=== PATIENT | female | born 1955 | race Two or more races ===

== ENCOUNTER 2021-01-23 11:36 | Inpatient (IN) | payer MEDICAID, OTHER ==
[~2021-01-23] VITALS: Ht 165.1 cm; Wt 79.2 kg
[2021-01-23 12:32] LABS: Basophils # (auto) 0.1 10 ^3/uL (0-0.2); Eosinophils # (auto) 0.1 10 ^3/uL (0-0.8); Mean Corpuscular Hemoglobin 24.9 pg (28.0-32.0); Monocytes # (auto) 0.3 10 ^3/uL (0-1.3); Neutrophils # (auto) 2.7 10 ^3/uL (1.6-8.6); White Blood Cell 4.1 10^3/uL (4.4-10.8)
[2021-01-23 12:34] LABS: Basophils % (auto) 1.3 % (0.0-2.0); Eosinophils % (auto) 2.2 % (0.0-7.0); Lymphocytes % (auto) 24.2 % (10.0-50.0); Mean Corpuscular Hgb Conc. 32.3 g/dL (32.0-36.0); Mean Corpuscular Volume 77.2 fL (80.0-100.0); Monocytes % (auto) 7.3 % (0.0-12.0); Nucleated Red Blood Cells % 0.1 %; Red Blood Cells 2.72 10^6/uL (4.0-5.20); Red Cell Distribution Width 15.9 % (11.8-14.3)
[2021-01-23 12:39] LABS: Hemoglobin 6.8 g/dL (12.2-16.2)
[2021-01-23 13:00] LABS: Albumin 3.3 g/dL (3.4-5.0); Calcium 8.6 mg/dL (8.5-10.1); Potassium 3.7 mmol/L (3.5-5.1)
[2021-01-23] MEDS ORDERED: PANTOPRAZOLE 40 MG/10 ML VIAL INJ IV ONE (13:00)
[2021-01-23 13:07] LABS: Urine Amorphous Crystal FEW /hpf (None Seen); Urine Bacteria FEW /hpf (None Seen); Urine Blood Negative /uL (Negative); Urine Mucus FEW (None Seen); Urine Specific Gravity 1.023 (1.001-1.035); Urine WBC 10 /hpf (0 - 5)
[2021-01-23 13:08] LABS: BUN/Creatinine Ratio 29.9
[2021-01-23 13:10] LABS: Bilirubin, Total 0.5 mg/dL (0.2-1.0); Total Protein 6.8 g/dL (6.4-8.2)
[2021-01-23] MEDS ORDERED: NITROGLYCERIN 0.4 MG SL TAB SL PRN (16:30)
[2021-01-23] MEDS ORDERED: HYDROcodone-ACET 5/325MG TAB PO PRN (16:30)
[2021-01-23] MEDS ORDERED: ACETAMINOPHEN 500 MG TAB PO PRN (16:30)
[2021-01-23] MEDS ORDERED: SODIUM CHLORIDE 0.9% 1,000 ML IV ONE (16:30)
[2021-01-23] MEDS ORDERED: ONDANSETRON HCL 4 MG/2 ML VIAL IV PRN (16:30)
[2021-01-23] MEDS ORDERED: MORPHINE SULF INJ 2 MG/ML SYRINGE 1ML IV PRN ×2 (16:30)
[2021-01-23 18:00] VITALS: BP 108/36
[2021-01-23 18:16] VITALS: BP 114/54
[2021-01-23 20:40] VITALS: BP 117/62
[2021-01-23] MEDS: PANTOPRAZOLE 40 MG/10 ML VIAL INJ IV SCH (21:41)
[2021-01-23 22:00] VITALS: BP 120/69
[2021-01-23 23:25] VITALS: BP 118/51
[2021-01-23 23:44] VITALS: BP 101/44
[2021-01-24 05:00] VITALS: BP 107/66
[2021-01-24 06:59] LABS: Basophils # (auto) 0 10 ^3/uL (0-0.2); Basophils % (auto) 1.4 % (0.0-2.0); Eosinophils # (auto) 0.1 10 ^3/uL (0-0.8); Monocytes # (auto) 0.3 10 ^3/uL (0-1.3); Neutrophils # (auto) 1.6 10 ^3/uL (1.6-8.6)
[2021-01-24 07:01] LABS: Eosinophils % (auto) 2.4 % (0.0-7.0); Hematocrit 25.8 % (36.0-46.0); Hemoglobin 8.9 g/dL (12.2-16.2); Lymphocytes # (auto) 0.7 10 ^3/uL (0.4-5.4); Lymphocytes % (auto) 27.7 % (10.0-50.0); Mean Corpuscular Hgb Conc. 34.3 g/dL (32.0-36.0); Mean Corpuscular Volume 78.9 fL (80.0-100.0); Monocytes % (auto) 9.8 % (0.0-12.0); Neutrophils % (auto) 58.7 % (37.0-80.0); Red Blood Cells 3.27 10^6/uL (4.0-5.20); Red Cell Distribution Width 17.2 % (11.8-14.3); White Blood Cell 2.7 10^3/uL (4.4-10.8)
[2021-01-24 07:15] LABS: BUN/Creatinine Ratio 21.2; Calcium 8.3 mg/dL (8.5-10.1); Potassium 3.6 mmol/L (3.5-5.1)
[2021-01-24 07:31] LABS: % Iron Saturation 7.7 % (15-50)
[2021-01-24 07:35] VITALS: BP 116/60
[2021-01-24] MEDS: cefTRIAXone 1GM/50ML D5W 50 ML IV SCH (08:45)
[2021-01-24 09:00] VITALS: BP 116/60
[2021-01-24] MEDS: PANTOPRAZOLE 40 MG/10 ML VIAL INJ IV SCH (09:50)
[2021-01-24] MEDS ORDERED: LIDOCAINE VISCOUS 2% 15ML UD ONE (10:11)
[2021-01-24] MEDS ORDERED: diphenhdrAMINE HCL 50 MG/1 ML VL ONE (10:11)
[2021-01-24] MEDS: SODIUM CHLORIDE 0.9% 1,000 ML IV SCH (12:50)
[2021-01-24 13:00] VITALS: BP 126/69
[2021-01-24 17:00] VITALS: BP 120/70
[2021-01-24] MEDS: MIDAZOLAM HCL 5 MG/ML-1ML VIAL ONE ×2 (17:34→17:37)
[2021-01-24] MEDS: fentaNYL CITRATE 100 MCG/2 ML VL ONE ×2 (17:34→17:37)
[2021-01-24 22:00] VITALS: BP 114/59
[2021-01-25] MEDS: SODIUM CHLORIDE 0.9% 1,000 ML IV SCH ×2 (01:05→14:25)
[2021-01-25 05:00] VITALS: BP 108/58
[2021-01-25 05:59] LABS: Basophils # (auto) 0 10 ^3/uL (0-0.2); Basophils % (auto) 0.9 % (0.0-2.0); Eosinophils # (auto) 0.1 10 ^3/uL (0-0.8); Eosinophils % (auto) 2.3 % (0.0-7.0); Hematocrit 26.8 % (36.0-46.0); Lymphocytes # (auto) 0.6 10 ^3/uL (0.4-5.4); Lymphocytes % (auto) 21.8 % (10.0-50.0); Mean Corpuscular Hemoglobin 26.7 pg (28.0-32.0); Mean Corpuscular Hgb Conc. 33.6 g/dL (32.0-36.0); Mean Corpuscular Volume 79.4 fL (80.0-100.0); Monocytes # (auto) 0.2 10 ^3/uL (0-1.3); Monocytes % (auto) 8.1 % (0.0-12.0); Neutrophils # (auto) 1.9 10 ^3/uL (1.6-8.6); Neutrophils % (auto) 66.9 % (37.0-80.0); Nucleated Red Blood Cells % 0.2 %; Red Blood Cells 3.38 10^6/uL (4.0-5.20); Red Cell Distribution Width 17.5 % (11.8-14.3); White Blood Cell 2.8 10^3/uL (4.4-10.8)
[2021-01-25 06:13] LABS: INR 1.05 (0.9-1.15); Partial Thromboplastin Time 21.4 sec (23.6-33.0)
[2021-01-25 06:20] LABS: Potassium 3.8 mmol/L (3.5-5.1)
[2021-01-25 06:26] LABS: BUN/Creatinine Ratio 18.8
[2021-01-25 06:29] LABS: Bilirubin, Total 0.8 mg/dL (0.2-1.0); Total Protein 6.1 g/dL (6.4-8.2)
[2021-01-25 08:00] VITALS: BP 138/90
[2021-01-25 08:04] LABS: Hepatitis B Surface Antibody Negative
[2021-01-25 08:40] LABS: Hepatitis A Total Antibody Positive
[2021-01-25 09:00] VITALS: BP 138/90
[2021-01-25] MEDS: cefTRIAXone 1GM/50ML D5W 50 ML IV SCH (09:55)
[2021-01-25] MEDS: PANTOPRAZOLE 40 MG/10 ML VIAL INJ IV SCH ×2 (09:55)
[2021-01-25 12:47] LABS: Hepatitis B Core Total AB Negative; Hepatitis B Surface Antigen Negative (Negative)
[2021-01-25 12:48] LABS: Hepatitis C Antibody Negative (Negative)
[2021-01-25 13:00] VITALS: BP 122/65
[2021-01-25 17:00] VITALS: BP 127/68
[2021-01-25] MEDS ORDERED: SUCRALFATE 1 GM/10 ML ORAL SUSP GT SCH (17:00)
[2021-01-25 17:50] VITALS: BP 127/68
== END 2021-01-25 18:40 | disposition home or self-care (01) | DRG 241 ==
LOC: ER 11:36 → TELE 16:27 → TELE-CENTR 18:56
PROVIDERS: ADMIT Nurse Practitioner Acute Care; ATTEND Nurse Practitioner Acute Care
PROC: 30230N1 Transfusion of Nonautologous Red Blood Cells into Peripheral Vein, Open Approach (ICD-10-PCS; principal; 2021-01-23)
PROC: 0DB98ZX Excision of Duodenum, Via Natural or Artificial Opening Endoscopic, Diagnostic (ICD-10-PCS; 2021-01-24)
PROC: 0DB68ZX Excision of Stomach, Via Natural or Artificial Opening Endoscopic, Diagnostic (ICD-10-PCS; 2021-01-24)
DX: K27.4 Chronic or unspecified peptic ulcer, site unspecified, with hemorrhage (principal); D50.9 Iron deficiency anemia, unspecified; N39.0 Urinary tract infection, site not specified; K29.71 Gastritis, unspecified, with bleeding; K29.91 Gastroduodenitis, unspecified, with bleeding; K44.9 Diaphragmatic hernia without obstruction or gangrene; Z20.822 Contact with and (suspected) exposure to COVID-19
CPT/HCPCS: 36415; 36430; 43239; 74176; 76705; 80048; 80053; 81001; 82270; 82607; 82728; 83540; 83550; 84443; 85025; 85610; 85730; 86038; 86704; 86706; 86708; 86803; 86850; 86900; 86901; 86920; 87086; 87340; 87426; 93005; 96374; 96375; C9113; G0378; J0696; J2250

== ENCOUNTER 2024-06-06 14:07 | Inpatient (IN) | payer MEDICAID ==
[~2024-06-06] VITALS: Ht 157.5 cm; Wt 70.8 kg
[2024-06-06 14:57] LABS: Basophils # (auto) 0 10 ^3/uL (0-0.2); Basophils % (auto) 1.3 % (0.0-2.0); Eosinophils # (auto) 0.1 10 ^3/uL (0-0.8); Eosinophils % (auto) 3.8 % (0.0-7.0); Hematocrit 24.6 % (36.0-46.0); Hemoglobin 7.6 g/dL (12.2-16.2); Lymphocytes # (auto) 0.4 10 ^3/uL (0.4-5.4); Lymphocytes % (auto) 12.9 % (10.0-50.0); Mean Corpuscular Hemoglobin 36.8 pg (28.0-32.0); Mean Corpuscular Hgb Conc. 30.8 g/dL (32.0-36.0); Mean Corpuscular Volume 119.3 fL (80.0-100.0); Monocytes # (auto) 0.3 10 ^3/uL (0-1.3); Monocytes % (auto) 8.9 % (0.0-12.0); Neutrophils # (auto) 2.4 10 ^3/uL (1.6-8.6); Neutrophils % (auto) 73.1 % (37.0-80.0); Nucleated Red Blood Cells % 0.5 %; Platelet Count (auto) 142 10^3/uL (140-450); Red Blood Cells 2.06 10^6/uL (4.0-5.20); Red Cell Distribution Width 16.6 % (11.8-14.3); White Blood Cell 3.3 10^3/uL (4.4-10.8)
[2024-06-06 15:21] LABS: Alanine Aminotransferase 33 U/L (7-40); Albumin 3.9 g/dL (3.2-4.8); Anion Gap 10 (5-15); BUN/Creatinine Ratio 12.7 (10.0-20.0); Blood Urea Nitrogen 15 mg/dL (9-23); Calcium 9.5 mg/dL (8.7-10.4); Potassium 4.3 mmol/L (3.5-5.1); Sodium 139 mmol/L (136-145); Total Protein 6.4 g/dL (5.7-8.2)
[2024-06-06 15:23] LABS: Alkaline Phosphatase 231 U/L (46-116); Aspartate Aminotransferase 69 U/L (13-40); Bilirubin, Total 4.8 mg/dL (0.2-1.0); Carbon Dioxide 19 mmol/L (20-31); Chloride 110 mmol/L (98-107); Glucose 128 mg/dL (74-106)
--- NOTE | 2024-06-06 16:28 | ED.PDOC ---
GI ASSESSMENT HPI Comments This 70-year-old female with a past medical history significant for multiple esophageal variceal bleed requiring transplant presents to the emergency room secondary to a several day history of increasing weakness and shortness of breath. The patient appears pale and complains of feeling cold. She endorses bloody stool and hematuria. She has no other complaints at his headaches and vision changes, chest pain, flank pain, abdominal pain, nausea, vomiting or diarrhea. 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 Family History Family History: Reviewed,noncontributory to illness Social History Smoker: Non-Smoker Alcohol: Denies ETOH Use Drugs: Denies Drug Use Lives In: Home Constitutional: reports: chills, fatigue, malaise, weakness; denies: fever, sweats EENTM: denies: blurred vision, double vision, ear bleeding, ear discharge, ear drainage, ear pain, ear ringing, eye pain, eye redness, hearing loss, mouth pain, mouth swelling, nasal discharge, nose bleeding, nose congestion, nose pain, photophobia, tearing, throat pain, throat swelling, voice changes, others Respiratory: denies: cough, hemoptysis, orthopnea, SOB at rest, shortness of breath, SOB with excertion, stridor, wheezing, others Cardiovascular: reports: dizzy spells, Dyspnea on exertion, lightheadedness, palpitations; denies: chest pain, diaphoresis, edema, irregular heart beat, left arm pain, PND, syncope, others Gastrointestinal: reports: blood streaked bowels, melena, rectal bleeding; denies: abdomen distended, abdominal pain, constipated, diarrhea, dysphagia, difficulty swallowing, hematemesis, nausea, poor appetite, poor fluid intake, rectal pain, vomiting, others Genitourinary: reports: hematuria; denies: abnormal vagina bleeding, burning, dyspareunia, dysuria, flank pain, frequency, incontinence, pain, , vagina discharge, urgency, others Neurological: reports: dizziness, weakness; denies: fainting, numbness, paresthesia, pre-existing deficit, seizure, tingling, tremors Musculoskeletal: reports: gout, joint pain, joint swelling, muscle pain, muscle stiffness Integumetry: reports: bruises, rash Hematologic/Lymphatic: reports: anemia Endocrine: denies: excessive hunger, excessive sweating, excessive thirst, excessive urination, flushing, intolerance to cold, intolerance to heat, unexplained weight gain, unexplained weight loss, others Psychiatric: denies: anxiety, bipolar disorder, depression, hopeless, panic disorder, schizophrenia, sleepless, suicidal, others Physical Exam General Appearance: Mild Distress HEENT: Normal ENT Inspection, Pharynx Normal, TMs Normal Neck: Full Range of Motion, Non-Tender, Normal, Normal Inspection Respiratory: Chest Non-Tender, Lungs Clear, No Accessory Muscle Use, No Respiratory Distress, Normal Breath Sounds Cardiovascular: No Edema, No JVD, No Murmur, No Gallop, Normal Peripheral Pu lses, Regular Rate/Rhythm Breast Exam: Deferred Gastrointestinal: No Organomegaly, Non Tender, No Pulsatile Mass, Normal Bowel Sounds, Soft Genitalia: Deferred Pelvic: Deferred Rectal: Deferred Extremities: No calf tenderness, Normal capillary refill, Normal inspection, Normal range of motion, Non-tender, No pedal edema Neurologic: Alert, 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 Was a procedure done?: No GI differential Dx Differential Diagnosis: Dysmenorrhea, Esophageal rupture, Esophagitis, Gastroenteritis, GI hemorrhage, Ischemic Bowel, Pancreatitis, Trauma intraabdominal, UTI, Drug toxicity, Ischemic Bowel, Esophageal Varicies X-Ray, Labs, Meds, VS Vital Signs Date Time Temp Pulse Resp B/P (MAP) Pulse Ox O2 Delivery O2 Flow Rate FiO2 06/06/24 14:22 98.0 71 18 134/83 (100) 94 Lab Test 06/06/24 14:43 Range/Units White Blood Count 3.3 L 4.4-10.8 10^3/uL Red Blood Count 2.06 L 4.0-5.20 10^6/uL Hemoglobin 7.6 L 12.2-16.2 g/dL Hematocrit 24.6 L 36.0-46.0 % Mean Corpuscular Volume 119.3 H 80.0-100.0 fL Mean Corpuscular Hemoglobin 36.8 H 28.0-32.0 pg Mean Corpuscular Hemoglobin Concent 30.8 L 32.0-36.0 g/dL Red Cell Distribution Width 16.6 H 11.8-14.3 % Platelet Count 142 140-450 10^3/uL Mean Platelet Volume 8.3 6.9-10.8 fL Neutrophils (%) (Auto) 73.1 37.0-80.0 % Lymphocytes (%) (Auto) 12.9 10.0-50.0 % Monocytes (%) (Auto) 8.9 0.0-12.0 % Eosinophils (%) (Auto) 3.8 0.0-7.0 % Basophils (%) (Auto) 1.3 0.0-2.0 % Neutrophils # (Auto) 2.4 1.6-8.6 10 ^3/uL Lymphocytes # (Auto) 0.4 0.4-5.4 10 ^3/uL Monocytes # (Auto) 0.3 0-1.3 10 ^3/uL Eosinophils # (Auto) 0.1 0-0.8 10 ^3/uL Basophils # (Auto) 0 0-0.2 10 ^3/uL Nucleated Red Blood Cells 0.5 % Sodium Level 139 136-145 mmol/L Potassium Level 4.3 3.5-5.1 mmol/L Chloride Level 110 H 98-107 mmol/L Carbon Dioxide Level 19 L 20-31 mmol/L Anion Gap 10 5-15 Blood Urea Nitrogen 15 9-23 mg/dL Creatinine 1.18 H 0.550-1.02 mg/dL Glomerular Filtration Rate Calc 51 >90 mL/min BUN/Creatinine Ratio 12.7 10.0-20.0 Serum Glucose 128 H 74-106 mg/dL Calcium Level 9.5 8.7-10.4 mg/dL Total Bilirubin 4.8 H 0.2-1.0 mg/dL Aspartate Amino Transferase (AST) 69 H 13-40 U/L Alanine Aminotransferase (ALT) 33 7-40 U/L Alkaline Phosphatase 231 H 46-116 U/L Total Protein 6.4 5.7-8.2 g/dL Albumin 3.9 3.2-4.8 g/dL X-Ray, Labs, Meds, VS Comment This 69-year-old female with a past medical history significant for esophageal varices GI bleed presents secondary to feeling weak. Here, she was noted to be pale and have a hemoglobin 7.6. She was typed and crossed for 2 units. The patient's daughter states she has a history of fatty liver but does not have a history of cirrhosis. Here, she noted to have an elevated AST and bilirubin 4.8. CT scan of the abdomen pelvis was ordered. Secondary to the patient's symptomatic anemia in hepatitis, she will be admitted for further workup breann abreu of her GI bleed. Time of 1ST Reevaluation: 16:27 Reevaluation 1ST: Unchanged Patient Education/Counseling: Diagnosis, Treatment Family Education/Counseling: Diagnosis, Treatment Departure 1 Departure Impression: Primary Impression: Symptomatic anemia Additional Impressions: Hepatitis Transaminitis Disposition: ADMITTED INPATIENT Admit to: Tele Condition: Serious e-Prescriptions No Active Prescriptions or Reported Meds Critical Care Note Critical Care Time?: Yes (35 min-critical care time only) Stability Stability form required: No Heart Score Heart Score: Heart Score Response (Comments) Value History N/A 0 EKG N/A 0 Age N/A 0 Risk Factors N/A 0 Troponin N/A 0 Total 0 ISAIAH BOB MD Jun 06, 2024 16:28
--- NOTE | 2024-06-06 16:43 | ED.PDOC ---
History of Present Illness HPI Comments 68 y/o, with a Hx of anemia w/blood transfusions and fatty liver disease, presents with relative for c/o blood-streaked bowels, hematuria, abdominal pain that radiates towards her back, and chills for the past 2x weeks, today. Per relative, patient endorses on being no longer able to tolerate symptoms, with additional onset of shortness of breath and fatigue, today. Patient reports on feeling similar to when she was anemic in the past. Patient denies having any chest pain, nausea, vomiting, fever, or other associated symptoms. 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 Family History Family History: Reviewed,noncontributory to illness Social History Smoker: Non-Smoker Alcohol: Denies ETOH Use Drugs: Denies Drug Use Lives In: Home Constitutional: reports: chills, fatigue Respiratory: reports: shortness of breath Gastrointestinal: reports: abdominal pain, blood streaked bowels Genitourinary: reports: hematuria Musculoskeletal: reports: back pain All Other Systems: Reviewed and Negative (negative unless otherwise stated above or in HPI) Physical Exam General Appearance: No Apparent Distress, Normal HEENT: Normal ENT Inspection, Pharynx Normal, TMs Normal Neck: Full Range of Motion, Non-Tender, Normal, Normal Inspection Respiratory: Chest Non-Tender, Lungs Clear, No Accessory Muscle Use, No Respiratory Distress, Normal Breath Sounds Cardiovascular: No Edema, No JVD, No Murmur, No Gallop, Normal Peripheral Pulses, Regular Rate/Rhythm Breast Exam: Deferred Gastrointestinal: No Organomegaly, Non Tender, No Pulsatile Mass, Normal Bowel Sounds, Soft Genitalia: Deferred Pelvic: Deferred Rectal: Deferred Extremities: No calf tenderness, Normal capillary refill, Normal inspection, Normal range of motion, Non-tender, No pedal edema Musculoskeletal : Apperance: Normal 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 Was a procedure done?: No Differential Dx Considerations may include: anemia, UTI, viral syndrome, gastritis, gastroenteritis, upper GI bleed, lower GI bleed X-Ray, Labs, Meds, VS Vital Signs Date Time Temp Pulse Resp B/P (MAP) Pulse Ox O2 Delivery O2 Flow Rate FiO2 06/06/24 14:22 98.0 71 18 134/83 (100) 94 Lab Test 06/06/24 16:19 06/06/24 14:43 Range/Units Prothrombin Time Pending Prothrombin Time INR Pending White Blood Count 3.3 L 4.4-10.8 10^3/uL Red Blood Count 2.06 L 4.0-5.20 10^6/uL Hemoglobin 7.6 L 12.2-16.2 g/dL Hematocrit 24.6 L 36.0-46.0 % Mean Corpuscular Volume 119.3 H 80.0-100.0 fL Mean Corpuscular Hemoglobin 36.8 H 28.0-32.0 pg Mean Corpuscular Hemoglobin Concent 30.8 L 32.0-36.0 g/dL Red Cell Distribution Width 16.6 H 11.8-14.3 % Platelet Count 142 140-450 10^3/uL Mean Platelet Volume 8.3 6.9-10.8 fL Neutrophils (%) (Auto) 73.1 37.0-80.0 % Lymphocytes (%) (Auto) 12.9 10.0-50.0 % Monocytes (%) (Auto) 8.9 0.0-12.0 % Eosinophils (%) (Auto) 3.8 0.0-7.0 % Basophils (%) (Auto) 1.3 0.0-2.0 % Neutrophils # (Auto) 2.4 1.6-8.6 10 ^3/uL Lymphocytes # (Auto) 0.4 0.4-5.4 10 ^3/uL Monocytes # (Auto) 0.3 0-1.3 10 ^3/uL Eosinophils # (Auto) 0.1 0-0.8 10 ^3/uL Basophils # (Auto) 0 0-0.2 10 ^3/uL Nucleated Red Blood Cells 0.5 % Sodium Level 139 136-145 mmol/L Potassium Level 4.3 3.5-5.1 mmol/L Chloride Level 110 H 98-107 mmol/L Carbon Dioxide Level 19 L 20-31 mmol/L Anion Gap 10 5-15 Blood Urea Nitrogen 15 9-23 mg/dL Creatinine 1.18 H 0.550-1.02 mg/dL Glomerular Filtration Rate Calc 51 >90 mL/min BUN/Creatinine Ratio 12.7 10.0-20.0 Serum Glucose 128 H 74-106 mg/dL Calcium Level 9.5 8.7-10.4 mg/dL Total Bilirubin 4.8 H 0.2-1.0 mg/dL Aspartate Amino Transferase (AST) 69 H 13-40 U/L Alanine Aminotransferase (ALT) 33 7-40 U/L Alkaline Phosphatase 231 H 46-116 U/L Total Protein 6.4 5.7-8.2 g/dL Albumin 3.9 3.2-4.8 g/dL Time of 1ST Reevaluation: 16:27 Reevaluation 1ST: Unchanged Patient Education/Counseling: Diagnosis, Treatment Family Education/Counseling: No Family Present Departure 1 Departure Time of Disposition: 16:27 e-Prescriptions No Active Prescriptions or Reported Meds Critical Care Note Critical Care Time?: No Stability Stability form required: No Heart Score Heart Score: Heart Score Response (Comments) Value History N/A 0 EKG N/A 0 Age N/A 0 Risk Factors N/A 0 Troponin N/A 0 Total 0 I personally scribed for ISAIAH BOB MD ([email or web address]) on 06/06/24 at 16:43. Electronically submitted by [employer] ([email or web address]). I personally scribed for ISAIAH BOB MD ([email or web address]) on 06/06/24 at 17:05. Electronically submitted by [employer] ([email or web address]). ISAIAH BOB MD Jun 06, 2024 16:43
[2024-06-06 17:09] LABS: INR 1.03 (0.9-1.15); Prothrombin Time 10.9 sec (9.3-11.8)
--- NOTE | 2024-06-06 21:09 | DVHHPRES ---
History of Present Illness Resident Creating Document: KAYDEN MALDONADO RESIDENT History of Present Illness This is a 68-year-old female with past medical history of liver cirrhosis, status post banding, anemia, scleroderma presented to the ED with a chief complaint of generalized weakness, intermittent blood in stool and urine and also yellowish coloration of the skin and sclera for last 1 month prior to this admission. To the daughter the patient was complaining of difficulty in swallowing, generalized weakness about to pass out and was not 80 anything for last 2 days. The patient also complaining of intermittent blood in his stool and urine, diffuse abdominal pain for last 1 month. She was diagnosed with liver cirrhosis 2 years ago due to fatty liver and last banding for variceal bleeding was done 10 months ago. She had few episodes of blood transfusion for symptomatic anemia and last transfusion was 1 year ago she never had any paracentesis before. The patient denies fever, chills, chest pain, dizziness, diaphoresis, nausea, vomiting, constipation, sick contact or any recent traveling. Past Medical History Liver cirrhosis, anemia, scleroderma Past Surgical History Appendectomy, variceal banding Family History Elder brother has liver cirrhosis. Past Social History Lives with family Nonsmoker, nonalcoholic and never tried any drugs Review of Systems Constitutional: Yes: Weakness; No: Fever, Chills, Sweats, Malaise, Other Eyes: No: Pain, Vision change, Conjunctivae inflammation, Eyelid inflammation, Other, Redness ENT: No: Ear pain, Ear discharge, Nose pain, Nose discharge, Nose congestion, Mouth pain, Mouth swelling, Throat pain, Throat swelling, Other Respiratory: No: Cough, Dry, Shortness of breath, SOB with excertion, Wheezing, Hemoptysis, Pleuritic Pain, Sputum, Wheezing, Other Cardiovascular: No: Chest Pain, Palpitations, Orthopnea, Paroxysmal Noc. Dyspnea, Edema, Lt Headedness, Other Gastrointestinal: Abdominal Pain, Melena; No: Nausea, Vomiting, Diarrhea, Constipation, Hematochezia, Other Genitourinary: No Dysuria, No Frequency, No Incontinence; Hematuria; No Retention, No Other Musculoskeletal: No: other, neck pain, shoulder pain, arm pain, back pain, hand pain, leg pain, foot pain Skin: No: Rash, Lesions, Jaundice, Bruising, Other Neurological: No: Weakness, Numbness, Incoordination, Change in speech, Confusion, Seizures, Other Allergies: Coded Allergies: NO KNOWN ALLERGIES (Unverified , 01/23/21) Exam Vital Signs Vital Signs Date Time Temp Pulse Resp B/P (MAP) Pulse Ox O2 Delivery O2 Flow Rate FiO2 06/06/24 14:22 98.0 71 18 134/83 (100) 94 Exam Physical examination: General Appearance: Alert, Oriented X3, Cooperative, mild distress HEENT: Atraumatic, PERRLA, EOMI, Mucous membrane pale, Jaundice present. Respiratory: Clear to auscultation, Normal air movement Cardiovascular: Regular rate, Normal S1, Normal S2, No murmurs, no chest wall tenderness Abdominal: Abdomen is distended, flanks are full, Normal bowel sounds, Soft, No tenderness. Extremities: Bilateral pedal edema +, No clubbing, No cyanosis, Normal pulses, No tenderness/swelling Skin: No rashes, No breakdown, No significant lesion Neuro: Normal gait, Normal speech, Strength at 5/5 X4 ext, Normal tone, Sensation intact, grossly intact cranial nerves Psych/Mental Status: Mental status NL, Mood NL Labs/Xrays Labs Test 06/06/24 16:19 06/06/24 14:43 Range/Units Prothrombin Time 10.9 9.3-11.8 sec Prothrombin Time INR 1.03 0.9-1.15 White Blood Count 3.3 L 4.4-10.8 10^3/uL Red Blood Count 2.06 L 4.0-5.20 10^6/uL Hemoglobin 7.6 L 12.2-16.2 g/dL Hematocrit 24.6 L 36.0-46.0 % Mean Corpuscular Volume 119.3 H 80.0-100.0 fL Mean Corpuscular Hemoglobin 36.8 H 28.0-32.0 pg Mean Corpuscular Hemoglobin Concent 30.8 L 32.0-36.0 g/dL Red Cell Distribution Width 16.6 H 11.8-14.3 % Platelet Count 142 140-450 10^3/uL Mean Platelet Volume 8.3 6.9-10.8 fL Neutrophils (%) (Auto) 73.1 37.0-80.0 % Lymphocytes (%) (Auto) 12.9 10.0-50.0 % Monocytes (%) (Auto) 8.9 0.0-12.0 % Eosinophils (%) (Auto) 3.8 0.0-7.0 % Basophils (%) (Auto) 1.3 0.0-2.0 % Neutrophils # (Auto) 2.4 1.6-8.6 10 ^3/uL Lymphocytes # (Auto) 0.4 0.4-5.4 10 ^3/uL Monocytes # (Auto) 0.3 0-1.3 10 ^3/uL Eosinophils # (Auto) 0.1 0-0.8 10 ^3/uL Basophils # (Auto) 0 0-0.2 10 ^3/uL Nucleated Red Blood Cells 0.5 % Sodium Level 139 136-145 mmol/L Potassium Level 4.3 3.5-5.1 mmol/L Chloride Level 110 H 98-107 mmol/L Carbon Dioxide Level 19 L 20-31 mmol/L Anion Gap 10 5-15 Blood Urea Nitrogen 15 9-23 mg/dL Creatinine 1.18 H 0.550-1.02 mg/dL Glomerular Filtration Rate Calc 51 >90 mL/min BUN/Creatinine Ratio 12.7 10.0-20.0 Serum Glucose 128 H 74-106 mg/dL Calcium Level 9.5 8.7-10.4 mg/dL Total Bilirubin 4.8 H 0.2-1.0 mg/dL Aspartate Amino Transferase (AST) 69 H 13-40 U/L Alanine Aminotransferase (ALT) 33 7-40 U/L Alkaline Phosphatase 231 H 46-116 U/L Total Protein 6.4 5.7-8.2 g/dL Albumin 3.9 3.2-4.8 g/dL Assessment/Plan Assessment/Plan Assessment and plan: # Acute GI bleeding - History of liver cirrhosis with status post banding - Admitted the patient in telemetry - NPO - IV Protonix 80 mg once followed by IV Protonix 40 mg b.i.d. - Ordered FOBT, iron panel, reticulocyte count, haptoglobin, B12 and folic acid - Consulted GI - Monitor H/H # History of liver cirrhosis, rule out spontaneous bacterial peritonitis - Ordered U/S whole abdomen - IV ceftriaxone 1 g daily - [id number] mg p.o. daily, Lasix 40 mg and spironolactone 100 mg daily # History of autoimmune hepatitis - GI evaluated the patient and recommended comprehensive NADIA panel, AFP and ammonia # Hyperbilirubinemia with transaminitis - Ordered hepatitis panel - Coagulation studies normal Goal of care discussed with the patient for more than 20 minutes full code Plan of treatment discussed with Dr. Joe Plan discussed with: Patient, Other My Orders Orders - KAYDEN MADLONADO Procedure Category Date Status Time Admit ADMIT 06/06/24 Verified 20:55 Stat Ekg For Chest BANNER 06/06/24 Verified Pain 20:55 Notify Md Of Changes BANNER 06/06/24 Verified From Base 20:55 Attending Pathologist For BANNER 06/06/24 Verified 24 Hours 20:55 Emergency Dysrhythmia BANNER 06/06/24 Verified Protocol 20:55 Rhythm Strips Once BANNER 06/06/24 Verified Every Shift 20:55 Abdomen Complete US 06/06/24 Verified Sonogram 20:55 Chest Xray 1 View XY 06/06/24 Verified 20:55 Drug Screen LAB 06/06/24 Verified 20:55 Thyroid Stimulating LAB 06/06/24 Verified Hormone 20:55 Pantoprazole PHA 06/06/24 Verified (Protonix) 21:00 Pantoprazole PHA 06/06/24 Verified (Protonix) 22:00 Ceftriaxone Ivpb PHA 06/07/24 Verified Rocephin 10:00 * Gi Dvh Tobacco Sieve Operator CONS 06/06/24 Verified 20:55 Comprehensive LAB 06/06/24 Verified Hepatitis Panel 20:55 Date of Service: Jun 06, 2024 Billing Provider: REY JOE MD Common Visit Codes: 64859-CPXLHMD INP/OBS CARE (HIGH) Secondary Visit Codes: [id number] CARE PLAN 30 MINUTES KAYDEN MALDONADO RESIDENT Jun 06, 2024 21:09 REY JOE MD Jun 07, 2024 09:58
--- NOTE | 2024-06-06 21:32 | DVH ---
CHEST RADIOGRAPH Indication: chest pain Technique: Single frontal view of the chest was obtained COMPARISON: None FINDINGS: Lines and Tubes: None Lungs: Clear Pleura: No effusion. No pneumothorax. Cardiomediastinal contours: Unremarkable Bones: Unremarkable IMPRESSION: 1. No acute disease.
[2024-06-06] MEDS ORDERED: SODIUM CHLORIDE 0.9% 1,000 ML IV SCH (22:00)
--- NOTE | 2024-06-06 22:01 | DVH ---
INDICATION: Liver cirrhosis TECHNIQUE: Multiple real-time sonographic images of the abdomen were obtained. COMPARISON: None FINDINGS: Cirrhotic liver with coarse contour and heterogeneous echogenicity. The liver measures 10.8 cm. No intrahepatic biliary ductal dilatation is noted. Status post cholecystectomy. The common duct is not clearly visualized Small volume ascites is seen. The right kidney measures 9.0 cm. No hydronephrosis. The left kidney measures 9.2 cm. No hydronephros is. Simple cyst in the left kidney measures up to 1.9 cm. The spleen measures 13.8 cm, within normal limits. The echogenicity is within normal limits. The aorta is not visualized. The pancreas is not well visualized due to obscuration from bowel gas. The visualized portions of the IVC and aorta are grossly unremarkable. IMPRESSION: 1. Cirrhotic liver with small volume ascites seen throughout the abdomen.
[2024-06-06 23:55] VITALS: PULSE 62; RESP 16; O2SAT 99
--- NOTE | 2024-06-07 00:14 | DVHINCON2 ---
Date of service: Jun 06, [address] Lewis Reason for Consultation Liver cirrhosis and anemia History of Present Illness This is a 68-year-old female with past medical history of liver cirrhosis, status post banding, anemia, scleroderma presented to the ED with a chief complaint of generalized weakness, intermittent blood in stool and urine and also yellowish coloration of the skin and sclera for last 1 month prior to this admission. The patient was complaining of difficulty in swallowing, generalized weakness about to pass out and was not eating anything for last 2 days. The patient also complaining of intermittent blood in his stool and urine, diffuse abdominal pain for last 1 month. She was diagnosed with liver cirrhosis 3 years ago due to fatty liver and last banding for variceal bleeding was done 10 months ago. I had put endoscopy for her in 2020 for melena and coffee-ground emesis. I had diagnosed her with trace esophageal varices at that time and suspected liver disease. She had few episodes of blood transfusion for symptomatic anemia and last transfusion was 1 year ago. She never had any paracentesis before. The patient denies fever, chills, chest pain, dizziness, diaphoresis, nausea, vomiting, constipation, sick contact or any recent traveling. Past Medical History Past Medical History Liver cirrhosis, anemia, scleroderma Past Surgical History Past Surgical History Appendectomy, endoscopic variceal banding Family History: Patient reports no known family medical history. Allergies: Coded Allergies: NO KNOWN ALLERGIES (Unverified , 01/23/21) Home Meds No Active Prescriptions or Reported Meds Current Medications Current Medications Medications (Trade) Dose Ordered Sig/Chang Route PRN Reason Start Time Stop Time Status Last Admin Pantoprazole Sodium (Protonix) 40 mg BID IV 06/07/24 10:00 Ceftriaxone Sodium 50 ml @ 100 mls/hr DAILY IV 06/06/24 22:00 Sodium Chloride 1,000 ml @ 100 mls/hr Q10H IV 06/06/24 22:00 06/06/24 22:42 DC Propranolol HCl (Inderal Tablet) 10 mg DAILY PO 06/07/24 10:00 Furosemide (Lasix Tablet) 40 mg DAILY PO 06/07/24 10:00 Spironolactone (Aldactone) 100 mg DAILY PO 06/07/24 10:00 Review of Systems Operative Report DATE OF OPERATION: 01/24/21 PROCEDURE: Upper Endoscopy with biopsy PREOPERATIVE INDICATION: The patient is a 65 -year-old female undergoing endoscopy for anemia, history of melena and coffee-ground emesis POSTOPERATIVE DIAGNOSES: 1. Patient had mild to moderate gastroduodenitis with superficial erosions but no active bleeding 2. 2 cm sliding-type hiatal hernia with slightly irregular squamocolumnar junction minimal grade erosive esophagitis 3. Trace prominence of the distal esophageal veins; recommend work-up for possible underlying liver disease 4. Otherwise normal examination up to the second and third part of the duodenum PROCEDURE PERFORMED BY: Ricky Arevalo Vital Signs Vital Signs Date Time Temp Pulse Resp B/P (MAP) Pulse Ox O2 Delivery O2 Flow Rate FiO2 06/06/24 14:22 98.0 71 18 134/83 (100) 94 Physical Exam General Appearance: Alert, Oriented X3, Cooperative, weak HEENT: PERRLA, EOMI, mild pallor and scleral icterus Lungs clear; CVS S1S2 rrr Abdominal: Abdomen is soft distended, flanks are full, Normal bowel sounds, Soft, No tenderness. Extremities: Bilateral pedal edema +, No clubbing, No cyanosis, Normal pulses, No tenderness/swelling Neuro: Alert oriented x3 with no focal deficit Labs/Diagnostic Data Labs Test 06/06/24 22:38 06/06/24 16:19 06/06/24 14:43 Range/Units Prothrombin Time 10.9 9.3-11.8 sec Prothrombin Time INR 1.03 0.9-1.15 White Blood Count 3.3 L 4.4-10.8 10^3/uL Red Blood Count 2.06 L 4.0-5.20 10^6/uL Hemoglobin 7.6 L 12.2-16.2 g/dL Hematocrit 24.6 L 36.0-46.0 % Mean Corpuscular Volume 119.3 H 80.0-100.0 fL Mean Corpuscular Hemoglobin 36.8 H 28.0-32.0 pg Mean Corpuscular Hemoglobin Concent 30.8 L 32.0-36.0 g/dL Red Cell Distribution Width 16.6 H 11.8-14.3 % Platelet Count 142 140-450 10^3/uL Mean Platelet Volume 8.3 6.9-10.8 fL Neutrophils (%) (Auto) 73.1 37.0-80.0 % Lymphocytes (%) (Auto) 12.9 10.0-50.0 % Monocytes (%) (Auto) 8.9 0.0-12.0 % Eosinophils (%) (Auto) 3.8 0.0-7.0 % Basophils (%) (Auto) 1.3 0.0-2.0 % Neutrophils # (Auto) 2.4 1.6-8.6 10 ^3/uL Lymphocytes # (Auto) 0.4 0.4-5.4 10 ^3/uL Monocytes # (Auto) 0.3 0-1.3 10 ^3/uL Eosinophils # (Auto) 0.1 0-0.8 10 ^3/uL Basophils # (Auto) 0 0-0.2 10 ^3/uL Nucleated Red Blood Cells 0.5 % Sodium Level 139 136-145 mmol/L Potassium Level 4.3 3.5-5.1 mmol/L Chloride Level 110 H 98-107 mmol/L Carbon Dioxide Level 19 L 20-31 mmol/L Anion Gap 10 5-15 Blood Urea Nitrogen 15 9-23 mg/dL Creatinine 1.18 H 0.550-1.02 mg/dL Glomerular Filtration Rate Calc 51 >90 mL/min BUN/Creatinine Ratio 12.7 10.0-20.0 Serum Glucose 128 H 74-106 mg/dL Hemoglobin A1c < 5.7 <5.7 % A1C Calcium Level 9.5 8.7-10.4 mg/dL Total Bilirubin 4.8 H 0.2-1.0 mg/dL Aspartate Amino Transferase (AST) 69 H 13-40 U/L Alanine Aminotransferase (ALT) 33 7-40 U/L Alkaline Phosphatase 231 H 46-116 U/L B-Type Natriuretic Peptide 311.63 0-100 pg/mL Total Protein 6.4 5.7-8.2 g/dL Albumin 3.9 3.2-4.8 g/dL Thyroid Stimulating Hormone (TSH) 2.30 0.55-4.78 uIU/mL Liver USG IMPRESSION: 1. Cirrhotic liver with small volume ascites seen throughout the abdomen. Problems(with codes): (1) Weakness (2) Jaundice (3) Ascites (4) Cirrhosis of liver (5) Macrocytic anemia (6) Symptomatic anemia (7) Transaminitis Plan/Recommendation Plan Patient's hepatitis panel had been negative in the past however her NADIA screen was positive suggestive of possible autoimmune hepatitis Patient has not been following up with me in clinic and we will review her outpatient records Her B12 and serum folate levels are pending ; stool for occult blood is pending Her MELD score is 14 points suggestive of good prognosis Patient has mild UTI and we will check a urine culture and give her broad- spectrum antibiotics NADIA comprehensive panel, antimitochondrial antibody; serum alpha fetoprotein Consider use of low-dose steroids if liver enzymes duodenal improve Currently on IV antibiotics, low-dose Lasix and spironolactone and propranolol Prognosis remains guarded; I will follow up patient with you Plan discussed with: Patient, Other RICKY AREVALO MD Jun 07, 2024 00:14
[2024-06-07] MEDS: PANTOPRAZOLE 40 MG/10 ML VIAL INJ IV ONE (00:24)
[2024-06-07] MEDS: cefTRIAXone 1GM/50ML D5W 50 ML IV SCH (00:25)
[2024-06-07 04:08] LABS: Alanine Aminotransferase 31 U/L (7-40); Anion Gap 10 (5-15); Blood Urea Nitrogen 17 mg/dL (9-23); Calcium 9.4 mg/dL (8.7-10.4); Carbon Dioxide 20 mmol/L (20-31); Glucose 89 mg/dL (74-106); Potassium 3.9 mmol/L (3.5-5.1); Sodium 140 mmol/L (136-145)
[2024-06-07 04:09] LABS: Albumin 3.6 g/dL (3.2-4.8)
[2024-06-07 04:17] LABS: Alkaline Phosphatase 208 U/L (46-116); Aspartate Aminotransferase 61 U/L (13-40); Bilirubin, Total 4.8 mg/dL (0.2-1.0); Chloride 110 mmol/L (98-107)
[2024-06-07 08:39] VITALS: PULSE 66; RESP 22; O2SAT 100
[2024-06-07 09:05] LABS: Hepatitis B Core Total AB Negative (Negative)
[2024-06-07 09:11] LABS: Basophils # (auto) 0 10 ^3/uL (0-0.2); Eosinophils # (auto) 0.1 10 ^3/uL (0-0.8); Lymphocytes # (auto) 0.3 10 ^3/uL (0.4-5.4); Monocytes # (auto) 0.2 10 ^3/uL (0-1.3); Neutrophils # (auto) 1.4 10 ^3/uL (1.6-8.6)
[2024-06-07 09:13] LABS: Basophils % (auto) 1.5 % (0.0-2.0); Eosinophils % (auto) 2.9 % (0.0-7.0); Hematocrit 21.6 % (36.0-46.0); Lymphocytes % (auto) 16.3 % (10.0-50.0); Mean Corpuscular Hemoglobin 37.4 pg (28.0-32.0); Mean Corpuscular Hgb Conc. 31.7 g/dL (32.0-36.0); Monocytes % (auto) 8.4 % (0.0-12.0); Neutrophils % (auto) 70.9 % (37.0-80.0); Nucleated Red Blood Cells % 0.3 %; Platelet Count (auto) 116 10^3/uL (140-450); Red Blood Cells 1.83 10^6/uL (4.0-5.20); Red Cell Distribution Width 16.4 % (11.8-14.3)
[2024-06-07 09:51] LABS: Hemoglobin 6.9 g/dL (12.2-16.2)
[2024-06-07 10:00] LABS: Hepatitis A Total Antibody Positive (Negative); Hepatitis B Surface Antibody Negative (Negative); Hepatitis B Surface Antigen Negative (Negative); Hepatitis C Antibody Negative (Negative)
[2024-06-07] MEDS: FUROSEMIDE 40 MG TAB PO SCH (10:00)
[2024-06-07] MEDS: PROPRANOLOL HCL 20 MG TAB PO SCH (10:00)
[2024-06-07] MEDS: SPIRONOLACTONE 25 MG TAB PO SCH (10:00)
[2024-06-07] MEDS: PANTOPRAZOLE 40 MG/10 ML VIAL INJ IV SCH (10:05)
[2024-06-07 10:17] LABS: Folate (Folic Acid) 13.2 ng/mL (>5.38)
--- NOTE | 2024-06-07 12:26 | DVHPN2 ---
Subjective Pt has c/o realized weakness Patient complains of abdominal inflammation for about a week, upper abdomen radiating to her back Patient has nausea, no vomiting. No hematemesis Last BM this morning, no melena or red blood in stool Patient has noticed tarry stool about a week ago Patient has history of anemia requiring blood transfusion in the past Changes from previous H/P or p: No Changes Eyes: No Pain, No Vision change, No Conjunctivae inflammation, No Eyelid inflammation, No Other, No Redness ENT: No Ear pain, No Ear discharge, No Nose pain, No Nose discharge, No Nose congestion, No Mouth pain, No Mouth swelling, No Throat pain, No Throat swelling, No Other Cardiovascular: No Chest Pain, No Palpitations, No Orthopnea, No Paroxysmal Noc. Dyspnea, No Edema, No Lt Headedness, No Other Respiratory: No Cough, No Dry, No Shortness of breath, No SOB with excertion, No Wheezing, No Hemoptysis, No Pleuritic Pain, No Sputum, No Other Gastrointestinal: No Nausea, No Vomiting; Abdominal Pain; No Diarrhea, No Constipation; Melena; No Hematochezia, No Other Genitourinary: No Dysuria, No Frequency, No Incontinence; Hematuria; No Retention, No Other Musculoskeletal: No other, No neck pain, No shoulder pain, No arm pain, No back pain, No hand pain, No leg pain, No foot pain Skin: No Rash, No Lesions, No Jaundice, No Bruising, No Other Objective Vitals Vital Signs Date Time Temp Pulse Resp B/P (MAP) Pulse Ox O2 Delivery O2 Flow Rate FiO2 06/07/24 10:00 100/48 06/07/24 10:00 66 20 96 06/07/24 08:39 Room Air* 0 21 06/07/24 08:10 98.1 98.1 General Appearance: Alert, Oriented X3, No acute distress Lungs: Clear to auscultation, Normal air movement, Other Cardiovascular: Regular rate, Normal S1, Normal S2, No murmurs, Gallops, Rubs, Other Abdomen: Normal bowel sounds, Soft, No tenderness (Mild upper abdomen tenderness. Mild distention noted), No hepatospenomegaly, No masses, Other Medications Current Medications Medications Dose Ordered Sig/Chang Route Start Time Stop Time Status Last Admin Dose Admin Pantoprazole Sodium 40 mg BID IV 06/07/24 10:00 06/07/24 10:05 40 MG Ceftriaxone Sodium 50 ml @ 100 mls/hr DAILY IV 06/06/24 22:00 06/07/24 00:25 100 MLS/HR Propranolol HCl 10 mg DAILY PO 06/07/24 10:00 Furosemide 40 mg DAILY PO 06/07/24 10:00 Spironolactone 100 mg DAILY PO 06/07/24 10:00 Laboratory Results Laboratory Tests 06/07/24 03:31 06/07/24 07:45 Chemistry Test 06/06/24 14:43 06/07/24 03:31 Albumin 3.9 g/dL (3.2-4.8) 3.6 g/dL (3.2-4.8) Calcium Level 9.5 mg/dL (8.7-10.4) 9.4 mg/dL (8.7-10.4) Total Protein 6.4 g/dL (5.7-8.2) 6.0 g/dL (5.7-8.2) Coagulation Test 06/06/24 16:19 Prothrombin Time 10.9 sec (9.3-11.8) Prothrombin Time INR 1.03 (0.9-1.15) Cardiac Markers Test 06/06/24 14:43 B-Type Natriuretic Peptide 311.63 pg/mL (0-100) LFT Test 06/06/24 14:43 06/07/24 03:31 Alanine Aminotransferase (ALT) 33 U/L (7-40) 31 U/L (7-40) Alkaline Phosphatase 231 U/L (46-116) H 208 U/L (46-116) H Aspartate Amino Transferase (AST) 69 U/L (13-40) H 61 U/L (13-40) H Total Bilirubin 4.8 mg/dL (0.2-1.0) H 4.8 mg/dL (0.2-1.0) H HgA1c, TSH Test 06/06/24 14:43 Hemoglobin A1c < 5.7 % A1C (<5.7) Thyroid Stimulating Hormone (TSH) 2.30 uIU/mL (0.55-4.78) Labs and/or images reviewed: Labs reviewed by me, Image(s) reviewed by me Assessment/Plan Assessment/Plan Weakness Jaundice Ascites Cirrhosis of liver Anemia Transaminitis Plan: Discussed with Dr. Lucio Stool occult blood is pending Continue to monitor labs Possible plan for EGD when patient is stable Plan discussed with: Patient, Other (RN) Date of Service: Jun 07, 2024 Billing Provider: CHERELLE GOLDMAN Common Visit Codes: [id number] INP/OBS CARE(MOD) CHERELLE GOLDMAN Jun 07, 2024 12:26
--- NOTE | 2024-06-07 13:31 | DVHPNRES ---
Progress Note Date Seen: Jun 07, 2024 Resident Creating Document: GABINO COBURN RESIDENT Medical Necessity Reason Pt with a Central, PICC or Fol: No Subjective Review of Systems Patient is a 68-year-old female with past medical history of liver cirrhosis diagnosed 3 years ago, s/p variceal banding 10 months ago, questionable autoimmune hepatitis and scleroderma, who came in due to abdominal pain that has been ongoing for the past 8 days. Patient rates the pain as 8/10, constant and radiating to bilateral shoulders, she describes the pain as burning in nature. Per patient's daughter, she had multiple episodes of melena and hematuria. Past surgical history: Status post cholecystectomy Home medications: Spironolactone, propranolol, ursodiol, Protonix Past Hospitalization: For similar symptoms in 2022 Social & Personal history: Patient lives with her daughter. Denies using tobacco, alcohol, drugs. Allergies: Denies Patient seen and examined at bedside. Patient is alert and oriented to time, place person and responding to all questions. General: Fatigue, fever and chills Eyes: No Pain, No Vision change, No Conjunctivae inflammation, No Eyelid inflammation, No Other, No Redness ENT: No Ear pain, No Ear discharge, No Nose pain, No Nose discharge, No Nose congestion, No Mouth pain, No Mouth swelling, No Throat pain, No Throat swelling, No Other Cardiovascular: No Chest Pain, Palpitations, No Orthopnea, Dyspnea, No Edema, No Lt Headedness, No Other Respiratory: No Cough, No Dry, Shortness of breath, No Wheezing, No Hemoptysis, No Pleuritic Pain, No Sputum, No Other Gastrointestinal: Nausea, No Vomiting, No Abdominal Pain, No Diarrhea, No Constipation, No Melena, No Hematochezia, No Other Genitourinary: Dysuria, No Frequency, No Incontinence, No Hematuria, No Retention, No Other Musculoskeletal: No other, No neck pain, No shoulder pain, No arm pain, No back pain, No hand pain, No leg pain, No foot pain Skin: No Rash, No Lesions, No Jaundice, No Bruising, No Other Objective vital signs Vital Sign Date Time Temp Pulse Resp B/P (MAP) Pulse Ox O2 Delivery O2 Flow Rate FiO2 06/07/24 12:29 67 19 117/47 (70) 96 06/07/24 08:39 Room Air* 0 21 06/07/24 08:10 98.1 98.1 medications Current Medications Medications Dose Ordered Sig/Chang Route Start Time Stop Time Status Last Admin Dose Admin Pantoprazole Sodium 40 mg BID IV 06/07/24 10:00 06/07/24 10:05 40 MG Ceftriaxone Sodium 50 ml @ 100 mls/hr DAILY IV 06/06/24 22:00 06/07/24 00:25 100 MLS/HR Propranolol HCl 10 mg DAILY PO 06/07/24 10:00 Furosemide 40 mg DAILY PO 06/07/24 10:00 Spironolactone 100 mg DAILY PO 06/07/24 10:00 Examination General Appearance: Cooperative. Well developed. Well nourished. NAD Head Exam: Normal inspection Neck Exam: Normal inspection. Non-tender. Normal alignment Pulmonary/Respiratory: Chest non-tender. Clear bilateral breath sounds, no crackles, no wheezing. Cardiovascular/Chest: Regular rate and rhythm. No murmurs. No JVD. Peripheral Pulses: 2+ Radial (R). 2+ Radial (L). 2+ Pedal (R). 2+ Pedal (L) Abdominal Exam: Normal bowel sounds. Soft. normal abdomen, no visible veins, generalized abdominal tenderness, more concentrated in the midepigastric and bilateral flank region, shifting dullness noted No hepatospenomegaly. No masses Ankle Exam: Negative ankle edema Lower extremities: Negative lower extremity edema Neuro/Mental Status: A&O x4. Coherent. Thoughts/Psych: Normal thought pattern. Appropriate mood and affect. Good judgement and insight Skin Exam: Normal inspection. Normal color. Warm. Dry laboratory and microbiology Laboratory Tests 06/07/24 07:45 06/07/24 03:31 Test 06/07/24 03:31 Range/Units Serum Glucose 89 74-106 mg/dL Labs and/or images reviewed: Labs reviewed by me, Image(s) reviewed by me Problem List/Assessment/Plan Problem List/Assessment/Plan Liver cirrhosis, likely secondary to MASLD. Meld-Na 14 points, child class B (8 points) Hyperbilirubinemia due to above Variceal bleeding can not be entirely ruled out Small volume ascites Acute blood loss anemia - hemoglobin 7.6--> 6.9 - abdominal ultrasound: Cirrhotic liver with small volume ascites seen throughout the abdomen - IV ceftriaxone - furosemide 40 mg p.o. daily, spironolactone 100 mg p.o. daily - propranolol 10 mg p.o. daily, IV Protonix 40 mg b.i.d. - 1 PRBC transfusion Leukopenia, absolute neutrophil count 1.4 - we will continue to monitor SATINDER, likely hemodynamically mediated/VMN on questionable CKD? - monitor History of autoimmune hepatitis - ordered serum NADIA comprehensive panel, AFP PUD prophylaxis: protonix 40mg bid Goals of care: Full code, discussed for >16 minutes on 06/07/24 Plan discussed with patient Plan discussed with Dr. Quinonez Plan discussed with: Patient, Other (RN) My Orders My Orders Orders - GABINO COBURN RESIDENT Procedure Category Date Status Time Obtain Consent For: ORDERS 06/07/24 Transmitted 12:43 Packedcell-Noactive BBK 06/07/24 Logged Bleeding 12:43 Date of Service: Jun 07, 2024 Billing Provider: GONZALEZ QUINONEZ MD Common Visit Codes: [id number] INP/OBS CARE(HIGH) Coding Comment Comment Attending Attestation I saw and evaluated the patient. I reviewed the residents note and agree with findings and plan as documented in the residents note except as documented below. cirrhosis 2/2 MASLD SATINDER transaminitis anemia req blood transfusion GI bleed ascites, cannot r/o SBP leukopenia autoimmune hepatitis? protonix, propranolol GI consult gentle hydration fobt cover with ceftriaxone if concerning for SBP we will tap GABINO COBURN RESIDENT Jun 07, 2024 13:31 GONZALEZ QUINONEZ MD Jun 07, 2024 15:10
[2024-06-07] MEDS ORDERED: SODIUM CHLORIDE LOCK 10 ML ONE (15:27)
[2024-06-07] MEDS: LIDOCAINE VISCOUS 2% 15ML UD ONE (15:43)
[2024-06-07] MEDS: fentaNYL CITRATE 100 MCG/2 ML VL ONE (15:47)
[2024-06-07] MEDS: diphenhdrAMINE HCL 50 MG/1 ML VL ONE (15:47)
[2024-06-07] MEDS: MIDAZOLAM HCL 5 MG/ML-1ML VIAL ONE (15:47)
[2024-06-07 15:56] VITALS: PULSE 77; RESP 21; O2SAT 99
--- NOTE | 2024-06-07 16:05 | DVHOP2 ---
Operative Report DATE OF OPERATION: 06/07/24 PROCEDURE: Upper Endoscopy with biopsy. PREOPERATIVE INDICATION: The patient is a 68 -year-old female undergoing endoscopy for anemia and epigastric pain an underlying cirrhosis of the liver POSTOPERATIVE DIAGNOSES: 1. She had 1+ distal esophageal varices without any stigmata of recent bleeding 2. She had a 2 cm sliding-type hiatal hernia with grade B erosive esophagitis and GE junction ulceration 3. [id number] portal hypertension gastropathy otherwise normal examination up to the 2nd and 3rd part of the duodenal with no active bleeding no fresh or old blood in the GI tract PROCEDURE PERFORMED BY: Ricky Lucio GI NURSE: Beverly SCOPE: Olympus videoendoscope. ASA CLASS: 3. PREOPERATIVE MEDICATIONS: Versed 1 mg, Fentanyl 25 mcg, Benadryl 25 mg I administered moderate sedation throughout this _7_ minutes procedure. An independent trained observer pushed medications at my direction, and monitored the patient's level of consciousness and physiological status throughout. PROCEDURE IN DETAIL: After obtaining an informed consent, the patient was placed on left lateral decubitus position. The patient was then sedated with the above medications. A bite block was placed between her teeth. The endoscope was then passed through the oropharynx, into the esophagus, and through the stomach and pylorus up to the second and third part of the duodenum. The endoscope was then withdrawn. The 2nd and 3rd part of the duodenal and the duodenal bulb were normal. There was good bile drainage Duodenal biopsies were obtained. The pre-pyloric area antrum and body of the stomach showed [id number] portal hypertension gastropathy On retroflexion the patient also had gastropathy of the proximal stomach. Gastric biopsies were obtained. Increase oozing was noted from biopsy sites There was no gastric varix. The endoscope was then withdrawn into the distal esophagus where she had a 2 cm sliding-type hiatal hernia with grade B erosive esophagitis with superficial ulceration at the GE junction. Patient had 1+ distal esophageal varices without stigmata of recent bleeding The remaining mid to proximal esophagus and oropharynx were unremarkable The patient tolerated the procedure well without difficulty. COMPLICATIONS : None SPECIMENS: Duodenal biopsies Gastric biopsies DISPOSITION: Transfer back to the floor Stable PLAN: 1. Await for biopsy result; monitor labs 2. Will place pt on Protonix 40 mg bid 3. Carafate suspension 1 g p.o. 4 times a day 4. Resume full liquid diet advance to soft if tolerated 5. I will start this patient on ursodiol 300 mg p.o. twice a day for her jaundice 6. I will also start the patient on see prednisone 40 mg p.o. daily as I believe the patient has underlying autoimmune hepatitis and I will slowly taper it over the next few days RICKY LUCIO MD Jun 07, 2024 16:04
[2024-06-07 16:53] VITALS: BP 108/68; PULSE 69; RESP 18; O2SAT 98
[2024-06-07 17:00] VITALS: BP 108/68; PULSE 72; RESP 16; TEMP 98; O2SAT 96
[2024-06-07] MEDS: predniSONE 20 MG TAB PO ONE (18:46)
[2024-06-07 19:04] LABS: Hematocrit 23.6 % (36.0-46.0); Hemoglobin 7.1 g/dL (12.2-16.2)
[2024-06-07 20:00] VITALS: PULSE 74; RESP 16; O2SAT 98
[2024-06-07 21:00] VITALS: BP 111/49; PULSE 67; RESP 15; TEMP 97.9; O2SAT 96
[2024-06-07] MEDS: URSODIOL 300 MG CAP PO SCH (21:59)
[2024-06-08] VITALS (13 sets, daily range): BP systolic 79–110; BP diastolic 27–59; PULSE 64–91; RESP 14–18; TEMP 97.5–99.2; O2SAT 94–98
[2024-06-08 07:25] LABS: Red Blood Cells 1.89 10^6/uL (4.0-5.20)
[2024-06-08 07:27] LABS: Hematocrit 22.2 % (36.0-46.0); Mean Corpuscular Hgb Conc. 31.5 g/dL (32.0-36.0); Mean Corpuscular Volume 117.2 fL (80.0-100.0); Platelet Count (auto) 112 10^3/uL (140-450); Potassium 4.3 mmol/L (3.5-5.1); Sodium 140 mmol/L (136-145)
[2024-06-08 07:28] LABS: Anion Gap 9 (5-15); Calcium 9.5 mg/dL (8.7-10.4); Carbon Dioxide 20 mmol/L (20-31)
[2024-06-08 07:33] LABS: BUN/Creatinine Ratio 14.3 (10.0-20.0); Blood Urea Nitrogen 15 mg/dL (9-23); White Blood Cell 1.6 10^3/uL (4.4-10.8)
[2024-06-08 07:36] LABS: Chloride 111 mmol/L (98-107); Glucose 136 mg/dL (74-106)
[2024-06-08 08:06] LABS: AFP Serum Tumor Marker 2.8 ng/mL (0.0-9.2)
[2024-06-08 08:13] LABS: Band Neutrophils % (manual) 1; Basophils % (manual) 0 (0.0-2.0); Blast Cells 0; Eosinophils % (manual) 0 (0-7); Lymphocytes % (manual) 4 (10.0-50.0); Metamyelocytes % 0; Monocytes % (manual) 2 (0-12); Myelocytes % 0; Promyelocytes % 0; Reactive Lymphocytes 0
[2024-06-08 08:14] LABS: Macrocytosis Marked; Platelet Estimate Decreased
[2024-06-08] MEDS: SUCRALFATE 1 GM/10 ML ORAL SUSP PO SCH (11:27)
[2024-06-08 14:32] LABS: Hematocrit 21.6 % (36.0-46.0)
[2024-06-08 14:41] LABS: Hemoglobin 6.8 g/dL (12.2-16.2)
--- NOTE | 2024-06-08 14:55 | DVHPN2 ---
Progress Note - Dictate Date Seen: Jun 08, 2024 Medical Necessity Reason Pt with a Central, PICC or Fol: No Subjective No new complaints ; tolerating diet Patient is stable and feels better She is noted to have pancytopenia EGD showed small hiatal hernia with esophagitis, 1+ varices and moderate portal hypertension gastropathy with no bleeding vital signs Vital Sign Date Time Temp Pulse Resp B/P (MAP) Pulse Ox O2 Delivery O2 Flow Rate FiO2 06/08/24 13:34 85 16 107/43 (64) 06/08/24 13:00 98.1 98 98.1 06/08/24 08:00 Room Air* 0 21 Total Intake and Output 06/07/24 06/07/24 06/08/24 15:00 23:00 07:00 Intake Total 300 ml 0 ml Output Total 2 ml Balance 300 ml -2 ml medications Current Medications Medications Dose Ordered Sig/Chang Route Start Time Stop Time Status Last Admin Dose Admin Pantoprazole Sodium 40 mg BID IV 06/07/24 10:00 06/08/24 08:26 40 MG Ceftriaxone Sodium 50 ml @ 100 mls/hr DAILY IV 06/06/24 22:00 06/07/24 22:00 100 MLS/HR Propranolol HCl 10 mg DAILY PO 06/07/24 10:00 Furosemide 40 mg DAILY PO 06/07/24 10:00 Spironolactone 100 mg DAILY PO 06/07/24 10:00 Ursodiol 300 mg BID PO 06/07/24 22:00 06/08/24 08:26 300 MG Sucralfate 1 gm QID@0600,1130,1700,2200 PO 06/08/24 11:30 06/08/24 11:27 1 GM objective eneral Appearance: Alert, Oriented X3, Cooperative, weak HEENT: PERRLA, EOMI, mild pallor and scleral icterus Lungs clear; CVS S1S2 rrr Abdominal: Abdomen is soft distended, flanks are full, Normal bowel sounds, Soft, No tenderness. Extremities: Bilateral pedal edema +, No clubbing, No cyanosis, Normal pulses, No tenderness/swelling Neuro: Alert oriented x3 with no focal deficit laboratory and microbiology Laboratory Tests 06/08/24 14:13 06/08/24 06:49 Test 06/08/24 06:49 Range/Units Serum Glucose 136 H 74-106 mg/dL Problems(with codes): (1) Weakness (2) Cirrhosis of liver (3) Jaundice (4) Ascites (5) Macrocytic anemia (6) Symptomatic anemia (7) Transaminitis Prognosis Plan Patient has poor memory and does not recall events We will check a repeat serum ammonia level Patient is usually followed at [facility] and had has a follow up appointment with them in June I have started her on steroids as the patient appears to have likely underlying autoimmune hepatitis I also started on ursodiol 300 mg p.o. twice a day Patient will be given 1 unit PRBC today Check labs tomorrow Prognosis remains guarded Plan discussed with: Patient RICKY AREVALO MD Jun 08, 2024 14:55
--- NOTE | 2024-06-08 17:21 | DVHPNRES ---
Progress Note Date Seen: Jun 08, 2024 Resident Creating Document: GABINO COBURN RESIDENT Medical Necessity Reason Pt with a Central, PICC or Fol: No Subjective Review of Systems Patient is a 68-year-old female with past medical history of liver cirrhosis diagnosed 3 years ago, s/p variceal banding 10 months ago, questionable autoimmune hepatitis and scleroderma, who came in due to abdominal pain that has been ongoing for the past 8 days. Patient rates the pain as 8/10, constant and radiating to bilateral shoulders, she describes the pain as burning in nature. Per patient's daughter, she had multiple episodes of melena and hematuria. Past surgical history: Status post cholecystectomy Home medications: Spironolactone, propranolol, ursodiol, Protonix Past Hospitalization: For similar symptoms in 2022 Social & Personal history: Patient lives with her daughter. Denies using tobacco, alcohol, drugs. Allergies: Denies Patient seen and examined at bedside. Patient is alert and oriented to time, place person and responding to all questions. Patient notes she had 2/3 bowel movements in the last 24 hours, which were bloody. Patient was initially noted to have an hemoglobin of 7.1, however, later in the day repeat hemoglobin was 6.8 and she was subsequently began on 1 PRBC transfusion. Objective vital signs Vital Sign Date Time Temp Pulse Resp B/P (MAP) Pulse Ox O2 Delivery O2 Flow Rate FiO2 06/08/24 17:00 98.4 91 17 103/35 (57) 97 98.4 06/08/24 08:00 Room Air* 0 21 Total Intake and Output 06/07/24 06/07/24 06/08/24 15:00 23:00 07:00 Intake Total 300 ml 0 ml Output Total 2 ml Balance 300 ml -2 ml medications Current Medications Medications Dose Ordered Sig/Chang Route Start Time Stop Time Status Last Admin Dose Admin Pantoprazole Sodium 40 mg BID IV 06/07/24 10:00 06/08/24 08:26 40 MG Ceftriaxone Sodium 50 ml @ 100 mls/hr DAILY IV 06/06/24 22:00 06/07/24 22:00 100 MLS/HR Propranolol HCl 10 mg DAILY PO 06/07/24 10:00 Furosemide 40 mg DAILY PO 06/07/24 10:00 Spironolactone 100 mg DAILY PO 06/07/24 10:00 Ursodiol 300 mg BID PO 06/07/24 22:00 06/08/24 08:26 300 MG Sucralfate 1 gm QID@0600,1130,1700,2200 PO 06/08/24 11:30 06/08/24 11:27 1 GM Prednisone 30 mg DAILY PO 06/09/24 10:00 Examination General Appearance: Cooperative. Well developed. Well nourished. NAD Head Exam: Normal inspection Neck Exam: Normal inspection. Non-tender. Normal alignment Pulmonary/Respiratory: Chest non-tender. Clear bilateral breath sounds, no crackles, no wheezing. Cardiovascular/Chest: Regular rate and rhythm. No murmurs. No JVD. Peripheral Pulses: 2+ Radial (R). 2+ Radial (L). 2+ Pedal (R). 2+ Pedal (L) Abdominal Exam: Normal bowel sounds. Soft. normal abdomen, no visible veins, generalized abdominal tenderness, more concentrated in the midepigastric and bilateral flank region, shifting dullness noted No hepatospenomegaly. No masses Ankle Exam: Negative ankle edema Lower extremities: Negative lower extremity edema Neuro/Mental Status: A&O x4. Coherent. Thoughts/Psych: Normal thought pattern. Appropriate mood and affect. Good judgement and insight Skin Exam: Normal inspection. Normal color. Warm. Dry laboratory and microbiology Laboratory Tests 06/08/24 14:13 06/08/24 06:49 Test 06/08/24 06:49 Range/Units Serum Glucose 136 H 74-106 mg/dL Labs and/or images reviewed: Labs reviewed by me, Image(s) reviewed by me Problem List/Assessment/Plan Problem List/Assessment/Plan Liver cirrhosis, likely secondary to MASLD. Meld-Na 14 points, child class B (8 points) Hyperbilirubinemia due to above Variceal bleeding less likely Small volume ascites anemia requiring blood transfusion - EGD: 1+ distal esophageal varices without any stigmata of recent bleeding. 2 cm sliding-type hiatal hernia with grade B erosive esophagitis and GE junction ulceration. [id number] portal hypertension gastropathy. - abdominal ultrasound: Cirrhotic liver with small volume ascites seen throughout the abdomen - IV ceftriaxone - furosemide 40 mg p.o. daily, spironolactone 100 mg p.o. daily - propranolol 10 mg p.o. daily, IV Protonix 40 mg b.i.d. - 1 PRBC transfusion - ursodiol Erosive esophagitis - Protonix - one drug Carafate suspension q.i.d. Leukopenia, decreased absolute neutrophil count - we will continue to monitor SATINDER, likely hemodynamically mediated/VMN on questionable CKD? - monitor History of autoimmune hepatitis - ordered serum NADIA comprehensive panel, AFP Goals of care: Full code, discussed for >16 minutes on 06/07/24 Plan discussed with patient Plan discussed with Dr. Quinonez Plan discussed with: Patient, Daughter, Other (RN) My Orders My Orders Orders - GABINO COBURN RESIDENT Procedure Category Date Status Time Sucralfate Susp PHA 06/08/24 In Process (Carafate Susp) 11:30 Precautions: SANDRA 06/08/24 In Process Neutropenic 10:58 Hemoglobin & LAB 06/08/24 Logged Hematocrit 21:00 Date of Service: Jun 08, 2024 Billing Provider: GONZALEZ QUINONEZ MD Common Visit Codes: [id number] INP/OBS CARE(HIGH) GABINO COBURN Jun 08, 2024 17:21 GONZALEZ QUINONEZ MD Jun 10, 2024 09:02
[2024-06-09] VITALS (71 sets, daily range): BP systolic 84–145; BP diastolic 28–74; PULSE 7–84; RESP 14–25; TEMP 97.7–98.6; O2SAT 89–100
[2024-06-09 01:09] LABS: Hematocrit 25.9 % (36.0-46.0); Hemoglobin 8.1 g/dL (12.2-16.2)
[2024-06-09] MEDS ORDERED: SODIUM CHLORIDE 0.9% 500 ML IV ONE (01:45)
[2024-06-09] MEDS: ALBUMIN 25% 50 ML IV ONE (01:55)
[2024-06-09] MEDS: SODIUM CHLORIDE 0.9% 500 ML IV ONE (02:57)
[2024-06-09] MEDS: MIDODRINE HCL 10 MG TAB PO SCH (02:59)
[2024-06-09] MEDS: NOREPINEPHRINE 8 MG/250ML KIT 250 ML IV ONE (04:54)
[2024-06-09] MEDS: NOREPINEPHRINE 8 MG/250ML KIT 250 ML IV SCH ×2 (05:00→08:00)
[2024-06-09 07:17] LABS: Basophils # (auto) 0.1 10 ^3/uL (0-0.2); Basophils % (auto) 1.2 % (0.0-2.0); Eosinophils # (auto) 0.1 10 ^3/uL (0-0.8); Eosinophils % (auto) 1.2 % (0.0-7.0); Hematocrit 27.1 % (36.0-46.0); Hemoglobin 8.8 g/dL (12.2-16.2); Lymphocytes # (auto) 0.6 10 ^3/uL (0.4-5.4); Lymphocytes % (auto) 13.4 % (10.0-50.0); Mean Corpuscular Hemoglobin 34.3 pg (28.0-32.0); Mean Corpuscular Hgb Conc. 32.6 g/dL (32.0-36.0); Mean Corpuscular Volume 105.3 fL (80.0-100.0); Monocytes # (auto) 0.4 10 ^3/uL (0-1.3); Monocytes % (auto) 8.7 % (0.0-12.0); Neutrophils # (auto) 3.6 10 ^3/uL (1.6-8.6); Neutrophils % (auto) 75.5 % (37.0-80.0); Nucleated Red Blood Cells % 0.1 %; Platelet Count (auto) 159 10^3/uL (140-450); Red Blood Cells 2.58 10^6/uL (4.0-5.20); White Blood Cell 4.8 10^3/uL (4.4-10.8)
[2024-06-09 07:35] LABS: Alanine Aminotransferase 27 U/L (7-40); Albumin 3.6 g/dL (3.2-4.8); Anion Gap 10 (5-15); BUN/Creatinine Ratio 16.8 (10.0-20.0); Blood Urea Nitrogen 19 mg/dL (9-23); Carbon Dioxide 20 mmol/L (20-31); Glucose 101 mg/dL (74-106); Potassium 3.9 mmol/L (3.5-5.1); Sodium 142 mmol/L (136-145)
[2024-06-09 07:44] LABS: Alkaline Phosphatase 188 U/L (46-116); Aspartate Aminotransferase 47 U/L (13-40); Bilirubin, Total 4.1 mg/dL (0.2-1.0); Calcium 7.9 mg/dL (8.7-10.4); Chloride 112 mmol/L (98-107); Total Protein 5.6 g/dL (5.7-8.2)
[2024-06-09] MEDS: predniSONE 20 MG TAB PO SCH (10:00)
[2024-06-09 16:19] LABS: Urine Bacteria None Seen /hpf (None Seen)
[2024-06-09 16:40] LABS: Urine Blood Negative /uL (Negative); Urine Clarity Clear (Clear); Urine Color Light-Yellow (Yellow); Urine Hyaline Cast FEW /lpf (0 - 2); Urine Mucus FEW (None Seen); Urine Protein, UAD Negative (Negative); Urine Specific Gravity 1.005 (1.001-1.035); Urine Squamous Epithelial Cell FEW /hpf (<5); Urine Urobilinogen Normal (Negative); Urine WBC 1 /hpf (0 - 5)
--- NOTE | 2024-06-09 19:04 | DVHINCON2 ---
Date of service: Jun 09, 2024 Referring Physician Alvaro Gu MD Reason for Consultation Shock, on pressors History of Present Illness A 68-year-old woman with past medical history of liver cirrhosis, status post banding, anemia, and scleroderma who presented to the ED on 06/06/24 with c/o generalized weakness, intermittent blood in stool and urine and also yellowish coloration of the skin and sclera for last 1 month prior to this admission. Per daughter, patient had difficulty in swallowing, generalized weakness, feeling of passing out, and was not eating over past 2 days prior to presentation. She had intermittent blood in stool and urine and diffuse abdominal pain x 1 month. Pt was diagnosed with liver cirrhosis 2 years ago due to fatty liver and last banding for variceal bleeding was done 10 months ago. She had few episodes of blood transfusion for symptomatic anemia, and last transfusion was 1 year ago. Pt has never had paracentesis before. Chest x-ray was unremarkable. Patient was admitted for further care. Pulmonary consultation is requested for evaluation and management due to these findings. Review of Systems: 14-point review of systems negative unless otherwise noted above. Past Medical History: Liver cirrhosis, anemia, scleroderma Past Surgical History: Appendectomy, variceal banding Medications: Reviewed. Allergies: No known drug allergies. Family History: Elder brother w/ liver cirrhosis. Social History: Nonsmoker. No alcohol or illicit drug use. Family History: Patient reports no known family medical history. Allergies: Coded Allergies: NO KNOWN ALLERGIES (Unverified , 01/23/21) Home Meds No Active Prescriptions or Reported Meds Current Medications Current Medications Medications (Trade) Dose Ordered Sig/Chang Route PRN Reason Start Time Stop Time Status Last Admin Prednisone 30 mg DAILY PO 06/09/24 10:00 06/09/24 10:00 Midodrine (Proamatine Tablet) 10 mg TID@0600,1200,1800 PO 06/09/24 03:00 06/09/24 17:50 Norepinephrine Bitartrate 250 ml @ 3.75 mls/hr Q24H IV 06/09/24 04:30 06/09/24 07:59 DC 06/09/24 05:00 Norepinephrine Bitartrate 250 ml @ 3.75 mls/hr Q24H IV 06/09/24 08:00 Vital Signs Vital Signs Date Time Temp Pulse Resp B/P (MAP) Pulse Ox O2 Delivery O2 Flow Rate FiO2 06/09/24 18:30 56 15 117/51 (73) 94 06/09/24 18:00 98.4 98.4 06/09/24 18:00 Room Air* 0 21 Physical Exam Gen.: Patient lying in bed in no apparent distress. Breathing on room air. Head: Normocephalic, atraumatic. Eyes: EOMI/PERRLA. Ears: Normal hearing. Normal anatomy. Neck/trachea: Trachea midline, supple. Nose: Normal external anatomy. Mouth: Moist mucous membranes. Chest: Decreased air entry bilaterally. No wheezing or rhonchi. Cardiovascular: Positive S1, positive S2. Regular rate and rhythm. Abdomen: Positive bowel sounds in all 4 quadrants. Soft, non-tender, non- distended. : Deferred. Rectal: Deferred. Skin: Warm, dry. Intact. Extremities: 2+ radial pulses bilaterally. No lower extremity edema. Neuro: Awake, alert, oriented x3. No gross motor or sensory deficits. Cranial nerves II through XII intact. Gait not assessed. Labs/Diagnostic Data Labs Test 06/09/24 15:50 06/09/24 06:55 06/08/24 20:40 06/08/24 06:49 Range/Units Urine Color Light-yellow Yellow Urine Clarity Clear Clear Urine pH 5.0 5.0-9.0 Urine Specific [place] 1.005 1.001-1.035 Urine Protein Negative Negative Urine Ketones Negative Negative Urine Blood Negative Negative /uL Urine Nitrite Negative Negative Urine Bilirubin Negative Negative Urine Urobilinogen Normal Negative mg/dL Urine Leukocyte Esterase Negative Negative /uL Urine RBC 1 0 - 4 /hpf Urine WBC 1 0 - 5 /hpf Urine Squamous Epithelial Cells Few <5 /hpf Urine Bacteria None seen None Seen /hpf Urine Hyaline Casts Few 0 - 2 /lpf Urine Mucus Few None Seen Urine Glucose Normal Normal mg/dL White Blood Count 4.8 # 4.4-10.8 10^3/uL Red Blood Count 2.58 L 4.0-5.20 10^6/uL Hemoglobin 8.8 L 12.2-16.2 g/dL Hematocrit 27.1 L 36.0-46.0 % Mean Corpuscular Volume 105.3 #H 80.0-100.0 fL Mean Corpuscular Hemoglobin 34.3 H 28.0-32.0 pg Mean Corpuscular Hemoglobin Concent 32.6 32.0-36.0 g/dL Red Cell Distribution Width 25.0 H 11.8-14.3 % Platelet Count 159 140-450 10^3/uL Mean Platelet Volume 7.4 6.9-10.8 fL Neutrophils (%) (Auto) 75.5 37.0-80.0 % Lymphocytes (%) (Auto) 13.4 10.0-50.0 % Monocytes (%) (Auto) 8.7 0.0-12.0 % Eosinophils (%) (Auto) 1.2 0.0-7.0 % Basophils (%) (Auto) 1.2 0.0-2.0 % Neutrophils # (Auto) 3.6 1.6-8.6 10 ^3/uL Lymphocytes # (Auto) 0.6 0.4-5.4 10 ^3/uL Monocytes # (Auto) 0.4 0-1.3 10 ^3/uL Eosinophils # (Auto) 0.1 0-0.8 10 ^3/uL Basophils # (Auto) 0.1 0-0.2 10 ^3/uL Nucleated Red Blood Cells 0.1 % Sodium Level 142 136-145 mmol/L Potassium Level 3.9 3.5-5.1 mmol/L Chloride Level 112 H 98-107 mmol/L Carbon Dioxide Level 20 20-31 mmol/L Anion Gap 10 5-15 Blood Urea Nitrogen 19 9-23 mg/dL Creatinine 1.13 H 0.550-1.02 mg/dL Glomerular Filtration Rate Calc 53 >90 mL/min BUN/Creatinine Ratio 16.8 10.0-20.0 Serum Glucose 101 74-106 mg/dL Calcium Level 7.9 L 8.7-10.4 mg/dL Iron Level 215 H 50-170 ug/dL Total Iron Binding Capacity 336 250-425 ug/dL Percent Iron Saturation 64.0 H 15-50 % Total Bilirubin 4.1 H 0.2-1.0 mg/dL Aspartate Amino Transferase (AST) 47 H 13-40 U/L Alanine Aminotransferase (ALT) 27 7-40 U/L Alkaline Phosphatase 188 H 46-116 U/L Ammonia 33 H 11-32 umol/L Total Protein 5.6 L 5.7-8.2 g/dL Albumin 3.6 3.2-4.8 g/dL Stool for White Cells None seen Differential Total Cells Counted 100.0 100 Neutrophils % (Manual) 93 H 37.0-80.0 Band Neutrophils % (Manual) 1 Lymphocytes % (Manual) 4 L 10.0-50.0 Monocytes % (Manual) 2 0-12 Eosinophils % (Manual) 0 0-7 Basophils % (Manual) 0 0.0-2.0 Metamyelocytes % (manual) 0 Myelocytes % (Manual) 0 Promyelocytes % (Manual) 0 Blast Cells % (Manual) 0 Reactive Lymphocytes 0 Platelet Estimate Decreased Macrocytosis Marked Tear Drop Cells Ferritin 33.0 10-291 ng/mL Test 06/07/24 03:31 06/06/24 22:38 06/06/24 16:19 06/06/24 14:43 Range/Units Tumor Marker Alpha Fetoprotein 2.8 0.0-9.2 ng/mL Anti-Nuclear Antibody Comment Comment . Vitamin B12 Level 1228 H 211-911 pg/mL Folic Acid 13.20 >5.38 ng/mL Prothrombin Time 10.9 9.3-11.8 sec Prothrombin Time INR 1.03 0.9-1.15 Hemoglobin A1c < 5.7 <5.7 % A1C B-Type Natriuretic Peptide 311.63 0-100 pg/mL Thyroid Stimulating Hormone (TSH) 2.30 0.55-4.78 uIU/mL Hepatitis A Antibody Total Positive H Negative Hepatitis B Surface Antigen Negative Negative Hepatitis B Surface Antibody Negative Negative Hepatitis B Core Total Antibody Negative Negative Hepatitis C Antibody Negative Negative Microbiology Date/Time Source Procedure Growth Status 06/09/24 07:10 Nose MRSA Screen - Final Complete 06/08/24 20:40 Stool Stool Culture - Preliminary Resulted 06/08/24 20:40 Stool Shiga Toxin I & II - Final Resulted Assessment Impression: Acute GI bleeding History of liver cirrhosis s/p banding History of autoimmune hepatitis Hyperbilirubinemia with transaminitis Ascites Plan: Supplemental oxygen PRN Titrate to keep O2 sats above 92%. Continue antibiotics Continue steroids - prednisone Incentive spirometry Pressors for hemodynamic support Titrate to keep mean arterial pressure greater than 65 mmHg. Levophed 2 mcg/min - tapered off On midodrine Monitor hemoglobin Diurese to euvolemia w/ Lasix Monitor renal function. Monitor electrolytes. Supplement as necessary. Monitor ins and outs. GI prophylaxis - Protonix DVT prophylaxis. Prognosis: Poor given patient's multiple co-morbidities. Condition: Critical Rest of plan per hospitalist and other consultants. A total of 35 minutes of critical care time was spent reviewing the patient record, examining the patient, making a diagnostic and therapeutic plan, discussing this plan with the medical personnel, following up on diagnostic studies and following the patient for clinical stability excluding any and all procedures. At least 50% of this time was spent in direct, [id number] contact. Thank you Dr. Alvaro Gu MD, for allowing me to participate in this patient's care. Further recommendations will depend on the patient's clinical course. Please do not hesitate to contact me if you have any questions or concerns. This medical document was created using an electronic medical record system with [email or web address] dictation system. Although these documentations are being carefully reviewed, there may still be some phonetic and typographical changes. The errors are purely typographical, due to imperfection on the software program, and do not reflect any compromise in the patient's medical care. Plan discussed with: Patient, Other (HUMBERTO Banda/MD Gu) ROSY STRAUSS MD Jun 09, 2024 19:04
--- NOTE | 2024-06-09 20:33 | DVHPNRES ---
Progress Note Date Seen: Jun 09, 2024 Resident Creating Document: GABINO COBURN RESIDENT Medical Necessity Reason Pt with a Central, PICC or Fol: No Subjective Review of Systems Patient is a 68-year-old female with past medical history of liver cirrhosis diagnosed 3 years ago, s/p variceal banding 10 months ago, questionable autoimmune hepatitis and scleroderma, who came in due to abdominal pain that has been ongoing for the past 8 days. Patient rates the pain as 8/10, constant and radiating to bilateral shoulders, she describes the pain as burning in nature. Per patient's daughter, she had multiple episodes of melena and hematuria. Past surgical history: Status post cholecystectomy Home medications: Spironolactone, propranolol, ursodiol, Protonix Past Hospitalization: For similar symptoms in 2022 Social & Personal history: Patient lives with her daughter. Denies using tobacco, alcohol, drugs. Allergies: Denies Patient seen and examined at bedside. Patient is alert and oriented to time, place person and responding to all questions. Patient notes she had 2/3 bowel movements in the last 24 hours. Patient also notes chills. Objective vital signs Vital Sign Date Time Temp Pulse Resp B/P (MAP) Pulse Ox O2 Delivery O2 Flow Rate FiO2 06/09/24 20:00 98.1 62 24 124/49 (74) 96 98.1 06/09/24 18:00 Room Air* 0 21 Total Intake and Output 06/08/24 06/08/24 06/09/24 15:00 23:00 07:00 Intake Total 50 ml 1361.25 ml Balance 50 ml 1361.25 ml medications Current Medications Medications Dose Ordered Sig/Chang Route Start Time Stop Time Status Last Admin Dose Admin Pantoprazole Sodium 40 mg BID IV 06/07/24 10:00 06/09/24 10:01 40 MG Ceftriaxone Sodium 50 ml @ 100 mls/hr DAILY IV 06/06/24 22:00 06/09/24 10:01 100 MLS/HR Furosemide 40 mg DAILY PO 06/07/24 10:00 06/09/24 10:00 40 MG Spironolactone 100 mg DAILY PO 06/07/24 10:00 06/09/24 09:59 100 MG Ursodiol 300 mg BID PO 06/07/24 22:00 06/09/24 09:59 300 MG Sucralfate 1 gm QID@0600,1130,1700,2200 PO 06/08/24 11:30 06/09/24 17:04 1 GM Prednisone 30 mg DAILY PO 06/09/24 10:00 06/09/24 10:00 30 MG Midodrine 10 mg TID@0600,1200,1800 PO 06/09/24 03:00 06/09/24 17:50 10 MG Norepinephrine Bitartrate 250 ml @ 3.75 mls/hr Q24H IV 06/09/24 08:00 Examination General Appearance: Cooperative. Well developed. Well nourished. NAD Head Exam: Normal inspection Neck Exam: Normal inspection. Non-tender. Normal alignment Pulmonary/Respiratory: Chest non-tender. Clear bilateral breath sounds, no crackles, no wheezing. Cardiovascular/Chest: Regular rate and rhythm. No murmurs. No JVD. Peripheral Pulses: 2+ Radial (R). 2+ Radial (L). 2+ Pedal (R). 2+ Pedal (L) Abdominal Exam: Normal bowel sounds. Soft. normal abdomen, no visible veins, shifting dullness noted No hepatospenomegaly. No masses Ankle Exam: Negative ankle edema Lower extremities: Negative lower extremity edema Neuro/Mental Status: A&O x4. Coherent. Thoughts/Psych: Normal thought pattern. Appropriate mood and affect. Good judgement and insight Skin Exam: Normal inspection. Normal color. Warm. Dry laboratory and microbiology Laboratory Tests 06/09/24 06:55 Test 06/09/24 06:55 Range/Units Serum Glucose 101 74-106 mg/dL Microbiology Date/Time Source Procedure Growth Status 06/09/24 07:10 Nose MRSA Screen - Final Complete 06/08/24 20:40 Stool Stool Culture - Preliminary Resulted 06/08/24 20:40 Stool Shiga Toxin I & II - Final Resulted Labs and/or images reviewed: Labs reviewed by me, Image(s) reviewed by me (RN) Problem List/Assessment/Plan Problem List/Assessment/Plan Liver cirrhosis, likely secondary to MASLD. Meld-Na 14 points, child class B (8 points) Hyperbilirubinemia due to above Variceal bleeding less likely Small volume ascites anemia requiring blood transfusion - EGD: 1+ distal esophageal varices without any stigmata of recent bleeding. 2 cm sliding-type hiatal hernia with grade B erosive esophagitis and GE junction ulceration. [id number] portal hypertension gastropathy. - abdominal ultrasound: Cirrhotic liver with small volume ascites seen throughout the abdomen - IV ceftriaxone - furosemide 40 mg p.o. daily, spironolactone 100 mg p.o. daily - propranolol 10 mg p.o. daily, IV Protonix 40 mg b.i.d. - 1 PRBC transfusion - ursodiol Symptomatic hypotension, improving - IV NS to 50 mL bolus x2 - IV albumin - midodrine 10 mg t.i.d. - currently on norepinephrine at 2 micrograms/minute Erosive esophagitis - Protonix - one drug Carafate suspension q.i.d. Leukopenia, decreased absolute neutrophil count - we will continue to monitor SATINDER, likely hemodynamically mediated/VMN on questionable CKD? - monitor History of autoimmune hepatitis - ordered serum NADIA comprehensive panel, AFP Goals of care: Full code, discussed for >16 minutes on 06/07/24 Plan discussed with patient Plan discussed with Dr. Quinonez Plan discussed with: Patient, Daughter, Other My Orders My Orders Orders - GABINO COBURN Procedure Category Date Status Time Insert Gay Catheter [facility] 06/09/24 In Process 15:25 Date of Service: Jun 09, 2024 Billing Provider: GONZALEZ QUINONEZ MD Common Visit Codes: [id number] CARE 30-74 MIN Coding Comment Comment 39 minutes of critical care time spent GABINO COBURN Jun 09, 2024 20:33 GONZALEZ QUINONEZ MD Jun 10, 2024 09:03
[2024-06-10] VITALS (41 sets, daily range): BP systolic 86–136; BP diastolic 29–58; PULSE 53–68; RESP 12–22; TEMP 97.3–98.7; O2SAT 85–100
[2024-06-10 05:26] LABS: Basophils # (auto) 0 10 ^3/uL (0-0.2); Basophils % (auto) 0.4 % (0.0-2.0); Eosinophils # (auto) 0 10 ^3/uL (0-0.8); Lymphocytes # (auto) 0.4 10 ^3/uL (0.4-5.4); Monocytes # (auto) 0.2 10 ^3/uL (0-1.3); White Blood Cell 3.3 10^3/uL (4.4-10.8)
[2024-06-10 05:30] LABS: Eosinophils % (auto) 0.2 % (0.0-7.0); Hematocrit 25.9 % (36.0-46.0); Hemoglobin 8.5 g/dL (12.2-16.2); Lymphocytes % (auto) 11.5 % (10.0-50.0); Mean Corpuscular Hemoglobin 34.1 pg (28.0-32.0); Mean Corpuscular Hgb Conc. 32.7 g/dL (32.0-36.0); Mean Corpuscular Volume 104.3 fL (80.0-100.0); Monocytes % (auto) 6.5 % (0.0-12.0); Neutrophils # (auto) 2.7 10 ^3/uL (1.6-8.6); Neutrophils % (auto) 81.4 % (37.0-80.0); Nucleated Red Blood Cells % 0.1 %; Platelet Count (auto) 111 10^3/uL (140-450); Red Blood Cells 2.48 10^6/uL (4.0-5.20)
[2024-06-10 05:40] LABS: Alanine Aminotransferase 27 U/L (7-40); Albumin 3.5 g/dL (3.2-4.8); Anion Gap 7 (5-15); BUN/Creatinine Ratio 15.5 (10.0-20.0); Blood Urea Nitrogen 18 mg/dL (9-23); Calcium 9.6 mg/dL (8.7-10.4); Carbon Dioxide 24 mmol/L (20-31); Potassium 3.9 mmol/L (3.5-5.1); Sodium 142 mmol/L (136-145)
[2024-06-10 05:41] LABS: Total Protein 5.8 g/dL (5.7-8.2)
[2024-06-10 05:44] LABS: Red Cell Distribution Width 24.6 % (11.8-14.3)
[2024-06-10 05:46] LABS: Alkaline Phosphatase 177 U/L (46-116); Aspartate Aminotransferase 46 U/L (13-40); Bilirubin, Total 3.2 mg/dL (0.2-1.0); Chloride 111 mmol/L (98-107); Glucose 109 mg/dL (74-106)
[2024-06-10 07:53] LABS: Macrocytosis Slight
[2024-06-10 07:54] LABS: Anisocytosis Slight; Platelet Estimate Decreased; Tear Drop Cells FEW
--- NOTE | 2024-06-10 11:15 | DVHPN2 ---
Progress Note - Dictate Date Seen: Jun 10, 2024 Medical Necessity Reason Pt with a Central, PICC or Fol: No Subjective Patient was upgraded to FARZAD yesterday because of hypotension requiring some pressors Patient was treated with albumin and midodrine and her blood pressure is now improved No new complaints ; tolerating diet Patient is stable and feels better She is noted to have pancytopenia but this is now improving Hemoglobin stable at 8.5, patient received 1 unit PRBC during this admission EGD showed small hiatal hernia with esophagitis, 1+ varices and moderate portal hypertension gastropathy with no bleeding There was report of some melena initially on admission but they denied any bright red blood per rectum. She has been having some diarrhea possibly antibiotic related Patient stated she had a colonoscopy about two years ago at [facility] She does take ursodiol at home and was on a new medicine trial through [facility] She will follow up with them next month as they are tentatively planning to do a liver biopsy Daughter was notified that I did use steroids for her on this admission as she has a history of scleroderma and I suspect autoimmune hepatitis vital signs Vital Sign Date Time Temp Pulse Resp B/P (MAP) Pulse Ox O2 Delivery O2 Flow Rate FiO2 06/10/24 10:00 89/37 06/10/24 08:20 16 92 Room Air* 0 21 06/10/24 08:20 61 06/10/24 08:15 98.7 98.7 Total Intake and Output 06/09/24 06/09/24 06/10/24 15:00 23:00 07:00 Intake Total 70.625 ml 400 ml 300 ml Output Total 270 ml 401 ml Balance 70.625 ml 130 ml -101 ml medications Current Medications Medications Dose Ordered Sig/Chang Route Start Time Stop Time Status Last Admin Dose Admin Pantoprazole Sodium 40 mg BID IV 06/07/24 10:00 06/10/24 10:03 40 MG Ceftriaxone Sodium 50 ml @ 100 mls/hr DAILY IV 06/06/24 22:00 06/10/24 10:03 100 MLS/HR Furosemide 40 mg DAILY PO 06/07/24 10:00 06/09/24 10:00 40 MG Spironolactone 100 mg DAILY PO 06/07/24 10:00 06/09/24 09:59 100 MG Ursodiol 300 mg BID PO 06/07/24 22:00 06/10/24 10:05 300 MG Sucralfate 1 gm QID@0600,1130,1700,2200 PO 06/08/24 11:30 06/10/24 06:01 1 GM Prednisone 30 mg DAILY PO 06/09/24 10:00 06/10/24 10:05 30 MG Midodrine 10 mg TID@0600,1200,1800 PO 06/09/24 03:00 06/10/24 06:01 10 MG Norepinephrine Bitartrate 250 ml @ 3.75 mls/hr Q24H IV 06/09/24 08:00 objective eneral Appearance: Alert, Oriented X3, Cooperative, weak HEENT: PERRLA, EOMI, mild pallor and scleral icterus Lungs clear; CVS S1S2 rrr Abdominal: Abdomen is soft distended, flanks are full, Normal bowel sounds, Soft, No tenderness. Extremities: Bilateral pedal edema +, No clubbing, No cyanosis, Normal pulses, No tenderness/swelling Neuro: Alert oriented x3 with no focal deficit laboratory and microbiology Laboratory Tests 06/10/24 05:06 Test 06/10/24 05:06 Range/Units Serum Glucose 109 H 74-106 mg/dL Problems(with codes): (1) Weakness (2) Cirrhosis of liver (3) Jaundice (4) Ascites (5) Macrocytic anemia (6) Symptomatic anemia (7) Transaminitis Prognosis Plan Patient will be downgraded to the floor today if she remains stable Continue prednisone but I will decrease it down to 20 mg p.o. daily Continue ursodiol 300 mg p.o. twice a day Review records of last colonoscopy from [facility] I will check stool for WBC Outpatient follow up with her manager market at [facility] and I also gave her my contact information to follow up in my office if required Plan discussed with: Patient, Daughter, Other (Dr. Gu) RICKY AREVALO MD Jun 10, 2024 11:15
[2024-06-10 12:06] LABS: Anti-Centromere B Antibody >8.0 AI (0.0-0.9); Anti-Jo-1 Antibody <0.2 AI (0.0-0.9); Anti-dsDNA Antibody <1 IU/mL (0-9); Antichromatin Antibody 0.4 AI (0.0-0.9); Antiscleroderma-70 Antibody <0.2 AI (0.0-0.9); RNP Antibody <0.2 AI (0.0-0.9); Sjogren's Anti-SS-A Antibody <0.2 AI (0.0-0.9); Sjogren's Anti-SS-B Antibody <0.2 AI (0.0-0.9); Smith Antibody <0.2 AI (0.0-0.9)
--- NOTE | 2024-06-10 14:41 | DVHPNRES ---
Progress Note Date Seen: Jun 10, 2024 Resident Creating Document: GABINO COBURN RESIDENT Medical Necessity Reason Pt with a Central, PICC or Fol: No Subjective Review of Systems Patient is a 68-year-old female with past medical history of liver cirrhosis diagnosed 3 years ago, s/p variceal banding 10 months ago, questionable autoimmune hepatitis and scleroderma, who came in due to abdominal pain that has been ongoing for the past 8 days. Patient rates the pain as 8/10, constant and radiating to bilateral shoulders, she describes the pain as burning in nature. Per patient's daughter, she had multiple episodes of melena and hematuria. Past surgical history: Status post cholecystectomy Home medications: Spironolactone, propranolol, ursodiol, Protonix Past Hospitalization: For similar symptoms in 2022 Social & Personal history: Patient lives with her daughter. Denies using tobacco, alcohol, drugs. Allergies: Denies Patient seen and examined at bedside. Patient is alert and oriented to time, place person and responding to all questions. Patient notes she had 7 bowel movements in the last 24 hours, brownish in color watery and nonbloody. Patient notes improving symptoms denies any chills. Patient will be downgraded to telemetry today. Objective vital signs Vital Sign Date Time Temp Pulse Resp B/P (MAP) Pulse Ox O2 Delivery O2 Flow Rate FiO2 06/10/24 14:10 16 94 Room Air* 0 21 06/10/24 14:10 55 06/10/24 13:30 120/44 (69) 06/10/24 12:00 98.0 98.0 Total Intake and Output 06/09/24 06/09/24 06/10/24 15:00 23:00 07:00 Intake Total 70.625 ml 400 ml 300 ml Output Total 270 ml 401 ml Balance 70.625 ml 130 ml -101 ml medications Current Medications Medications Dose Ordered Sig/Chang Route Start Time Stop Time Status Last Admin Dose Admin Pantoprazole Sodium 40 mg BID IV 06/07/24 10:00 06/10/24 10:03 40 MG Ceftriaxone Sodium 50 ml @ 100 mls/hr DAILY IV 06/06/24 22:00 06/10/24 10:03 100 MLS/HR Furosemide 40 mg DAILY PO 06/07/24 10:00 06/09/24 10:00 40 MG Spironolactone 100 mg DAILY PO 06/07/24 10:00 06/09/24 09:59 100 MG Ursodiol 300 mg BID PO 06/07/24 22:00 06/10/24 10:05 300 MG Sucralfate 1 gm QID@0600,1130,1700,2200 PO 06/08/24 11:30 06/10/24 11:50 1 GM Midodrine 10 mg TID@0600,1200,1800 PO 06/09/24 03:00 06/10/24 11:50 10 MG Norepinephrine Bitartrate 250 ml @ 3.75 mls/hr Q24H IV 06/09/24 08:00 Prednisone 20 mg DAILY PO 06/11/24 10:00 Examination General Appearance: Cooperative. Well developed. Well nourished. NAD Head Exam: Normal inspection Neck Exam: Normal inspection. Non-tender. Normal alignment Pulmonary/Respiratory: Chest non-tender. Clear bilateral breath sounds, no crackles, no wheezing. Cardiovascular/Chest: Regular rate and rhythm. No murmurs. No JVD. Peripheral Pulses: 2+ Radial (R). 2+ Radial (L). 2+ Pedal (R). 2+ Pedal (L) Abdominal Exam: Normal bowel sounds. Soft. normal abdomen, no visible veins, shifting dullness noted, mild. Some abdominal tenderness to palpation, however, improved since day 1. No hepatospenomegaly. No masses Ankle Exam: Negative ankle edema Lower extremities: Negative lower extremity edema Neuro/Mental Status: A&O x4. Coherent. Thoughts/Psych: Normal thought pattern. Appropriate mood and affect. Good judgement and insight Skin Exam: Normal inspection. Normal color. Warm. Dry laboratory and microbiology Laboratory Tests 06/10/24 05:06 Test 06/10/24 05:06 Range/Units Serum Glucose 109 H 74-106 mg/dL Microbiology Date/Time Source Procedure Growth Status 06/09/24 15:50 Urine - Midstream Clean Catch Urine Culture - Preliminary Resulted 06/09/24 07:10 Nose MRSA Screen - Final Complete 06/08/24 20:40 Stool Stool Culture - Preliminary Resulted 06/08/24 20:40 Stool Shiga Toxin I & II - Final Resulted Labs and/or images reviewed: Labs reviewed by me, Image(s) reviewed by me Problem List/Assessment/Plan Problem List/Assessment/Plan Liver cirrhosis, likely secondary to MASLD. Meld-Na 14 points, child class B (8 points) Scleroderma Hyperbilirubinemia due to above Variceal bleeding less likely Small volume ascites anemia requiring blood transfusion - EGD: 1+ distal esophageal varices without any stigmata of recent bleeding. 2 cm sliding-type hiatal hernia with grade B erosive esophagitis and GE junction ulceration. [id number] portal hypertension gastropathy. - abdominal ultrasound: Cirrhotic liver with small volume ascites seen throughout the abdomen - IV ceftriaxone - furosemide 40 mg p.o. daily, spironolactone 100 mg p.o. daily - propranolol 10 mg p.o. daily, IV Protonix 40 mg b.i.d. - 1 PRBC transfusion - ursodiol - started prednisone 20 mg p.o. daily Symptomatic hypotension, improving - IV NS 250 mL bolus x2 - IV albumin - midodrine 10 mg t.i.d. - currently on norepinephrine at 2 micrograms/minute Erosive esophagitis - Protonix - one drug Carafate suspension q.i.d. Leukopenia, decreased absolute neutrophil count - we will continue to monitor SATINDER, likely hemodynamically mediated/VMN on questionable CKD? - monitor History of autoimmune hepatitis - ordered serum NADIA comprehensive panel, AFP Goals of care: Full code, discussed for >16 minutes on 06/07/24 Plan discussed with patient Plan discussed with Dr. Quinonez Plan discussed with: Patient, Daughter, Other (RN) My Orders My Orders Orders - GABINO COBURN Procedure Category Date Status Time Insert Gay Catheter SANDRA 06/09/24 In Process 15:25 Transfer Orders XFER 06/10/24 Transmitted 12:38 Date of Service: Jun 10, 2024 Billing Provider: GONZALEZ QUINONEZ MD Common Visit Codes: [id number] INP/OBS CARE(HIGH) GABINO COBURN Jun 10, 2024 14:41 GONZALEZ QUINONEZ MD Jun 11, 2024 09:09
--- NOTE | 2024-06-10 19:36 | DVHPN2 ---
Progress Note - Dictate Date Seen: Jun 10, 2024 Medical Necessity Reason Pt with a Central, PICC or Fol: No Subjective Patient seen and examined at bedside. Breathing comfortably on room air. Overnight events reviewed. vital signs Vital Sign Date Time Temp Pulse Resp B/P (MAP) Pulse Ox O2 Delivery O2 Flow Rate FiO2 06/10/24 18:00 20 98 Room Air* 0 21 06/10/24 17:00 97.9 62 122/47 (72) 97.9 Total Intake and Output 06/09/24 06/09/24 06/10/24 15:00 23:00 07:00 Intake Total 70.625 ml 400 ml 300 ml Output Total 270 ml 401 ml Balance 70.625 ml 130 ml -101 ml medications Current Medications Medications Dose Ordered Sig/Chang Route Start Time Stop Time Status Last Admin Dose Admin Pantoprazole Sodium 40 mg BID IV 06/07/24 10:00 06/10/24 10:03 40 MG Ceftriaxone Sodium 50 ml @ 100 mls/hr DAILY IV 06/06/24 22:00 06/10/24 10:03 100 MLS/HR Furosemide 40 mg DAILY PO 06/07/24 10:00 06/09/24 10:00 40 MG Spironolactone 100 mg DAILY PO 06/07/24 10:00 06/09/24 09:59 100 MG Ursodiol 300 mg BID PO 06/07/24 22:00 06/10/24 10:05 300 MG Sucralfate 1 gm QID@0600,1130,1700,2200 PO 06/08/24 11:30 06/10/24 16:02 1 GM Midodrine 10 mg TID@0600,1200,1800 PO 06/09/24 03:00 06/10/24 16:02 10 MG Norepinephrine Bitartrate 250 ml @ 3.75 mls/hr Q24H IV 06/09/24 08:00 Hold Prednisone 20 mg DAILY PO 06/11/24 10:00 objective Gen.: Patient lying in bed in no apparent distress. Breathing on room air. Head: Normocephalic, atraumatic. Eyes: EOMI/PERRLA. Ears: Normal hearing. Normal anatomy. Neck/trachea: Trachea midline, supple. Nose: Normal external anatomy. Mouth: Moist mucous membranes. Chest: Decreased air entry bilaterally. No wheezing or rhonchi. Cardiovascular: Positive S1, positive S2. Regular rate and rhythm. Abdomen: Positive bowel sounds in all 4 quadrants. Soft, non-tender, non- distended. : Deferred. Rectal: Deferred. Skin: Warm, dry. Intact. Extremities: 2+ radial pulses bilaterally. No lower extremity edema. Neuro: Awake, alert, oriented x3. No gross motor or sensory deficits. Cranial nerves II through XII intact. Gait not assessed. laboratory and microbiology Laboratory Tests 06/10/24 05:06 Test 06/10/24 05:06 Range/Units Serum Glucose 109 H 74-106 mg/dL Assessment/Plan Impression: Acute GI bleeding History of liver cirrhosis s/p banding History of autoimmune hepatitis Hyperbilirubinemia with transaminitis Ascites Events: Breathing on room air No respiratory distress. Off Levophed since 1350 on 06/09/24. Hemodynamically stable. On midodrine Continue steroids Continue antibiotics Lasix/spironolactone on hold. Monitor hemoglobin. Patient is stable from the pulmonary standpoint for downgrade to telemetry. Labs and imaging reviewed. Rest of plan as noted below. Plan: Supplemental oxygen PRN Titrate to keep O2 sats above 92%. Continue antibiotics Continue steroids - prednisone Incentive spirometry Pressors if necessary for hemodynamic support Titrate to keep mean arterial pressure greater than 65 mmHg. On midodrine Monitor hemoglobin Monitor renal function. Monitor electrolytes. Supplement as necessary. Monitor ins and outs. GI prophylaxis - Protonix DVT prophylaxis. Prognosis: Poor given patient's multiple co-morbidities. Rest of plan per hospitalist and other consultants. Thank you Dr. Alvaro Gu MD, for allowing me to participate in this patient's care. Further recommendations will depend on the patient's clinical course. Please do not hesitate to contact me if you have any questions or concerns. This medical document was created using an electronic medical record system with [email or web address] dictation system. Although these documentations are being carefully reviewed, there may still be some phonetic and typographical changes. The errors are purely typographical, due to imperfection on the software program, and do not reflect any compromise in the patient's medical care. Plan discussed with: Patient, Other (HUMBERTO Argueta) ROSY STRAUSS MD Jun 10, 2024 19:36
[2024-06-11] VITALS (12 sets, daily range): BP systolic 98–127; BP diastolic 35–52; PULSE 48–102; RESP 16–20; TEMP 97.8–98.7; O2SAT 94–98
[2024-06-11 06:48] LABS: Basophils # (auto) 0 10 ^3/uL (0-0.2); Eosinophils # (auto) 0 10 ^3/uL (0-0.8); Eosinophils % (auto) 0.1 % (0.0-7.0); Hemoglobin 8.9 g/dL (12.2-16.2); Monocytes # (auto) 0.2 10 ^3/uL (0-1.3); Neutrophils # (auto) 2.9 10 ^3/uL (1.6-8.6); White Blood Cell 3.4 10^3/uL (4.4-10.8)
[2024-06-11 06:49] LABS: Alanine Aminotransferase 29 U/L (7-40); Albumin 3.6 g/dL (3.2-4.8); Anion Gap 9 (5-15); Blood Urea Nitrogen 16 mg/dL (9-23); Calcium 9.5 mg/dL (8.7-10.4); Carbon Dioxide 24 mmol/L (20-31); Sodium 142 mmol/L (136-145)
[2024-06-11 06:50] LABS: Basophils % (auto) 0.4 % (0.0-2.0); Hematocrit 27.6 % (36.0-46.0); Lymphocytes # (auto) 0.4 10 ^3/uL (0.4-5.4); Lymphocytes % (auto) 10.3 % (10.0-50.0); Mean Corpuscular Hemoglobin 34.1 pg (28.0-32.0); Mean Corpuscular Hgb Conc. 32.2 g/dL (32.0-36.0); Mean Corpuscular Volume 105.9 fL (80.0-100.0); Monocytes % (auto) 5.7 % (0.0-12.0); Neutrophils % (auto) 83.5 % (37.0-80.0); Platelet Count (auto) 114 10^3/uL (140-450); Red Cell Distribution Width 24.4 % (11.8-14.3); Total Protein 5.9 g/dL (5.7-8.2)
[2024-06-11 06:51] LABS: Alkaline Phosphatase 182 U/L (46-116); Aspartate Aminotransferase 45 U/L (13-40); Bilirubin, Total 2.7 mg/dL (0.2-1.0); Chloride 109 mmol/L (98-107); Glucose 122 mg/dL (74-106); Potassium 3.4 mmol/L (3.5-5.1)
[2024-06-11] MEDS: predniSONE 20 MG TAB PO SCH (08:36)
[2024-06-11 09:12] LABS: Anisocytosis Slight; Macrocytosis Slight; Platelet Estimate Decreased; Tear Drop Cells FEW
[2024-06-11] MEDS ORDERED: MIDO10TA10 PO (16:42)
[2024-06-11] MEDS ORDERED: SUCR1SUS5 PO (16:42)
[2024-06-11] MEDS ORDERED: PRED20TA2 PO (16:42)
[2024-06-11] MEDS ORDERED: PANT40TA2 PO (16:42)
--- NOTE | 2024-06-11 20:50 | DVHDSRES ---
Discharge Summary Date of Admission Resident Creating Document: GABINO COBURN RESIDENT Jun 06, 2024 at 20:55 Date of Discharge: Jun 11, 2024 Admitting Diagnosis Acute intractable abdominal pain Labs/Diagnostic Data: Laboratory Results Test 06/11/24 05:33 06/09/24 15:50 06/09/24 06:55 06/08/24 20:40 White Blood Count 3.4 10^3/uL (4.4-10.8) Red Blood Count 2.60 10^6/uL (4.0-5.20) Hemoglobin 8.9 g/dL (12.2-16.2) Hematocrit 27.6 % (36.0-46.0) Mean Corpuscular Volume 105.9 fL (80.0-100.0) Mean Corpuscular Hemoglobin 34.1 pg (28.0-32.0) Mean Corpuscular Hemoglobin Concent 32.2 g/dL (32.0-36.0) Red Cell Distribution Width 24.4 % (11.8-14.3) Platelet Count 114 10^3/uL (140-450) Mean Platelet Volume 7.8 fL (6.9-10.8) Neutrophils (%) (Auto) 83.5 % (37.0-80.0) Lymphocytes (%) (Auto) 10.3 % (10.0-50.0) Monocytes (%) (Auto) 5.7 % (0.0-12.0) Eosinophils (%) (Auto) 0.1 % (0.0-7.0) Basophils (%) (Auto) 0.4 % (0.0-2.0) Neutrophils # (Auto) 2.9 10 ^3/uL (1.6-8.6) Lymphocytes # (Auto) 0.4 10 ^3/uL (0.4-5.4) Monocytes # (Auto) 0.2 10 ^3/uL (0-1.3) Eosinophils # (Auto) 0 10 ^3/uL (0-0.8) Basophils # (Auto) 0 10 ^3/uL (0-0.2) Nucleated Red Blood Cells 0.0 % Platelet Estimate Decreased Poikilocytosis (manual) Anisocytosis (manual) Slight Macrocytosis Slight Tear Drop Cells Few Sodium Level 142 mmol/L (136-145) Potassium Level 3.4 mmol/L (3.5-5.1) Chloride Level 109 mmol/L (98-107) Carbon Dioxide Level 24 mmol/L (20-31) Anion Gap 9 (5-15) Blood Urea Nitrogen 16 mg/dL (9-23) Creatinine 1.14 mg/dL (0.550-1.02) Glomerular Filtration Rate Calc 53 mL/min (>90) BUN/Creatinine Ratio 14.0 (10.0-20.0) Serum Glucose 122 mg/dL (74-106) Calcium Level 9.5 mg/dL (8.7-10.4) Total Bilirubin 2.7 mg/dL (0.2-1.0) Aspartate Amino Transferase (AST) 45 U/L (13-40) Alanine Aminotransferase (ALT) 29 U/L (7-40) Alkaline Phosphatase 182 U/L (46-116) Total Protein 5.9 g/dL (5.7-8.2) Albumin 3.6 g/dL (3.2-4.8) Urine Color Light-yellow (Yellow) Urine Clarity Clear (Clear) Urine pH 5.0 (5.0-9.0) Urine Specific [place] 1.005 (1.001-1.035) Urine Protein Negative (Negative) Urine Ketones Negative (Negative) Urine Blood Negative /uL (Negative) Urine Nitrite Negative (Negative) Urine Bilirubin Negative (Negative) Urine Urobilinogen Normal mg/dL (Negative) Urine Leukocyte Esterase Negative /uL (Negative) Urine RBC 1 /hpf (0 - 4) Urine WBC 1 /hpf (0 - 5) Urine Squamous Epithelial Cells Few /hpf (<5) Urine Bacteria None seen /hpf (None Seen) Urine Hyaline Casts Few /lpf (0 - 2) Urine Mucus Few (None Seen) Urine Glucose Normal mg/dL (Normal) Iron Level 215 ug/dL (50-170) Total Iron Binding Capacity 336 ug/dL (250-425) Percent Iron Saturation 64.0 % (15-50) Ammonia 33 umol/L (11-32) Stool for White Cells None seen Test 06/08/24 06:49 06/07/24 03:31 06/06/24 22:38 06/06/24 16:19 Differential Total Cells Counted 100.0 (100) Neutrophils % (Manual) 93 (37.0-80.0) Band Neutrophils % (Manual) 1 Lymphocytes % (Manual) 4 (10.0-50.0) Monocytes % (Manual) 2 (0-12) Eosinophils % (Manual) 0 (0-7) Basophils % (Manual) 0 (0.0-2.0) Metamyelocytes % (manual) 0 Myelocytes % (Manual) 0 Promyelocytes % (Manual) 0 Blast Cells % (Manual) 0 Reactive Lymphocytes 0 Ferritin 33.0 ng/mL (10-291) Tumor Marker Alpha Fetoprotein 2.8 ng/mL (0.0-9.2) Anti-Nuclear Antibody Comment Comment (.) GERALD-1 Antibody <0.2 AI (0.0-0.9) SS-A/Ro Antibody <0.2 AI (0.0-0.9) SS-B/La Antibody <0.2 AI (0.0-0.9) Sm Antibody <0.2 AI (0.0-0.9) LOG CHAIN FEEDER Antibody <0.2 AI (0.0-0.9) Scl-70 (Scleroderma) Antibody <0.2 AI (0.0-0.9) Anti-Double Strand DNA Antibody <1 IU/mL (0-9) Chromatin Antibody 0.4 AI (0.0-0.9) Centromere B Antibody >8.0 AI (0.0-0.9) Vitamin B12 Level 1228 pg/mL (211-911) Folic Acid 13.20 ng/mL (>5.38) Prothrombin Time 10.9 sec (9.3-11.8) Prothrombin Time INR 1.03 (0.9-1.15) Test 06/06/24 14:43 Hemoglobin A1c < 5.7 % A1C (<5.7) B-Type Natriuretic Peptide 311.63 pg/mL (0-100) Thyroid Stimulating Hormone (TSH) 2.30 uIU/mL (0.55-4.78) Hepatitis A Antibody Total Positive (Negative) Hepatitis B Surface Antigen Negative (Negative) Hepatitis B Surface Antibody Negative (Negative) Hepatitis B Core Total Antibody Negative (Negative) Hepatitis C Antibody Negative (Negative) Other Laboratory Tests 06/11/24 05:33 Brief Hx & Hospital Course: Patient is a 68-year-old female with past medical history of liver cirrhosis diagnosed 3 years ago, s/p variceal banding 10 months ago, questionable autoimmune hepatitis and scleroderma, who came in due to abdominal pain that has been ongoing for the past 8 days. Patient rates the pain as 8/10, constant and radiating to bilateral shoulders, she describes the pain as burning in nature. Per patient's daughter, she had multiple episodes of melena and hematuria. Hospital course: Patient was noted to have a MELD score of 14 point and a Child Ybarra class B, EGD showed 1+ distal esophageal varices without any stigmata of recent bleeding. 2 cm sliding-type hiatal hernia with grade B erosive esophagitis and GE junction ulceration. [id number] portal hypertension gastropathy. Abdominal ultrasound showed cirrhotic liver with small volume ascites seen throughout the abdomen. Patient was started on IV ceftriaxone, furosemide 40 mg p.o. daily, spironolactone 100 mg p.o. daily, propranolol 10 mg p.o. daily and IV Protonix 40 mg b.i.d.. Patient received a total of 3 PRBC transfusions, 2 on day 1 of hospitalization and 1 on day 3 of hospitalization. Patient was also continued on home medication ursodiol and started on prednisone 20 mg p.o. daily for likely autoimmune hepatitis. During the course of her hospitalization, she became hypotensive and she was given 2 boluses of 250 mL NS, midodrine 10 mg, albumin, however, continued to remain hypotensive and was subsequently transferred to the [facility] where she was started on Levophed drip at 2 micrograms/minute which was eventually tapered and then stopped the next day as blood pressure came back up. Patient was thereafter [place] [facility] [place] On the day of discharge, patient appeared well and had stable vital signs, reported improving diarrhea symptoms and denied any active ongoing pain or discomfort. Patient was instructed to follow up with her primary care doctor and GI in the outpatient clinic, patient was also instructed to follow up with her mill dresser Jaki. Patient was sent home with midodrine 10 mg p.o. t.i.d., pantoprazole 40 mg p.o. daily, prednisone 20 mg p.o. daily for 30 days and Carafate 1 g 4 times a day. Details and plan of care was explained to patient and daughter at bedside, all concerns were addressed and questions answered. Her hospital course was uncomplicated. General Appearance: Cooperative. Well developed. Well nourished. NAD Head Exam: Normal inspection Neck Exam: Normal inspection. Non-tender. Normal alignment Pulmonary/Respiratory: Chest non-tender. Clear bilateral breath sounds, no crackles, no wheezing. Cardiovascular/Chest: Regular rate and rhythm. No murmurs. No JVD. Peripheral Pulses: 2+ Radial (R). 2+ Radial (L). 2+ Pedal (R). 2+ Pedal (L) Abdominal Exam: Normal bowel sounds. Soft. normal abdomen, no visible veins, shifting dullness noted, mild. Some abdominal tenderness to palpation, however, improved since day 1. No hepatospenomegaly. No masses Ankle Exam: Negative ankle edema Lower extremities: Negative lower extremity edema Neuro/Mental Status: A&O x4. Coherent. Thoughts/Psych: Normal thought pattern. Appropriate mood and affect. Good judgement and insight Skin Exam: Normal inspection. Normal color. Warm. Dry Condition at Discharge: Good Final Diagnosis/Problems List Liver Cirrhosis secondary to MASLD Scleroderma Hyperbilirubinemia Variceal bleeding less likely Small volume ascites Anemia requiring blood transfusion Symptomatic hypotension Erosive esophagitis Leukopenia, decreased absolute neutrophil count SATINDER, likely hemodynamically mediated/VMN on questionable CKD History of autoimmune hepatitis Discharge Disposition: Home Discharge Instruct/Medications Diet: Regular Activity: No Restrictions, As Tolerated Follow Up/Referral: Please follow up with GI doctor in the outpatient clinic in 1-2 weeks Please follow up in the [place] clinic, repeat labs/CMP in 2 weeks Please follow up with mill dresser at [facility] Medications: Protonix 40 mg twice a day Midodrine 10 mg 3 times a day Prednisolone 20 mg for 1 month only Carafate 1 g 4 times per day as needed Discharge Statement: "Patient was advised to return to the ER or call 911 if any headaches, dizziness, shortness of breath, chest pain, abdominal pain, bleeding, fevers, or worsening of medical condition. Patient was counseled about treatment plan, medications, possible side effects, patientverbalized understanding. All questions were answered to the best of my ability. This discharge took greater then 30 minutes in planning, reviewing documentation, counseling the patient, and discussing with other team members." ASSESSMENT ASSESSMENT Assessment Liver Cirrhosis secondary to MASLD Date of Service: Jun 11, 2024 Billing Provider: GONZALEZ QUINONEZ MD Common Visit Codes: [id number] DISCH DAY >30min GABINO COBURN Jun 11, 2024 20:50 GONZALEZ QUINONEZ MD Jun 14, 2024 08:37
== END 2024-06-11 18:37 | disposition home or self-care (01) | DRG 241 ==
LOC: ER 14:07 → TELE 20:55 → TELE-CENTR 06-07 16:57 → ICU CENTRL 06-09 07:14 → TELE-WESTW 06-10 14:40
PROVIDERS: ADMIT Student in an Organized Health Care Education/Training Program; ATTEND Student in an Organized Health Care Education/Training Program
PROC: 0DB68ZX Excision of Stomach, Via Natural or Artificial Opening Endoscopic, Diagnostic (ICD-10-PCS; 2024-06-07)
PROC: 0DB98ZX Excision of Duodenum, Via Natural or Artificial Opening Endoscopic, Diagnostic (ICD-10-PCS; principal; 2024-06-07 15:31)
PROC: 30233N1 Transfusion of Nonautologous Red Blood Cells into Peripheral Vein, Percutaneous Approach (ICD-10-PCS; 2024-06-08)
DX: K25.4 Chronic or unspecified gastric ulcer with hemorrhage (principal); N17.0 Acute kidney failure with tubular necrosis; I85.11 Secondary esophageal varices with bleeding; K22.11 Ulcer of esophagus with bleeding; K76.6 Portal hypertension; M34.9 Systemic sclerosis, unspecified; R18.8 Other ascites; K74.60 Unspecified cirrhosis of liver; D62 Acute posthemorrhagic anemia; K76.0 Fatty (change of) liver, not elsewhere classified; K31.9 Disease of stomach and duodenum, unspecified; K44.9 Diaphragmatic hernia without obstruction or gangrene; K75.4 Autoimmune hepatitis; E80.6 Other disorders of bilirubin metabolism; N18.9 Chronic kidney disease, unspecified; Z90.49 Acquired absence of other specified parts of digestive tract
CPT/HCPCS: 36415; 43239; 71045; 76700; 80048; 80053; 81001; 82105; 82140; 82607; 82728; 82746; 83036; 83516; 83540; 83550; 83880; 84443; 85007; 85014; 85018; 85025; 85027; 85048; 85610; 86225; 86235; 86704; 86706; 86708; 86803; 86850; 86860; 86870; 86880; 86900; 86901; 86905; 86906; 86922; 86970; 86971; 86978; 87045; 87081; 87086; 87340; 87427; 87493; 99291; G0378; J2250; J2470

== ENCOUNTER 2024-07-04 00:03 | Inpatient (IN) | payer MEDICAID ==
[~2024-07-04] VITALS: Ht 154.9 cm; Wt 71.5 kg
[~2024-07-04 00:03] MED LIST: MIDO10TA10 PO; PANT40TA2 PO; PRED20TA2 PO; SUCR1SUS5 PO
[2024-07-04 00:43] LABS: Eosinophils # (auto) 0 10 ^3/uL (0-0.8); Hematocrit 33.1 % (36.0-46.0); Lymphocytes # (auto) 0.7 10 ^3/uL (0.4-5.4); Monocytes # (auto) 0.5 10 ^3/uL (0-1.3); Nucleated Red Blood Cells % 0.1 %
[2024-07-04 00:44] LABS: Basophils # (auto) 0.1 10 ^3/uL (0-0.2); Basophils % (auto) 0.6 % (0.0-2.0); Hemoglobin 11.2 g/dL (12.2-16.2); Mean Corpuscular Hgb Conc. 33.8 g/dL (32.0-36.0); Mean Corpuscular Volume 103.7 fL (80.0-100.0); Monocytes % (auto) 4.8 % (0.0-12.0); Neutrophils # (auto) 9.1 10 ^3/uL (1.6-8.6); Neutrophils % (auto) 87.6 % (37.0-80.0); Platelet Count (auto) 180 10^3/uL (140-450); Red Blood Cells 3.19 10^6/uL (4.0-5.20); White Blood Cell 10.4 10^3/uL (4.4-10.8)
[2024-07-04 00:51] LABS: Red Cell Distribution Width 21.7 % (11.8-14.3)
[2024-07-04 01:02] LABS: Albumin 4.4 g/dL (3.2-4.8); Anion Gap 12 (5-15); BUN/Creatinine Ratio 18.4 (10.0-20.0); Carbon Dioxide 29 mmol/L (20-31); Lipase 34 U/L (12-53); Potassium 4.4 mmol/L (3.5-5.1)
[2024-07-04 01:03] LABS: Total Protein 7.3 g/dL (5.7-8.2)
[2024-07-04 01:23] LABS: Alanine Aminotransferase 221 U/L (7-40); Alkaline Phosphatase 180 U/L (46-116); Aspartate Aminotransferase 142 U/L (13-40); Blood Urea Nitrogen 74 mg/dL (9-23); Calcium 11.2 mg/dL (8.7-10.4); Chloride 89 mmol/L (98-107); Glucose 144 mg/dL (74-106); Sodium 130 mmol/L (136-145)
--- NOTE | 2024-07-04 01:47 | ED.PDOC ---
History of Present Illness HPI Comments This patient is a 69-year-old female who arrives the ED today for evaluation of headache, dizziness, nausea, chest pain and abdominal pain as well as altered mental status today. Per EMS, patient stated that symptoms came on earlier today and worsened throughout the day. At time of my evaluation, patient was lethargic and sleepy. EMS states the patient has a history of hypertension and liver cirrhosis. Patient was hypertensive and bradycardic at arrival. Chief Complaint: Headache Time Seen by MD: 00:11 Primary Care Provider: MAURILIO Reviewed Notes: Nurses Notes, Principal Quality Engineer Notes Allergies: Coded Allergies: NO KNOWN ALLERGIES (Unverified , 01/23/21) Home Meds Active Scripts Sucralfate (Carafate) 1 Gm/10 Ml Amy, 1 GM PO QID for 30 Days, #1 ML 3 Refills Prov:GABINO COBURN RESIDENT 06/11/24 Prednisone (Prednisone) 20 Mg Tab, 20 MG PO DAILY for 30 Days, #30 MG Prov:GABINO COBURN RESIDENT 06/11/24 Midodrine HCl (Midodrine Hydrochloride) 10 Mg Tab, 10 MG PO TID for 30 Days, #90 TAB 3 Refills Prov:GABINO COBURN RESIDENT 06/11/24 Pantoprazole Sodium Sesquihydr (Protonix) 40 Mg Tab, 40 MG PO DAILY for 30 Days, #30 TAB Prov:GABINO COBURN RESIDENT 06/11/24 Information Source: Patient, Emergency Med Personnel Mode of Arrival: Ambulatory Severity: Moderate Timing: Hours Duration: Since onset Prehospital treatment: 12 Lead EKG Past Medical History PAST MEDICAL HISTORY: Anemia, Liver Surgical History: Denies all surgeries 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 History: No Pertinent 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 History Family History Family History: Reviewed,noncontributory to illness Social History Smoker: Non-Smoker Alcohol: Denies ETOH Use Drugs: Denies Drug Use Lives In: Home Constitutional: reports: fatigue, weakness; denies: chills, diaphoresis, fever, malaise, sweats, others EENTM: denies: blurred vision, double vision, ear bleeding, ear discharge, ear drainage, ear pain, ear ringing, eye pain, eye redness, hearing loss, mouth pain, mouth swelling, nasal discharge, nose bleeding, nose congestion, nose pain, photophobia, tearing, throat pain, throat swelling, voice changes, others Respiratory: denies: cough, hemoptysis, orthopnea, SOB at rest, shortness of breath, SOB with excertion, stridor, wheezing, others Cardiovascular: reports: chest pain; denies: dizzy spells, diaphoresis, Dyspnea on exertion, edema, irregular heart beat, left arm pain, lightheadedness, palpitations, PND, syncope, others Gastrointestinal: reports: abdominal pain; denies: abdomen distended, blood streaked bowels, constipated, diarrhea, dysphagia, difficulty swallowing, hematemesis, melena, nausea, poor appetite, poor fluid intake, rectal bleeding, rectal pain, vomiting, others Genitourinary: denies: abnormal vagina bleeding, burning, dyspareunia, dysuria, flank pain, frequency, hematuria, incontinence, pain, , vagina discharge, urgency, others Neurological: reports: dizziness, headache; denies: fainting, left sided numbness, left sided weakness, numbness, paresthesia, pre-existing deficit, right sided numbness, right sided weakness, seizure, speech problems, tingling, tremors, weakness, others Musculoskeletal: denies: back pain, gout, joint pain, joint swelling, muscle pain, muscle stiffness, neck pain, others Integumetry: denies: bruises, change in color, change in hair/nails, dryness, laceration, lesions, lumps, rash, wounds, others Allergic/Immunocompromised: denies: Difficulty Healing, Frequent Infections, Hives, Itching, others Hematologic/Lymphatic: denies: anemia, blood clots, easy bleeding, easy bruising, swollen glands, others Endocrine: denies: excessive hunger, excessive sweating, excessive thirst, excessive urination, flushing, intolerance to cold, intolerance to heat, unexplained weight gain, unexplained weight loss, others Psychiatric: denies: anxiety, bipolar disorder, depression, hopeless, panic disorder, schizophrenia, sleepless, suicidal, others Physical Exam General Appearance: Moderate Distress (Moderate distress at time of ev aluation.), Normal HEENT: Head (Cranial exam was unremarkable. No signs of trauma. No skull depressions or deformities.), Normal ENT Inspection, Pharynx Normal, TMs Normal Neck: Full Range of Motion, Non-Tender, Normal, Normal Inspection Respiratory: Chest Non-Tender, Lungs Clear, No Accessory Muscle Use, No Respir atory Distress, Normal Breath Sounds, Other (Patient complains of burning pleuritic pain.) Cardiovascular: Bradycardia, No Edema, No JVD, No Murmur, No Gallop, Normal Peripheral Pulses Breast Exam: Deferred Gastrointestinal: No Pulsatile Mass, Normal Bowel Sounds, Soft, Other (Diffuse abdominal tenderness to palpation. Nonspecific. Abdomen was mildly rigid.) Genitalia: Deferred Pelvic: Deferred Rectal: Deferred Extremities: NOT DONE Neurologic: NOT DONE Cerebellar Function: NOT DONE Reflexes: NOT DONE Skin: Dry, Normal Color, Warm Lymphatic: No Adenopathy Was a procedure done? Was a procedure done?: No Differential Dx Considerations may include: Sepsis, electrolyte abnormality, liver cirrhosis, but acute renal injury, anemia, acute intracranial process X-Ray, Labs, Meds, VS Vital Signs Date Time Temp Pulse Resp B/P (MAP) Pulse Ox O2 Delivery O2 Flow Rate FiO2 07/04/24 00:03 98.4 56 18 166/72 (103) 95 Lab Test 07/04/24 01:23 07/04/24 00:26 Range/Units Troponin I High Sensitivity Pending 19 </=34 ng/L White Blood Count 10.4 4.4-10.8 10^3/uL Red Blood Count 3.19 L 4.0-5.20 10^6/uL Hemoglobin 11.2 L 12.2-16.2 g/dL Hematocrit 33.1 L 36.0-46.0 % Mean Corpuscular Volume 103.7 H 80.0-100.0 fL Mean Corpuscular Hemoglobin 35.0 H 28.0-32.0 pg Mean Corpuscular Hemoglobin Concent 33.8 32.0-36.0 g/dL Red Cell Distribution Width 21.7 H 11.8-14.3 % Platelet Count 180 140-450 10^3/uL Mean Platelet Volume 7.7 6.9-10.8 fL Neutrophils (%) (Auto) 87.6 H 37.0-80.0 % Lymphocytes (%) (Auto) 7.0 L 10.0-50.0 % Monocytes (%) (Auto) 4.8 0.0-12.0 % Eosinophils (%) (Auto) 0.0 0.0-7.0 % Basophils (%) (Auto) 0.6 0.0-2.0 % Neutrophils # (Auto) 9.1 H 1.6-8.6 10 ^3/uL Lymphocytes # (Auto) 0.7 0.4-5.4 10 ^3/uL Monocytes # (Auto) 0.5 0-1.3 10 ^3/uL Eosinophils # (Auto) 0 0-0.8 10 ^3/uL Basophils # (Auto) 0.1 0-0.2 10 ^3/uL Nucleated Red Blood Cells 0.1 % Platelet Estimate Pending Sodium Level 130 L 136-145 mmol/L Potassium Level 4.4 3.5-5.1 mmol/L Chloride Level 89 L 98-107 mmol/L Carbon Dioxide Level 29 20-31 mmol/L Anion Gap 12 5-15 Blood Urea Nitrogen 74 H 9-23 mg/dL Creatinine 4.03 H 0.550-1.02 mg/dL Glomerular Filtration Rate Calc 12 >90 mL/min BUN/Creatinine Ratio 18.4 10.0-20.0 Serum Glucose 144 H 74-106 mg/dL Lactic Acid Level 1.5 0.4-2.0 mmol/L Calcium Level 11.2 H 8.7-10.4 mg/dL Total Bilirubin 4.0 H 0.2-1.0 mg/dL Aspartate Amino Transferase (AST) 142 H 13-40 U/L Alanine Aminotransferase (ALT) 221 H 7-40 U/L Alkaline Phosphatase 180 H 46-116 U/L B-Type Natriuretic Peptide 157.54 0-100 pg/mL Total Protein 7.3 5.7-8.2 g/dL Albumin 4.4 3.2-4.8 g/dL Lipase 34 12-53 U/L X-Ray, Labs, Meds, VS Comment Multiple studies were pending at time of this note. 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 Patient will be admitted for her electrolyte abnormalities as well as kidney concerns. Patient will receive a nephrology consult tomorrow. Patient care will be transferred to Dr. Hensley for evaluation of the additional labs when returned. Once reviewed, he will respond accordingly. Patient will be admitted for management. Time of 1ST Reevaluation: 01:52 Reevaluation 1ST: Improved Consultation: PCP Patient Education/Counseling: Diagnosis, Treatment Family Education/Counseling: Diagnosis, Treatment Departure 1 Departure Time of Disposition: 01:54 Impression: Primary Impression: Weakness Additional Impressions: [id number] kidney injury Anemia Hyponatremia Transaminitis Disposition: 09 ADMITTED INPATIENT Condition: Stable Discharged With: Self Critical Care Note Critical Care Time?: No Stability Stability form required: No Heart Score Heart Score: Heart Score Response (Comments) Value History Slightly Suspicious 0 EKG Repolarization Disturb 1 Age >65 2 Risk Factors 1 or 2 risk factors 1 Troponin Normal limit 0 Total 4 WILFRIDO DU PAC Jul 04, 2024 01:47
[2024-07-04 01:56] LABS: Macrocytosis Slight; Platelet Estimate Adequate
[2024-07-04 01:57] LABS: Anisocytosis Slight; Stomatocytes Few; Tear Drop Cells FEW
[2024-07-04] MEDS: SODIUM CHLORIDE 0.9% 500 ML IV ONE (02:25)
--- NOTE | 2024-07-04 02:37 | DVH ---
Examination: HWOCT CLINICAL INDICATION: Severe headache COMPARISON: None. CONTRAST USED: None. TECHNIQUE: The examination was performed obtaining 5 mm slices without contrast. Multiplanar reconstr uctions were obtained. CT scan done according to ALARA (As Low As Reasonably Achievable). FINDINGS: SUPRATENTORIAL BRAIN: Cerebral Hemispheres: Small calcified granuloma is seen in the right frontal lobe and parasagittal co rtex. No evidence of surrounding hypodensity is seen to suggest edema. There is no midline shift or m ass effect, intra or extra-axial fluid collections or hemorrhage. Periventricular White Matter/Basal Ganglia: No abnormal areas of altered attenuation within the periv entricular white matter or basal ganglia. POSTERIOR FOSSA: The brainstem is normal and the visualized cerebellar hemispheres are unremarkable. VENTRICULAR SYSTEM: The ventricular system is normal in size. There is no evidence of hydrocephalus o r transependymal flow of cerebrospinal fluid. SKULL BASE AND PARASELLAR REGION: The skull base is normal with no parasellar masses or abnormalities identified. CALVARIUM AND SCALP REGION: No abnormality is seen. Small calcific focus is seen in the scalp in the posterior parietal region. PARANASAL SINUSES: No significant inflammatory changes are identified in the paranasal sinuses. IMPRESSION: 1. Small calcified granuloma is seen in the right frontal lobe and parasagittal cortex. No evidence of surrounding hypodensity is seen to suggest edema. 2. No acute infarct or space-occupying lesion is seen. 3. No intracranial hemorrhage or calvarial fracture. 4. Suggest MRI brain correlation if clinically deemed necessary. Electronically Signed 07/04/2024 02:36 Mukul Santamaria
--- NOTE | 2024-07-04 02:44 | DVH ---
Examination: CXRP Clinical Indication: Shortness of breath. Comparison: None. Technique: Frontal radiograph of the chest was obtained. Findings: Lungs are clear and well expanded with no pulmonary infiltrate or pleural effusion. There is no pneumothorax. The cardiomediastinal silhouette is within normal limits. No acute osseous abnormality is seen. Impression: No acute cardiopulmonary disease is seen. Electronically Signed 07/04/2024 02:44 Mukul Santamaria
[2024-07-04] MEDS: HYDROcodone-ACET 10/325MG TAB PO ONE (03:37)
[2024-07-04 07:36] VITALS: PULSE 57; RESP 16; O2SAT 97
[2024-07-04 07:38] LABS: Urine Bacteria None Seen /hpf (None Seen)
[2024-07-04 07:49] LABS: Urine Blood Negative /uL (Negative); Urine Clarity Clear (Clear); Urine Color Yellow (Yellow); Urine Protein, UAD TRACE (Negative); Urine Squamous Epithelial Cell FEW /hpf (<5); Urine Urobilinogen Normal (Negative); Urine WBC 5 /hpf (0 - 5); Urine pH 5.5 (5.0-9.0)
[2024-07-04] MEDS: SODIUM CHLORIDE 0.9% 1,000 ML IV SCH (09:16)
[2024-07-04] MEDS ORDERED: ACETAMINOPHEN 325 MG TAB PO PRN (09:45)
[2024-07-04] MEDS ORDERED: MORPHINE SULFATE INJ 2 MG/ml SYRG IV PRN ×2 (09:45)
[2024-07-04] MEDS ORDERED: NITROGLYCERIN 0.4 MG SL TAB SL PRN (09:45)
--- NOTE | 2024-07-04 09:50 | DVHHP2 ---
History of Present Illness Reason for Visit: Headaches History of Present Illness This 69-year-old Stateless mainly speaking patient accompanied by daughter presents in the ED via EMS with a chief complaint of headaches. The patient reports headaches associated with dizziness, chest burning pain, abdominal pain, nausea, and vomiting started yesterday. The patient denies syncope, palpitations, shortness of breath, or other acute symptoms. The patient with past medical history of liver cirrhosis, hepatitis, anemia, and chronic kidney disease stage 3. Past Medical History As stated in HPI Past Surgical History Denies Family History Reviewed, non-contributory to the management of this case. Past Social History The patient lives at home, denies smoking, alcohol or illicit drugs abuse. Review of Systems Constitutional: Yes: Weakness, Malaise; No: Fever, Chills, Sweats, Other Eyes: No: Pain, Vision change, Conjunctivae inflammation, Eyelid inflammation, Other, Redness ENT: No: Ear pain, Ear discharge, Nose pain, Nose discharge, Nose congestion, Mouth pain, Mouth swelling, Throat pain, Throat swelling, Other Respiratory: No: Cough, Dry, Shortness of breath, SOB with excertion, Wheezing, Hemoptysis, Pleuritic Pain, Sputum, Wheezing, Other Cardiovascular: Chest Pain; No: Palpitations, Orthopnea, Paroxysmal Noc. Dyspnea, Edema, Lt Headedness, Other Gastrointestinal: Nausea, Vomiting, Abdominal Pain; No: Diarrhea, Constipation, Melena, Hematochezia, Other Genitourinary: No Dysuria, No Frequency, No Incontinence, No Hematuria, No Retention, No Other Musculoskeletal: No: other, neck pain, shoulder pain, arm pain, back pain, hand pain, leg pain, foot pain Skin: No: Rash, Lesions, Jaundice, Bruising, Other Neurological: Other (Dizziness) Allergies: Coded Allergies: NO KNOWN ALLERGIES (Unverified , 01/23/21) Medications Current Medications Medications Dose Ordered Sig/Chang Route Start Time Stop Time Status Last Admin Dose Admin Sodium Chloride 1,000 ml @ 75 mls/hr [id number] IV 07/04/24 09:45 UNV Acetaminophen/ Hydrocodone Bitart 1 tab Q4HP PRN PO 07/04/24 09:45 UNV Exam Vital Signs Vital Signs Date Time Temp Pulse Resp B/P (MAP) Pulse Ox O2 Delivery O2 Flow Rate FiO2 07/04/24 09:12 54 07/04/24 07:36 16 97 Room Air* 0 21 07/04/24 07:22 97.9 98/47 (64) 97.9 General Appearance: Alert, Oriented X3, Cooperative, mild distress HEENT: Atraumatic, PERRLA, EOMI, Mucous membr. moist/pink Respiratory: Clear to auscultation, Normal air movement Cardiovascular: Regular rate, Normal S1, Normal S2 Abdominal: Normal bowel sounds, Soft, No tenderness Extremities: No clubbing, No cyanosis, No edema, Normal pulses Skin: No rashes, No breakdown, No significant lesion Neuro: Normal gait, Normal speech, Strength at 5/5 X4 ext, Normal tone Psych/Mental Status: Mental status NL Labs/Xrays Labs Test 07/04/24 03:32 07/04/24 02:30 07/04/24 00:26 Range/Units Troponin I High Sensitivity 21 </=34 ng/L Urine Color Yellow Yellow Urine Clarity Clear Clear Urine pH 5.5 5.0-9.0 Urine Specific [place] 1.010 1.001-1.035 Urine Protein Trace H Negative Urine Ketones Negative Negative Urine Blood Negative Negative /uL Urine Nitrite Negative Negative Urine Bilirubin Negative Negative Urine Urobilinogen Normal Negative mg/dL Urine Leukocyte Esterase Negative Negative /uL Urine RBC <1 0 - 4 /hpf Urine WBC 5 0 - 5 /hpf Urine Squamous Epithelial Cells Few <5 /hpf Urine Bacteria None seen None Seen /hpf Urine Glucose Normal Normal mg/dL White Blood Count 10.4 4.4-10.8 10^3/uL Red Blood Count 3.19 L 4.0-5.20 10^6/uL Hemoglobin 11.2 L 12.2-16.2 g/dL Hematocrit 33.1 L 36.0-46.0 % Mean Corpuscular Volume 103.7 H 80.0-100.0 fL Mean Corpuscular Hemoglobin 35.0 H 28.0-32.0 pg Mean Corpuscular Hemoglobin Concent 33.8 32.0-36.0 g/dL Red Cell Distribution Width 21.7 H 11.8-14.3 % Platelet Count 180 140-450 10^3/uL Mean Platelet Volume 7.7 6.9-10.8 fL Neutrophils (%) (Auto) 87.6 H 37.0-80.0 % Lymphocytes (%) (Auto) 7.0 L 10.0-50.0 % Monocytes (%) (Auto) 4.8 0.0-12.0 % Eosinophils (%) (Auto) 0.0 0.0-7.0 % Basophils (%) (Auto) 0.6 0.0-2.0 % Neutrophils # (Auto) 9.1 H 1.6-8.6 10 ^3/uL Lymphocytes # (Auto) 0.7 0.4-5.4 10 ^3/uL Monocytes # (Auto) 0.5 0-1.3 10 ^3/uL Eosinophils # (Auto) 0 0-0.8 10 ^3/uL Basophils # (Auto) 0.1 0-0.2 10 ^3/uL Nucleated Red Blood Cells 0.1 % Platelet Estimate Adequate Anisocytosis (manual) Slight Macrocytosis Slight Tear Drop Cells Few Stomatocytes Few Sodium Level 130 L 136-145 mmol/L Potassium Level 4.4 3.5-5.1 mmol/L Chloride Level 89 L 98-107 mmol/L Carbon Dioxide Level 29 20-31 mmol/L Anion Gap 12 5-15 Blood Urea Nitrogen 74 H 9-23 mg/dL Creatinine 4.03 H 0.550-1.02 mg/dL Glomerular Filtration Rate Calc 12 >90 mL/min BUN/Creatinine Ratio 18.4 10.0-20.0 Serum Glucose 144 H 74-106 mg/dL Lactic Acid Level 1.5 0.4-2.0 mmol/L Calcium Level 11.2 H 8.7-10.4 mg/dL Total Bilirubin 4.0 H 0.2-1.0 mg/dL Aspartate Amino Transferase (AST) 142 H 13-40 U/L Alanine Aminotransferase (ALT) 221 H 7-40 U/L Alkaline Phosphatase 180 H 46-116 U/L B-Type Natriuretic Peptide 157.54 0-100 pg/mL Total Protein 7.3 5.7-8.2 g/dL Albumin 4.4 3.2-4.8 g/dL Lipase 34 12-53 U/L PROCEDURE(s): HWOCT - HEAD WITHOUT CONTRAST REASON: Severe headache ORDER NUMBER(s): [id number], ACCESSION NUMBER(s): [id number] Examination: HWOCT CLINICAL INDICATION: Severe headache COMPARISON: None. CONTRAST USED: None. TECHNIQUE: The examination was performed obtaining 5 mm slices without contrast. Multiplanar reconstructions were obtained. CT scan done according to ALARA (As Low As Reasonably Achievable). FINDINGS: SUPRATENTORIAL BRAIN: Cerebral Hemispheres: Small calcified granuloma is seen in the right frontal lobe and parasagittal cortex. No evidence of surrounding hypodensity is seen to suggest edema. There is no midline shift or mass effect, intra or extra-axial fluid collections or hemorrhage. Periventricular White Matter/Basal Ganglia: No abnormal areas of altered attenuation within the periventricular white matter or basal ganglia. POSTERIOR FOSSA: The brainstem is normal and the visualized cerebellar hemispheres are unremarkable. VENTRICULAR SYSTEM: The ventricular system is normal in size. There is no evidence of hydrocephalus or transependymal flow of cerebrospinal fluid. SKULL BASE AND PARASELLAR REGION: The skull base is normal with no parasellar masses or abnormalities identified. CALVARIUM AND SCALP REGION: No abnormality is seen. Small calcific focus is seen in the scalp in the posterior parietal region. PARANASAL SINUSES: No significant inflammatory changes are identified in the paranasal sinuses. IMPRESSION: 1. Small calcified granuloma is seen in the right frontal lobe and parasagittal cortex. No evidence of surrounding hypodensity is seen to suggest edema. 2. No acute infarct or space-occupying lesion is seen. 3. No intracranial hemorrhage or calvarial fracture. Assessment/Plan Assessment/Plan # acute renal failure Admit to med/tele unit Nephrology consult IV fluid Indwelling urinary catheter # Hyperbilirubinemia with transaminitis # history of autoimmune hepatitis # hx of Liver cirrhosis with banding # anemia hepatitis panel Coagulation studies Check ammonia level # acute headaches CT head reviewed IV fluid Monitor # chest pain Check echo Consider cardiology consult as necessary # nausea/vomiting Antiemetics DVT prophylaxis Medical plan discussed with patient and daughter Plan discussed with: Patient, Daughter My Orders Orders - WES DAMICO [employer] Procedure Category Date Status Time Admit ADMIT 07/04/24 Transmitted 09:40 Code Status CODE 07/04/24 Transmitted 09:40 Renal DIET 07/04/24 Transmitted Standard(2gna,3gk,Lopho) Lunch Sodium Chloride 0.9% PHA 07/04/24 Logged 09:45 Hydrocodone-Acet PHA 07/04/24 Logged 5/325mg Tab ([place] 09:45 Ondansetron Hcl PHA 07/04/24 Transmitted (Zofran) 09:45 Fall Risk Precautions [facility] 07/04/[address] 09:40 Complete Blood Count LAB 07/05/24 Verified 04:00 Comprehensive LAB 07/05/24 Verified Metabolic Panel 04:00 Echo 2d Mode Cardiac US 07/04/24 Logged DOP 09:40 Condition: Fair [facility] 07/04/24 In Process 09:40 Enoxaparin Sodium PHA 07/04/24 Transmitted (Lovenox) 10:00 Acetaminophen Tablet PHA 07/04/24 Transmitted (Tylenol Tablet) 09:45 Morphine Sulfate PHA 07/04/24 Transmitted Injection 09:45 Nitroglycerin PHA 07/04/24 Transmitted Sublingual (Ntrostat 09:45 Morphine Sulfate PHA 07/04/24 Transmitted Injection 09:45 Stat Ekg For Chest [facility] 07/04/24 In Process Pain 09:40 Notify Of Changes [facility] 07/04/24 In Process From Base 09:40 Catering Cook For [facility] 07/04/24 In Process 24 Hours 09:40 Emergency Dysrhythmia [facility] 07/04/24 In Process Protocol 09:40 Rhythm Strips Once [facility] 07/04/24 In Process Every Shift 09:40 Oxygen By Nasal RT 07/04/24 Transmitted Cannula 09:40 Insert Gay Catheter [facility] 07/04/24 In Process 09:40 Thyroid Stimulating LAB 07/04/24 Transmitted Hormone 09:40 Lipid Panel LAB 07/04/24 Transmitted 09:40 Hemoglobin A1c LAB 07/04/24 Transmitted 09:40 *Dr. [facility] CONS 07/04/24 Transmitted -[place] 09:40 Comprehensive LAB 07/04/24 Transmitted Hepatitis Panel 09:40 Date of Service: Jul 04, 2024 Billing Provider: WES DAMICO Common Visit Codes: [id number] INP/OBS CARE (HIGH) WES DAMICOP Jul 04, 2024 09:50
[2024-07-04 10:11] LABS: Cholesterol 185 mg/dL (< 200)
[2024-07-04] MEDS: ONDANSETRON HCL 4 MG/2 ML VIAL IV PRN (10:14)
[2024-07-04] MEDS: HYDROcodone-ACET 5/325MG TAB PO PRN (10:14)
[2024-07-04] MEDS: ENOXAPARIN SOD 30 MG/0.3 ML SYRINGE SC SCH (10:15)
[2024-07-04 10:25] LABS: HDL Cholesterol 34 mg/dL (40-59); LDL Cholesterol 121 mg/dL (< 100); Triglycerides 180 mg/dL (< 150)
[2024-07-04 10:51] LABS: INR 1.06 (0.9-1.15); Partial Thromboplastin Time < 20.0 SEC (24.5-34.5); Prothrombin Time 11.2 sec (9.3-11.8)
--- NOTE | 2024-07-04 15:05 | DVHSR ---
APPROVED REPORT EXAM: Two-dimensional and M-mode echocardiogram with Doppler and color Doppler. Blood Pressure: 98/47 mmHg INDICATION Chest Pain RISK FACTORS Height: 5'5", Weight: 275 DIMENSIONS LVDd3.7 (3.8-5.7cm)LA (2D) (1.9-4.0cm)Aortic Root3.8 (2.0-3.7cm) LVDs2.5 (2.5-4.0cm)LA (MM) (1.9-4.0cm)Aortic Cusp Exc1.8 (1.5-2.0cm) EF (%) 60.0 (55-70%)Rt. Atrium (1.9-4.0cm)Asc. Aorta3.3 cm IVSd1.2 (0.7-1.1cm)RV (D) (1.8-2.4cm) PWd1.2 (0.7-1.1cm) Mitral Valve MitralMitral Stenosis E wave0.42m/sMV Mean GR.mmHg A wave0.47m/sMV Peak GR.mmHg E/A ratio0.92D MVAcm2 DECEL [id number] 1/2 [place] Aortic Valve Aortic ValveAortic Stenosis V10.74m/[place] Mean GR.1mmHg V20.87m/[place] Peak GR.3mmHg LVOT Diameter1.9 (1.8-2.4cm)Doppler AVA2.41cm2 Pulmonic Valve V20.74m/s Tricuspid Valve TR Velocity2.31m/s [id number] Other Information Technically limited study due to body habitus, patient sitting up. Conclusion very limited study lvef 55-60 % by visual estimate grade 1 diastolic dysfunction mild to moderate LVH normal rv function, mild enlargement pericardial fat pad noted no severe valve abnormalities noted
[2024-07-04 19:05] VITALS: BP 104/54; PULSE 74; RESP 17; TEMP 97.5; O2SAT 99
[2024-07-04] MEDS ORDERED: URSO1TAB8 PO (19:29)
[2024-07-04] MEDS ORDERED: HYDR-3682 PO (19:29)
[2024-07-04] MEDS ORDERED: RIFA550T PO (19:29)
[2024-07-04] MEDS ORDERED: SPIR25TA8 PO (19:29)
[2024-07-04] MEDS ORDERED: SUCR1SUS26 PO (19:29)
[2024-07-04] MEDS ORDERED: PROP1TAB51 PO (19:29)
[2024-07-04 20:00] VITALS: PULSE 59
[2024-07-04 20:25] VITALS: BP 104/54; PULSE 74; RESP 17; TEMP 97.5; O2SAT 99
[2024-07-05] VITALS (9 sets, daily range): BP systolic 92–112; BP diastolic 33–57; PULSE 60–84; RESP 16–18; TEMP 97.2–98; O2SAT 96–100
[2024-07-05 06:37] LABS: Basophils # (auto) 0 10 ^3/uL (0-0.2); Eosinophils # (auto) 0 10 ^3/uL (0-0.8); Eosinophils % (auto) 0.3 % (0.0-7.0); Monocytes # (auto) 0.4 10 ^3/uL (0-1.3); Neutrophils # (auto) 3.8 10 ^3/uL (1.6-8.6); Nucleated Red Blood Cells % 0.1 %
[2024-07-05 06:40] LABS: Basophils % (auto) 0.3 % (0.0-2.0); Hemoglobin 9.8 g/dL (12.2-16.2); Lymphocytes # (auto) 0.7 10 ^3/uL (0.4-5.4); Lymphocytes % (auto) 14.4 % (10.0-50.0); Mean Corpuscular Hemoglobin 35.6 pg (28.0-32.0); Mean Corpuscular Volume 104.8 fL (80.0-100.0); Monocytes % (auto) 8.6 % (0.0-12.0); Neutrophils % (auto) 76.4 % (37.0-80.0); Platelet Count (auto) 97 10^3/uL (140-450); Red Blood Cells 2.76 10^6/uL (4.0-5.20)
[2024-07-05 07:10] LABS: Red Cell Distribution Width 21.4 % (11.8-14.3)
--- NOTE | 2024-07-05 07:11 | ECG ---
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
[2024-07-05 07:47] LABS: Anisocytosis Slight; Macrocytosis Slight; Platelet Estimate Decreased
[2024-07-05 08:39] LABS: Anion Gap 10 (5-15); BUN/Creatinine Ratio 24.3 (10.0-20.0); Calcium 9.8 mg/dL (8.7-10.4); Carbon Dioxide 26 mmol/L (20-31); Chloride 100 mmol/L (98-107); Glucose 77 mg/dL (74-106)
[2024-07-05 08:40] LABS: Total Protein 6.2 g/dL (5.7-8.2)
[2024-07-05 08:52] LABS: Sodium 136 mmol/L (136-145)
[2024-07-05 08:53] LABS: Alanine Aminotransferase 196 U/L (7-40); Alkaline Phosphatase 142 U/L (46-116); Aspartate Aminotransferase 115 U/L (13-40); Blood Urea Nitrogen 70 mg/dL (9-23)
[2024-07-05 11:34] LABS: Hepatitis B Core Total AB Negative (Negative)
--- NOTE | 2024-07-05 12:07 | DVH ---
US KIDNEY HISTORY: chana COMPARISON: None TECHNIQUE: Transverse and longitudinal grayscale and color Doppler images were obtained of the kidney s and bladder. FINDINGS: Right kidney: Size: 8.4 cm Cortical thickness: Normal Echogenicity: Normal Stones: None Masses: None Hydronephrosis: None Ureters: Not well visualized. Other: None Left kidney: Size: 8.4 cm Cortical thickness: Normal Echogenicity: Normal Stones: None Masses: 2.6 x 1.9 x 1.8 cm cyst. Hydronephrosis: None Ureters: Not well visualized. Other: None Bladder: Normal Other: None. IMPRESSION: Unremarkable renal ultrasound.
--- NOTE | 2024-07-05 12:54 | DVHINCON2 ---
Date of service: Jul 05, 2024 Referring Physician Kimberly Conley, nurse practitioner Reason for Consultation Acute kidney injury History of Present Illness Patient is a 69-year-old female with past medical history significant for nonalcoholic liver cirrhosis is admitted for abdominal pain and altered level of consciousness. On admission patient found to have elevated BUN creatinine nephrology is consulted for acute kidney injury Past Medical History Liver cirrhosis, nonalcoholic Past Surgical History Patient denies Allergies: Coded Allergies: NO KNOWN ALLERGIES (Unverified , 01/23/21) Home Meds Active Scripts Prednisone (Prednisone) 20 Mg Tab, 20 MG PO DAILY for 30 Days, #30 MG Prov:GABINO COBURN RESIDENT 06/11/24 Midodrine HCl (Midodrine Hydrochloride) 10 Mg Tab, 10 MG PO TID for 30 Days, #90 TAB 3 Refills Prov:GABINO COBURN RESIDENT 06/11/24 Pantoprazole Sodium Sesquihydr (Protonix) 40 Mg Tab, 40 MG PO DAILY for 30 Days, #30 TAB Prov:GABINO COBURN RESIDENT 06/11/24 Reported Medications Sucralfate (CARAFATE SUSP) 1 Gm/10 Ml Ss, 5 ML PO QID 07/04/24 Hydroxyzine Hcl (Hydroxyzine Hcl) 25 Mg Tab, 2 TAB PO BID PRN for FOR ITCHING 07/04/24 Propranolol HCl (Propranolol Hydrochloride) 10 Mg Tab, 1 TAB PO TID 07/04/24 Rifaximin (Xifaxan) 550 Mg Tab, 1 TAB PO BID 07/04/24 Spironolactone (Spironolactone) 25 Mg Tab, 2 TAB PO BID 07/04/24 Ursodiol (Ursodiol) 500 Mg Tab, 1 TAB PO TID 07/04/24 Current Medications Current Medications Medications (Trade) Dose Ordered Sig/Chang Route PRN Reason Start Time Stop Time Status Last Admin Midodrine (Proamatine Tablet) 10 mg TID@0600,1200,1800 PO 07/05/24 12:00 Octreotide Acetate (SandoSTATIN) 100 mcg TID SUBCUT 07/05/24 14:00 Family History: FH: breast cancer G8 MOTHER Scleroderma G8 FATHER, Review of Systems Can not be obtained due mental status changes H&P Exam Vital Signs/I&O Vital Sign Date Time Temp Pulse Resp B/P (MAP) Pulse Ox O2 Delivery O2 Flow Rate FiO2 07/05/24 09:00 98.0 67 18 96/52 (67) 96 98.0 07/05/24 08:00 Room Air* 0 21 Intake and Output 07/04/24 07/05/24 19:00 07:00 Intake Total 120 ml Output Total 600 ml Balance -480 ml Intake Oral 120 ml Output Urine Total 600 ml Physical Exam Patient is awake but confused Lungs clear to auscultation bilaterally Cardiac exam regular rate and rhythm GI soft nontender bowel sounds are present normal Extremities no clubbing cyanosis or edema Neuro patient awake but confused Labs/Diagnostic Data Labs/Diagnostic Data Laboratory Tests Test 07/05/24 05:38 07/04/24 10:09 07/04/24 03:32 07/04/24 02:30 Range/Units White Blood Count 5.0 # 4.4-10.8 10^3/uL Red Blood Count 2.76 L 4.0-5.20 10^6/uL Hemoglobin 9.8 L 12.2-16.2 g/dL Hematocrit 29.0 #L 36.0-46.0 % Mean Corpuscular Volume 104.8 H 80.0-100.0 fL Mean Corpuscular Hemoglobin 35.6 H 28.0-32.0 pg Mean Corpuscular Hemoglobin Concent 34.0 32.0-36.0 g/dL Red Cell Distribution Width 21.4 H 11.8-14.3 % Platelet Count 97 L 140-450 10^3/uL Mean Platelet Volume 7.5 6.9-10.8 fL Neutrophils (%) (Auto) 76.4 37.0-80.0 % Lymphocytes (%) (Auto) 14.4 10.0-50.0 % Monocytes (%) (Auto) 8.6 0.0-12.0 % Eosinophils (%) (Auto) 0.3 0.0-7.0 % Basophils (%) (Auto) 0.3 0.0-2.0 % Neutrophils # (Auto) 3.8 1.6-8.6 10 ^3/uL Lymphocytes # (Auto) 0.7 0.4-5.4 10 ^3/uL Monocytes # (Auto) 0.4 0-1.3 10 ^3/uL Eosinophils # (Auto) 0 0-0.8 10 ^3/uL Basophils # (Auto) 0 0-0.2 10 ^3/uL Nucleated Red Blood Cells 0.1 % Platelet Estimate Decreased Anisocytosis (manual) Slight Macrocytosis Slight Sodium Level 136 # 136-145 mmol/L Potassium Level 4.0 3.5-5.1 mmol/L Chloride Level 100 # 98-107 mmol/L Carbon Dioxide Level 26 20-31 mmol/L Anion Gap 10 5-15 Blood Urea Nitrogen 70 H 9-23 mg/dL Creatinine 2.88 H 0.550-1.02 mg/dL Glomerular Filtration Rate Calc 17 >90 mL/min BUN/Creatinine Ratio 24.3 H 10.0-20.0 Serum Glucose 77 74-106 mg/dL Calcium Level 9.8 8.7-10.4 mg/dL Total Bilirubin 3.0 H 0.2-1.0 mg/dL Aspartate Amino Transferase (AST) 115 H 13-40 U/L Alanine Aminotransferase (ALT) 196 H 7-40 U/L Alkaline Phosphatase 142 H 46-116 U/L Total Protein 6.2 5.7-8.2 g/dL Albumin 4.0 3.2-4.8 g/dL Vitamin D 25-Hydroxy 14.3 L 30.0-100 ng/mL Prothrombin Time 11.2 9.3-11.8 sec Prothrombin Time INR 1.06 0.9-1.15 Activated Partial Thromboplast Time < 20.0 L 24.5-34.5 SEC Ammonia 29 11-32 umol/L Troponin I High Sensitivity 21 </=34 ng/L Triglycerides Level 180 H < 150 mg/dL Cholesterol Level 185 < 200 mg/dL LDL Cholesterol 121 H < 100 mg/dL HDL Cholesterol 34 L 40-59 mg/dL Thyroid Stimulating Hormone (TSH) 0.29 L 0.55-4.78 uIU/mL Urine Color Yellow Yellow Urine Clarity Clear Clear Urine pH 5.5 5.0-9.0 Urine Specific [place] 1.010 1.001-1.035 Urine Protein Trace H Negative Urine Ketones Negative Negative Urine Blood Negative Negative /uL Urine Nitrite Negative Negative Urine Bilirubin Negative Negative Urine Urobilinogen Normal Negative mg/dL Urine Leukocyte Esterase Negative Negative /uL Urine RBC <1 0 - 4 /hpf Urine WBC 5 0 - 5 /hpf Urine Squamous Epithelial Cells Few <5 /hpf Urine Bacteria None seen None Seen /hpf Urine Glucose Normal Normal mg/dL Test 07/04/24 01:23 07/04/24 00:26 Range/Units Troponin I High Sensitivity 21 19 </=34 ng/L White Blood Count 10.4 4.4-10.8 10^3/uL Red Blood Count 3.19 L 4.0-5.20 10^6/uL Hemoglobin 11.2 L 12.2-16.2 g/dL Hematocrit 33.1 L 36.0-46.0 % Mean Corpuscular Volume 103.7 H 80.0-100.0 fL Mean Corpuscular Hemoglobin 35.0 H 28.0-32.0 pg Mean Corpuscular Hemoglobin Concent 33.8 32.0-36.0 g/dL Red Cell Distribution Width 21.7 H 11.8-14.3 % Platelet Count 180 140-450 10^3/uL Mean Platelet Volume 7.7 6.9-10.8 fL Neutrophils (%) (Auto) 87.6 H 37.0-80.0 % Lymphocytes (%) (Auto) 7.0 L 10.0-50.0 % Monocytes (%) (Auto) 4.8 0.0-12.0 % Eosinophils (%) (Auto) 0.0 0.0-7.0 % Basophils (%) (Auto) 0.6 0.0-2.0 % Neutrophils # (Auto) 9.1 H 1.6-8.6 10 ^3/uL Lymphocytes # (Auto) 0.7 0.4-5.4 10 ^3/uL Monocytes # (Auto) 0.5 0-1.3 10 ^3/uL Eosinophils # (Auto) 0 0-0.8 10 ^3/uL Basophils # (Auto) 0.1 0-0.2 10 ^3/uL Nucleated Red Blood Cells 0.1 % Platelet Estimate Adequate Anisocytosis (manual) Slight Macrocytosis Slight Tear Drop Cells Few Stomatocytes Few Sodium Level 130 L 136-145 mmol/L Potassium Level 4.4 3.5-5.1 mmol/L Chloride Level 89 L 98-107 mmol/L Carbon Dioxide Level 29 20-31 mmol/L Anion Gap 12 5-15 Blood Urea Nitrogen 74 H 9-23 mg/dL Creatinine 4.03 H 0.550-1.02 mg/dL Glomerular Filtration Rate Calc 12 >90 mL/min BUN/Creatinine Ratio 18.4 10.0-20.0 Serum Glucose 144 H 74-106 mg/dL Lactic Acid Level 1.5 0.4-2.0 mmol/L Calcium Level 11.2 H 8.7-10.4 mg/dL Total Bilirubin 4.0 H 0.2-1.0 mg/dL Aspartate Amino Transferase (AST) 142 H 13-40 U/L Alanine Aminotransferase (ALT) 221 H 7-40 U/L Alkaline Phosphatase 180 H 46-116 U/L B-Type Natriuretic Peptide 157.54 0-100 pg/mL Total Protein 7.3 5.7-8.2 g/dL Albumin 4.4 3.2-4.8 g/dL Lipase 34 12-53 U/L Hepatitis B Core Total Antibody Negative Negative Microbiology Date/Time Source Procedure Growth Status 07/04/24 19:55 Nose MRSA Screen - Final Complete Assessment Acute kidney injury likely hepatorenal syndrome Hepatic encephalopathy Hypotension Nonalcoholic liver cirrhosis Microcytic anemia Recommendations Closely monitor fluid and electrolytes Avoid nephrotoxic medications Gay catheter strict I&Os Check urine electrolytes Check kidney ultrasound Midodrine 10 mg p.o. t.i.d. Octreotide 100 mcg subcu q.8 hours GI consult We will continue to follow Patient seen and examined by myself. I discussed my plan of care with daughter and the primary nurse at the bedside I would like to thank Kimberly for the consult, will follow Plan discussed with: Daughter, Other (Nurse) DAVON COX MD Jul 05, 2024 12:54
[2024-07-05] MEDS: MIDODRINE HCL 10 MG TAB PO SCH (12:57)
[2024-07-05 13:21] LABS: Phosphorus 5.1 mg/dL (2.4-5.1)
[2024-07-05 13:26] LABS: Hepatitis A Total Antibody Positive (Negative); Hepatitis B Surface Antibody Negative (Negative); Hepatitis B Surface Antigen Negative (Negative); Hepatitis C Antibody Negative (Negative)
[2024-07-05] MEDS: OCTREOTIDE ACETATE 100 MCG/ML VL SUBCUT SCH (14:30)
[2024-07-05 17:42] LABS: Protein, Urine 32.8 mg/dL (1-14)
[2024-07-05 17:45] LABS: Creatinine, Urine 69.04 mg/dL (30.0-125.0); Creatinine, Urine 69.76 mg/dL (30.0-125.0); Urine Protein/Creatinine Ratio 0.48
--- NOTE | 2024-07-05 23:22 | DVHINCON2 ---
Date of service: Jul 05, 2024 Referring Physician Kimberly Conley Reason for Consultation Abdominal pain History of Present Illness This 69-year-old Malaysian mainly speaking patient accompanied by daughter presents in the ED via EMS with a chief complaint of headaches. The patient reports headaches associated with dizziness, chest burning pain, abdominal pain, nausea, and vomiting started yesterday. The patient denies syncope, palpitations, shortness of breath, or other acute symptoms. Patient was complaining of some atypical chest pain epigastric pain and dyspepsia. GI Services were asked to evaluate patient for the same. Patient also had elevation in liver enzymes. She was recently hospitalized in May and I had performed an endoscopy on that admission Past Medical History The patient with past medical history of liver cirrhosis, hepatitis, anemia, and chronic kidney disease stage 3. Scleroderma Past Surgical History Pancreatic surgery possible ERCP for pancreatic stone resection Family History: FH: breast cancer G8 MOTHER Scleroderma G8 FATHER, Allergies: Coded Allergies: NO KNOWN ALLERGIES (Unverified , 01/23/21) Home Meds Active Scripts Prednisone (Prednisone) 20 Mg Tab, 20 MG PO DAILY for 30 Days, #30 MG Prov:GABINO COBURN RESIDENT 06/11/24 Midodrine HCl (Midodrine Hydrochloride) 10 Mg Tab, 10 MG PO TID for 30 Days, #90 TAB 3 Refills Prov:GABINO COBURN RESIDENT 06/11/24 Pantoprazole Sodium Sesquihydr (Protonix) 40 Mg Tab, 40 MG PO DAILY for 30 Days, #30 TAB Prov:GABINO COBURN RESIDENT 06/11/24 Reported Medications Sucralfate (CARAFATE SUSP) 1 Gm/10 Ml Ss, 5 ML PO QID 07/04/24 Hydroxyzine Hcl (Hydroxyzine Hcl) 25 Mg Tab, 2 TAB PO BID PRN for FOR ITCHING 07/04/24 Propranolol HCl (Propranolol Hydrochloride) 10 Mg Tab, 1 TAB PO TID 07/04/24 Rifaximin (Xifaxan) 550 Mg Tab, 1 TAB PO BID 07/04/24 Spironolactone (Spironolactone) 25 Mg Tab, 2 TAB PO BID 07/04/24 Ursodiol (Ursodiol) 500 Mg Tab, 1 TAB PO TID 07/04/24 Current Medications Current Medications Medications (Trade) Dose Ordered Sig/Chang Route PRN Reason Start Time Stop Time Status Last Admin Midodrine (Proamatine Tablet) 10 mg TID@0600,1200,1800 PO 07/05/24 12:00 07/05/24 18:00 Octreotide Acetate (SandoSTATIN) 100 mcg TID SUBCUT 07/05/24 14:00 07/05/24 14:30 Review of Systems Patient underwent a recent endoscopy about a month ago Operative Report DATE OF OPERATION: 06/07/24 PROCEDURE: Upper Endoscopy with biopsy. PREOPERATIVE INDICATION: The patient is a 68 -year-old female undergoing endoscopy for anemia and epigastric pain an underlying cirrhosis of the liver POSTOPERATIVE DIAGNOSES: 1. She had 1+ distal esophageal varices without any stigmata of recent bleeding 2. She had a 2 cm sliding-type hiatal hernia with grade B erosive esophagitis and GE junction ulceration 3. [id number] portal hypertension gastropathy otherwise normal examination up to the 2nd and 3rd part of the duodenal with no active bleeding no fresh or old blood in the GI tract Vital Signs Vital Signs Date Time Temp Pulse Resp B/P (MAP) Pulse Ox O2 Delivery O2 Flow Rate FiO2 07/05/24 20:00 70 Room Air* 0 21 07/05/24 17:00 97.2 17 112/55 (74) 100 97.2 Physical Exam General Appearance: Alert, Oriented X3, Cooperative, mild distress HEENT: Atraumatic, PERRLA, EOMI, Mucous membr. moist/pink Respiratory: Clear to auscultation, Normal air movement Cardiovascular: Regular rate, Normal S1, Normal S2 Abdominal: Normal bowel sounds, Soft, No tenderness Extremities: No clubbing, No cyanosis, No edema, Normal pulses Skin: No rashes, No breakdown, No significant lesion Neuro: Normal gait, Normal speech, Strength at 5/5 X4 ext, Normal tone Psych/Mental Status: Mental status NL Labs/Diagnostic Data Labs Test 07/05/24 14:30 07/05/24 05:38 07/04/24 10:09 07/04/24 03:32 Range/Units Urine Osmolality 474 mOsm/kg Urine Creatinine 69.04 30.0-125.0 mg/dL Urine Protein/Creatinine Ratio 0.48 Urine Sodium 45 40-220 mmol/L Urine Total Protein 32.8 H 1-14 mg/dL White Blood Count 5.0 # 4.4-10.8 10^3/uL Red Blood Count 2.76 L 4.0-5.20 10^6/uL Hemoglobin 9.8 L 12.2-16.2 g/dL Hematocrit 29.0 #L 36.0-46.0 % Mean Corpuscular Volume 104.8 H 80.0-100.0 fL Mean Corpuscular Hemoglobin 35.6 H 28.0-32.0 pg Mean Corpuscular Hemoglobin Concent 34.0 32.0-36.0 g/dL Red Cell Distribution Width 21.4 H 11.8-14.3 % Platelet Count 97 L 140-450 10^3/uL Mean Platelet Volume 7.5 6.9-10.8 fL Neutrophils (%) (Auto) 76.4 37.0-80.0 % Lymphocytes (%) (Auto) 14.4 10.0-50.0 % Monocytes (%) (Auto) 8.6 0.0-12.0 % Eosinophils (%) (Auto) 0.3 0.0-7.0 % Basophils (%) (Auto) 0.3 0.0-2.0 % Neutrophils # (Auto) 3.8 1.6-8.6 10 ^3/uL Lymphocytes # (Auto) 0.7 0.4-5.4 10 ^3/uL Monocytes # (Auto) 0.4 0-1.3 10 ^3/uL Eosinophils # (Auto) 0 0-0.8 10 ^3/uL Basophils # (Auto) 0 0-0.2 10 ^3/uL Nucleated Red Blood Cells 0.1 % Platelet Estimate Decreased Anisocytosis (manual) Slight Macrocytosis Slight Sodium Level 136 # 136-145 mmol/L Potassium Level 4.0 3.5-5.1 mmol/L Chloride Level 100 # 98-107 mmol/L Carbon Dioxide Level 26 20-31 mmol/L Anion Gap 10 5-15 Blood Urea Nitrogen 70 H 9-23 mg/dL Creatinine 2.88 H 0.550-1.02 mg/dL Glomerular Filtration Rate Calc 17 >90 mL/min BUN/Creatinine Ratio 24.3 H 10.0-20.0 Serum Glucose 77 74-106 mg/dL Calcium Level 9.8 8.7-10.4 mg/dL Phosphorus Level 5.1 2.4-5.1 mg/dL Magnesium Level 3.0 H 1.6-2.6 mg/dL Total Bilirubin 3.0 H 0.2-1.0 mg/dL Aspartate Amino Transferase (AST) 115 H 13-40 U/L Alanine Aminotransferase (ALT) 196 H 7-40 U/L Alkaline Phosphatase 142 H 46-116 U/L Total Protein 6.2 5.7-8.2 g/dL Albumin 4.0 3.2-4.8 g/dL Vitamin D 25-Hydroxy 14.3 L 30.0-100 ng/mL Prothrombin Time 11.2 9.3-11.8 sec Prothrombin Time INR 1.06 0.9-1.15 Activated Partial Thromboplast Time < 20.0 L 24.5-34.5 SEC Ammonia 29 11-32 umol/L Troponin I High Sensitivity 21 </=34 ng/L Triglycerides Level 180 H < 150 mg/dL Cholesterol Level 185 < 200 mg/dL LDL Cholesterol 121 H < 100 mg/dL HDL Cholesterol 34 L 40-59 mg/dL Thyroid Stimulating Hormone (TSH) 0.29 L 0.55-4.78 uIU/mL Test 07/04/24 02:30 07/04/24 00:26 Range/Units Urine Color Yellow Yellow Urine Clarity Clear Clear Urine pH 5.5 5.0-9.0 Urine Specific [place] 1.010 1.001-1.035 Urine Protein Trace H Negative Urine Ketones Negative Negative Urine Blood Negative Negative /uL Urine Nitrite Negative Negative Urine Bilirubin Negative Negative Urine Urobilinogen Normal Negative mg/dL Urine Leukocyte Esterase Negative Negative /uL Urine RBC <1 0 - 4 /hpf Urine WBC 5 0 - 5 /hpf Urine Squamous Epithelial Cells Few <5 /hpf Urine Bacteria None seen None Seen /hpf Urine Glucose Normal Normal mg/dL Tear Drop Cells Few Stomatocytes Few Lactic Acid Level 1.5 0.4-2.0 mmol/L B-Type Natriuretic Peptide 157.54 0-100 pg/mL Lipase 34 12-53 U/L Hepatitis A Antibody Total Positive H Negative Hepatitis B Surface Antigen Negative Negative Hepatitis B Surface Antibody Negative Negative Hepatitis B Core Total Antibody Negative Negative Hepatitis C Antibody Negative Negative Microbiology Date/Time Source Procedure Growth Status 07/04/24 19:55 IMPRESSION: 1. Cirrhotic liver with small volume ascites seen throughout the abdomen. Nose MRSA Screen - Final Complete Problems(with codes): (1) Transaminitis (2) Weakness (3) Cirrhosis of liver (4) Jaundice (5) Ascites (6) Macrocytic anemia (7) Anemia Plan/Recommendation Plan 69-year-old lady with cirrhosis and impending hepatorenal failure Meld score is 22 points predictive of 19.6% three-month mortality Questionable history of autoimmune hepatitis, check workup Monitor labs; hepatitis profile negative Supportive care Prognosis is guarded IV steroids if liver enzymes worsen Continue to monitor labs I will follow up patient with you closely Plan discussed with: Other (None) RICKY AREVALO MD Jul 05, 2024 23:22
[2024-07-06] VITALS (8 sets, daily range): BP systolic 90–105; BP diastolic 41–60; PULSE 70–94; RESP 18–20; TEMP 97.6–99.9; O2SAT 96–98
[2024-07-06] MEDS ORDERED: FURO20TA3 PO (10:45)
--- NOTE | 2024-07-06 11:00 | DVHPN2 ---
Progress Note Date Seen: Jul 06, 2024 Medical Necessity Reason Pt with a Central, PICC or Fol: No Subjective Patient reports: No new complaints Other Systems: Patient seen and examined by myself today in follow-up Objective vital signs Vital Sign Date Time Temp Pulse Resp B/P (MAP) Pulse Ox O2 Delivery O2 Flow Rate FiO2 07/06/24 09:00 99.9 86 20 101/60 (74) 96 99.9 07/05/24 20:00 Room Air* 0 21 Total Intake and Output 07/05/24 07/05/24 07/06/24 15:00 23:00 07:00 Intake Total 650 ml 1450 ml 574 ml Output Total 300 ml 200 ml Balance 350 ml 1450 ml 374 ml medications Current Medications Medications Dose Ordered Sig/Chang Route Start Time Stop Time Status Last Admin Dose Admin Sodium Chloride 1,000 ml @ 75 mls/hr [id number] IV 07/04/24 09:45 07/06/24 03:36 75 MLS/HR Acetaminophen/ Hydrocodone Bitart 1 tab Q4HP PRN PO 07/04/24 09:45 07/05/24 15:19 1 TAB Ondansetron HCl 4 mg Q4HP PRN IV 07/04/24 09:45 07/04/24 10:14 4 MG Enoxaparin Sodium 30 mg DAILY SC 07/04/24 10:00 07/06/24 10:18 30 MG Acetaminophen 650 mg Q6HP PRN PO 07/04/24 09:45 Morphine Sulfate 2 mg Q4HPRN PRN IV 07/04/24 09:45 Nitroglycerin 0.4 mg Q5MINP PRN SL 07/04/24 09:45 Morphine Sulfate 2 mg Q30M PRN IV 07/04/24 09:45 Midodrine 10 mg TID@0600,1200,1800 PO 07/05/24 12:00 07/06/24 05:31 10 MG Octreotide Acetate 100 mcg TID SUBCUT 07/05/24 14:00 07/06/24 05:30 100 MCG Examination: LUNGS:Normal, CVS:Normal, MSK:Normal laboratory and microbiology Laboratory Tests 07/05/24 05:38 Test 07/05/24 05:38 Range/Units Serum Glucose 77 74-106 mg/dL Microbiology Date/Time Source Procedure Growth Status 07/04/24 19:55 Nose MRSA Screen - Final Complete Problem List/Assessment/Plan Problem List/Assessment/Plan Acute kidney injury likely hepatorenal syndrome Hepatic encephalopathy Hypotension Nonalcoholic liver cirrhosis Microcytic anemia Recommendations Kidney function is improving Increased urine output Gay catheter strict I&Os kidney ultrasound reported within normal limits Midodrine 10 mg p.o. t.i.d. Octreotide 100 mcg subcu q.8 hours GI consult We will continue to follow Plan discussed with: Patient, Daughter My Orders My Orders Orders - DAVON COX MD Procedure Category Date Status Time Midodrine Tablet PHA 07/05/24 In Process (Proamatine Tablet) 12:00 Octreotide Acetate PHA 07/05/24 In Process (Sandostatin) 14:00 DAVON COX MD Jul 06, 2024 11:00
--- NOTE | 2024-07-06 13:44 | ECG ---
[facility] Test Date: 2024-07-04 Test Time: 09:08:56 Pat Name: PETRA PAIGE Department: ER Room: [address] [place] [address] 4 Gender: F [employer] Coordinator: SP : [id number] Requested By: WILFRIDO DU Order Number: [id number] Reading MD: Yohan Ovalle Measurements Intervals Reubens Rate: 54 P: 36 NE: 151 QRS: -10 QRSD: 99 T: 29 QT: 496 QTc: 471 Interpretive Statements Sinus rhythm RSR' in V1 or V2, right VCD or RVH Left ventricular hypertrophy Electronically Signed On 07-08-2024 16:28:19 PST by Yohan Ovalle Please click the below link to view image of tracing.
--- NOTE | 2024-07-06 14:11 | DVHPN2 ---
Reviewed: Care Plan, H&P, Labs, Medications, Previous Orders, Radiology Changes from previous H/P or p: No Changes General: Per HPI Eyes: No Pain, No Vision change, No Conjunctivae inflammation, No Eyelid inflammation, No Other, No Redness ENT: No Ear pain, No Ear discharge, No Nose pain, No Nose discharge, No Nose congestion, No Mouth pain, No Mouth swelling, No Throat pain, No Throat swelling, No Other Cardiovascular: Chest Pain; No Palpitations, No Orthopnea, No Paroxysmal Noc. Dyspnea, No Edema, No Lt Headedness, No Other Respiratory: No Cough, No Dry, No Shortness of breath, No SOB with excertion, No Wheezing, No Hemoptysis, No Pleuritic Pain, No Sputum, No Other Gastrointestinal: Nausea, Vomiting, Abdominal Pain; No Diarrhea, No Constipation, No Melena, No Hematochezia, No Other Genitourinary: No Dysuria, No Frequency, No Incontinence, No Hematuria, No Retention, No Other Musculoskeletal: No other, No neck pain, No shoulder pain, No arm pain, No back pain, No hand pain, No leg pain, No foot pain Skin: No Rash, No Lesions, No Jaundice, No Bruising, No Other Objective Vitals Vital Signs Date Time Temp Pulse Resp B/P (MAP) Pulse Ox O2 Delivery O2 Flow Rate FiO2 07/06/24 09:00 99.9 86 20 101/60 (74) 96 99.9 07/06/24 08:00 Room Air* 0 21 Intake/Output Intake and Output 07/06/24 07:00 Intake Total 2674 ml Output Total 500 ml Balance 2174 ml Intake Oral 2024 ml IV Total 650 ml Output Urine Total 500 ml # Voids 3 # Bowel Movements 1 Medications Current Medications Medications Dose Ordered Sig/Chang Route Start Time Stop Time Status Last Admin Dose Admin Sodium Chloride 1,000 ml @ 75 mls/hr [id number] IV 07/04/24 09:45 07/06/24 03:36 75 MLS/HR Acetaminophen/ Hydrocodone Bitart 1 tab Q4HP PRN PO 07/04/24 09:45 07/05/24 15:19 1 TAB Ondansetron HCl 4 mg Q4HP PRN IV 07/04/24 09:45 07/04/24 10:14 4 MG Enoxaparin Sodium 30 mg DAILY SC 07/04/24 10:00 07/06/24 10:18 30 MG Acetaminophen 650 mg Q6HP PRN PO 07/04/24 09:45 Morphine Sulfate 2 mg Q4HPRN PRN IV 07/04/24 09:45 Nitroglycerin 0.4 mg Q5MINP PRN SL 07/04/24 09:45 Morphine Sulfate 2 mg Q30M PRN IV 07/04/24 09:45 Midodrine 10 mg TID@0600,1200,1800 PO 07/05/24 12:00 07/06/24 13:01 10 MG Octreotide Acetate 100 mcg TID SUBCUT 07/05/24 14:00 07/06/24 05:30 100 MCG Laboratory Results Laboratory Tests 07/05/24 05:38 Urinalysis Test 07/04/24 02:30 07/05/24 14:30 Urine Color Yellow (Yellow) Urine Clarity Clear (Clear) Urine pH 5.5 (5.0-9.0) Urine Specific [place] 1.010 (1.001-1.035) Urine Protein Trace (Negative) H Urine Ketones Negative (Negative) Urine Blood Negative /uL (Negative) Urine Nitrite Negative (Negative) Urine Bilirubin Negative (Negative) Urine Urobilinogen Normal mg/dL (Negative) Urine Leukocyte Esterase Negative /uL (Negative) Urine RBC <1 /hpf (0 - 4) Urine WBC 5 /hpf (0 - 5) Urine Squamous Epithelial Cells Few /hpf (<5) Urine Bacteria None seen /hpf (None Seen) Urine Glucose Normal mg/dL (Normal) Urine Osmolality 474 mOsm/kg Urine Creatinine 69.04 mg/dL (30.0-125.0) Urine Protein/Creatinine Ratio 0.48 Urine Sodium 45 mmol/L (40-220) Urine Total Protein 32.8 mg/dL (1-14) H Microbiology Microbiology Date/Time Source Procedure Growth Status 07/04/24 19:55 Nose MRSA Screen - Final Complete Assessment/Plan Assessment/Plan This 69-year-old [place] mainly speaking patient accompanied by daughter presents in the ED via EMS with a chief complaint of headaches. The patient reports headaches associated with dizziness, chest burning pain, abdominal pain, nausea, and vomiting started yesterday. The patient denies syncope, palpitations, shortness of breath, or other acute symptoms. The patient with past medical history of liver cirrhosis, hepatitis, anemia, and chronic kidney disease stage 3. # acute renal failure # Hyperbilirubinemia with transaminitis # history of autoimmune hepatitis # hx of Liver cirrhosis with banding # anemia # acute headaches # chest pain # nausea/vomiting 07/05/2024: still has abdominal pain. nephro is following for renal failure. chest pain improved Plan discussed with: Patient My Orders Orders - VJ BERNARD DO Procedure Category Date Status Time * Gi Dvh C D Still Operator CONS 07/05/24 Transmitted 18:00 Date of Service: Jul 05, 2024 Billing Provider: VJ BERNARD DO Common Visit Codes: [id number] INP/OBS CARE(HIGH) VJ BERNARD DO Jul 06, 2024 14:11
--- NOTE | 2024-07-06 15:13 | DVHPN2 ---
Progress Note Date Seen: Jul 06, 2024 Resident Creating Document: HENRIQUE SAUCEDO RESIDENT Medical Necessity Reason Pt with a Central, PICC or Fol: No Objective vital signs Vital Sign Date Time Temp Pulse Resp B/P (MAP) Pulse Ox O2 Delivery O2 Flow Rate FiO2 07/06/24 09:00 99.9 86 20 101/60 (74) 96 99.9 07/06/24 08:00 Room Air* 0 21 Total Intake and Output 07/05/24 07/05/24 07/06/24 15:00 23:00 07:00 Intake Total 650 ml 1450 ml 574 ml Output Total 300 ml 200 ml Balance 350 ml 1450 ml 374 ml medications Current Medications Medications Dose Ordered Sig/Chang Route Start Time Stop Time Status Last Admin Dose Admin Sodium Chloride 1,000 ml @ 75 mls/hr [id number] IV 07/04/24 09:45 07/06/24 03:36 75 MLS/HR Acetaminophen/ Hydrocodone Bitart 1 tab Q4HP PRN PO 07/04/24 09:45 07/05/24 15:19 1 TAB Ondansetron HCl 4 mg Q4HP PRN IV 07/04/24 09:45 07/04/24 10:14 4 MG Enoxaparin Sodium 30 mg DAILY SC 07/04/24 10:00 07/06/24 10:18 30 MG Acetaminophen 650 mg Q6HP PRN PO 07/04/24 09:45 Morphine Sulfate 2 mg Q4HPRN PRN IV 07/04/24 09:45 Nitroglycerin 0.4 mg Q5MINP PRN SL 07/04/24 09:45 Morphine Sulfate 2 mg Q30M PRN IV 07/04/24 09:45 Midodrine 10 mg TID@0600,1200,1800 PO 07/05/24 12:00 07/06/24 13:01 10 MG Octreotide Acetate 100 mcg TID SUBCUT 07/05/24 14:00 07/06/24 05:30 100 MCG Examination: GENERAL:Normal, HEENT:Normal, NECK:Normal, LUNGS:Normal, CVS:Normal, ABDOMEN:Normal, MSK:Normal, SKIN:Normal, NEURO:Normal, :Normal laboratory and microbiology Laboratory Tests 07/05/24 05:38 Test 07/05/24 05:38 Range/Units Serum Glucose 77 74-106 mg/dL Microbiology Date/Time Source Procedure Growth Status 07/04/24 19:55 Nose MRSA Screen - Final Complete Labs and/or images reviewed: Labs reviewed by me, Image(s) reviewed by me Problem List/Assessment/Plan Problem List/Assessment/Plan Reasons for consultation: ABDOMINAL PAIN Hospitalization Summary: A 69-year-old Persian-speaking patient, accompanied by her daughter, presented to the ED with headaches, dizziness, chest burning pain, abdominal pain, nausea, and vomiting that began the previous day. She has a medical history of liver cirrhosis, hepatitis, anemia, and stage 3 chronic kidney disease. She denies syncope, palpitations, shortness of breath, smoking, alcohol, or drug abuse, and has no relevant family or surgical history. GI Assessment: #1+ distal esophageal varices #impending hepatorenal failure #She had a 2 cm sliding-type hiatal hernia with grade B erosive esophagitis #[id number] portal hypertension gastropathy #?Upper GI bleed #Hepatitis A positive #Transaminitis #Cirrhosis of liver #Jaundice #Meld score is 22 points predictive of 19.6% three-month mortality #Constipation with last BM in 3 days. #Macrocytic anemia #mild to moderate thrombocytopenia #acute renal failure #Nephrology consult #Indwelling urinary catheter #history of autoimmune hepatitis #hx of Liver cirrhosis with banding #Vitamin D-25 #Left ventricular #s/p cholecystectomy. GI Plan: #Medications: Hold Lovenox as pletlets dropping. hepatitis treat with IV prednisolone 40 mg bid and then switch to oral at discharge. Docusate 100 mg bid. #Labs: CMP trend, NADIA, antismooth muscle ab, Hepatitis A IgM. workup for autoimmune hepatitis. #Imaging/other work up: IR consult to check liver biopsy, RUQ US. #Procedure: True had a EGD in 1 year and colonoscopy in 2 years ago. #please scheduled follow up with GI as outpatient with Dr. [place] Lucio. Thank you so much for the opportunity to consult on your patient. GI team will follow the patient. In case of any questions or concerns please feel free to reach out. Case and action plan discussed with Dr. Dariela Lucio. Complex care planning needed total 45 minutes of detailed discussion. The patient and caregiver team agreed to the plan. Plan discussed with: Patient, Other My Orders My Orders Orders - HENRIQUE SAUCEDO Procedure Category Date Status Time LIVER 07/06/24 Logged 15:06 HENRIQUE SAUCEDO Jul 06, 2024 15:13
[2024-07-06 15:42] LABS: Hematocrit 30.3 % (36.0-46.0); Hemoglobin 10.2 g/dL (12.2-16.2); Mean Corpuscular Hgb Conc. 33.6 g/dL (32.0-36.0); Mean Corpuscular Volume 107.1 fL (80.0-100.0); Platelet Count (auto) 113 10^3/uL (140-450); Red Blood Cells 2.83 10^6/uL (4.0-5.20)
[2024-07-06 15:43] LABS: Red Cell Distribution Width 20.8 % (11.8-14.3)
[2024-07-06 15:45] LABS: Basophils % (manual) 0 (0.0-2.0); Blast Cells 0; Eosinophils % (manual) 0 (0-7); Metamyelocytes % 0; Myelocytes % 0; Promyelocytes % 0; Reactive Lymphocytes 0
[2024-07-06 15:58] LABS: Albumin 3.9 g/dL (3.2-4.8); Anion Gap 8 (5-15); BUN/Creatinine Ratio 21.8 (10.0-20.0); Calcium 9.6 mg/dL (8.7-10.4); Carbon Dioxide 24 mmol/L (20-31); Chloride 103 mmol/L (98-107); Total Protein 6.1 g/dL (5.7-8.2)
[2024-07-06 15:59] LABS: Alanine Aminotransferase 169 U/L (7-40); Alkaline Phosphatase 136 U/L (46-116); Aspartate Aminotransferase 109 U/L (13-40); Bilirubin, Total 3.3 mg/dL (0.2-1.0); Blood Urea Nitrogen 37 mg/dL (9-23); Glucose 153 mg/dL (74-106); Sodium 135 mmol/L (136-145)
[2024-07-06] MEDS ORDERED: DOCUSATE SOD 100 MG CAP PO PRN (16:15)
[2024-07-06 17:18] LABS: Band Neutrophils % (manual) 2; Lymphocytes % (manual) 9 (10.0-50.0); Monocytes % (manual) 9 (0-12)
[2024-07-06 17:19] LABS: Anisocytosis Slight; Large Platelets FEW; Platelet Estimate Decreased
[2024-07-06 17:20] LABS: Macrocytosis Moderate
[2024-07-06 17:34] LABS: Free T3 1.75 pg/mL (2.3-4.2); Free T4 (Free Thyroxine) 0.9 ng/dL (0.89-1.76)
--- NOTE | 2024-07-06 20:11 | DVHPN2 ---
Reviewed: Care Plan, H&P, Labs, Medications, Previous Orders, Radiology Changes from previous H/P or p: No Changes General: Per HPI Eyes: No Pain, No Vision change, No Conjunctivae inflammation, No Eyelid inflammation, No Other, No Redness ENT: No Ear pain, No Ear discharge, No Nose pain, No Nose discharge, No Nose congestion, No Mouth pain, No Mouth swelling, No Throat pain, No Throat swelling, No Other Cardiovascular: Chest Pain; No Palpitations, No Orthopnea, No Paroxysmal Noc. Dyspnea, No Edema, No Lt Headedness, No Other Respiratory: No Cough, No Dry, No Shortness of breath, No SOB with excertion, No Wheezing, No Hemoptysis, No Pleuritic Pain, No Sputum, No Other Gastrointestinal: Nausea, Vomiting, Abdominal Pain; No Diarrhea, No Constipation, No Melena, No Hematochezia, No Other Genitourinary: No Dysuria, No Frequency, No Incontinence, No Hematuria, No Retention, No Other Musculoskeletal: No other, No neck pain, No shoulder pain, No arm pain, No back pain, No hand pain, No leg pain, No foot pain Skin: No Rash, No Lesions, No Jaundice, No Bruising, No Other Objective Vitals Vital Signs Date Time Temp Pulse Resp B/P (MAP) Pulse Ox O2 Delivery O2 Flow Rate FiO2 07/06/24 17:00 98.7 93 18 90/45 (60) 98 98.7 07/06/24 08:00 Room Air* 0 21 Intake/Output Intake and Output 07/06/24 07:00 Intake Total 2674 ml Output Total 500 ml Balance 2174 ml Intake Oral 2024 ml IV Total 650 ml Output Urine Total 500 ml # Voids 3 # Bowel Movements 1 Medications Current Medications Medications Dose Ordered Sig/Chang Route Start Time Stop Time Status Last Admin Dose Admin Sodium Chloride 1,000 ml @ 75 mls/hr [id number] IV 07/04/24 09:45 07/06/24 16:46 75 MLS/HR Acetaminophen/ Hydrocodone Bitart 1 tab Q4HP PRN PO 07/04/24 09:45 07/06/24 18:49 1 TAB Ondansetron HCl 4 mg Q4HP PRN IV 07/04/24 09:45 07/04/24 10:14 4 MG Acetaminophen 650 mg Q6HP PRN PO 07/04/24 09:45 Morphine Sulfate 2 mg Q4HPRN PRN IV 07/04/24 09:45 Nitroglycerin 0.4 mg Q5MINP PRN SL 07/04/24 09:45 Morphine Sulfate 2 mg Q30M PRN IV 07/04/24 09:45 Midodrine 10 mg TID@0600,1200,1800 PO 07/05/24 12:00 07/06/24 19:36 10 MG Octreotide Acetate 100 mcg TID SUBCUT 07/05/24 14:00 07/06/24 16:46 100 MCG Methylprednisolone Sodium Succinate 40 mg BID IV 07/06/24 22:00 Docusate Sodium 100 mg BIDPRN PRN PO 07/06/24 16:15 Laboratory Results Laboratory Tests 07/06/24 15:30 Chemistry Test 07/06/24 15:30 Albumin 3.9 g/dL (3.2-4.8) Calcium Level 9.6 mg/dL (8.7-10.4) Total Protein 6.1 g/dL (5.7-8.2) LFT Test 07/06/24 15:30 Alanine Aminotransferase (ALT) 169 U/L (7-40) H Alkaline Phosphatase 136 U/L (46-116) H Aspartate Amino Transferase (AST) 109 U/L (13-40) H Total Bilirubin 3.3 mg/dL (0.2-1.0) H Urinalysis Test 07/04/24 02:30 07/05/24 14:30 Urine Color Yellow (Yellow) Urine Clarity Clear (Clear) Urine pH 5.5 (5.0-9.0) Urine Specific [place] 1.010 (1.001-1.035) Urine Protein Trace (Negative) H Urine Ketones Negative (Negative) Urine Blood Negative /uL (Negative) Urine Nitrite Negative (Negative) Urine Bilirubin Negative (Negative) Urine Urobilinogen Normal mg/dL (Negative) Urine Leukocyte Esterase Negative /uL (Negative) Urine RBC <1 /hpf (0 - 4) Urine WBC 5 /hpf (0 - 5) Urine Squamous Epithelial Cells Few /hpf (<5) Urine Bacteria None seen /hpf (None Seen) Urine Glucose Normal mg/dL (Normal) Urine Osmolality 474 mOsm/kg Urine Creatinine 69.04 mg/dL (30.0-125.0) Urine Protein/Creatinine Ratio 0.48 Urine Sodium 45 mmol/L (40-220) Urine Total Protein 32.8 mg/dL (1-14) H Microbiology Microbiology Date/Time Source Procedure Growth Status 07/04/24 19:55 Nose MRSA Screen - Final Complete Assessment/Plan Assessment/Plan This 69-year-old Peruvian mainly speaking patient accompanied by daughter presents in the ED via EMS with a chief complaint of headaches. The patient reports headaches associated with dizziness, chest burning pain, abdominal pain, nausea, and vomiting started yesterday. The patient denies syncope, palpitations, shortness of breath, or other acute symptoms. The patient with past medical history of liver cirrhosis, hepatitis, anemia, and chronic kidney disease stage 3. # acute renal failure # Hyperbilirubinemia with transaminitis # history of autoimmune hepatitis # hx of Liver cirrhosis with banding # anemia # acute headaches # chest pain # nausea/vomiting 07/05/2024: still has abdominal pain. nephro is following for renal failure. chest pain improved 07/06/2024: discussed with pt regarding elevated liver enzymes. possible d/c in AM Plan discussed with: Patient Date of Service: Jul 06, 2024 Billing Provider: VJ BERNARD DO Common Visit Codes: [id number] INP/OBS CARE(HIGH) VJ BERNARD DO Jul 06, 2024 20:11
[2024-07-06] MEDS: methylPREDNISolone SOD SUCC 40 MG/ML VL IV SCH (21:27)
[2024-07-07] VITALS (8 sets, daily range): BP systolic 96–122; BP diastolic 37–58; PULSE 66–75; RESP 16–20; TEMP 97.7–98.4; O2SAT 94–100
--- NOTE | 2024-07-07 09:02 | DVH ---
INDICATION: Transaminitis. TECHNIQUE: Multiple real-time sonographic images of the abdomen were obtained. COMPARISON: Abdominal ultrasound 06/07/2024. FINDINGS: The liver is heterogeneous in echogenicity. Nodular contour compatible with cirrhosis. The liver measures 11.4 cm. No intrahepatic biliary ductal dilatation is noted. The gallbladder is absent. The right kidney measures 8.5 cm. No hydronephrosis. The pancreas is not well visualized due to obscuration from bowel gas. The visualized portions of the IVC and aorta are grossly unremarkable. Small volume ascites. IMPRESSION: 1. Cirrhosis. 2. Mild ascites. 3. Cholecystectomy.
[2024-07-07 11:07] LABS: Anti-Centromere B Antibody >8.0 AI (0.0-0.9); Anti-Jo-1 Antibody <0.2 AI (0.0-0.9); Anti-dsDNA Antibody <1 IU/mL (0-9); Antichromatin Antibody 0.4 AI (0.0-0.9); Antiscleroderma-70 Antibody <0.2 AI (0.0-0.9); RNP Antibody <0.2 AI (0.0-0.9); Sjogren's Anti-SS-A Antibody <0.2 AI (0.0-0.9); Sjogren's Anti-SS-B Antibody <0.2 AI (0.0-0.9); Smith Antibody <0.2 AI (0.0-0.9)
--- NOTE | 2024-07-07 16:18 | DVHPN2 ---
Progress Note Date Seen: Jul 07, 2024 Medical Necessity Reason Pt with a Central, PICC or Fol: No Subjective Patient reports: No new complaints Other Systems: Patient seen and examined by myself today in follow-up Objective vital signs Vital Sign Date Time Temp Pulse Resp B/P (MAP) Pulse Ox O2 Delivery O2 Flow Rate FiO2 07/07/24 13:09 97.9 66 20 108/52 (70) 97 97.9 07/07/24 08:00 Room Air* 0 21 Total Intake and Output 07/06/24 07/06/24 07/07/24 15:00 23:00 07:00 Intake Total 450 ml 450 ml 787.5 ml Output Total 400 ml Balance 50 ml 450 ml 787.5 ml medications Current Medications Medications Dose Ordered Sig/Chang Route Start Time Stop Time Status Last Admin Dose Admin Sodium Chloride 1,000 ml @ 75 mls/hr [id number] IV 07/04/24 09:45 07/07/24 05:39 75 MLS/HR Acetaminophen/ Hydrocodone Bitart 1 tab Q4HP PRN PO 07/04/24 09:45 07/06/24 18:49 1 TAB Ondansetron HCl 4 mg Q4HP PRN IV 07/04/24 09:45 07/04/24 10:14 4 MG Acetaminophen 650 mg Q6HP PRN PO 07/04/24 09:45 Morphine Sulfate 2 mg Q4HPRN PRN IV 07/04/24 09:45 Nitroglycerin 0.4 mg Q5MINP PRN SL 07/04/24 09:45 Morphine Sulfate 2 mg Q30M PRN IV 07/04/24 09:45 Midodrine 10 mg TID@0600,1200,1800 PO 07/05/24 12:00 07/07/24 12:53 10 MG Octreotide Acetate 100 mcg TID SUBCUT 07/05/24 14:00 07/07/24 14:36 100 MCG Methylprednisolone Sodium Succinate 40 mg BID IV 07/06/24 22:00 07/07/24 09:15 40 MG Docusate Sodium 100 mg BIDPRN PRN PO 07/06/24 16:15 Examination: LUNGS:Normal (elf today in follow-up), CVS:Normal, MSK:Normal laboratory and microbiology Laboratory Tests 07/06/24 15:30 Test 07/06/24 15:30 Range/Units Serum Glucose 153 H 74-106 mg/dL Microbiology Date/Time Source Procedure Growth Status 07/04/24 19:55 Nose MRSA Screen - Final Complete Problem List/Assessment/Plan Problem List/Assessment/Plan Acute kidney injury likely hepatorenal syndrome Hepatic encephalopathy Hypotension Nonalcoholic liver cirrhosis Microcytic anemia Recommendations Kidney function is improving Increased urine output Gay catheter strict I&Os kidney ultrasound reported within normal limits Midodrine 10 mg p.o. t.i.d. Octreotide 100 mcg subcu q.8 hours GI consult We will continue to follow Plan discussed with: Patient DAVON COX MD Jul 07, 2024 16:18
--- NOTE | 2024-07-07 22:36 | DVHPN2 ---
Progress Note - Dictate Date Seen: Jul 07, 2024 Medical Necessity Reason Pt with a Central, PICC or Fol: No Subjective No new complaints Patient is resting comfortably Patient does see a oil distributor down the hill at [facility] however they were not able to make that appointment because it is too far in the patient is overall clinically ill No active GI bleeding is reported She was diagnosed with suspected autoimmune hepatitis by her oil distributor vital signs Vital Sign Date Time Temp Pulse Resp B/P (MAP) Pulse Ox O2 Delivery O2 Flow Rate FiO2 07/07/24 21:00 98.2 67 17 122/43 (69) 99 98.2 07/07/24 20:00 Room Air* 0 21 Total Intake and Output 07/06/24 07/06/24 07/07/24 15:00 23:00 07:00 Intake Total 450 ml 450 ml 787.5 ml Output Total 400 ml Balance 50 ml 450 ml 787.5 ml medications Current Medications Medications Dose Ordered Sig/Chang Route Start Time Stop Time Status Last Admin Dose Admin Sodium Chloride 1,000 ml @ 75 mls/hr [id number] IV 07/04/24 09:45 07/07/24 21:36 75 MLS/HR Acetaminophen/ Hydrocodone Bitart 1 tab Q4HP PRN PO 07/04/24 09:45 07/06/24 18:49 1 TAB Ondansetron HCl 4 mg Q4HP PRN IV 07/04/24 09:45 07/04/24 10:14 4 MG Acetaminophen 650 mg Q6HP PRN PO 07/04/24 09:45 Morphine Sulfate 2 mg Q4HPRN PRN IV 07/04/24 09:45 Nitroglycerin 0.4 mg Q5MINP PRN SL 07/04/24 09:45 Morphine Sulfate 2 mg Q30M PRN IV 07/04/24 09:45 Midodrine 10 mg TID@0600,1200,1800 PO 07/05/24 12:00 07/07/24 17:34 10 MG Octreotide Acetate 100 mcg TID SUBCUT 07/05/24 14:00 07/07/24 21:36 100 MCG Methylprednisolone Sodium Succinate 40 mg BID IV 07/06/24 22:00 07/07/24 21:31 40 MG Docusate Sodium 100 mg BIDPRN PRN PO 1/21/25 16:15 objective General Appearance: Alert, Oriented X3, Cooperative, no distress HEENT: Atraumatic, PERRLA, EOMI, Mucous membr. moist/pink; mild scleral icterus Respiratory: Clear to auscultation, Normal air movement Cardiovascular: Regular rate, Normal S1, Normal S2 Abdominal: Normal bowel sounds, Soft, No tenderness Extremities: No clubbing, No cyanosis, No edema, Normal pulses Skin: No rashes, No breakdown, No significant lesion Neuro: Normal gait, Normal speech, Strength at 5/5 X4 ext, Normal tone Psych/Mental Status: Mental status NL laboratory and microbiology Laboratory Tests 07/06/24 15:30 Test 07/06/24 15:30 Range/Units Serum Glucose 153 H 74-106 mg/dL Problems(with codes): (1) Autoimmune hepatitis (2) Cirrhosis of liver (3) Jaundice (4) Ascites (5) Macrocytic anemia (6) Transaminitis (7) Weakness (8) Flmki-kq-blegtts kidney injury (9) Scleroderma Prognosis Assessment plan Patient has acute on chronic decompensation of her chronic liver disease cirrhosis She may have underlying autoimmune hepatitis because of history of scleroderma positive NADIA Her oil distributor at [facility] had concurred with the diagnosis and she was being treated with steroids I have given her Solu-Medrol 40 mg q.12 hours In another 24-48 hours I will taper it down to once a day and when discharge patient will need to maintain herself on a Medrol Dosepak Overall her prognosis is guarded daughter is aware ; meld score is 19 points She agreed to follow up with me in my office upon discharge Plan discussed with: Patient, Daughter RICKY AREVALO MD Jul 07, 2024 22:36
[2024-07-08] VITALS (7 sets, daily range): BP systolic 114–117; BP diastolic 26–56; PULSE 58–61; RESP 12–18; TEMP 97.7–98.6; O2SAT 96–99
--- NOTE | 2024-07-08 12:55 | DVHPN2 ---
Progress Note Medical Necessity Reason Pt with a Central, PICC or Fol: No Objective vital signs Vital Sign Date Time Temp Pulse Resp B/P (MAP) Pulse Ox O2 Delivery O2 Flow Rate FiO2 07/08/24 12:16 98.2 61 18 114/42 (66) 99 98.2 07/08/24 08:00 Room Air* 0 21 Total Intake and Output 07/07/24 07/07/24 07/08/24 15:00 23:00 07:00 Intake Total 150 ml Balance 150 ml medications Current Medications Medications Dose Ordered Sig/Chang Route Start Time Stop Time Status Last Admin Dose Admin Sodium Chloride 1,000 ml @ 75 mls/hr [id number] IV 07/04/24 09:45 07/07/24 21:36 75 MLS/HR Acetaminophen/ Hydrocodone Bitart 1 tab Q4HP PRN PO 07/04/24 09:45 07/06/24 18:49 1 TAB Ondansetron HCl 4 mg Q4HP PRN IV 07/04/24 09:45 07/04/24 10:14 4 MG Acetaminophen 650 mg Q6HP PRN PO 07/04/24 09:45 Morphine Sulfate 2 mg Q4HPRN PRN IV 07/04/24 09:45 Nitroglycerin 0.4 mg Q5MINP PRN SL 07/04/24 09:45 Morphine Sulfate 2 mg Q30M PRN IV 07/04/24 09:45 Midodrine 10 mg TID@0600,1200,1800 PO 07/05/24 12:00 07/08/24 12:12 10 MG Octreotide Acetate 100 mcg TID SUBCUT 07/05/24 14:00 07/08/24 05:22 100 MCG Methylprednisolone Sodium Succinate 40 mg BID IV 07/06/24 22:00 07/08/24 08:30 40 MG Docusate Sodium 100 mg BIDPRN PRN PO 07/06/24 16:15 laboratory and microbiology Laboratory Tests 07/06/24 15:30 Test 07/06/24 15:30 Range/Units Serum Glucose 153 H 74-106 mg/dL Microbiology Date/Time Source Procedure Growth Status 07/04/24 19:55 Nose MRSA Screen - Final Complete Problem List/Assessment/Plan Problem List/Assessment/Plan Reasons for consultation: ABDOMINAL PAIN Hospitalization Summary: A 69-year-old Kenyan-speaking patient, accompanied by her daughter, presented to the ED with headaches, dizziness, chest burning pain, abdominal pain, nausea, and vomiting that began the previous day. She has a medical history of liver cirrhosis, hepatitis, anemia, and stage 3 chronic kidney disease. She denies syncope, palpitations, shortness of breath, smoking, alcohol, or drug abuse, and has no relevant family or surgical history. GI Assessment: #1+ distal esophageal varices #impending hepatorenal failure #She had a 2 cm sliding-type hiatal hernia with grade B erosive esophagitis #[id number] portal hypertension gastropathy #?Upper GI bleed #Hepatitis A positive #Transaminitis #Cirrhosis of liver #Jaundice #Meld score is 22 points predictive of 19.6% three-month mortality #Constipation with last BM in 3 days. #Macrocytic anemia #mild to moderate thrombocytopenia #acute renal failure #Nephrology consult #Indwelling urinary catheter #history of autoimmune hepatitis #hx of Liver cirrhosis with banding #Vitamin D-25 #Left ventricular #s/p cholecystectomy. GI Plan: #Medications: Hold Lovenox as pletlets dropping. hepatitis treat with IV prednisolone 40 mg bid and then switch to oral at discharge. Docusate 100 mg bid. #Labs: CMP trend, NADIA, antismooth muscle ab, Hepatitis A IgM. workup for autoimmune hepatitis. #Imaging/other work up: IR consult to check liver biopsy, RUQ US. #Procedure: True had a EGD in 1 year and colonoscopy in 2 years ago. #please scheduled follow up with GI as outpatient with Dr. [place]io. Thank you so much for the opportunity to consult on your patient. GI team will follow the patient. In case of any questions or concerns please feel free to reach out. Case and action plan discussed with Dr. Dariela Lucio. Complex care planning needed total 45 minutes of detailed discussion. The patient and caregiver team agreed to the plan. My Orders My Orders Orders - HENRIQUE SAUCEDO RESIDENT Procedure Category Date Status Time * Radiologist Consult CONS 07/08/24 Transmitted 12:50 HENRIQUE SAUCEDO RESIDENT Jul 08, 2024 12:55
--- NOTE | 2024-07-08 13:00 | DVHPN2 ---
Progress Note Date Seen: Jul 08, 2024 Resident Creating Document: HENRIQUE SAUCEDO RESIDENT Medical Necessity Reason Pt with a Central, PICC or Fol: No Subjective Review of Systems Saw the patient at bedside, remains in the hospital, on IV steroid, as per daughter patient never had any liver biopsy. Patient reports: Feels better Objective vital signs Vital Sign Date Time Temp Pulse Resp B/P (MAP) Pulse Ox O2 Delivery O2 Flow Rate FiO2 07/08/24 12:16 98.2 61 18 114/42 (66) 99 98.2 07/08/24 08:00 Room Air* 0 21 Total Intake and Output 07/07/24 07/07/24 07/08/24 15:00 23:00 07:00 Intake Total 150 ml Balance 150 ml medications Current Medications Medications Dose Ordered Sig/Chang Route Start Time Stop Time Status Last Admin Dose Admin Sodium Chloride 1,000 ml @ 75 mls/hr [id number] IV 07/04/24 09:45 07/07/24 21:36 75 MLS/HR Acetaminophen/ Hydrocodone Bitart 1 tab Q4HP PRN PO 07/04/24 09:45 07/06/24 18:49 1 TAB Ondansetron HCl 4 mg Q4HP PRN IV 07/04/24 09:45 07/04/24 10:14 4 MG Acetaminophen 650 mg Q6HP PRN PO 07/04/24 09:45 Morphine Sulfate 2 mg Q4HPRN PRN IV 07/04/24 09:45 Nitroglycerin 0.4 mg Q5MINP PRN SL 07/04/24 09:45 Morphine Sulfate 2 mg Q30M PRN IV 07/04/24 09:45 Midodrine 10 mg TID@0600,1200,1800 PO 07/05/24 12:00 07/08/24 12:12 10 MG Octreotide Acetate 100 mcg TID SUBCUT 07/05/24 14:00 07/08/24 05:22 100 MCG Methylprednisolone Sodium Succinate 40 mg BID IV 07/06/24 22:00 07/08/24 08:30 40 MG Docusate Sodium 100 mg BIDPRN PRN PO 07/06/24 16:15 Examination GENERAL:Normal, HEENT:Normal, NECK:Normal, LUNGS:Normal, CVS:Normal, ABDOMEN:Normal, MSK:Normal, SKIN:Normal, NEURO:Normal, :Normal laboratory and microbiology Laboratory Tests 07/06/24 15:30 Test 07/06/24 15:30 Range/Units Serum Glucose 153 H 74-106 mg/dL Microbiology Date/Time Source Procedure Growth Status 07/04/24 19:55 Nose MRSA Screen - Final Complete Labs and/or images reviewed: Labs reviewed by me, Image(s) reviewed by me Problem List/Assessment/Plan Problem List/Assessment/Plan Reasons for consultation: ABDOMINAL PAIN Hospitalization Summary: A 69-year-old Ecuadorean-speaking patient, accompanied by her daughter, presented to the ED with headaches, dizziness, chest burning pain, abdominal pain, nausea, and vomiting that began the previous day. She has a medical history of liver cirrhosis, hepatitis, anemia, and stage 3 chronic kidney disease. She denies syncope, palpitations, shortness of breath, smoking, alcohol, or drug abuse, and has no relevant family or surgical history. Patient has known liver cirrhosis nonalcoholic, the cause was never found but patient performed with the [facility], patient's daughter after discussion agreed to in-hospital IR guided liver biopsy. GI Assessment: #1+ distal esophageal varices #impending hepatorenal failure #She had a 2 cm sliding-type hiatal hernia with grade B erosive esophagitis #[id number] portal hypertension gastropathy #?Upper GI bleed # previous Hepatitis A positive , but IgM negative #Transaminitis #Cirrhosis of liver #Jaundice #Meld score is 22 points predictive of 19.6% three-month mortality #Constipation with last BM in 3 days. #Macrocytic anemia #mild to moderate thrombocytopenia #acute renal failure #Nephrology consult #Indwelling urinary catheter #history of autoimmune hepatitis #hx of Liver cirrhosis with banding #Vitamin D-25 #Left ventricular #s/p cholecystectomy. GI Plan: #Medications: Hold Lovenox as pletlets dropping. hepatitis treat with IV prednisolone 40 mg bid and then switch to oral at discharge. Docusate 100 mg bid. #Labs: CMP trend, NADIA, antismooth muscle ab, workup for autoimmune hepatitis. #Imaging/other work up: IR consult to check liver biopsy to follow, the patient and the daughter agreed. #Procedure: True had a EGD in 1 year and colonoscopy in 2 years ago. No need of further in-hospital procedure. #please scheduled follow up with GI as outpatient with Dr. [place]io. Thank you so much for the opportunity to consult on your patient. GI team will sign off, patient can follow up outpatient with a liver biopsy result and continue Medrol taper at discharge. In case of any questions or concerns please feel free to reach out. Case and action plan discussed with Dr. Dariela uLcio. Complex care planning needed total 43 minutes of detailed discussion. The patient and caregiver team agreed to the plan. Plan discussed with: Patient, Daughter, Other (Primary team, RN) My Orders My Orders Orders - HENRIQUE SAUCEDO Procedure Category Date Status Time * Radiologist Consult CONS 07/08/24 Transmitted 12:50 HENRIQUE SAUCEDO Jul 08, 2024 13:00
--- NOTE | 2024-07-08 14:51 | DVHPN2 ---
Progress Note Date Seen: Jul 08, 2024 Medical Necessity Reason Pt with a Central, PICC or Fol: No Subjective Patient reports: No new complaints Objective vital signs Vital Sign Date Time Temp Pulse Resp B/P (MAP) Pulse Ox O2 Delivery O2 Flow Rate FiO2 07/08/24 12:16 98.2 61 18 114/42 (66) 99 98.2 07/08/24 08:00 Room Air* 0 21 Total Intake and Output 07/07/24 07/07/24 07/08/24 15:00 23:00 07:00 Intake Total 150 ml Balance 150 ml medications Current Medications Medications Dose Ordered Sig/Chang Route Start Time Stop Time Status Last Admin Dose Admin Sodium Chloride 1,000 ml @ 75 mls/hr [id number] IV 07/04/24 09:45 07/07/24 21:36 75 MLS/HR Acetaminophen/ Hydrocodone Bitart 1 tab Q4HP PRN PO 07/04/24 09:45 07/06/24 18:49 1 TAB Ondansetron HCl 4 mg Q4HP PRN IV 07/04/24 09:45 07/04/24 10:14 4 MG Acetaminophen 650 mg Q6HP PRN PO 07/04/24 09:45 Morphine Sulfate 2 mg Q4HPRN PRN IV 07/04/24 09:45 Nitroglycerin 0.4 mg Q5MINP PRN SL 07/04/24 09:45 Morphine Sulfate 2 mg Q30M PRN IV 07/04/24 09:45 Midodrine 10 mg TID@0600,1200,1800 PO 07/05/24 12:00 07/08/24 12:12 10 MG Octreotide Acetate 100 mcg TID SUBCUT 07/05/24 14:00 07/08/24 05:22 100 MCG Methylprednisolone Sodium Succinate 40 mg BID IV 07/06/24 22:00 07/08/24 08:30 40 MG Docusate Sodium 100 mg BIDPRN PRN PO 07/06/24 16:15 Cyanocobalamin 100 mcg DAILY SUBCUT 07/09/24 10:00 Multivit/Ca Carb/ B Cmplx/FA/Prenat 1 tab DAILY PO 07/09/24 10:00 Examination: LUNGS:Normal, CVS:Normal, MSK:Normal laboratory and microbiology Laboratory Tests 07/06/24 15:30 Test 07/06/24 15:30 Range/Units Serum Glucose 153 H 74-106 mg/dL Microbiology Date/Time Source Procedure Growth Status 07/04/24 19:55 Nose MRSA Screen - Final Complete Problem List/Assessment/Plan Problem List/Assessment/Plan Acute kidney injury likely hepatorenal syndrome Hepatic encephalopathy Hypotension Nonalcoholic liver cirrhosis Microcytic anemia Hyponatremia due to excess H2O Recommendations Kidney function is improving Increased urine output Gay catheter strict I&Os Fluid restriction kidney ultrasound reported within normal limits Midodrine 10 mg p.o. t.i.d. Octreotide 100 mcg subcu q.8 hours GI consult We will continue to follow Plan discussed with: Patient Dietary Evaluation Review Comments: Follow current diet regimen, consider protein restriction if pt's kdney function worsens and not schedule for dialysis. Expected Outcomes/Goals: improved lab values, void uremic syndrome, gradual wt loss. DAVON COX MD Jul 08, 2024 14:51
[2024-07-08] MEDS: CYANOCOBALAMIN (B-12) 1000 MCG/1 ML VIAL SUBCUT ONE (14:53)
[2024-07-08] MEDS: B-COMPLEX W/ C & FOLIC ACID(NEPHROVITE TAB) PO ONE (14:53)
[2024-07-08] MEDS: FOLIC ACID 1 MG in D5W 5% 50 ML INJ ONE (14:54)
--- NOTE | 2024-07-08 14:55 | DVHPN2 ---
Reviewed: Care Plan, H&P, Labs, Medications, Previous Orders, Radiology Changes from previous H/P or p: No Changes General: Per HPI Eyes: No Pain, No Vision change, No Conjunctivae inflammation, No Eyelid inflammation, No Other, No Redness ENT: No Ear pain, No Ear discharge, No Nose pain, No Nose discharge, No Nose congestion, No Mouth pain, No Mouth swelling, No Throat pain, No Throat swelling, No Other Cardiovascular: Chest Pain; No Palpitations, No Orthopnea, No Paroxysmal Noc. Dyspnea, No Edema, No Lt Headedness, No Other Respiratory: No Cough, No Dry, No Shortness of breath, No SOB with excertion, No Wheezing, No Hemoptysis, No Pleuritic Pain, No Sputum, No Other Gastrointestinal: Nausea, Vomiting, Abdominal Pain; No Diarrhea, No Constipation, No Melena, No Hematochezia, No Other Genitourinary: No Dysuria, No Frequency, No Incontinence, No Hematuria, No Retention, No Other Musculoskeletal: No other, No neck pain, No shoulder pain, No arm pain, No back pain, No hand pain, No leg pain, No foot pain Skin: No Rash, No Lesions, No Jaundice, No Bruising, No Other Objective Vitals Vital Signs Date Time Temp Pulse Resp B/P (MAP) Pulse Ox O2 Delivery O2 Flow Rate FiO2 07/08/24 12:16 98.2 61 18 114/42 (66) 99 98.2 07/08/24 08:00 Room Air* 0 21 Intake/Output Intake and Output 07/08/24 07:00 Intake Total 150 ml Balance 150 ml Intake Oral 150 ml Medications Current Medications Medications Dose Ordered Sig/Chang Route Start Time Stop Time Status Last Admin Dose Admin Acetaminophen/ Hydrocodone Bitart 1 tab Q4HP PRN PO 07/04/24 09:45 07/06/24 18:49 1 TAB Ondansetron HCl 4 mg Q4HP PRN IV 07/04/24 09:45 07/04/24 10:14 4 MG Acetaminophen 650 mg Q6HP PRN PO 07/04/24 09:45 Morphine Sulfate 2 mg Q4HPRN PRN IV 07/04/24 09:45 Nitroglycerin 0.4 mg Q5MINP PRN SL 07/04/24 09:45 Morphine Sulfate 2 mg Q30M PRN IV 07/04/24 09:45 Midodrine 10 mg TID@0600,1200,1800 PO 07/05/24 12:00 07/08/24 12:12 10 MG Octreotide Acetate 100 mcg TID SUBCUT 07/05/24 14:00 07/08/24 05:22 100 MCG Methylprednisolone Sodium Succinate 40 mg BID IV 07/06/24 22:00 07/08/24 08:30 40 MG Docusate Sodium 100 mg BIDPRN PRN PO 07/06/24 16:15 Cyanocobalamin 100 mcg DAILY SUBCUT 07/09/24 10:00 Multivit/Ca Carb/ B Cmplx/FA/Prenat 1 tab DAILY PO 07/09/24 10:00 Laboratory Results Laboratory Tests 07/06/24 15:30 Urinalysis Test 07/04/24 02:30 07/05/24 14:30 Urine Color Yellow (Yellow) Urine Clarity Clear (Clear) Urine pH 5.5 (5.0-9.0) Urine Specific [place] 1.010 (1.001-1.035) Urine Protein Trace (Negative) H Urine Ketones Negative (Negative) Urine Blood Negative /uL (Negative) Urine Nitrite Negative (Negative) Urine Bilirubin Negative (Negative) Urine Urobilinogen Normal mg/dL (Negative) Urine Leukocyte Esterase Negative /uL (Negative) Urine RBC <1 /hpf (0 - 4) Urine WBC 5 /hpf (0 - 5) Urine Squamous Epithelial Cells Few /hpf (<5) Urine Bacteria None seen /hpf (None Seen) Urine Glucose Normal mg/dL (Normal) Urine Osmolality 474 mOsm/kg Urine Creatinine 69.04 mg/dL (30.0-125.0) Urine Protein/Creatinine Ratio 0.48 Urine Sodium 45 mmol/L (40-220) Urine Total Protein 32.8 mg/dL (1-14) H Microbiology Microbiology Date/Time Source Procedure Growth Status 07/04/24 19:55 Nose MRSA Screen - Final Complete Assessment/Plan Assessment/Plan This 69-year-old Guinean mainly speaking patient accompanied by daughter presents in the ED via EMS with a chief complaint of headaches. The patient reports headaches associated with dizziness, chest burning pain, abdominal pain, nausea, and vomiting started yesterday. The patient denies syncope, palpitations, shortness of breath, or other acute symptoms. The patient with past medical history of liver cirrhosis, hepatitis, anemia, and chronic kidney disease stage 3. # acute renal failure # Hyperbilirubinemia with transaminitis # history of autoimmune hepatitis # hx of Liver cirrhosis with banding # anemia # acute headaches # chest pain # nausea/vomiting 07/05/2024: still has abdominal pain. nephro is following for renal failure. chest pain improved 07/06/2024: discussed with pt regarding elevated liver enzymes. possible d/c in AM 07/07/2024: pt is being evaluated by GI. GI requested a liver biopsy 07/08/2024: pending liver biopys per GI recommendation Plan discussed with: Patient Date of Service: Jul 08, 2024 Billing Provider: VJ BERNARD DO Common Visit Codes: [id number] INP/OBS CARE(HIGH) VJ BERNARD DO Jul 08, 2024 14:54
[2024-07-08] MEDS: MELATONIN 5 MG TAB PO SCH (21:54)
[2024-07-09] VITALS (15 sets, daily range): BP systolic 95–120; BP diastolic 41–90; PULSE 50–64; RESP 12–18; TEMP 97.2–98.2; O2SAT 95–100
[2024-07-09 07:56] LABS: Prothrombin Time 10.6 sec (9.3-11.8)
[2024-07-09 08:06] LABS: Basophils # (auto) 0 10 ^3/uL (0-0.2); Eosinophils # (auto) 0 10 ^3/uL (0-0.8); Hemoglobin 10.1 g/dL (12.2-16.2); Lymphocytes # (auto) 0.2 10 ^3/uL (0.4-5.4); Monocytes # (auto) 0.3 10 ^3/uL (0-1.3); Monocytes % (auto) 2.6 % (0.0-12.0); Platelet Count (auto) 77 10^3/uL (140-450)
[2024-07-09 08:08] LABS: Basophils % (auto) 0.1 % (0.0-2.0); Hematocrit 31.1 % (36.0-46.0); Lymphocytes % (auto) 1.8 % (10.0-50.0); Mean Corpuscular Hgb Conc. 32.5 g/dL (32.0-36.0); Mean Corpuscular Volume 107.9 fL (80.0-100.0); Neutrophils # (auto) 11.5 10 ^3/uL (1.6-8.6); Neutrophils % (auto) 95.5 % (37.0-80.0); Nucleated Red Blood Cells % 0.1 %; Red Blood Cells 2.89 10^6/uL (4.0-5.20); Red Cell Distribution Width 19.8 % (11.8-14.3); White Blood Cell 12.1 10^3/uL (4.4-10.8)
[2024-07-09] MEDS ORDERED: fentaNYL CITRATE 100 MCG/2 ML VL IV ONE (08:30)
[2024-07-09] MEDS ORDERED: MIDAZOLAM HCL 2MG/2ML 2ml VIAL (1mg/ml) IV ONE (08:30)
[2024-07-09] MEDS: GELATIN 1 SPONGE SIZE 50 TOP ONE (08:44)
[2024-07-09] MEDS: B-COMPLEX W/ C & FOLIC ACID(NEPHROVITE TAB) PO SCH (09:21)
[2024-07-09] MEDS: CYANOCOBALAMIN (B-12) 1000 MCG/1 ML VIAL SUBCUT SCH (09:21)
[2024-07-09] MEDS: fentaNYL CITRATE 100 MCG/2 ML VL ONE (11:16)
[2024-07-09] MEDS: LIDOCAINE 2%HCL (LOCAL ANESTH.) INJ 20ML MDV ONE (11:17)
[2024-07-09] MEDS: MIDAZOLAM HCL 2MG/2ML 2ml VIAL (1mg/ml) ONE (11:17)
--- NOTE | 2024-07-09 11:28 | DVHPN2 ---
Progress Note Date Seen: Jul 09, 2024 Resident Creating Document: HENRIQUE SAUCEDO RESIDENT Medical Necessity Reason Pt with a Central, PICC or Fol: No Subjective Review of Systems Saw the patient at bedside, remains in the hospital, on IV steroid, as per daughter patient never had any liver biopsy. Objective vital signs Vital Sign Date Time Temp Pulse Resp B/P (MAP) Pulse Ox O2 Delivery O2 Flow Rate FiO2 07/09/24 08:30 98.2 60 14 101/45 (63) 99 98.2 07/09/24 08:00 Room Air* 0 21 Total Intake and Output 07/08/24 07/08/24 07/09/24 15:00 23:00 07:00 Intake Total 450 ml Output Total 0 ml Balance 450 ml medications Current Medications Medications Dose Ordered Sig/Chang Route Start Time Stop Time Status Last Admin Dose Admin Acetaminophen/ Hydrocodone Bitart 1 tab Q4HP PRN PO 07/04/24 09:45 07/06/24 18:49 1 TAB Ondansetron HCl 4 mg Q4HP PRN IV 07/04/24 09:45 07/04/24 10:14 4 MG Acetaminophen 650 mg Q6HP PRN PO 07/04/24 09:45 Morphine Sulfate 2 mg Q4HPRN PRN IV 07/04/24 09:45 Nitroglycerin 0.4 mg Q5MINP PRN SL 07/04/24 09:45 Morphine Sulfate 2 mg Q30M PRN IV 07/04/24 09:45 Midodrine 10 mg TID@0600,1200,1800 PO 07/05/24 12:00 07/09/24 05:20 10 MG Octreotide Acetate 100 mcg TID SUBCUT 07/05/24 14:00 07/09/24 05:20 100 MCG Methylprednisolone Sodium Succinate 40 mg BID IV 07/06/24 22:00 07/09/24 09:21 40 MG Docusate Sodium 100 mg BIDPRN PRN PO 07/06/24 16:15 Cyanocobalamin 100 mcg DAILY SUBCUT 07/09/24 10:00 07/09/24 09:21 100 MCG Multivit/Ca Carb/ B Cmplx/FA/Prenat 1 tab DAILY PO 07/09/24 10:00 07/09/24 09:21 1 TAB Melatonin 10 mg HS PO 07/08/24 22:00 07/08/24 21:54 10 MG Examination GENERAL APPEARANCE: Well developed, well nourished, alert and cooperative, and appears to be in no acute distress. Improved. HEENT: WNL NECK: Neck supple, non-tender without lymphadenopathy, masses or thyromegaly. CARDIAC: Normal S1 and S2. No S3, S4 or murmurs. Rhythm is regular. There is no peripheral edema, cyanosis or pallor. Extremities are warm and well perfused. Capillary refill is less than 2 seconds. No carotid bruits. LUNGS: Clear to auscultation and percussion without rales, rhonchi, wheezing or diminished breath sounds. ABDOMEN: Positive bowel sounds. Soft, nondistended, nontender. No guarding or rebound. No masses. Mild epigastric tenderness. MSK: WNL NEUROLOGICAL: CN II-XII intact. Strength and sensation symmetric and intact throughout. Reflexes 2+ throughout. Cerebellar testing normal. SKIN: Skin normal color, texture and turgor with no lesions or eruptions. PSYCHIATRIC: Stable laboratory and microbiology Laboratory Tests 07/09/24 06:00 07/06/24 15:30 Test 07/06/24 15:30 Range/Units Serum Glucose 153 H 74-106 mg/dL Microbiology Date/Time Source Procedure Growth Status 07/04/24 19:55 Nose MRSA Screen - Final Complete Labs and/or images reviewed: Labs reviewed by me, Image(s) reviewed by me Problem List/Assessment/Plan Problem List/Assessment/Plan Reasons for consultation: ABDOMINAL PAIN Hospitalization Summary: A 69-year-old Korean-speaking patient, accompanied by her daughter, presented to the ED with headaches, dizziness, chest burning pain, abdominal pain, nausea, and vomiting that began the previous day. She has a medical history of liver cirrhosis, hepatitis, anemia, and stage 3 chronic kidney disease. She denies syncope, palpitations, shortness of breath, smoking, alcohol, or drug abuse, and has no relevant family or surgical history. Patient has known liver cirrhosis nonalcoholic, the cause was never found but patient performed with the [facility], patient's daughter after discussion agreed to in-hospital IR guided liver biopsy. Post procedure the patient is stable. GI Assessment: #1+ distal esophageal varices #impending hepatorenal failure #She had a 2 cm sliding-type hiatal hernia with grade B erosive esophagitis #[id number] portal hypertension gastropathy #?Upper GI bleed # previous Hepatitis A positive , but IgM negative #Transaminitis #Cirrhosis of liver #Jaundice #Meld score is 22 points predictive of 19.6% three-month mortality #Constipation with last BM in 3 days. #Macrocytic anemia #mild to moderate thrombocytopenia #acute renal failure #Nephrology consult #Indwelling urinary catheter #history of autoimmune hepatitis #hx of Liver cirrhosis with banding #Vitamin D-25 #Left ventricular #s/p cholecystectomy. GI Plan: #Medications: Hold Lovenox as pletlets dropping. hepatitis treat with IV prednisolone 40 mg bid and then switch to oral at discharge. Docusate 100 mg bid. #Labs: CMP trend, NADIA, antismooth muscle ab, workup for autoimmune hepatitis. #Imaging/other work up: IR guided biopsy done, follow the histology. #Procedure: True had a EGD in 1 year and colonoscopy in 2 years ago. No need of further in-hospital procedure. #please scheduled follow up with GI as outpatient with Dr. [place]. Thank you so much for the opportunity to consult on your patient. GI team will sign off, patient can follow up outpatient with a liver biopsy result and continue Medrol taper at discharge. In case of any questions or concerns please feel free to reach out. Case and action plan discussed with Dr. Dariela Lucio. Complex care planning needed total 43 minutes of detailed discussion. The patient and caregiver team agreed to the plan. Plan discussed with: Patient, Other My Orders My Orders Orders - HENRIQUE SAUCEDO RESIDENT Procedure Category Date Status Time Cyanocobalamin PHA 07/09/24 In Process Injection (Vitamin 10:00 B-Complex W/ C & PHA 07/09/24 In Process Folic Tablet 10:00 * Radiologist Consult CONS 07/08/24 Transmitted 18:30 Dietary Evaluation Review Comments: Follow current diet regimen, consider protein restriction if pt's kdney function worsens and not schedule for dialysis. Expected Outcomes/Goals: improved lab values, void uremic syndrome, gradual wt loss. HENRIQUE SAUCEDO RESIDENT Jul 09, 2024 11:28
[2024-07-09] MEDS: IODIXANOL 320MG/ML 100ML BTL IV ONE (11:43)
--- NOTE | 2024-07-09 12:20 | DVHPN2 ---
Progress Note Date Seen: Jul 09, 2024 Medical Necessity Reason Pt with a Central, PICC or Fol: No Subjective Patient reports: No new complaints Other Systems: Patient seen and examined by myself today in follow-up Objective vital signs Vital Sign Date Time Temp Pulse Resp B/P (MAP) Pulse Ox O2 Delivery O2 Flow Rate FiO2 07/09/24 08:30 98.2 60 14 101/45 (63) 99 98.2 07/09/24 08:00 Room Air* 0 21 Total Intake and Output 07/08/24 07/08/24 07/09/24 15:00 23:00 07:00 Intake Total 450 ml Output Total 0 ml Balance 450 ml medications Current Medications Medications Dose Ordered Sig/Chang Route Start Time Stop Time Status Last Admin Dose Admin Acetaminophen/ Hydrocodone Bitart 1 tab Q4HP PRN PO 07/04/24 09:45 07/06/24 18:49 1 TAB Ondansetron HCl 4 mg Q4HP PRN IV 07/04/24 09:45 07/04/24 10:14 4 MG Acetaminophen 650 mg Q6HP PRN PO 07/04/24 09:45 Morphine Sulfate 2 mg Q4HPRN PRN IV 07/04/24 09:45 Nitroglycerin 0.4 mg Q5MINP PRN SL 07/04/24 09:45 Morphine Sulfate 2 mg Q30M PRN IV 07/04/24 09:45 Midodrine 10 mg TID@0600,1200,1800 PO 07/05/24 12:00 07/09/24 05:20 10 MG Octreotide Acetate 100 mcg TID SUBCUT 07/05/24 14:00 07/09/24 05:20 100 MCG Methylprednisolone Sodium Succinate 40 mg BID IV 07/06/24 22:00 07/09/24 09:21 40 MG Docusate Sodium 100 mg BIDPRN PRN PO 07/06/24 16:15 Cyanocobalamin 100 mcg DAILY SUBCUT 07/09/24 10:00 07/09/24 09:21 100 MCG Multivit/Ca Carb/ B Cmplx/FA/Prenat 1 tab DAILY PO 07/09/24 10:00 07/09/24 09:21 1 TAB Melatonin 10 mg HS PO 07/08/24 22:00 07/08/24 21:54 10 MG Examination: LUNGS:Normal, CVS:Normal, MSK:Normal laboratory and microbiology Laboratory Tests 07/09/24 06:00 07/06/24 15:30 Test 07/06/24 15:30 Range/Units Serum Glucose 153 H 74-106 mg/dL Microbiology Date/Time Source Procedure Growth Status 07/04/24 19:55 Nose MRSA Screen - Final Complete Problem List/Assessment/Plan Problem List/Assessment/Plan Acute kidney injury likely hepatorenal syndrome Hepatic encephalopathy Hypotension Nonalcoholic liver cirrhosis Microcytic anemia Hyponatremia due to excess H2O Recommendations Kidney function is improving No urine output charted Gay catheter strict I&Os Fluid restriction kidney ultrasound reported within normal limits Midodrine 10 mg p.o. t.i.d. Octreotide 100 mcg subcu q.8 hours GI consult We will continue to follow Plan discussed with: Patient, Daughter My Orders My Orders Orders - DAVON COX MD Procedure Category Date Status Time Maintain Fluid SANDRA 07/08/24 In Process Restrictions 14:50 Comprehensive LAB 07/10/24 Verified Metabolic Panel 04:00 Magnesium LAB 07/10/24 Verified 04:00 Phosphorus LAB 07/10/24 Verified 04:00 Dietary Evaluation Review Comments: Follow current diet regimen, consider protein restriction if pt's kdney function worsens and not schedule for dialysis. Expected Outcomes/Goals: improved lab values, void uremic syndrome, gradual wt loss. DAVON COX MD Jul 09, 2024 12:20
[2024-07-09] MEDS: IOHEXOL 350 MG/ML 100ML IJ ONE (12:30)
--- NOTE | 2024-07-09 12:40 | DVHDS2 ---
Discharge Summary Date of Admission Jul 04, 2024 at 09:40 Date of Discharge: Jul 09, 2024 Labs/Diagnostic Data: Laboratory Results Test 07/09/24 06:00 07/07/24 05:49 07/06/24 16:40 07/06/24 15:30 White Blood Count 12.1 10^3/uL (4.4-10.8) Red Blood Count 2.89 10^6/uL (4.0-5.20) Hemoglobin 10.1 g/dL (12.2-16.2) Hematocrit 31.1 % (36.0-46.0) Mean Corpuscular Volume 107.9 fL (80.0-100.0) Mean Corpuscular Hemoglobin 35.0 pg (28.0-32.0) Mean Corpuscular Hemoglobin Concent 32.5 g/dL (32.0-36.0) Red Cell Distribution Width 19.8 % (11.8-14.3) Platelet Count 77 10^3/uL (140-450) Mean Platelet Volume 8.4 fL (6.9-10.8) Neutrophils (%) (Auto) 95.5 % (37.0-80.0) Lymphocytes (%) (Auto) 1.8 % (10.0-50.0) Monocytes (%) (Auto) 2.6 % (0.0-12.0) Eosinophils (%) (Auto) 0.0 % (0.0-7.0) Basophils (%) (Auto) 0.1 % (0.0-2.0) Neutrophils # (Auto) 11.5 10 ^3/uL (1.6-8.6) Lymphocytes # (Auto) 0.2 10 ^3/uL (0.4-5.4) Monocytes # (Auto) 0.3 10 ^3/uL (0-1.3) Eosinophils # (Auto) 0 10 ^3/uL (0-0.8) Basophils # (Auto) 0 10 ^3/uL (0-0.2) Nucleated Red Blood Cells 0.1 % Platelet Estimate Decreased Macrocytosis Moderate Prothrombin Time 10.6 sec (9.3-11.8) Prothrombin Time INR 1.00 (0.9-1.15) Hepatitis A IgM Antibody Negative Free Thyroxine (T4) Calculated 0.90 ng/dL (0.89-1.76) Free Triiodothyronine (T3) pg/mL 1.75 pg/mL (2.3-4.2) Anti-Nuclear Antibody Comment Comment (.) GERALD-1 Antibody <0.2 AI (0.0-0.9) SS-A/Ro Antibody <0.2 AI (0.0-0.9) SS-B/La Antibody <0.2 AI (0.0-0.9) Sm Antibody <0.2 AI (0.0-0.9) [employer] DES[employer] ENGINEER Antibody <0.2 AI (0.0-0.9) Scl-70 (Scleroderma) Antibody <0.2 AI (0.0-0.9) Anti-Double Strand DNA Antibody <1 IU/mL (0-9) Chromatin Antibody 0.4 AI (0.0-0.9) Centromere B Antibody >8.0 AI (0.0-0.9) Large Platelets Few Anisocytosis (manual) Slight Sodium Level 135 mmol/L (136-145) Potassium Level 4.0 mmol/L (3.5-5.1) Chloride Level 103 mmol/L (98-107) Carbon Dioxide Level 24 mmol/L (20-31) Anion Gap 8 (5-15) Blood Urea Nitrogen 37 mg/dL (9-23) Creatinine 1.70 mg/dL (0.550-1.02) Glomerular Filtration Rate Calc 32 mL/min (>90) BUN/Creatinine Ratio 21.8 (10.0-20.0) Serum Glucose 153 mg/dL (74-106) Calcium Level 9.6 mg/dL (8.7-10.4) Total Bilirubin 3.3 mg/dL (0.2-1.0) Aspartate Amino Transferase (AST) 109 U/L (13-40) Alanine Aminotransferase (ALT) 169 U/L (7-40) Alkaline Phosphatase 136 U/L (46-116) Total Protein 6.1 g/dL (5.7-8.2) Albumin 3.9 g/dL (3.2-4.8) Test 07/05/24 14:30 07/05/24 05:38 07/04/24 10:09 07/04/24 03:32 Urine Osmolality 474 mOsm/kg Urine Creatinine 69.04 mg/dL (30.0-125.0) Urine Protein/Creatinine Ratio 0.48 Urine Sodium 45 mmol/L (40-220) Urine Total Protein 32.8 mg/dL (1-14) Phosphorus Level 5.1 mg/dL (2.4-5.1) Magnesium Level 3.0 mg/dL (1.6-2.6) Vitamin D 25-Hydroxy 14.3 ng/mL (30.0-100) Activated Partial Thromboplast Time < 20.0 SEC (24.5-34.5) Ammonia 29 umol/L (11-32) Troponin I High Sensitivity 21 ng/L (</=34) Triglycerides Level 180 mg/dL (< 150) Cholesterol Level 185 mg/dL (< 200) LDL Cholesterol 121 mg/dL (< 100) HDL Cholesterol 34 mg/dL (40-59) Thyroid Stimulating Hormone (TSH) 0.29 uIU/mL (0.55-4.78) Test 07/04/24 02:30 07/04/24 00:26 Urine Color Yellow (Yellow) Urine Clarity Clear (Clear) Urine pH 5.5 (5.0-9.0) Urine Specific [place] 1.010 (1.001-1.035) Urine Protein Trace (Negative) Urine Ketones Negative (Negative) Urine Blood Negative /uL (Negative) Urine Nitrite Negative (Negative) Urine Bilirubin Negative (Negative) Urine Urobilinogen Normal mg/dL (Negative) Urine Leukocyte Esterase Negative /uL (Negative) Urine RBC <1 /hpf (0 - 4) Urine WBC 5 /hpf (0 - 5) Urine Squamous Epithelial Cells Few /hpf (<5) Urine Bacteria None seen /hpf (None Seen) Urine Glucose Normal mg/dL (Normal) Tear Drop Cells Few Stomatocytes Few Lactic Acid Level 1.5 mmol/L (0.4-2.0) B-Type Natriuretic Peptide 157.54 pg/mL (0-100) Lipase 34 U/L (12-53) Hepatitis A Antibody Total Positive (Negative) Hepatitis B Surface Antigen Negative (Negative) Hepatitis B Surface Antibody Negative (Negative) Hepatitis B Core Total Antibody Negative (Negative) Hepatitis C Antibody Negative (Negative) Other Laboratory Tests 07/09/24 06:00 07/06/24 15:30 Final Diagnosis/Problems List df Discharge Disposition: Home Discharge Instruct/Medications Diet: Cardiac 2g Na,low cholest Activity: No Restrictions, As Tolerated Discharge Statement: "Patient was advised to return to the ER or call 911 if any headaches, dizziness, shortness of breath, chest pain, abdominal pain, bleeding, fevers, or worsening of medical condition. Patient was counseled about treatment plan, medications, possible side effects, patientverbalized understanding. All questions were answered to the best of my ability. This discharge took greater then 30 minutes in planning, reviewing documentation, counseling the patient, and discussing with other team members." ASSESSMENT ASSESSMENT Assessment Date of Service: Jul 09, 2024 Billing Provider: VJ BERNARD DO Common Visit Codes: [id number] DISCH DAY >30min VJ BERNARD DO Jul 09, 2024 12:40
--- NOTE | 2024-07-09 14:36 | DVH ---
XY Transjugintrahepatic, HISTORY: TRANS JUGULAR HEP. 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 PROCEDURE: Informed consent was obtained. The patient was placed in supine position on the fluoroscop ic table. The right neck site was prepped with chlorhexidine which was allowed to dry and draped in s terile fashion. Time out was performed. A micropuncture set was used to access the internal jugular v ein under real-time ultrasound guidance, and an image documenting patency was recorded to PACS. Follo wing serial dilation, a 8 Bulgarian vascular sheath was placed. A 5 Bulgarian MPA catheter was used to funmi ct the right hepatic vein using small amounts of hand contrast injections for visualization in the AP and lateral projections. The catheter was then exchanged to a 7 [place]ian transjugular biopsy set, and 1 core biopsies were obtained, placed in formalin solution, and sent to pathology. The catheter and sheath were removed and hemostasis achieved with manual pressure No immediate complication was identi fied. DAP 2450.08 FLUOROSCOPY TIME: 16.6 minutes. CONTRAST USED: 50 mL . SEDATION: Dr. Ruy Zhao was personally responsible for the administration of moderate sedation during the procedure performed, including the use of an independent trained observer who had no other duties during the procedure. The drugs utilized were IV fentanyl and versed (see nursing log for details). The total time of supervision by the attending physician was approximately 75 minutes. FINDINGS: 1. Widely patent right internal jugular vein. Patent right hepatic vein. IMPRESSION: Transjugular liver biopsy with a core sample obtained and send to pathology for analysis in formalin.
[2024-07-10] VITALS (9 sets, daily range): BP systolic 95–115; BP diastolic 42–64; PULSE 53–96; RESP 14–20; TEMP 97.8–98.7; O2SAT 94–97
[2024-07-10 07:06] LABS: Albumin 3.5 g/dL (3.2-4.8); Anion Gap 8 (5-15); BUN/Creatinine Ratio 25.4 (10.0-20.0); Calcium 9.9 mg/dL (8.7-10.4); Carbon Dioxide 21 mmol/L (20-31); Magnesium 2.4 mg/dL (1.6-2.6); Phosphorus 2.8 mg/dL (2.4-5.1); Potassium 4.2 mmol/L (3.5-5.1)
[2024-07-10 07:07] LABS: Total Protein 5.7 g/dL (5.7-8.2)
[2024-07-10 07:29] LABS: Alanine Aminotransferase 127 U/L (7-40); Alkaline Phosphatase 134 U/L (46-116); Aspartate Aminotransferase 69 U/L (13-40); Bilirubin, Total 3.1 mg/dL (0.2-1.0); Blood Urea Nitrogen 31 mg/dL (9-23); Chloride 107 mmol/L (98-107); Glucose 120 mg/dL (74-106); Sodium 136 mmol/L (136-145)
--- NOTE | 2024-07-10 11:40 | DVHPN2 ---
Progress Note Date Seen: Jul 10, 2024 Medical Necessity Reason Pt with a Central, PICC or Fol: No Subjective Patient reports: No new complaints Other Systems: Patient seen and examined by myself today in follow-up Objective vital signs Vital Sign Date Time Temp Pulse Resp B/P (MAP) Pulse Ox O2 Delivery O2 Flow Rate FiO2 07/10/24 08:42 98.7 77 17 108/42 (64) 94 98.7 07/10/24 08:10 Room Air* 0 21 Total Intake and Output 07/09/24 07/09/24 07/10/24 15:00 23:00 07:00 Intake Total 700 ml Balance 700 ml medications Current Medications Medications Dose Ordered Sig/Chang Route Start Time Stop Time Status Last Admin Dose Admin Acetaminophen/ Hydrocodone Bitart 1 tab Q4HP PRN PO 07/04/24 09:45 07/06/24 18:49 1 TAB Ondansetron HCl 4 mg Q4HP PRN IV 07/04/24 09:45 07/04/24 10:14 4 MG Acetaminophen 650 mg Q6HP PRN PO 07/04/24 09:45 Morphine Sulfate 2 mg Q4HPRN PRN IV 07/04/24 09:45 Nitroglycerin 0.4 mg Q5MINP PRN SL 07/04/24 09:45 Morphine Sulfate 2 mg Q30M PRN IV 07/04/24 09:45 Midodrine 10 mg TID@0600,1200,1800 PO 07/05/24 12:00 07/10/24 05:11 10 MG Octreotide Acetate 100 mcg TID SUBCUT 07/05/24 14:00 07/10/24 05:12 100 MCG Methylprednisolone Sodium Succinate 40 mg BID IV 07/06/24 22:00 07/10/24 10:30 40 MG Docusate Sodium 100 mg BIDPRN PRN PO 07/06/24 16:15 Cyanocobalamin 100 mcg DAILY SUBCUT 07/09/24 10:00 07/10/24 10:36 100 MCG Multivit/Ca Carb/ B Cmplx/FA/Prenat 1 tab DAILY PO 07/09/24 10:00 07/10/24 10:34 1 TAB Melatonin 10 mg HS PO 07/08/24 22:00 07/09/24 21:16 10 MG Examination: LUNGS:Normal, CVS:Normal, MSK:Normal laboratory and microbiology Laboratory Tests 07/10/24 06:12 07/09/24 06:00 Test 07/10/24 06:12 Range/Units Serum Glucose 120 H 74-106 mg/dL Microbiology Date/Time Source Procedure Growth Status 07/04/24 19:55 Nose MRSA Screen - Final Complete Problem List/Assessment/Plan Problem List/Assessment/Plan Acute kidney injury likely hepatorenal syndrome Hepatic encephalopathy Hypotension Nonalcoholic liver cirrhosis Microcytic anemia Hyponatremia due to excess H2O Recommendations Kidney function continues to improve No urine output charted Gay catheter strict I&Os Fluid restriction kidney ultrasound reported within normal limits Midodrine 10 mg p.o. t.i.d. Octreotide 100 mcg subcu q.8 hours GI consult We will continue to follow Plan discussed with: Patient, Daughter Dietary Evaluation Review Comments: Follow current diet regimen, consider protein restriction if pt's kdney function worsens and not schedule for dialysis. Expected Outcomes/Goals: improved lab values, void uremic syndrome, gradual wt loss. DAVON COX MD Jul 10, 2024 11:40
[2024-07-11] VITALS (8 sets, daily range): BP systolic 88–99; BP diastolic 33–47; PULSE 48–61; RESP 16–18; TEMP 97.7–98.6; O2SAT 95–98
--- NOTE | 2024-07-11 11:22 | DVHPN2 ---
Progress Note Date Seen: Jul 11, 2024 Medical Necessity Reason Pt with a Central, PICC or Fol: No Subjective Patient reports: No new complaints Other Systems: Patient seen and examined by myself in follow-up today Objective vital signs Vital Sign Date Time Temp Pulse Resp B/P (MAP) Pulse Ox O2 Delivery O2 Flow Rate FiO2 07/11/24 09:00 98.6 50 16 92/41 (58) 98 98.6 07/11/24 07:55 Room Air* 0 21 Total Intake and Output 07/10/24 07/10/24 07/11/24 15:00 23:00 07:00 Intake Total 285 ml Balance 285 ml medications Current Medications Medications Dose Ordered Sig/Chang Route Start Time Stop Time Status Last Admin Dose Admin Acetaminophen/ Hydrocodone Bitart 1 tab Q4HP PRN PO 07/04/24 09:45 07/11/24 08:01 1 TAB Ondansetron HCl 4 mg Q4HP PRN IV 07/04/24 09:45 07/04/24 10:14 4 MG Acetaminophen 650 mg Q6HP PRN PO 07/04/24 09:45 Morphine Sulfate 2 mg Q4HPRN PRN IV 07/04/24 09:45 Nitroglycerin 0.4 mg Q5MINP PRN SL 07/04/24 09:45 Morphine Sulfate 2 mg Q30M PRN IV 07/04/24 09:45 Midodrine 10 mg TID@0600,1200,1800 PO 07/05/24 12:00 07/11/24 05:25 10 MG Octreotide Acetate 100 mcg TID SUBCUT 07/05/24 14:00 07/11/24 05:32 100 MCG Methylprednisolone Sodium Succinate 40 mg BID IV 07/06/24 22:00 07/11/24 09:56 40 MG Docusate Sodium 100 mg BIDPRN PRN PO 07/06/24 16:15 Cyanocobalamin 100 mcg DAILY SUBCUT 07/09/24 10:00 07/11/24 09:57 100 MCG Multivit/Ca Carb/ B Cmplx/FA/Prenat 1 tab DAILY PO 07/09/24 10:00 07/11/24 09:56 1 TAB Melatonin 10 mg HS PO 07/08/24 22:00 07/10/24 21:52 10 MG Examination: LUNGS:Normal, CVS:Normal, MSK:Normal laboratory and microbiology Laboratory Tests 07/10/24 06:12 07/09/24 06:00 Test 07/10/24 06:12 Range/Units Serum Glucose 120 H 74-106 mg/dL Microbiology Date/Time Source Procedure Growth Status 07/04/24 19:55 Nose MRSA Screen - Final Complete Problem List/Assessment/Plan Problem List/Assessment/Plan Acute kidney injury likely hepatorenal syndrome Hepatic encephalopathy Hypotension Nonalcoholic liver cirrhosis Microcytic anemia Hyponatremia due to excess H2O Recommendations Kidney function continues to improve No urine output charted Gay catheter strict I&Os Fluid restriction kidney ultrasound reported within normal limits Midodrine 10 mg p.o. t.i.d. Octreotide 100 mcg subcu q.8 hours GI consult I will sign off this case please refer to my office two weeks after discharge for Acute kidney injury follow-up Thank you for the kind Plan discussed with: Patient, Daughter Dietary Evaluation Review Comments: Follow current diet regimen, consider protein restriction if pt's kdney function worsens and not schedule for dialysis. Expected Outcomes/Goals: improved lab values, void uremic syndrome, gradual wt loss. DAVON COX MD Jul 11, 2024 11:22
--- NOTE | 2024-07-11 15:14 | DVHPN2 ---
Reviewed: Care Plan, H&P, Labs, Medications, Previous Orders, Radiology Changes from previous H/P or p: No Changes General: Per HPI Eyes: No Pain, No Vision change, No Conjunctivae inflammation, No Eyelid inflammation, No Other, No Redness ENT: No Ear pain, No Ear discharge, No Nose pain, No Nose discharge, No Nose congestion, No Mouth pain, No Mouth swelling, No Throat pain, No Throat swelling, No Other Cardiovascular: Chest Pain Respiratory: No Cough, No Dry, No Shortness of breath, No SOB with excertion, No Wheezing, No Hemoptysis, No Pleuritic Pain, No Sputum, No Other Gastrointestinal: Nausea, Vomiting, Abdominal Pain Genitourinary: No Dysuria, No Frequency, No Incontinence, No Hematuria, No Retention, No Other Musculoskeletal: No other, No neck pain, No shoulder pain, No arm pain, No back pain, No hand pain, No leg pain, No foot pain Skin: No Rash, No Lesions, No Jaundice, No Bruising, No Other Objective Vitals Vital Signs Date Time Temp Pulse Resp B/P (MAP) Pulse Ox O2 Delivery O2 Flow Rate FiO2 07/11/24 13:00 97.8 56 16 95/40 (58) 97 97.8 07/11/24 07:55 Room Air* 0 21 Intake/Output Intake and Output 07/11/24 07:00 Intake Total 285 ml Balance 285 ml Intake Oral 285 ml # Voids 2 General Appearance: Alert, Oriented X3, Cooperative Cardiovascular: Regular rate, Normal S1, Normal S2 Abdomen: Normal bowel sounds, Soft Medications Current Medications Medications Dose Ordered Sig/Chang Route Start Time Stop Time Status Last Admin Dose Admin Acetaminophen/ Hydrocodone Bitart 1 tab Q4HP PRN PO 07/04/24 09:45 07/11/24 08:01 1 TAB Ondansetron HCl 4 mg Q4HP PRN IV 07/04/24 09:45 07/04/24 10:14 4 MG Acetaminophen 650 mg Q6HP PRN PO 07/04/24 09:45 Morphine Sulfate 2 mg Q4HPRN PRN IV 07/04/24 09:45 Nitroglycerin 0.4 mg Q5MINP PRN SL 07/04/24 09:45 Morphine Sulfate 2 mg Q30M PRN IV 07/04/24 09:45 Midodrine 10 mg TID@0600,1200,1800 PO 07/05/24 12:00 07/11/24 11:54 10 MG Octreotide Acetate 100 mcg TID SUBCUT 07/05/24 14:00 07/11/24 14:14 100 MCG Methylprednisolone Sodium Succinate 40 mg BID IV 07/06/24 22:00 07/11/24 09:56 40 MG Docusate Sodium 100 mg BIDPRN PRN PO 07/06/24 16:15 Cyanocobalamin 100 mcg DAILY SUBCUT 07/09/24 10:00 07/11/24 09:57 100 MCG Multivit/Ca Carb/ B Cmplx/FA/Prenat 1 tab DAILY PO 07/09/24 10:00 07/11/24 09:56 1 TAB Melatonin 10 mg HS PO 07/08/24 22:00 07/10/24 21:52 10 MG Laboratory Results Laboratory Tests 07/09/24 06:00 07/10/24 06:12 Urinalysis Test 07/04/24 02:30 07/05/24 14:30 Urine Color Yellow (Yellow) Urine Clarity Clear (Clear) Urine pH 5.5 (5.0-9.0) Urine Specific [place] 1.010 (1.001-1.035) Urine Protein Trace (Negative) H Urine Ketones Negative (Negative) Urine Blood Negative /uL (Negative) Urine Nitrite Negative (Negative) Urine Bilirubin Negative (Negative) Urine Urobilinogen Normal mg/dL (Negative) Urine Leukocyte Esterase Negative /uL (Negative) Urine RBC <1 /hpf (0 - 4) Urine WBC 5 /hpf (0 - 5) Urine Squamous Epithelial Cells Few /hpf (<5) Urine Bacteria None seen /hpf (None Seen) Urine Glucose Normal mg/dL (Normal) Urine Osmolality 474 mOsm/kg Urine Creatinine 69.04 mg/dL (30.0-125.0) Urine Protein/Creatinine Ratio 0.48 Urine Sodium 45 mmol/L (40-220) Urine Total Protein 32.8 mg/dL (1-14) H Microbiology Microbiology Date/Time Source Procedure Growth Status 07/04/24 19:55 Nose MRSA Screen - Final Complete Assessment/Plan Assessment/Plan This 69-year-old Tajik mainly speaking patient accompanied by daughter presents in the ED via EMS with a chief complaint of headaches. The patient reports headaches associated with dizziness, chest burning pain, abdominal pain, nausea, and vomiting started yesterday. The patient denies syncope, palpitations, shortness of breath, or other acute symptoms. The patient with past medical history of liver cirrhosis, hepatitis, anemia, and chronic kidney disease stage 3. # acute renal failure # Hyperbilirubinemia with transaminitis # history of autoimmune hepatitis # hx of Liver cirrhosis with banding # anemia # acute headaches # chest pain # nausea/vomiting 07/05/2024: still has abdominal pain. nephro is following for renal failure. chest pain improved 07/06/2024: discussed with pt regarding elevated liver enzymes. possible d/c in AM 07/07/2024: pt is being evaluated by GI. GI requested a liver biopsy 07/08/2024: pending liver biopys per GI recommendation 07/09/2024: planning for biopsy within 24 hours 07/10/2024: doing okay after biopsy. still has some pain. possible d/c in 24 hours Plan discussed with: Patient Date of Service: Jul 10, 2024 Billing Provider: VJ BERNARD DO Common Visit Codes: [id number] INP/OBS CARE(HIGH) VJ BERNARD DO Jul 11, 2024 15:14
--- NOTE | 2024-07-11 15:14 | DVHPN2 ---
Reviewed: Care Plan, H&P, Labs, Medications, Previous Orders, Radiology Changes from previous H/P or p: No Changes General: Per HPI Eyes: No Pain, No Vision change, No Conjunctivae inflammation, No Eyelid inflammation, No Other, No Redness ENT: No Ear pain, No Ear discharge, No Nose pain, No Nose discharge, No Nose congestion, No Mouth pain, No Mouth swelling, No Throat pain, No Throat swelling, No Other Cardiovascular: Chest Pain Respiratory: No Cough, No Dry, No Shortness of breath, No SOB with excertion, No Wheezing, No Hemoptysis, No Pleuritic Pain, No Sputum, No Other Gastrointestinal: Nausea, Vomiting, Abdominal Pain Genitourinary: No Dysuria, No Frequency, No Incontinence, No Hematuria, No Retention, No Other Musculoskeletal: No other, No neck pain, No shoulder pain, No arm pain, No back pain, No hand pain, No leg pain, No foot pain Skin: No Rash, No Lesions, No Jaundice, No Bruising, No Other Objective Vitals Vital Signs Date Time Temp Pulse Resp B/P (MAP) Pulse Ox O2 Delivery O2 Flow Rate FiO2 07/11/24 13:00 97.8 56 16 95/40 (58) 97 97.8 07/11/24 07:55 Room Air* 0 21 Intake/Output Intake and Output 07/11/24 07:00 Intake Total 285 ml Balance 285 ml Intake Oral 285 ml # Voids 2 General Appearance: Alert, Oriented X3, Cooperative Cardiovascular: Regular rate, Normal S1, Normal S2 Abdomen: Normal bowel sounds, Soft Medications Current Medications Medications Dose Ordered Sig/Chang Route Start Time Stop Time Status Last Admin Dose Admin Acetaminophen/ Hydrocodone Bitart 1 tab Q4HP PRN PO 07/04/24 09:45 07/11/24 08:01 1 TAB Ondansetron HCl 4 mg Q4HP PRN IV 07/04/24 09:45 07/04/24 10:14 4 MG Acetaminophen 650 mg Q6HP PRN PO 07/04/24 09:45 Morphine Sulfate 2 mg Q4HPRN PRN IV 07/04/24 09:45 Nitroglycerin 0.4 mg Q5MINP PRN SL 07/04/24 09:45 Morphine Sulfate 2 mg Q30M PRN IV 07/04/24 09:45 Midodrine 10 mg TID@0600,1200,1800 PO 07/05/24 12:00 07/11/24 11:54 10 MG Octreotide Acetate 100 mcg TID SUBCUT 07/05/24 14:00 07/11/24 14:14 100 MCG Methylprednisolone Sodium Succinate 40 mg BID IV 07/06/24 22:00 07/11/24 09:56 40 MG Docusate Sodium 100 mg BIDPRN PRN PO 07/06/24 16:15 Cyanocobalamin 100 mcg DAILY SUBCUT 07/09/24 10:00 07/11/24 09:57 100 MCG Multivit/Ca Carb/ B Cmplx/FA/Prenat 1 tab DAILY PO 07/09/24 10:00 07/11/24 09:56 1 TAB Melatonin 10 mg HS PO 07/08/24 22:00 07/10/24 21:52 10 MG Laboratory Results Laboratory Tests 07/09/24 06:00 07/10/24 06:12 Urinalysis Test 07/04/24 02:30 07/05/24 14:30 Urine Color Yellow (Yellow) Urine Clarity Clear (Clear) Urine pH 5.5 (5.0-9.0) Urine Specific [place] 1.010 (1.001-1.035) Urine Protein Trace (Negative) H Urine Ketones Negative (Negative) Urine Blood Negative /uL (Negative) Urine Nitrite Negative (Negative) Urine Bilirubin Negative (Negative) Urine Urobilinogen Normal mg/dL (Negative) Urine Leukocyte Esterase Negative /uL (Negative) Urine RBC <1 /hpf (0 - 4) Urine WBC 5 /hpf (0 - 5) Urine Squamous Epithelial Cells Few /hpf (<5) Urine Bacteria None seen /hpf (None Seen) Urine Glucose Normal mg/dL (Normal) Urine Osmolality 474 mOsm/kg Urine Creatinine 69.04 mg/dL (30.0-125.0) Urine Protein/Creatinine Ratio 0.48 Urine Sodium 45 mmol/L (40-220) Urine Total Protein 32.8 mg/dL (1-14) H Microbiology Microbiology Date/Time Source Procedure Growth Status 07/04/24 19:55 Nose MRSA Screen - Final Complete Labs and/or images reviewed: Labs reviewed by me, Image(s) reviewed by me Assessment/Plan Assessment/Plan This 69-year-old Chinese mainly speaking patient accompanied by daughter presents in the ED via EMS with a chief complaint of headaches. The patient reports headaches associated with dizziness, chest burning pain, abdominal pain, nausea, and vomiting started yesterday. The patient denies syncope, palpitations, shortness of breath, or other acute symptoms. The patient with past medical history of liver cirrhosis, hepatitis, anemia, and chronic kidney disease stage 3. # acute renal failure # Hyperbilirubinemia with transaminitis # history of autoimmune hepatitis # hx of Liver cirrhosis with banding # anemia # acute headaches # chest pain # nausea/vomiting 07/05/2024: still has abdominal pain. nephro is following for renal failure. chest pain improved 07/06/2024: discussed with pt regarding elevated liver enzymes. possible d/c in AM 07/07/2024: pt is being evaluated by GI. GI requested a liver biopsy 07/08/2024: pending liver biopys per GI recommendation 07/09/2024: planning for biopsy within 24 hours Plan discussed with: Patient Date of Service: Jul 09, 2024 Billing Provider: VJ BERNARD DO Common Visit Codes: [id number] INP/OBS CARE(HIGH) VJ BERNARD DO Jul 11, 2024 15:13
--- NOTE | 2024-07-11 15:15 | DVHDS2 ---
Discharge Summary Date of Admission Jul 04, 2024 at 09:40 Date of Discharge: Jul 09, 2024 Labs/Diagnostic Data: Laboratory Results Test 07/10/24 06:12 07/09/24 06:00 07/07/24 05:49 07/06/24 16:40 Sodium Level 136 mmol/L (136-145) Potassium Level 4.2 mmol/L (3.5-5.1) Chloride Level 107 mmol/L (98-107) Carbon Dioxide Level 21 mmol/L (20-31) Anion Gap 8 (5-15) Blood Urea Nitrogen 31 mg/dL (9-23) Creatinine 1.22 mg/dL (0.550-1.02) Glomerular Filtration Rate Calc 48 mL/min (>90) BUN/Creatinine Ratio 25.4 (10.0-20.0) Serum Glucose 120 mg/dL (74-106) Calcium Level 9.9 mg/dL (8.7-10.4) Phosphorus Level 2.8 mg/dL (2.4-5.1) Magnesium Level 2.4 mg/dL (1.6-2.6) Total Bilirubin 3.1 mg/dL (0.2-1.0) Aspartate Amino Transferase (AST) 69 U/L (13-40) Alanine Aminotransferase (ALT) 127 U/L (7-40) Alkaline Phosphatase 134 U/L (46-116) Total Protein 5.7 g/dL (5.7-8.2) Albumin 3.5 g/dL (3.2-4.8) White Blood Count 12.1 10^3/uL (4.4-10.8) Red Blood Count 2.89 10^6/uL (4.0-5.20) Hemoglobin 10.1 g/dL (12.2-16.2) Hematocrit 31.1 % (36.0-46.0) Mean Corpuscular Volume 107.9 fL (80.0-100.0) Mean Corpuscular Hemoglobin 35.0 pg (28.0-32.0) Mean Corpuscular Hemoglobin Concent 32.5 g/dL (32.0-36.0) Red Cell Distribution Width 19.8 % (11.8-14.3) Platelet Count 77 10^3/uL (140-450) Mean Platelet Volume 8.4 fL (6.9-10.8) Neutrophils (%) (Auto) 95.5 % (37.0-80.0) Lymphocytes (%) (Auto) 1.8 % (10.0-50.0) Monocytes (%) (Auto) 2.6 % (0.0-12.0) Eosinophils (%) (Auto) 0.0 % (0.0-7.0) Basophils (%) (Auto) 0.1 % (0.0-2.0) Neutrophils # (Auto) 11.5 10 ^3/uL (1.6-8.6) Lymphocytes # (Auto) 0.2 10 ^3/uL (0.4-5.4) Monocytes # (Auto) 0.3 10 ^3/uL (0-1.3) Eosinophils # (Auto) 0 10 ^3/uL (0-0.8) Basophils # (Auto) 0 10 ^3/uL (0-0.2) Nucleated Red Blood Cells 0.1 % Platelet Estimate Decreased Macrocytosis Moderate Prothrombin Time 10.6 sec (9.3-11.8) Prothrombin Time INR 1.00 (0.9-1.15) Hepatitis A IgM Antibody Negative Free Thyroxine (T4) Calculated 0.90 ng/dL (0.89-1.76) Free Triiodothyronine (T3) pg/mL 1.75 pg/mL (2.3-4.2) Anti-Nuclear Antibody Comment Comment (.) GERALD-1 Antibody <0.2 AI (0.0-0.9) SS-A/Ro Antibody <0.2 AI (0.0-0.9) SS-B/La Antibody <0.2 AI (0.0-0.9) Sm Antibody <0.2 AI (0.0-0.9) COUNTRY SINGER Antibody <0.2 AI (0.0-0.9) Scl-70 (Scleroderma) Antibody <0.2 AI (0.0-0.9) Anti-Double Strand DNA Antibody <1 IU/mL (0-9) Chromatin Antibody 0.4 AI (0.0-0.9) Centromere B Antibody >8.0 AI (0.0-0.9) Test 07/06/24 15:30 07/05/24 14:30 07/05/24 05:38 07/04/24 10:09 Large Platelets Few Anisocytosis (manual) Slight Urine Osmolality 474 mOsm/kg Urine Creatinine 69.04 mg/dL (30.0-125.0) Urine Protein/Creatinine Ratio 0.48 Urine Sodium 45 mmol/L (40-220) Urine Total Protein 32.8 mg/dL (1-14) Vitamin D 25-Hydroxy 14.3 ng/mL (30.0-100) Activated Partial Thromboplast Time < 20.0 SEC (24.5-34.5) Ammonia 29 umol/L (11-32) Test 07/04/24 03:32 07/04/24 02:30 07/04/24 00:26 Troponin I High Sensitivity 21 ng/L (</=34) Triglycerides Level 180 mg/dL (< 150) Cholesterol Level 185 mg/dL (< 200) LDL Cholesterol 121 mg/dL (< 100) HDL Cholesterol 34 mg/dL (40-59) Thyroid Stimulating Hormone (TSH) 0.29 uIU/mL (0.55-4.78) Urine Color Yellow (Yellow) Urine Clarity Clear (Clear) Urine pH 5.5 (5.0-9.0) Urine Specific [place] 1.010 (1.001-1.035) Urine Protein Trace (Negative) Urine Ketones Negative (Negative) Urine Blood Negative /uL (Negative) Urine Nitrite Negative (Negative) Urine Bilirubin Negative (Negative) Urine Urobilinogen Normal mg/dL (Negative) Urine Leukocyte Esterase Negative /uL (Negative) Urine RBC <1 /hpf (0 - 4) Urine WBC 5 /hpf (0 - 5) Urine Squamous Epithelial Cells Few /hpf (<5) Urine Bacteria None seen /hpf (None Seen) Urine Glucose Normal mg/dL (Normal) Tear Drop Cells Few Stomatocytes Few Lactic Acid Level 1.5 mmol/L (0.4-2.0) B-Type Natriuretic Peptide 157.54 pg/mL (0-100) Lipase 34 U/L (12-53) Hepatitis A Antibody Total Positive (Negative) Hepatitis B Surface Antigen Negative (Negative) Hepatitis B Surface Antibody Negative (Negative) Hepatitis B Core Total Antibody Negative (Negative) Hepatitis C Antibody Negative (Negative) Other Laboratory Tests 07/10/24 06:12 07/09/24 06:00 Brief Hx & Hospital Course: This 69-year-old Hungarian mainly speaking patient accompanied by daughter presents in the ED via EMS with a chief complaint of headaches. The patient reports headaches associated with dizziness, chest burning pain, abdominal pain, nausea, and vomiting started yesterday. The patient denies syncope, palpitations, shortness of breath, or other acute symptoms. The patient with past medical history of liver cirrhosis, hepatitis, anemia, and chronic kidney disease stage 3. This 69-year-old Hungarian mainly speaking patient accompanied by daughter presents in the ED via EMS with a chief complaint of headaches. The patient reports headaches associated with dizziness, chest burning pain, abdominal pain, nausea, and vomiting started yesterday. The patient denies syncope, palpitations, shortness of breath, or other acute symptoms. The patient with past medical history of liver cirrhosis, hepatitis, anemia, and chronic kidney disease stage 3. # acute renal failure # Hyperbilirubinemia with transaminitis # history of autoimmune hepatitis # hx of Liver cirrhosis with banding # anemia # acute headaches # chest pain # nausea/vomiting 07/05/2024: still has abdominal pain. nephro is following for renal failure. chest pain improved 07/06/2024: discussed with pt regarding elevated liver enzymes. possible d/c in AM 07/07/2024: pt is being evaluated by GI. GI requested a liver biopsy 07/08/2024: pending liver biopys per GI recommendation 07/09/2024: planning for biopsy within 24 hours 07/10/2024: doing okay after biopsy. still has some pain. possible d/c in 24 hours 07/11/2024: discharged to home Condition at Discharge: Good Final Diagnosis/Problems List see above Discharge Disposition: Home Discharge Instruct/Medications Diet: Cardiac 2g Na,low cholest Activity: No Restrictions, As Tolerated Discharge Statement: "Patient was advised to return to the ER or call 911 if any headaches, dizziness, shortness of breath, chest pain, abdominal pain, bleeding, fevers, or worsening of medical condition. Patient was counseled about treatment plan, medications, possible side effects, patientverbalized understanding. All questions were answered to the best of my ability. This discharge took greater then 30 minutes in planning, reviewing documentation, counseling the patient, and discussing with other team members." ASSESSMENT ASSESSMENT Assessment Date of Service: Jul 11, 2024 Billing Provider: VJ BERNARD DO Common Visit Codes: [id number] DISCH DAY >30min VJ BERNARD DO Jul 11, 2024 15:15
--- NOTE | 2024-07-11 21:50 | DVHPN2 ---
Progress Note - Dictate Date Seen: Jul 11, 2024 Medical Necessity Reason Pt with a Central, PICC or Fol: No Subjective No new complaints Patient is resting comfortably Patient underwent a transjugular liver biopsy on Friday and was kept for observation because of mild postprocedure pain Patient had mild perihepatic ascites making transabdominal liver biopsy possibly more dangerous Her labs were stable and she had no active GI bleeding; hemoglobin stable at 10.1 She was diagnosed with suspected autoimmune hepatitis by her cloth measurer at [facility] vital signs Vital Sign Date Time Temp Pulse Resp B/P (MAP) Pulse Ox O2 Delivery O2 Flow Rate FiO2 07/11/24 16:59 97.7 52 17 99/44 (62) 96 97.7 07/11/24 07:55 Room Air* 0 21 Total Intake and Output 07/10/24 07/10/24 07/11/24 15:00 23:00 07:00 Intake Total 285 ml Balance 285 ml objective General Appearance: Alert, Oriented X3, Cooperative, no distress HEENT: Atraumatic, PERRLA, EOMI, Mucous membr. moist/pink; mild scleral icterus Respiratory: Clear to auscultation, Normal air movement Cardiovascular: Regular rate, Normal S1, Normal S2 Abdominal: Normal bowel sounds, Soft, No tenderness Extremities: No clubbing, No cyanosis, No edema, Normal pulses Skin: No rashes, No breakdown, No significant lesion Neuro: Normal gait, Normal speech, Strength at 5/5 X4 ext, Normal tone Psych/Mental Status: Mental status NL laboratory and microbiology Laboratory Tests 07/10/24 06:12 07/09/24 06:00 Test 07/10/24 06:12 Range/Units Serum Glucose 120 H 74-106 mg/dL Problems(with codes): (1) Jaundice (2) Cirrhosis of liver (3) Autoimmune hepatitis (4) Scleroderma (5) Ascites (6) Macrocytic anemia (7) Transaminitis (8) Weakness (9) [id number] kidney injury Prognosis Plan Liver enzymes are trending down Discharge planning is in progress Patient needs to be discharged on a low dose of steroids She was advised to follow up in my office as an outpatient for ongoing management and further treatment Await liver biopsy results Dietary Evaluation Review Comments: Follow current diet regimen, consider protein restriction if pt's kdney function worsens and not schedule for dialysis. Expected Outcomes/Goals: improved lab values, void uremic syndrome, gradual wt loss. Plan discussed with: Patient, Daughter, Other (Dr Roberts) RICKY AREVALO MD Jul 11, 2024 21:50
--- NOTE | 2024-07-13 12:55 | DVH ---
XY Transjugintrahepatic, HISTORY: TRANS JUGULAR HEP. 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 PROCEDURE: Informed consent was obtained. The patient was placed in supine position on the fluoroscopic table. The right neck site was prepped with chlorhexidine which was allowed to dry and draped in sterile fashion. Time out was performed. A micropuncture set was used to access the internal jugular vein under real-time ultrasound guidance, and an image documenting patency was recorded to PACS. Following serial dilation, a 8 Honduran vascular sheath was placed. A 5 Honduran MPA catheter was used to select the right hepatic vein using small amounts of hand contrast injections for visualization in the AP and lateral projections. The catheter was then exchanged to a 7 [place]uran transjugular biopsy set, and 1 core biopsies were obtained, placed in formalin solution, and sent to pathology. The catheter and sheath were removed and hemostasis achieved with manual pressure No immediate complication was identified. DAP 2450.08 FLUOROSCOPY TIME: 16.6 minutes. CONTRAST USED: 50 mL . SEDATION: Dr. Ruy Zhao was personally responsible for the administration of moderate sedation during the procedure performed, including the use of an independent trained observer who had no other duties during the procedure. The drugs utilized were IV fentanyl and versed (see nursing log for details). The total time of supervision by the attending physician was approximately 75 minutes. FINDINGS: 1. Widely patent right internal jugular vein. Patent right hepatic vein. IMPRESSION: Transjugular liver biopsy with a core sample obtained and send to pathology for analysis in formalin. LAINT INSPECTOR JULIA
== END 2024-07-11 16:53 | disposition home or self-care (01) | DRG 469 ==
LOC: ER 00:03 → EDBD 00:03 → TELE 09:40 → TELE-E-ADS 19:05
PROVIDERS: ADMIT Internal Medicine; ATTEND Internal Medicine
PROC: 0FB03ZX Excision of Liver, Percutaneous Approach, Diagnostic (ICD-10-PCS; principal; 2024-07-09)
DX: N17.0 Acute kidney failure with tubular necrosis (principal); K76.7 Hepatorenal syndrome; K74.60 Unspecified cirrhosis of liver; K76.82 Hepatic encephalopathy; E87.1 Hypo-osmolality and hyponatremia; I12.9 Hypertensive chronic kidney disease with stage 1 through stage 4 chronic kidney disease, or unspecified chronic kidney disease; N18.30 Chronic kidney disease, stage 3 unspecified; D50.9 Iron deficiency anemia, unspecified; R00.1 Bradycardia, unspecified; Z80.3 Family history of malignant neoplasm of breast
CPT/HCPCS: 36010; 36415; 47000; 70450; 71045; 76705; 76775; 76942; 80053; 80061; 81001; 82140; 82306; 82570; 83516; 83605; 83690; 83735; 83880; 83935; 84100; 84156; 84300; 84439; 84443; 84481; 84484; 85007; 85025; 85027; 85610; 85730; 86225; 86235; 86704; 86706; 86708; 86709; 86803; 87081; 87340; 93005; 93306; 99152; C1769; C1894; G0378; J2250; J2405; J7060; Q9967

== ENCOUNTER 2024-08-14 10:08 | Inpatient (IN) | payer MEDICAID ==
[~2024-08-14] VITALS: Ht 154.9 cm; Wt 80.0 kg
[2024-08-14] VITALS (8 sets, daily range): BP systolic 104–113; BP diastolic 40–82; PULSE 73–89; RESP 12–28; TEMP 98.1; O2SAT 93–99
[~2024-08-14 10:08] MED LIST changes: +FURO20TA3 PO; +HYDR-3682 PO; +PROP1TAB51 PO; +RIFA550T PO; +SPIR25TA8 PO; +SUCR1SUS26 PO; -SUCR1SUS5 PO; +URSO1TAB8 PO
--- NOTE | 2024-08-14 11:02 | ED.PDOC ---
GI ASSESSMENT HPI Comments 69-year-old female brought in by EMS presents with a chief complaint of abdominal pain, diarrhea, and SOB. Patient has PMHx of Liver Cirrhosis and Kidney Failure. Patient reports that she was recently discharged from [facility] after a 2 week stay and 2 paracentesis. Patients abdomen is noted to be distended at this time. Chief Complaint: Abdominal Pain Time Seen by MD: 10:45 Primary Care Provider: MAURILIO Flaherty Notes: Medications, Allergies Allergies: Coded Allergies: NO KNOWN ALLERGIES (Unverified , 01/23/21) Home Meds Active Scripts Prednisone (Prednisone) 20 Mg Tab, 20 MG PO DAILY for 30 Days, #30 MG Prov:GABINO COBURN RESIDENT 06/11/24 Midodrine HCl (Midodrine Hydrochloride) 10 Mg Tab, 10 MG PO TID for 30 Days, #90 TAB 3 Refills Prov:GABINO COBURN RESIDENT 06/11/24 Pantoprazole Sodium Sesquihydr (Protonix) 40 Mg Tab, 40 MG PO DAILY for 30 Days, #30 TAB Prov:GABINO COBURN RESIDENT 06/11/24 Reported Medications Furosemide (Furosemide) 20 Mg Tab, 1 TAB PO TID for 30 Days, #90 07/06/24 Sucralfate (CARAFATE SUSP) 1 Gm/10 Ml Ss, 5 ML PO QID 07/04/24 Hydroxyzine Hcl (Hydroxyzine Hcl) 25 Mg Tab, 2 TAB PO BID PRN for FOR ITCHING 07/04/24 Propranolol HCl (Propranolol Hydrochloride) 10 Mg Tab, 1 TAB PO TID 07/04/24 Rifaximin (Xifaxan) 550 Mg Tab, 1 TAB PO BID 07/04/24 Spironolactone (Spironolactone) 25 Mg Tab, 2 TAB PO BID 07/04/24 Ursodiol (Ursodiol) 500 Mg Tab, 1 TAB PO TID 07/04/24 Information Source: Patient, Relative (Child), Emergency Med Personnel Mode of Arrival: EMS Timing: Weeks Duration: Intermittent Prehospital treatment: None Quality: Aching Vomitus: None Stool: Watery, Brown Severity: Moderate Recent: None Recent Hx of: Liver Disease Pain Location: RLQ Associated sign and symptoms: Diarrhea, Abdominal Pain Past Medical History PAST MEDICAL HISTORY: Anemia, Liver Surgical History: Denies all surgeries ROLLER BEARING INSPECTOR History: No Pertinent ROLLER BEARING INSPECTOR History Family History Family History: Reviewed,noncontributory to illness Social History Smoker: Non-Smoker Alcohol: Denies ETOH Use Drugs: Denies Drug Use Lives In: Home Constitutional: denies: chills, diaphoresis, fatigue, fever, malaise, sweats, weakness, others EENTM: denies: blurred vision, double vision, ear bleeding, ear discharge, ear drainage, ear pain, ear ringing, eye pain, eye redness, hearing loss, mouth pain, mouth swelling, nasal discharge, nose bleeding, nose congestion, nose pain , photophobia, tearing, throat pain, throat swelling, voice changes, others Respiratory: reports: shortness of breath; denies: cough, hemoptysis, orthopnea, SOB at rest, SOB with excertion, stridor, wheezing, others Cardiovascular: denies: chest pain, dizzy spells, diaphoresis, Dyspnea on exertion, edema, irregular heart beat, left arm pain, lightheadedness, palpitations, PND, syncope, others Gastrointestinal: reports: abdomen distended, abdominal pain, diarrhea; denies: blood streaked bowels, constipated, dysphagia, difficulty swallowing, hematemesis, melena, nausea, poor appetite, poor fluid intake, rectal bleeding, rectal pain, vomiting, others Genitourinary: denies: abnormal vagina bleeding, burning, dyspareunia, dysuria, flank pain, frequency, hematuria, incontinence, pain, , vagina discharge, urgency, others Neurological: denies: dizziness, fainting, headache, left sided numbness, left sided weakness, numbness, paresthesia, pre-existing deficit, right sided numbness, right sided weakness, seizure, speech problems, tingling, tremors, weakness, others Musculoskeletal: denies: back pain, gout, joint pain, joint swelling, muscle pain, muscle stiffness, neck pain, others Integumetry: denies: bruises, change in color, change in hair/nails, dryness, laceration, lesions, lumps, rash, wounds, others Allergic/Immunocompromised: denies: Difficulty Healing, Frequent Infections, H augustine, Itching, others Hematologic/Lymphatic: denies: anemia, blood clots, easy bleeding, easy bruising, swollen glands, others Endocrine: denies: excessive hunger, excessive sweating, excessive thirst, excessive urination, flushing, intolerance to cold, intolerance to heat, unexplained weight gain, unexplained weight loss, others Psychiatric: denies: anxiety, bipolar disorder, depression, hopeless, panic disorder, schizophrenia, sleepless, suicidal, others All Other Systems: Reviewed and Negative Physical Exam General Appearance: Moderate Distress, Normal HEENT: Normal ENT Inspection, Pharynx Normal, TMs Normal Neck: Full Range of Motion, Non-Tender, Normal, Normal Inspection Respiratory: Chest Non-Tender, Lungs Clear, No Accessory Muscle Use, No Respiratory Distress, Normal Breath Sounds Cardiovascular: No Edema, No JVD, No Murmur, No Gallop, Normal Peripheral Pulses, Regular Rate/Rhythm Breast Exam: Deferred Gastrointestinal: Distended, RLQ, Tenderness Genitalia: Deferred Pelvic: Deferred Rectal: Deferred Extremities: No calf tenderness, Normal capillary refill, Normal inspection, Normal range of motion, Non-tender, No pedal edema Musculoskeletal : Apperance: Normal Neurologic: Alert, polisher and sander II-XII nml as Tested, No Motor Deficits, Normal Affect, Normal Mood, No Sensory Deficits Cerebellar Function: Normal Reflexes: Normal Skin: Dry, Normal Color, Warm Lymphatic: No Adenopathy Was a procedure done? Was a procedure done?: No GI differential Dx Differential Diagnosis: Diverticular disease, Gastroenteritis, Pancreatitis, Bacterial, Viral, Anemia, Esophageal Varicies X-Ray, Labs, Meds, VS Vital Signs Date Time Temp Pulse Resp B/P (MAP) Pulse Ox O2 Delivery O2 Flow Rate FiO2 08/14/24 11:22 88 28 89/49 08/14/24 10:24 89 28 94 Nasal Cannula* 4 36 08/14/24 10:23 98.1 96 28 90/54 (66) 95 98.1 08/14/24 10:14 98.4 97 24 94/51 (65) 97 Current Medications Medications (Trade) Dose Ordered Sig/Chang Route Start Time Stop Time Status Last Admin Ondansetron HCl (Zofran) 4 mg ONCE ONCE IV 08/14/24 11:15 08/14/24 11:16 DC 08/14/24 11:21 Morphine Sulfate 4 mg ONCE ONCE IV 08/14/24 11:15 08/14/24 11:16 DC 08/14/24 11:22 Sodium Chloride 1,000 ml @ 250 mls/hr Q4H ONCE IV 08/14/24 11:15 08/14/24 12:53 DC 08/14/24 11:22 Albumin Human 250 ml @ 250 mls/hr ONCE ONCE IV 08/14/24 11:15 08/14/24 12:14 DC 08/14/24 11:22 PATIENT: LY ISBELLT: [id number]: [id number] : 1955 LOC: OVERFLOW ROOM / BED: [address] [place] [address] / AGE / SEX: 69 / F ADM STATUS: ADM IN SERVICE 1101 ORDERING PHYSICIAN: ZAIRA PASTOR MD PROCEDURE(s): ABPL - CT AB PEL WO CON-NO ORAL OR IV REASON: abd pain ORDER NUMBER(s): [id number], ACCESSION NUMBER(s): [id number] EXAM: CT Abdomen and Pelvis Without Intravenous Contrast CLINICAL INDICATION: abd pain TECHNIQUE: Axial computed tomography images of the abdomen and pelvis without intravenous contrast. This CT exam was performed using one or more of the following dose reduction techniques: automated exposure control, adjustment of the mA and/or kV according to patient size, and/or use of iterative reconstruction technique. CONTRAST: COMPARISON: CT ABD PELVIS WO CONTRAST on DOS: 01/23/21 FINDINGS: LUNG BASES: See below. PLEURAL SPACE: Right pleural effusion with compressive atelectasis. MEDIASTINUM: Small hiatal hernia. ABDOMEN: LIVER: See below. GALLBLADDER AND BILE DUCTS: Gallbladder is surgically absent. No ductal dilation. PANCREAS: Unremarkable. No ductal dilation. SPLEEN: Unremarkable. No splenomegaly. ADRENALS: Unremarkable. No mass. KIDNEYS AND URETERS: Unremarkable. No obstructing stones. No hydronephrosis. STOMACH AND BOWEL: Apparent gastric wall thickening could be secondary to under distention or gastritis. Fecal retention in the colon consistent with constipation. PELVIS: APPENDIX: No findings to suggest acute appendicitis. BLADDER: Unremarkable. No stones. REPRODUCTIVE: Unremarkable as visualized. ABDOMEN and PELVIS: INTRAPERITONEAL SPACE: Hepatic surface irregularity with ascites, concerning for cirrhosis. No free air. BONES/JOINTS: No acute fracture. No dislocation. SOFT TISSUES: Unremarkable. VASCULATURE: Unremarkable. No abdominal aortic aneurysm. LYMPH NODES: Unremarkable. No enlarged lymph nodes. OTHER FINDINGS: . IMPRESSION: 1. Hepatic surface irregularity with ascites, concerning for cirrhosis. 2. Apparent gastric wall thickening could be secondary to under distention or gastritis. 3. Fecal retention in the colon consistent with constipation. 4. Small hiatal hernia. 5. Right pleural effusion with compressive atelectasis. ATED BY: WILFRIDO DOYLE MD DICTATED DATE/TIME: 08/14/24 1206 SIGNED BY: WILFRIDO DOYLE MD SIGNED DATE/TIME: 08/14/24 1206 PATIENT: BHAVIK ISBELL: [id number] UNIT: [id number] : 1955 LOC: OVERFLOW ROOM / BED: [address] [place] [address] AGE / SEX: 69 / F ADM STATUS: ADM IN SERVICE 0000 ORDERING PHYSICIAN: ZAIRA PASTOR MD PROCEDURE(s): ABDL - ABDOMEN LIMITED REASON: FLUID CHECK ORDER NUMBER(s): [id number], ACCESSION NUMBER(s): [id number] CLINICAL HISTORY: 69 years old, Female; FLUID CHECK. TECHNIQUE: Grayscale sonographic imaging of the abdomen was performed, to evaluate for ascites. COMPARISON: US ABDOMEN LIMITED on DOS: 07/28/24, US LIVER on DOS: 07/07/24, ABDOMEN LIMITED on DOS: 01/24/21 FINDINGS: Ascites visualized in all 4 quadrants. IMPRESSION: Ascites visualized in all 4 quadrants. ATED BY: SÁNCHEZ LIZARRAGA DO DICTATED DATE/TIME: 08/14/24 1150 SIGNED BY: SÁNCHEZ LIZARRAGA DO SIGNED DATE/TIME: 08/14/24 115 69-year-old female with a known history of cirrhosis presents here with low blood pressure and abdominal pain. Family states she does have a history of chronically low blood pressure however despite her medications, her blood pressure continued to remain low which overnight and this morning. Additionally patient has been reporting abdominal pain all night and this morning. On my evaluation patient had a soft grown. She was tender on my examination. Blood pressure was proximally 90 systolic. I reviewed her + blood pressures, she does run low and her blood pressures were proximally 96 systolic during her last admission. This time blood work has been done which does not demonstrate a leukocytosis. It does demonstrate evidence of anemia. Also demonstrates hypokalemia of 3. An evidence of acute kidney injury as well as transaminitis. I have given her NS 250 bolus IV and also 250 of albumin IV. I have gone very slowly with the fluids and not given her 30 cc/kilos bolus as I am concerned that she will become fluid overloaded. Patient has tolerated fluids well in his blood pressure has increased appropriately into the low 100s. At this time blood work also has returned with a lactic acid of 2.5 however after fluids it has improved to 2.1. I considered possible sepsis, considered possible spontaneous bacterial peritonitis. However she does have a normal WBC count. I did order a paracentesis to be performed however IR not available today. However I do not have SIRS criteria at this time. CT abdomen pelvis has been done by myself which demonstrates evidence of constipation which could be the cause of her current pain. Patient's abdominal pain improved significantly with morphine 1 mg IV. At this time hospitalist team has been contacted for admission. Time of 1ST Reevaluation: 11:15 Reevaluation 1ST: Unchanged Patient Education/Counseling: Diagnosis, Treatment, Prognosis Family Education/Counseling: Diagnosis, Treatment, Prognosis Departure 1 Departure Time of Disposition: 11:30 Impression: Primary Impression: Cirrhosis of liver Qualified Codes: K74.5 - Biliary cirrhosis, unspecified Additional Impressions: Hypotension Qualified Codes: I95.9 - Hypotension, unspecified Abdominal pain Qualified Codes: R10.84 - Generalized abdominal pain Hypokalemia SATINDER (acute kidney injury) Lactic acidosis Transaminitis Constipation Qualified Codes: K59.00 - Constipation, unspecified Disposition: 09 ADMITTED INPATIENT Admit to: ICU Condition: Critical Critical Care Note Critical Care Time?: Yes (35 min) Critical care comment: Patient was immediately evaluated by myself upon her arrival to the ER due to her low blood pressures. Patient required multiple reassessments time spent speaking to family, ordering and reviewing all lab results. Speaking to admitting physician multiple reassessments of her blood pressure and her condition. Stability Stability form required: No Heart Score Heart Score: Heart Score Response (Comments) Value History N/A 0 EKG N/A 0 Age N/A 0 Risk Factors N/A 0 Troponin N/A 0 Total 0 I personally scribed for ZAIRA PASTOR MD ([email or web address]) on 08/14/24 at 11:02. Electronically submitted by Wing Fonseca ([email or web address]). I personally scribed for ZAIRA PASTOR MD ([email or web address]) on 08/14/24 at 17:27. Electronically submitted by Wing Fonseca ([email or web address]). I personally scribed for ZAIRA PASTOR MD ([email or web address]) on 08/14/24 at 17:34. Electronically submitted by Wing Fonseca ([email or web address]). ZAIRA PASTOR MD Aug 14, 2024 11:02
[2024-08-14] MEDS: ONDANSETRON HCL 4 MG/2 ML VIAL IV ONE (11:21)
[2024-08-14] MEDS: SODIUM CHLORIDE 0.9% 1,000 ML IV ONE (11:22)
[2024-08-14] MEDS: ALBUMIN 5% 250 ML IV ONE (11:22)
[2024-08-14] MEDS: MORPHINE SULFATE 4 MG/ML SYR/VIAL IV ONE (11:22)
[2024-08-14] MEDS ORDERED: ACETAMINOPHEN 325 MG TAB PO PRN (11:30)
[2024-08-14] MEDS: NOREPINEPHRINE 8 MG/250ML KIT 250 ML IV SCH (11:30)
[2024-08-14 11:50] LABS: Basophils # (auto) 0.1 10 ^3/uL (0-0.2); Eosinophils # (auto) 0.1 10 ^3/uL (0-0.8); Eosinophils % (auto) 1.2 % (0.0-7.0); Hemoglobin 13.4 g/dL (12.2-16.2); Monocytes # (auto) 0.5 10 ^3/uL (0-1.3)
[2024-08-14 11:52] LABS: Basophils % (auto) 0.7 % (0.0-2.0); Hematocrit 42.3 % (36.0-46.0); Lymphocytes # (auto) 0.5 10 ^3/uL (0.4-5.4); Lymphocytes % (auto) 5.4 % (10.0-50.0); Mean Corpuscular Hemoglobin 28.2 pg (28.0-32.0); Mean Corpuscular Hgb Conc. 31.7 g/dL (32.0-36.0); Mean Corpuscular Volume 88.9 fL (80.0-100.0); Monocytes % (auto) 5.7 % (0.0-12.0); Neutrophils # (auto) 8.2 10 ^3/uL (1.6-8.6); Nucleated Red Blood Cells % 0.1 %; Platelet Count (auto) 60 10^3/uL (140-450); Red Blood Cells 4.75 10^6/uL (4.0-5.20); Red Cell Distribution Width 19.8 % (11.8-14.3); White Blood Cell 9.4 10^3/uL (4.4-10.8)
--- NOTE | 2024-08-14 11:52 | DVH ---
CLINICAL HISTORY: 69 years old, Female; FLUID CHECK. TECHNIQUE: Grayscale sonographic imaging of the abdomen was performed, to evaluate for ascites. COMPARISON: US ABDOMEN LIMITED on DOS: 07/28/24, US LIVER on DOS: 07/07/24, ABDOMEN LIMITED on DOS: 01/14 07/06 FINDINGS: Ascites visualized in all 4 quadrants. IMPRESSION: Ascites visualized in all 4 quadrants.
[2024-08-14] MEDS: SUCRALFATE 1 GM/10 ML ORAL SUSP PO SCH (12:00)
[2024-08-14 12:06] LABS: INR 1.14 (0.9-1.15); Partial Thromboplastin Time 26.2 SEC (24.5-34.5); Prothrombin Time 11.9 sec (9.3-11.8)
--- NOTE | 2024-08-14 12:09 | DVH ---
EXAM: CT Abdomen and Pelvis Without Intravenous Contrast CLINICAL INDICATION: abd pain TECHNIQUE: Axial computed tomography images of the abdomen and pelvis without intravenous contrast. This CT exam was performed using one or more of the following dose reduction techniques: automated exposure control, adjustment of the mA and/or kV according to patient size, and/or use of iterative r econstruction technique. CONTRAST: COMPARISON: CT ABD PELVIS WO CONTRAST on DOS: 01/23/21 FINDINGS: LUNG BASES: See below. PLEURAL SPACE: Right pleural effusion with compressive atelectasis. MEDIASTINUM: Small hiatal hernia. ABDOMEN: LIVER: See below. GALLBLADDER AND BILE DUCTS: Gallbladder is surgically absent. No ductal dilation. PANCREAS: Unremarkable. No ductal dilation. SPLEEN: Unremarkable. No splenomegaly. ADRENALS: Unremarkable. No mass. KIDNEYS AND URETERS: Unremarkable. No obstructing stones. No hydronephrosis. STOMACH AND BOWEL: Apparent gastric wall thickening could be secondary to under distention or gastr itis. Fecal retention in the colon consistent with constipation. PELVIS: APPENDIX: No findings to suggest acute appendicitis. BLADDER: Unremarkable. No stones. REPRODUCTIVE: Unremarkable as visualized. ABDOMEN and PELVIS: INTRAPERITONEAL SPACE: Hepatic surface irregularity with ascites, concerning for cirrhosis. No erich e air. BONES/JOINTS: No acute fracture. No dislocation. SOFT TISSUES: Unremarkable. VASCULATURE: Unremarkable. No abdominal aortic aneurysm. LYMPH NODES: Unremarkable. No enlarged lymph nodes. OTHER FINDINGS: . IMPRESSION: 1. Hepatic surface irregularity with ascites, concerning for cirrhosis. 2. Apparent gastric wall thickening could be secondary to under distention or gastritis. 3. Fecal retention in the colon consistent with constipation. 4. Small hiatal hernia. 5. Right pleural effusion with compressive atelectasis.
[2024-08-14 12:17] LABS: Albumin 3.6 g/dL (3.2-4.8); Amylase 97 U/L (30-118); Anion Gap 11 (5-15); BUN/Creatinine Ratio 21.6 (10.0-20.0); Calcium 9.2 mg/dL (8.7-10.4); Carbon Dioxide 21 mmol/L (20-31); Chloride 102 mmol/L (98-107); Glucose 99 mg/dL (74-106)
[2024-08-14 12:25] LABS: Alanine Aminotransferase 106 U/L (7-40); Alkaline Phosphatase 360 U/L (46-116); Aspartate Aminotransferase 101 U/L (13-40); Bilirubin, Total 3.5 mg/dL (0.2-1.0); Blood Urea Nitrogen 29 mg/dL (9-23); Lipase 58 U/L (12-53); Sodium 134 mmol/L (136-145)
[2024-08-14 12:27] LABS: Lactic Acid w/Reflex 2.5 mmol/L (0.4-2.0)
--- NOTE | 2024-08-14 12:33 | DVHHP2 ---
History of Present Illness Reason for Visit: Abdominal pain History of Present Illness Aurora Friedman is a 69-year-old female with past medical history of liver cirrhosis autoimmune, kidney failure, and bilateral DVTs with IVC filter placed who presents to the ED with abdominal pain, distention, diarrhea, and shortness of breath. Daughter at bedside Angie states that she was at [facility] for 5 days and had a paracentesis with 4 L out. Prior to that she was here at [facility] for 2 weeks and had 2 paracentesis with 4 L out each time with a total of 8 L out. Patient's daughter Angie states that she has a total of 3 paracentesis with the 1st being at [facility]. Patient's daughter also reports that she does not use home oxygen but upon examination patient is on oxygen. Patient's daughter also reports that her blood pressure has been very low and she has been giving her midodrine with no change. Patient's daughter also reports that the patient has been lethargic and has lost her appetite the last day. Patient is not currently complaining of chest pain, shortness of breath, fever, chills, nausea, and vomiting. Hepatobiliary: Cirrhosis Renal/: Chronic renal failure Past Medical History Bilateral DVTs Past Surgical History: Other (IVC filter) Family History: Arthritis, Cancer, DM, Other (Sister with kidney disease, mom w ith breast cancer, dad with arthritis, and brother with diabetes now ) Smoke: No ALCOHOL: none Drugs: None Lives: with Family Domestic Violence: Neg Review of Systems Respiratory: Shortness of breath Gastrointestinal: Abdominal Pain, Diarrhea Allergies: Coded Allergies: NO KNOWN ALLERGIES (Unverified , 01/23/21) Exam Vital Signs Vital Signs Date Time Temp Pulse Resp B/P (MAP) Pulse Ox O2 Delivery O2 Flow Rate FiO2 08/14/24 11:22 88 28 89/49 08/14/24 10:24 94 Nasal Cannula* 4 36 08/14/24 10:23 98.1 98.1 Respiratory: Normal air movement Cardiovascular: Normal S1, Normal S2, No murmurs Skin: No significant lesion Neuro: Sensation intact Labs/Xrays CLINICAL HISTORY: 69 years old, Female; FLUID CHECK. TECHNIQUE: Grayscale sonographic imaging of the abdomen was performed, to evaluate for ascites. COMPARISON: US ABDOMEN LIMITED on DOS: 07/28/24, US LIVER on DOS: 07/07/24, ABDOMEN LIMITED on DOS: 01/24/21 FINDINGS: Ascites visualized in all 4 quadrants. IMPRESSION: Ascites visualized in all 4 quadrants. EXAM: CT Abdomen and Pelvis Without Intravenous Contrast CLINICAL INDICATION: abd pain TECHNIQUE: Axial computed tomography images of the abdomen and pelvis without intravenous contrast. This CT exam was performed using one or more of the following dose reduction techniques: automated exposure control, adjustment of the mA and/or kV according to patient size, and/or use of iterative reconstruction technique. CONTRAST: COMPARISON: CT ABD PELVIS WO CONTRAST on DOS: 01/23/21 FINDINGS: LUNG BASES: See below. PLEURAL SPACE: Right pleural effusion with compressive atelectasis. MEDIASTINUM: Small hiatal hernia. ABDOMEN: LIVER: See below. GALLBLADDER AND BILE DUCTS: Gallbladder is surgically absent. No ductal dilation. PANCREAS: Unremarkable. No ductal dilation. SPLEEN: Unremarkable. No splenomegaly. ADRENALS: Unremarkable. No mass. KIDNEYS AND URETERS: Unremarkable. No obstructing stones. No hydronephrosis. STOMACH AND BOWEL: Apparent gastric wall thickening could be secondary to under distention or gastritis. Fecal retention in the colon consistent with constipation. PELVIS: APPENDIX: No findings to suggest acute appendicitis. BLADDER: Unremarkable. No stones. REPRODUCTIVE: Unremarkable as visualized. ABDOMEN and PELVIS: INTRAPERITONEAL SPACE: Hepatic surface irregularity with ascites, concerning for cirrhosis. No free air. BONES/JOINTS: No acute fracture. No dislocation. SOFT TISSUES: Unremarkable. VASCULATURE: Unremarkable. No abdominal aortic aneurysm. LYMPH NODES: Unremarkable. No enlarged lymph nodes. OTHER FINDINGS: . IMPRESSION: 1. Hepatic surface irregularity with ascites, concerning for cirrhosis. 2. Apparent gastric wall thickening could be secondary to under distention or gastritis. 3. Fecal retention in the colon consistent with constipation. 4. Small hiatal hernia. 5. Right pleural effusion with compressive atelectasis. Assessment/Plan Assessment/Plan Assessment Intractable abdominal pain likely due to ascites ?Gastritis Small hiatal hernia Right pleural effusion History of liver cirrhosis autoimmune History of kidney failure History of bilateral DVTs status post IVC filter Plan Admit to ICU Pressor IV fluids given in ED Antiemetics Pain management Ultrasound abdomen Paracentesis ordered Albumin Lactic level Urine culture Blood culture PT/PTT CT abdomen and pelvis Lipase Ascites fluid culture T bili IV antibiotics-Zosyn Ammonia level PT INR Diuretics-Lasix + spironolactone Continue home medications Diet Supplementary O2 Plan discussed with: Daughter My Orders Orders - THON,SALINA K TAX ACCOUNTANT Procedure Category Date Status Time Comprehensive LAB 08/14/24 Logged Metabolic Panel 11:19 Lipase LAB 08/14/24 Logged 11:19 Amylase LAB 08/14/24 Logged 11:19 Body Fluid Culture W/ LETICIA 08/14/24 Logged GS 11:19 Date of Service: Aug 14, 2024 Billing Provider: AGGIE SUH Common Visit Codes: [id number] INP/OBS CARE (HIGH) AGGIE SUH Aug 14, 2024 12:33
[2024-08-14] MEDS: POTASSIUM CHL 20MEQ/100ML 100 ML IV SCH (13:00)
[2024-08-14] MEDS ORDERED: hydrOXYzine 25 MG TAB or CAP PO PRN (13:00)
[2024-08-14] MEDS: PIPERACILLIN-TAZOB 3.375GM 100 ML IV SCH (13:59)
[2024-08-14] MEDS: FUROSEMIDE 20 MG TAB PO SCH (14:24)
--- NOTE | 2024-08-14 18:23 | DVHINCON2 ---
Date of service: Aug 14, 2024 Referring Physician Andria Rosa Reason for Consultation Elevated liver tests History of Present Illness Aurora Friedman is a 69-year-old female with past medical history of liver cirrhosis autoimmune, kidney failure, and bilateral DVTs with IVC filter placed who presents to the ED with abdominal pain, distention, diarrhea, and shortness of breath. Daughter at bedside Angie states that she was at [facility] for 5 days and had a paracentesis with 4 L out. Prior to that she was here at [facility] for 2 weeks and had 2 paracentesis with 4 L out each time with a total of 8 L out. Patient's daughter Angie states that she has a total of 3 paracentesis with the 1st being at [facility]. Patient was seen in my office and I believe I have arranged her to get outpatient periodic paracentesis on a regular basis. Patient's daughter also reports that she does not use home oxygen but upon examination patient is on oxygen. Patient's daughter also reports that her blood pressure has been very low and she has been giving her midodrine with no change. Patient's daughter also reports that the patient has been lethargic and has lost her appetite the last day. Past Medical History Hepatobiliary: Cirrhosis Renal/: Chronic renal failure Past Medical History Bilateral DVTs Past Surgical History Past Surgical History: Other (IVC filter) Family History: FH: breast cancer G8 MOTHER Scleroderma G8 FATHER, Allergies: Coded Allergies: NO KNOWN ALLERGIES (Unverified , 01/23/21) Home Meds Active Scripts Prednisone (Prednisone) 20 Mg Tab, 20 MG PO DAILY for 30 Days, #30 MG Prov:GABINO COBURN RESIDENT 06/11/24 Midodrine HCl (Midodrine Hydrochloride) 10 Mg Tab, 10 MG PO TID for 30 Days, #90 TAB 3 Refills Prov:GABINO COBURN RESIDENT 06/11/24 Pantoprazole Sodium Sesquihydr (Protonix) 40 Mg Tab, 40 MG PO DAILY for 30 Days, #30 TAB Prov:GABINO COBURN RESIDENT 06/11/24 Reported Medications Furosemide (Furosemide) 20 Mg Tab, 1 TAB PO TID for 30 Days, #90 07/06/24 Sucralfate (CARAFATE SUSP) 1 Gm/10 Ml Ss, 5 ML PO QID 07/04/24 Hydroxyzine Hcl (Hydroxyzine Hcl) 25 Mg Tab, 2 TAB PO BID PRN for FOR ITCHING 07/04/24 Propranolol HCl (Propranolol Hydrochloride) 10 Mg Tab, 1 TAB PO TID 07/04/24 Rifaximin (Xifaxan) 550 Mg Tab, 1 TAB PO BID 07/04/24 Spironolactone (Spironolactone) 25 Mg Tab, 2 TAB PO BID 07/04/24 Ursodiol (Ursodiol) 500 Mg Tab, 1 TAB PO TID 07/04/24 Current Medications Current Medications Medications (Trade) Dose Ordered Sig/Chang Route PRN Reason Start Time Stop Time Status Last Admin Norepinephrine Bitartrate 250 ml @ 3.75 mls/hr Q24H IV 08/14/24 11:30 Ondansetron HCl (Zofran) 4 mg Q4HP PRN IV NAUSEA / VOMITING 08/14/24 11:30 Enoxaparin Sodium (Lovenox) 30 mg DAILY SC 08/15/24 10:00 08/14/24 13:00 DC Acetaminophen (Tylenol Tablet) 650 mg Q6HP PRN PO PAIN SCALE 1-3 OR TEMP>100.4 08/14/24 11:30 Furosemide (Lasix Tablet) 20 mg TID PO 08/14/24 14:00 08/14/24 14:24 Rifaximin (Xifaxan) 550 mg BID PO 08/14/24 22:00 Sucralfate (Carafate Susp) 0.5 gm QID PO 08/14/24 12:00 08/14/24 12:00 Hydroxyzine Pamoate (Vistaril Oral) 25 mg BID PRN PO FOR ITCHING 08/14/24 13:00 Patient Own Medication 1 tab TID PO 08/14/24 14:00 Piperacillin Sod/ Tazobactam Sod 100 ml @ 25 mls/hr Q8HR IV 08/14/24 14:00 08/14/24 13:59 Spironolactone (Aldactone) 25 mg DAILY PO 08/15/24 10:00 Potassium Chloride 100 ml @ 50 mls/hr Q2H IV 08/14/24 13:00 08/14/24 16:59 DC 08/14/24 15:13 Vital Signs Vital Signs Date Time Temp Pulse Resp B/P (MAP) Pulse Ox O2 Delivery O2 Flow Rate FiO2 08/14/24 16:45 75 12 113/82 (92) 98 08/14/24 16:32 Nasal Cannula* 2 28 08/14/24 15:45 98.1 98.1 Physical Exam Patient seen at bedside, awake and arousable but lethargic Mild scleral icterus improved from before Respiratory: Normal air movement Cardiovascular: Normal S1, Normal S2, No murmurs Abdomen is soft slightly distended but there was no significant ascites or tenderness at this time Skin: No significant lesion Neuro: Sensation intact Labs/Diagnostic Data Labs Test 08/14/24 12:05 08/14/24 11:33 Range/Units Lactic Acid Level 2.1 *H 0.4-2.0 mmol/L Total Bilirubin 3.1 H 0.2-1.0 mg/dL Ammonia < 10 L 11-32 umol/L White Blood Count 9.4 4.4-10.8 10^3/uL Red Blood Count 4.75 4.0-5.20 10^6/uL Hemoglobin 13.4 12.2-16.2 g/dL Hematocrit 42.3 36.0-46.0 % Mean Corpuscular Volume 88.9 80.0-100.0 fL Mean Corpuscular Hemoglobin 28.2 28.0-32.0 pg Mean Corpuscular Hemoglobin Concent 31.7 L 32.0-36.0 g/dL Red Cell Distribution Width 19.8 H 11.8-14.3 % Platelet Count 60 L 140-450 10^3/uL Mean Platelet Volume 8.5 6.9-10.8 fL Neutrophils (%) (Auto) 87.0 H 37.0-80.0 % Lymphocytes (%) (Auto) 5.4 L 10.0-50.0 % Monocytes (%) (Auto) 5.7 0.0-12.0 % Eosinophils (%) (Auto) 1.2 0.0-7.0 % Basophils (%) (Auto) 0.7 0.0-2.0 % Neutrophils # (Auto) 8.2 1.6-8.6 10 ^3/uL Lymphocytes # (Auto) 0.5 0.4-5.4 10 ^3/uL Monocytes # (Auto) 0.5 0-1.3 10 ^3/uL Eosinophils # (Auto) 0.1 0-0.8 10 ^3/uL Basophils # (Auto) 0.1 0-0.2 10 ^3/uL Nucleated Red Blood Cells 0.1 % Prothrombin Time 11.9 H 9.3-11.8 sec Prothrombin Time INR 1.14 0.9-1.15 Activated Partial Thromboplast Time 26.2 24.5-34.5 SEC Sodium Level 134 L 136-145 mmol/L Potassium Level 3.0 L 3.5-5.1 mmol/L Chloride Level 102 98-107 mmol/L Carbon Dioxide Level 21 20-31 mmol/L Anion Gap 11 5-15 Blood Urea Nitrogen 29 H 9-23 mg/dL Creatinine 1.34 H 0.550-1.02 mg/dL Glomerular Filtration Rate Calc 43 >90 mL/min BUN/Creatinine Ratio 21.6 H 10.0-20.0 Serum Glucose 99 74-106 mg/dL Calcium Level 9.2 8.7-10.4 mg/dL Aspartate Amino Transferase (AST) 101 H 13-40 U/L Alanine Aminotransferase (ALT) 106 H 7-40 U/L Alkaline Phosphatase 360 H 46-116 U/L Total Protein 6.0 5.7-8.2 g/dL Albumin 3.6 3.2-4.8 g/dL Amylase Level 97 30-118 U/L Lipase 58 H 12-53 U/L CT SCAN ABD IMPRESSION: 1. Hepatic surface irregularity with ascites, concerning for cirrhosis. 2. Apparent gastric wall thickening could be secondary to under distention or gastritis. 3. Fecal retention in the colon consistent with constipation. 4. Small hiatal hernia. 5. Right pleural effusion with compressive atelectasis. Problems(with codes): (1) SATINDER (acute kidney injury) (2) Transaminitis (3) Abdominal pain (4) Cirrhosis of liver (5) Lactic acidosis (6) Constipation (7) Autoimmune hepatitis (8) Ascites Plan/Recommendation Plan Continue supportive care Patient's lab tests appeared to be similar to her recent discharge lab tests and have not worsened Monitor labs including ammonia level Gentle IV fluid hydration Prednisone 20 mg p.o. daily Lactulose 30 mL p.o. twice a day Protonix 40 mg p.o. daily Supportive care We should consider placement Plan discussed with: Patient, Other (ER Nurse) RICKY AREVALO MD Aug 14, 2024 18:23
[2024-08-14] MEDS: rifAXIMin 550 MG TAB PO SCH (22:02)
[2024-08-15] VITALS (21 sets, daily range): BP systolic 88–117; BP diastolic 35–82; PULSE 72–94; RESP 11–24; TEMP 97.6; O2SAT 91–100
[2024-08-15] MEDS: PANTOPRAZOLE 40 MG TAB PO SCH (06:37)
[2024-08-15 06:42] LABS: Albumin 3.7 g/dL (3.2-4.8); Anion Gap 13 (5-15); BUN/Creatinine Ratio 22.7 (10.0-20.0); Calcium 9.5 mg/dL (8.7-10.4); Chloride 103 mmol/L (98-107); Glucose 96 mg/dL (74-106); Potassium 3.6 mmol/L (3.5-5.1); Total Protein 5.9 g/dL (5.7-8.2)
[2024-08-15 06:54] LABS: Alanine Aminotransferase 81 U/L (7-40); Alkaline Phosphatase 302 U/L (46-116); Aspartate Aminotransferase 79 U/L (13-40); Bilirubin, Total 4.9 mg/dL (0.2-1.0); Blood Urea Nitrogen 27 mg/dL (9-23); Carbon Dioxide 19 mmol/L (20-31); Sodium 135 mmol/L (136-145)
[2024-08-15 08:59] LABS: Basophils # (auto) 0.1 10 ^3/uL (0-0.2); Eosinophils # (auto) 0.1 10 ^3/uL (0-0.8); Nucleated Red Blood Cells % 0.1 %
[2024-08-15 09:01] LABS: Basophils % (auto) 0.5 % (0.0-2.0); Hematocrit 39.8 % (36.0-46.0); Hemoglobin 12.3 g/dL (12.2-16.2); Lymphocytes # (auto) 0.8 10 ^3/uL (0.4-5.4); Lymphocytes % (auto) 6.1 % (10.0-50.0); Mean Corpuscular Hemoglobin 28.2 pg (28.0-32.0); Mean Corpuscular Volume 90.9 fL (80.0-100.0); Monocytes % (auto) 8.4 % (0.0-12.0); Neutrophils # (auto) 10.4 10 ^3/uL (1.6-8.6); Platelet Count (auto) 83 10^3/uL (140-450); Red Blood Cells 4.38 10^6/uL (4.0-5.20); Red Cell Distribution Width 20.3 % (11.8-14.3); White Blood Cell 12.4 10^3/uL (4.4-10.8)
[2024-08-15] MEDS ORDERED: ENOXAPARIN SOD 30 MG/0.3 ML SYRINGE SC SCH (10:00)
[2024-08-15] MEDS: predniSONE 5 MG TAB PO SCH (10:37)
[2024-08-15] MEDS: SPIRONOLACTONE 25 MG TAB PO SCH (10:37)
--- NOTE | 2024-08-15 14:35 | DVHPN2 ---
Progress Note - Dictate Date Seen: Aug 15, 2024 Medical Necessity Reason Pt with a Central, PICC or Fol: No Subjective Patient seen at bedside in ER bed six She is sleeping comfortably There was no active GI bleeding reported Her liver enzymes are elevated but stable vital signs Vital Sign Date Time Temp Pulse Resp B/P (MAP) Pulse Ox O2 Delivery O2 Flow Rate FiO2 08/15/24 13:20 88 08/15/24 12:30 16 87/43 (58) 100 08/15/24 07:30 Nasal Cannula* 2 28 08/15/24 07:15 98.2 98.2 Total Intake and Output 08/14/24 08/14/24 08/15/24 14:59 22:59 06:59 Intake Total 700 ml 228.75 ml 100 ml Output Total 260 ml Balance 700 ml -31.25 ml 100 ml medications Current Medications Medications Dose Ordered Sig/Chang Route Start Time Stop Time Status Last Admin Dose Admin Norepinephrine Bitartrate 250 ml @ 3.75 mls/hr Q24H IV 08/14/24 11:30 08/15/24 12:00 18.75 MLS/HR Ondansetron HCl 4 mg Q4HP PRN IV 08/14/24 11:30 Acetaminophen 650 mg Q6HP PRN PO 08/14/24 11:30 Furosemide 20 mg TID PO 08/14/24 14:00 08/15/24 06:37 20 MG Rifaximin 550 mg BID PO 08/14/24 22:00 08/15/24 10:37 550 MG Sucralfate 0.5 gm QID PO 08/14/24 12:00 08/15/24 12:03 0.5 GM Hydroxyzine Pamoate 25 mg BID PRN PO 08/14/24 13:00 Patient Own Medication 1 tab TID PO 08/14/24 14:00 Piperacillin Sod/ Tazobactam Sod 100 ml @ 25 mls/hr Q8HR IV 08/14/24 14:00 08/15/24 06:36 25 MLS/HR Spironolactone 25 mg DAILY PO 08/15/24 10:00 08/15/24 10:37 25 MG Pantoprazole Sodium 40 mg DAILY@0600 PO 08/15/24 06:00 08/15/24 06:37 40 MG Prednisone 15 mg DAILY PO 08/15/24 10:00 3/2/25 10:37 15 MG objective Patient seen at bedside, awake and arousable but lethargic Mild scleral icterus improved from before Respiratory: Normal air movement Cardiovascular: Normal S1, Normal S2, No murmurs Abdomen is soft slightly distended but there was no significant ascites or tenderness at this time Skin: No significant lesion Neuro: Sensation intact laboratory and microbiology Laboratory Tests 08/15/24 08:33 08/15/24 06:12 Test 08/15/24 06:12 Range/Units Serum Glucose 96 74-106 mg/dL Problems(with codes): (1) Autoimmune hepatitis (2) Ascites (3) Transaminitis (4) Abdominal pain (5) Hypotension (6) Cirrhosis of liver (7) Lactic acidosis Prognosis Plan Patient is awaiting a paracentesis Continue oral prednisone 20 mg p.o. twice a day Continue ursodiol 300 mg p.o. twice a day Continue to monitor labs Gentle IV fluid hydration IV antibiotics Advance diet as tolerated Plan discussed with: Patient, Other (ER Nurse) RICKY RAEVALO MD Aug 15, 2024 14:35
--- NOTE | 2024-08-15 14:42 | DVHNC2 ---
Procedure - ULTRASOUND-GUIDED LEFT INTERNAL JUGULAR CENTRAL VENOUS CANNULATION CPT Codes: 11091 (ultrasound guidance) 77107 (insertion of non-tunneled centrally inserted central venous catheter) 72054 (CXR interpretation) Time out time: Patient medications and allergies reviewed. The risks and benefits of the procedure and the sedation options and risk were discussed with the patient's healthcare proxy. All questions were answered and informed consent was obtained. Patient identification and proposed procedure were verified prior to the procedure by the physician, and a nurse in the patient's room. The heart rate, respiratory rate, oxygen saturations, blood pressure, adequacy of pulmonary ventilation, and response to care were monitored throughout the procedure. The physical status of the patient was reassessed after the procedure. DATE: 08/15/2024 PHYSICIAN: Rosy Washington PREOPERATIVE DIAGNOSIS: Septic shock POSTOPERATIVE DIAGNOSIS: Septic shock PROCEDURE PERFORMED: Limited Ultrasound-guided LEFT internal jugular central line placement. ANESTHESIA: 2 mL of 1% lidocaine plain. ESTIMATED BLOOD LOSS: less than 5 mL. SPECIMENS: None. COMPLICATIONS: None. INDICATIONS FOR PROCEDURE: The patient is in need of large bore IV access for administration of fluids, including blood products and vasoactive drugs, possible transvenous cardiac pacing and CVP monitoring for hemodynamic instability. DESCRIPTION OF PROCEDURE IN DETAIL: The patient was lying in the Trendelenburg position with head turned 30 degrees away from the insertion site. The skin was thoroughly sponged with chlorhexidine and allowed to dry. All persons involved were shielded with hair nets, face masks and sterile gowns. With sterile-gloved hands the LEFT neck area was draped with the large disposable sterile field provided in the pre-manufactured kit. The skin and subcutaneous tissues superficial to the LEFT internal jugular vein were anesthetized with 2 mL of 1% lidocaine. The LEFT internal jugular vein was identified on ultrasound from the angle of the mandible down into the supraclavicular fossa using the linear ultrasound probe in the transverse orientation. The carotid artery was identified and avoided utilizing color-flow. The internal jugular vein was then placed in the center of the ultrasound field and compressed for patency. A movement artifact was identified as the needle was advanced through the skin and advanced toward the vessel. A real time hyperechoic signal revealed visualization of vascular needle entry into the lumen as blood was noted to flashback in the syringe. The needle was then held in place while the guide wire was advanced. The needle was then removed. Direct visualization of guide wire location within the vein was noted on ultrasound indicating proper placement and was document in the electronic medical record chart. A skin dilator was advanced over the guidewire and removed, and the triple-lumen catheter was then advanced over the guide wire into proper position. The guide wire was removed and discarded. The ports were aspirated which showed good blood return and then carefully flushed with normal saline. The catheter was stabilized and sutured to the skin with 2-0 silk at 4 anchor points. A sterile bio-patch and dressing was placed over the catheter, including the insertion site. The patient tolerated the procedure well. A chest x-ray was ordered for position confirmation. Post procedure CXR is pending at time of writing this note. ROSY WASHINGTON MD Aug 15, 2024 14:42
--- NOTE | 2024-08-15 15:00 | DVH ---
[facility] [id number] [place] [address] Ph: [phone] DIAGNOSTIC IMAGING Diagnostic Imaging Report : [id number] Signed with Memo PATIENT: PETRA ISBELL ACCT: [id number] UNIT: [id number] : 1955 LOC: OVERFLOW ROOM / BED: [address] [place] [address] / AGE / SEX: 69 / F ADM STATUS: ADM IN SERVICE 36 ORDERING PHYSICIAN: ROSY STRAUSS MD PROCEDURE(s): CXR1 - CHEST XRAY 1 VIEW REASON: CENTRAL LINE PLACEMENT ORDER NUMBER(s): [id number], ACCESSION NUMBER(s): [id number] ADDENDUM ADDENDUM # 1 Left internal jugular catheter in place in superior vena cava with the tip appears to be above the right atrium. HS:Y ORIGINAL REPORT CHEST RADIOGRAPH Indication: CENTRAL LINE PLACEMENT Technique: Single frontal view of the chest was obtained Comparison: XY CHEST XRAY 1 VIEW on DOS: 07/20/24, XY CHEST PORTABLE on DOS: 07/18/24, XY CHEST PORTABLE on DOS: 07/17/24 FINDINGS: Lines and Tubes: None Lungs: Infiltrate or atelectasis right lower lobe. Pleura: No effusion. No pneumothorax. Cardiomediastinal contours: Unremarkable Bones: No acute osseous abnormality. IMPRESSION: 1. Infiltrate and or atelectasis right lower lobe. HS:Y ATED BY: MERLIN GONZALEZ Jr., DO DICTATED DATE/TIME: 08/15/241630 SIGNED BY: MERLIN GONZALEZ Jr., DO SIGNED DATE/TIME: 08/15/241630 CC: CHEST RADIOGRAPH Indication: CENTRAL LINE PLACEMENT Technique: Single frontal view of the chest was obtained Comparison: XY CHEST XRAY 1 VIEW on DOS: 07/20/24, XY CHEST PORTABLE on DOS: 07/18/24, XY CHEST PORTABLE on DOS: 07/17/24 FINDINGS: Lines and Tubes: None Lungs: Infiltrate or atelectasis right lower lobe. Pleura: No effusion. No pneumothorax. Cardiomediastinal contours: Unremarkable Bones: No acute osseous abnormality. IMPRESSION: 1. Infiltrate and or atelectasis right lower lobe. HS:Y ATED BY: MERLIN GONZALEZ Jr., DO DICTATED DATE/TIME: 08/15/24 1458 SIGNED BY: MERLIN GONZALEZ Jr., SIGNED DATE/TIME: 08/15/24 145 CC:
--- NOTE | 2024-08-15 19:10 | DVHPN2 ---
Subjective 08/15 continues to have pain the abdomen, no signs of acute abdomen. Has mild amounts of ascitic fluid. Patient has been on vasopressor support overnight. Appreciate PULM Dr. Washington inserting left IJ Cvc. We will continue broad- spectrum antibiotics,. Bedside paracentesis done with suspicion of SBP as source. We will continue antibiotics and vasopressor support Reviewed: H&P Changes from previous H/P or p: No Changes General: Per HPI Respiratory: Shortness of breath Gastrointestinal: Abdominal Pain, Diarrhea Objective Vitals Vital Signs Date Time Temp Pulse Resp B/P (MAP) Pulse Ox O2 Delivery O2 Flow Rate FiO2 08/15/24 18:15 82 21 109/58 (75) 95 08/15/24 15:45 97.6 97.6 08/15/24 07:30 Nasal Cannula* 2 28 Intake/Output Intake and Output 08/15/24 07:00 Intake Total 1028.75 ml Output Total 260 ml Balance 768.75 ml Intake Oral 100 ml IV Total 928.75 ml Output Urine Total 260 ml Exam GEN: Healthy appearing, well-developed, NAD. HEENT: NC/AT; MMM. L IJ cvc CV: RRR, no m/r/g. LUNGS: Bibasilar rales ABD: Mildly Distended abdomen, hypoactive bowel sounds, no rebound tenderness, no rigidity, no guarding,. EXT: skin Warm, well perfused. no rashes. No clubbing, cyanosis, or edema. NEURO: Ambulating with no limitations. No focal deficits. Medications Current Medications Medications Dose Ordered Sig/Chang Route Start Time Stop Time Status Last Admin Dose Admin Norepinephrine Bitartrate 250 ml @ 3.75 mls/hr Q24H IV 08/14/24 11:30 08/15/24 12:00 18.75 MLS/HR Ondansetron HCl 4 mg Q4HP PRN IV 08/14/24 11:30 Acetaminophen 650 mg Q6HP PRN PO 08/14/24 11:30 Furosemide 20 mg TID PO 08/14/24 14:00 08/15/24 14:49 20 MG Rifaximin 550 mg BID PO 08/14/24 22:00 08/15/24 10:37 550 MG Sucralfate 0.5 gm QID PO 08/14/24 12:00 08/15/24 18:30 0.5 GM Hydroxyzine Pamoate 25 mg BID PRN PO 08/14/24 13:00 Patient Own Medication 1 tab TID PO 08/14/24 14:00 Piperacillin Sod/ Tazobactam Sod 100 ml @ 25 mls/hr Q8HR IV 08/14/24 14:00 08/15/24 14:40 25 MLS/HR Spironolactone 25 mg DAILY PO 08/15/24 10:00 08/15/24 10:37 25 MG Pantoprazole Sodium 40 mg DAILY@0600 PO 08/15/24 06:00 08/15/24 06:37 40 MG Prednisone 15 mg DAILY PO 08/15/24 10:00 08/15/24 10:37 15 MG Laboratory Results Laboratory Tests 08/15/24 06:12 08/15/24 08:33 Chemistry Test 08/15/24 06:12 Albumin 3.7 g/dL (3.2-4.8) Calcium Level 9.5 mg/dL (8.7-10.4) Total Protein 5.9 g/dL (5.7-8.2) LFT Test 08/15/24 06:12 Alanine Aminotransferase (ALT) 81 U/L (7-40) H Alkaline Phosphatase 302 U/L (46-116) H Aspartate Amino Transferase (AST) 79 U/L (13-40) H Total Bilirubin 4.9 mg/dL (0.2-1.0) H Microbiology Microbiology Date/Time Source Procedure Growth Status 08/14/24 15:50 Voided Urine Urine Culture - Preliminary Resulted 08/14/24 11:33 Blood Blood Culture - Preliminary NO GROWTH AFTER 24 HOURS OF INCUBATION. Resulted Labs and/or images reviewed: Labs reviewed by me, Image(s) reviewed by me Assessment/Plan Assessment/Plan 08/15 continues to have pain the abdomen, no signs of acute abdomen. Has mild amounts of ascitic fluid. Patient has been on vasopressor support overnight. Appreciate PULM Dr. Washington inserting left IJ Cvc. We will continue broad- spectrum antibiotics,. Bedside paracentesis done with suspicion of SBP as source. We will continue antibiotics and vasopressor support Septic shock due to likely SBP versus GI source History of autoimmune cirrhosis decompensated with ascites Intractable abdominal pain likely due to ascites ascites recurrent ?Gastritis Small hiatal hernia Right pleural effusion SATINDER due to VMN likely Lactic acidosis likely due to sepsis - on antibiotics Thrombocytopenic - hold Lovenox Neutrophilia Hypokalemic - Replete lytes Hyponatremia, hypervolemic likely cirrhosis constipation Transaminitis - GI onboard History of kidney failure History of bilateral DVTs status post IVC filter - vasopressor levophed w MAP goal >65, continue midodrine home med - per GI: Monitor labs including ammonia level, Prednisone 20 mg p.o. daily - Lactulose 30 mL p.o. twice a day - Protonix 40 mg p.o. daily - holding off propranolol given hypotension. holding antiHTN (aldactone) - s/p IV lasix, holding further per GI rec. - SATINDER improving despite diuresis. ssx improve with diuresis (abdominal pain from ascites) - continue prophylaxis for hepatic encephalopathy-continue lactulose and rifaximin - Continue home ursodiol - ascites fluid samples pending - color straw, noncloudy diet - CLD dvt ppx - scd gi ppx - protonix ICU time 75min full code Paracentesis Procedure Note INDICATION: r/o SBP PROCEDURE CLIP LOADING MACHINE ADJUSTER: Milton Rodriguez MD Ultrasound used to [place] location: Y CONSENT: Consent was obtained from patient prior to the procedure. Indications, risks, and benefits were explained at length. PROCEDURE SUMMARY: A time-out was performed. My hands were washed immediately prior to the procedure. I wore a surgical cap, mask with protective eyewear, sterile gown and sterile gloves throughout the procedure. The area was cleansed and draped in usual sterile fashion using chlorhexidine scrub. Anesthesia was achieved with 1% lidocaine. The LLQ of the abdomen was prepped and draped in a sterile fashion using chlorhexidine scrub. 1% lidocaine was used to numb the skin, soft tissue and peritoneum. The paracentesis catheter was inserted and advanced with negative pressure until straw-colored fluid was aspirated. Approximately 60 mL of ascitic fluid was collected and sent for laboratory analysis. The catheter was then connected to the vaccutainer and 0.04 liters of additional ascitic fluid were drained. The catheter was removed and no leaking was noted. A bandaid was placed over the puncture wound. The patient tolerated the procedure well without any immediate complications. Estimated blood loss was 0.5cc. Milton Rodriguez Abdominal U/S CPT 76685 Paracentesis CPT 92053 Plan discussed with: Patient My Orders Orders - MILTON PEÑALOZA MD Procedure Category Date Status Time *Consult CONS 08/15/24 Transmitted / 13:12 Body Fluid Culture W/ LETICIA 08/15/24 Transmitted GS 18:44 Body Fluids, Diff. LAB 08/15/24 Transmitted Cell Count 18:44 Protein, Body Fluid LAB 08/15/24 Transmitted 18:44 Albumin; Body Fluid LAB 08/15/24 Transmitted 18:44 Comprehensive LAB 08/15/24 Transmitted Metabolic Panel 18:44 Date of Service: Aug 15, 2024 Billing Provider: MILTON PEÑALOZA MD Common Visit Codes: [id number]-[id number] CARE 30-74 MIN Procedure Codes: 24528-[id number] W/IMAGING MILTON PEÑALOZA MD Aug 15, 2024 19:10
[2024-08-15] MEDS: LACTULOSE 20Gm/30ML SOLN PO SCH (22:00)
[2024-08-15 22:08] LABS: Body Fluid Red Blood Cells 50 CUMM (0-2000); Body Fluid White Blood Cells 140 CUMM (0-200)
[2024-08-15 22:16] LABS: Body Fluid Polymorphonuclear 15 % (0-25)
[2024-08-16] VITALS (97 sets, daily range): BP systolic 82–126; BP diastolic 36–88; PULSE 60–94; RESP 11–27; TEMP 97.5–98.2; O2SAT 90–100
[2024-08-16 04:04] LABS: Basophils # (auto) 0.1 10 ^3/uL (0-0.2); Basophils % (auto) 0.5 % (0.0-2.0); Eosinophils # (auto) 0 10 ^3/uL (0-0.8); Eosinophils % (auto) 0.1 % (0.0-7.0); Hematocrit 36.6 % (36.0-46.0); Hemoglobin 11.9 g/dL (12.2-16.2); Lymphocytes # (auto) 0.6 10 ^3/uL (0.4-5.4); Lymphocytes % (auto) 5.6 % (10.0-50.0); Mean Corpuscular Hemoglobin 28.6 pg (28.0-32.0); Mean Corpuscular Hgb Conc. 32.5 g/dL (32.0-36.0); Mean Corpuscular Volume 88.1 fL (80.0-100.0); Monocytes # (auto) 0.6 10 ^3/uL (0-1.3); Monocytes % (auto) 5.9 % (0.0-12.0); Neutrophils # (auto) 9.4 10 ^3/uL (1.6-8.6); Neutrophils % (auto) 87.9 % (37.0-80.0); Nucleated Red Blood Cells % 0.1 %; Platelet Count (auto) 86 10^3/uL (140-450); Red Blood Cells 4.16 10^6/uL (4.0-5.20); White Blood Cell 10.7 10^3/uL (4.4-10.8)
[2024-08-16 04:19] LABS: Alanine Aminotransferase 64 U/L (7-40); Albumin 3.4 g/dL (3.2-4.8); Alkaline Phosphatase 285 U/L (46-116); Anion Gap 14 (5-15); Aspartate Aminotransferase 55 U/L (13-40); BUN/Creatinine Ratio 16.1 (10.0-20.0); Bilirubin, Total 3.4 mg/dL (0.2-1.0); Blood Urea Nitrogen 23 mg/dL (9-23); Calcium 9.3 mg/dL (8.7-10.4); Carbon Dioxide 21 mmol/L (20-31); Chloride 99 mmol/L (98-107); Glucose 158 mg/dL (74-106); Potassium 2.7 mmol/L (3.5-5.1); Sodium 134 mmol/L (136-145); Total Protein 5.7 g/dL (5.7-8.2)
[2024-08-16] MEDS: POTASSIUM CHL 20MEQ/100ML 100 ML IV SCH (08:00)
--- NOTE | 2024-08-16 09:30 | DVH ---
Procedure: US ABDOMEN LIMITED 08/16/2024 08:58 AM Indication: ASCITES Comparison: US ABDOMEN LIMITED on DOS: 08/14/24, US ABDOMEN LIMITED on DOS: 07/28/24, US LIVER on DOS: Technique: Abdominal survey for fluid utilizing grayscale technique. FINDINGS: Small amount of ascites noted with the largest pocket in the right upper quadrant. IMPRESSION: 1. Insufficient ascites for safe paracentesis.
--- NOTE | 2024-08-16 11:07 | DVHPN2 ---
Subjective Patient denies any symptoms. Reports that her abdominal pain has improved Reviewed: H&P Changes from previous H/P or p: No Changes General: Per HPI Respiratory: Shortness of breath Gastrointestinal: Abdominal Pain, Diarrhea Objective Vitals Vital Signs Date Time Temp Pulse Resp B/P (MAP) Pulse Ox O2 Delivery O2 Flow Rate FiO2 08/16/24 08:00 74 08/16/24 07:45 20 103/52 (69) 93 08/16/24 06:00 Room Air* 0 21 08/16/24 04:00 97.5 97.5 Intake/Output Intake and Output 08/16/24 07:00 Intake Total 1051.25 ml Output Total 466 ml Balance 585.25 ml Intake Oral 600 ml IV Total 451.25 ml Output Urine Total 450 ml Drainage Total 16 ml # Voids 10 # Bowel Movements 4 General Appearance: Alert, Oriented X3, Cooperative HEENT: Atraumatic, PERRLA Lungs: Clear to auscultation, Normal air movement Cardiovascular: Normal S1, Normal S2 Abdomen: Normal bowel sounds, Soft, No tenderness, No hepatospenomegaly Musculoskeletal: Normal sensory function, Normal motor function Skin: Dry, Intact Psych/Mental Status: Mental status NL, Mood NL Medications Current Medications Medications Dose Ordered Sig/Chang Route Start Time Stop Time Status Last Admin Dose Admin Norepinephrine Bitartrate 250 ml @ 3.75 mls/hr Q24H IV 08/14/24 11:30 08/15/24 12:00 18.75 MLS/HR Ondansetron HCl 4 mg Q4HP PRN IV 08/14/24 11:30 Acetaminophen 650 mg Q6HP PRN PO 08/14/24 11:30 Furosemide 20 mg TID PO 08/14/24 14:00 08/16/24 06:06 20 MG Rifaximin 550 mg BID PO 08/14/24 22:00 08/15/24 22:00 550 MG Sucralfate 0.5 gm QID PO 08/14/24 12:00 08/16/24 05:55 0.5 GM Hydroxyzine Pamoate 25 mg BID PRN PO 08/14/24 13:00 Patient Own Medication 1 tab TID PO 08/14/24 14:00 Piperacillin Sod/ Tazobactam Sod 100 ml @ 25 mls/hr Q8HR IV 08/14/24 14:00 08/16/24 05:50 25 MLS/HR Spironolactone 25 mg DAILY PO 08/15/24 10:00 08/15/24 10:37 25 MG Pantoprazole Sodium 40 mg DAILY@0600 PO 08/15/24 06:00 08/16/24 06:06 40 MG Prednisone 15 mg DAILY PO 08/15/24 10:00 08/15/24 10:37 15 MG Lactulose 30 ml BID PO 08/15/24 22:00 08/15/24 22:00 30 ML Laboratory Results Laboratory Tests 08/16/24 03:47 Chemistry Test 08/16/24 03:47 Albumin 3.4 g/dL (3.2-4.8) Calcium Level 9.3 mg/dL (8.7-10.4) Total Protein 5.7 g/dL (5.7-8.2) LFT Test 08/16/24 03:47 Alanine Aminotransferase (ALT) 64 U/L (7-40) H Alkaline Phosphatase 285 U/L (46-116) H Aspartate Amino Transferase (AST) 55 U/L (13-40) H Total Bilirubin 3.4 mg/dL (0.2-1.0) H Microbiology Microbiology Date/Time Source Procedure Growth Status 08/14/24 15:50 Voided Urine Urine Culture - Preliminary Resulted 08/14/24 11:33 Blood Blood Culture - Preliminary NO GROWTH AFTER 24 HOURS OF INCUBATION. Resulted Labs and/or images reviewed: Labs reviewed by me, Image(s) reviewed by me Assessment/Plan Assessment/Plan Impression: -septic shock -community-acquired pneumonia, probable Gram-positive/Gram-negative etiology. -cirrhosis of the liver with portal hypertension -abdominal pain -obesity -thrombocytopenia -leukocytosis -rule out gastritis Plan: -wean norepinephrine drip -start midodrine -continue antibiotic therapy with Zosyn -peritoneal fluid evaluated. Negative for SBP -hold anticoagulation given thrombocytopenia -trial of albumin -decrease lactulose -decrease Lasix, continue spironolactone -PPI, Carafate -repeat labs in a.m. -potassium replacement Critical care time spent with patient discussing and formulating plan of care: 40 minutes. This does not include time spent performing procedures. This medical document was created using an electronic medical record system with [employer] system. Although this document has been carefully reviewed, there may still be some phonetic and typographical errors. These areas are purely typographical due to imperfections of the software programs, and do not reflect any compromise in the patient's medical care. Plan discussed with: Patient, Other (RN) My Orders Orders - MOSES FOOTE NP Procedure Category Date Status Time Basic Metabolic Panel LAB 08/16/24 Logged 14:00 Midodrine Tablet PHA 08/16/24 Verified (Proamatine Tablet) 12:00 Albumin Ivpb PHA 08/16/24 Verified 11:00 Lactulose Oral PHA 08/17/24 Verified 10:00 Methylprednisolone PHA 08/17/24 Verified Sod Succ (Solu Medrol 10:00 Furosemide Injection PHA 08/17/24 Verified (Lasix Injection) 10:00 Date of Service: Aug 16, 2024 Billing Provider: MOSES FOOTE NP Common Visit Codes: [id number] CARE 30-74 MIN MOSES FOOTE NP Aug 16, 2024 11:07
[2024-08-16] MEDS: MIDODRINE HCL 10 MG TAB PO SCH (13:12)
[2024-08-16] MEDS: ALBUMIN 25% 50 ML IV SCH (13:15)
--- NOTE | 2024-08-16 15:10 | DVHPN2 ---
Progress Note Date Seen: Aug 16, 2024 Resident Creating Document: ASHOK WILLOUGHBY RESIDENT Medical Necessity Reason Pt with a Central, PICC or Fol: No Subjective Review of Systems Patient seen and examined at bedside On vasopressor levo Tolerating diet No nausea or vomiting No diarrhea No active GI bleed Trending bilirubin and liver enzymes Last ammonia less than 10 Objective vital signs Vital Sign Date Time Temp Pulse Resp B/P (MAP) Pulse Ox O2 Delivery O2 Flow Rate FiO2 08/16/24 12:00 63 08/16/24 11:27 18 112/57 (75) 95 08/16/24 06:00 Room Air* 0 21 08/16/24 04:00 97.5 97.5 Total Intake and Output 08/15/24 08/15/24 08/16/24 15:00 23:00 07:00 Intake Total 231.25 ml 163.75 ml 656.25 ml Output Total 250 ml 216 ml Balance -18.75 ml -52.25 ml 656.25 ml medications Current Medications Medications Dose Ordered Sig/Chang Route Start Time Stop Time Status Last Admin Dose Admin Norepinephrine Bitartrate 250 ml @ 3.75 mls/hr Q24H IV 08/14/24 11:30 08/15/24 12:00 18.75 MLS/HR Ondansetron HCl 4 mg Q4HP PRN IV 08/14/24 11:30 Acetaminophen 650 mg Q6HP PRN PO 08/14/24 11:30 Rifaximin 550 mg BID PO 08/14/24 22:00 08/16/24 11:46 550 MG Sucralfate 0.5 gm QID PO 08/14/24 12:00 08/16/24 12:11 0.5 GM Hydroxyzine Pamoate 25 mg BID PRN PO 08/14/24 13:00 Patient Own Medication 1 tab TID PO 08/14/24 14:00 Piperacillin Sod/ Tazobactam Sod 100 ml @ 25 mls/hr Q8HR IV 08/14/24 14:00 08/16/24 05:50 25 MLS/HR Spironolactone 25 mg DAILY PO 08/15/24 10:00 08/16/24 11:46 25 MG Pantoprazole Sodium 40 mg DAILY@0600 PO 08/15/24 06:00 08/16/24 06:06 40 MG Midodrine 10 mg TID@0600,1200,1800 PO 08/16/24 12:00 08/16/24 13:12 10 MG Albumin Human 50 ml @ 100 mls/hr Q8H IV 08/16/24 11:00 08/17/24 03:29 08/16/24 13:15 100 MLS/HR Lactulose 30 ml DAILY PO 08/17/24 10:00 Methylprednisolone Sodium Succinate 40 mg DAILY IV 08/17/24 10:00 Furosemide 20 mg DAILY IV 08/17/24 10:00 Examination General Appearance: Cooperative. Well developed. Well nourished. NAD Head Exam: Normal inspection Neck Exam: Normal inspection. Non-tender. Normal alignment Pulmonary/Respiratory: Chest non-tender. Clear bilateral breath sounds Cardiovascular/Chest: Regular rate and rhythm. No murmurs. No JVD. Peripheral Pulses: 2+ Radial (R). 2+ Radial (L). 2+ Pedal (R). 2+ Pedal (L) Abdominal Exam: Normal bowel sounds. Soft. Nontender. No hepatospenomegaly. No masses Ankle Exam: Negative ankle edema Lower extremities: Negative lower extremity edema Neuro/Mental Status: A&O x4. Coherent Thoughts/Psych: Normal thought pattern. Appropriate mood and affect. Good judgement and insight Appearance: In no acute distress Skin Exam: Normal inspection. Normal color. Warm. Dry laboratory and microbiology Laboratory Tests 08/16/24 03:47 Test 08/16/24 14:49 Range/Units Serum Glucose Pending Microbiology Date/Time Source Procedure Growth Status 08/15/24 18:27 Peritoneal Fluid Gram Stain - Final Resulted 08/15/24 18:27 Peritoneal Fluid Body Fluid Culture - Preliminary Resulted 08/14/24 15:50 Voided Urine Urine Culture - Final Complete 08/14/24 11:33 Blood Blood Culture - Preliminary NO GROWTH AFTER 48 HOURS OF INCUBATION. Resulted Problem List/Assessment/Plan Problem List/Assessment/Plan Autoimmune hepatitis Cirrhosis of liver Ascites Transaminitis Elevated bilirubin Hypotension with lactic acidosis SATINDER likely hemodynamically mediated Plan/recommendation Dr Lucio -ultrasound abdomen insufficient ascites for paracentesis -continue Levophed for hypotension, continue oral prednisolone 20 mg p.o. twice daily -continue ursodiol 300 mg p.o. twice daily -continue to monitor liver function -tolerating diet, advanced as per toleration -we will continue to monitor this patient Plan discussed with: Patient, Other (RN) Dietary Evaluation Review Comments: Encourage high fiber foods, consider Renal diet with 60g protein restriction is kidney function worsens. Expected Outcomes/Goals: ASHOK Mishra RESIDENT Aug 16, 2024 15:10
[2024-08-16 15:16] LABS: Chloride 100 mmol/L (98-107)
[2024-08-16 15:18] LABS: Anion Gap 12 (5-15); Calcium 9.6 mg/dL (8.7-10.4); Carbon Dioxide 23 mmol/L (20-31)
[2024-08-16 15:26] LABS: Blood Urea Nitrogen 25 mg/dL (9-23); Glucose 221 mg/dL (74-106); Potassium 3.2 mmol/L (3.5-5.1); Sodium 135 mmol/L (136-145)
[2024-08-16] MEDS: POTASSIUM EFFERVESENT TAB 25 MEQ PO ONE (19:00)
[2024-08-17] VITALS (91 sets, daily range): BP systolic 89–131; BP diastolic 36–80; PULSE 50–81; RESP 14–21; TEMP 97.5–98.8; O2SAT 73–100
[2024-08-17 05:15] LABS: Basophils # (auto) 0 10 ^3/uL (0-0.2); Basophils % (auto) 0.3 % (0.0-2.0); Eosinophils # (auto) 0.2 10 ^3/uL (0-0.8); Eosinophils % (auto) 2.7 % (0.0-7.0); Hematocrit 36.1 % (36.0-46.0); Hemoglobin 11.7 g/dL (12.2-16.2); Lymphocytes # (auto) 0.7 10 ^3/uL (0.4-5.4); Mean Corpuscular Hemoglobin 28.7 pg (28.0-32.0); Mean Corpuscular Hgb Conc. 32.5 g/dL (32.0-36.0); Mean Corpuscular Volume 88.4 fL (80.0-100.0); Monocytes # (auto) 0.6 10 ^3/uL (0-1.3); Monocytes % (auto) 6.5 % (0.0-12.0); Neutrophils # (auto) 7.2 10 ^3/uL (1.6-8.6); Neutrophils % (auto) 82.5 % (37.0-80.0); Nucleated Red Blood Cells % 0.2 %; Platelet Count (auto) 106 10^3/uL (140-450); Red Blood Cells 4.08 10^6/uL (4.0-5.20); White Blood Cell 8.7 10^3/uL (4.4-10.8)
[2024-08-17 05:18] LABS: Red Cell Distribution Width 20.6 % (11.8-14.3)
[2024-08-17 05:43] LABS: Albumin 4.2 g/dL (3.2-4.8); Anion Gap 14 (5-15); BUN/Creatinine Ratio 13.6 (10.0-20.0); Blood Urea Nitrogen 22 mg/dL (9-23); Calcium 10.2 mg/dL (8.7-10.4); Carbon Dioxide 24 mmol/L (20-31); Chloride 99 mmol/L (98-107); Glucose 103 mg/dL (74-106); Potassium 3.6 mmol/L (3.5-5.1); Sodium 137 mmol/L (136-145); Total Protein 6.3 g/dL (5.7-8.2)
[2024-08-17 05:49] LABS: Alanine Aminotransferase 53 U/L (7-40); Alkaline Phosphatase 220 U/L (46-116); Aspartate Aminotransferase 68 U/L (13-40)
[2024-08-17] MEDS: LACTULOSE 20Gm/30ML SOLN PO SCH (10:00)
[2024-08-17] MEDS: AZITHROMYCIN 500MG/ 250ML 250 ML IV SCH (10:30)
--- NOTE | 2024-08-17 10:34 | DVHPN2 ---
Subjective Patient denies any symptoms. Reports that her abdominal pain has improved Reviewed: H&P Changes from previous H/P or p: No Changes General: Per HPI Respiratory: Shortness of breath Gastrointestinal: Abdominal Pain, Diarrhea Objective Vitals Vital Signs Date Time Temp Pulse Resp B/P (MAP) Pulse Ox O2 Delivery O2 Flow Rate FiO2 08/17/24 09:11 110/58 08/17/24 08:00 65 08/17/24 06:45 16 99 08/17/24 06:00 Nasal Cannula* 2 28 08/17/24 05:15 98.2 98.2 Intake/Output Intake and Output 08/17/24 07:00 Intake Total 1756.12 ml Balance 1756.12 ml Intake Oral 920 ml IV Total 836.12 ml # Voids 3 # Bowel Movements 3 General Appearance: Alert, Oriented X3, Cooperative HEENT: Atraumatic, PERRLA Lungs: Clear to auscultation, Normal air movement Cardiovascular: Normal S1, Normal S2 Abdomen: Normal bowel sounds, Soft, No hepatospenomegaly, Other (Tenderness noted to left lower:) Musculoskeletal: Normal sensory function, Normal motor function Skin: Dry, Intact Psych/Mental Status: Mental status NL, Mood NL Medications Current Medications Medications Dose Ordered Sig/Chang Route Start Time Stop Time Status Last Admin Dose Admin Norepinephrine Bitartrate 250 ml @ 3.75 mls/hr Q24H IV 08/14/24 11:30 08/15/24 12:00 18.75 MLS/HR Ondansetron HCl 4 mg Q4HP PRN IV 08/14/24 11:30 Acetaminophen 650 mg Q6HP PRN PO 08/14/24 11:30 Rifaximin 550 mg BID PO 08/14/24 22:00 08/16/24 21:46 550 MG Sucralfate 0.5 gm QID PO 08/14/24 12:00 08/16/24 18:30 0.5 GM Hydroxyzine Pamoate 25 mg BID PRN PO 08/14/24 13:00 Patient Own Medication 1 tab TID PO 08/14/24 14:00 Piperacillin Sod/ Tazobactam Sod 100 ml @ 25 mls/hr Q8HR IV 08/14/24 14:00 08/17/24 05:16 25 MLS/HR Spironolactone 25 mg DAILY PO 08/15/24 10:00 08/16/24 11:46 25 MG Pantoprazole Sodium 40 mg DAILY@0600 PO 08/15/24 06:00 08/17/24 05:25 40 MG Midodrine 10 mg TID@0600,1200,1800 PO 08/16/24 12:00 08/17/24 05:25 10 MG Lactulose 30 ml DAILY PO 08/17/24 10:00 Methylprednisolone Sodium Succinate 40 mg DAILY IV 08/17/24 10:00 Furosemide 20 mg DAILY IV 08/17/24 10:00 Nicardipine HCl 250 ml @ 50 mls/hr Q5H IV 08/17/24 03:45 Cancel Laboratory Results Laboratory Tests 08/17/24 04:52 Chemistry Test 08/16/24 14:49 08/17/24 04:52 Calcium Level 9.6 mg/dL (8.7-10.4) 10.2 mg/dL (8.7-10.4) Albumin 4.2 g/dL (3.2-4.8) Total Protein 6.3 g/dL (5.7-8.2) LFT Test 08/17/24 04:52 Alanine Aminotransferase (ALT) 53 U/L (7-40) H Alkaline Phosphatase 220 U/L (46-116) H Aspartate Amino Transferase (AST) 68 U/L (13-40) H Total Bilirubin 4.0 mg/dL (0.2-1.0) H Microbiology Microbiology Date/Time Source Procedure Growth Status 08/15/24 18:27 Peritoneal Fluid Gram Stain - Final Resulted 08/15/24 18:27 Peritoneal Fluid Body Fluid Culture - Preliminary Resulted 08/14/24 15:50 Voided Urine Urine Culture - Final Complete 08/14/24 11:33 Blood Blood Culture - Preliminary NO GROWTH AFTER 48 HOURS OF INCUBATION. Resulted Labs and/or images reviewed: Labs reviewed by me, Image(s) reviewed by me Assessment/Plan Assessment/Plan Impression: -septic shock -community-acquired pneumonia, probable Gram-positive/Gram-negative etiology. -cirrhosis of the liver with portal hypertension -abdominal pain -obesity -thrombocytopenia -leukocytosis -rule out gastritis Plan: Events: Continues to be on norepinephrine drip at 4 micrograms/minute. Mild bump in creatinine. Potassium repleted. Thrombocytopenia improving. -DVT prophylaxis -continue midodrine -CVP reading -continue antibiotic therapy with Zosyn , add azithromycin -hold anticoagulation given thrombocytopenia -trial of albumin -continue diuresis with Lasix, spironolactone -PPI, Carafate -repeat labs in a.m. -potassium replacement Critical care time spent with patient discussing and formulating plan of care: 40 minutes. This does not include time spent performing procedures. This medical document was created using an electronic medical record system with [employer] dictation system. Although this document has been carefully reviewed, there may still be some phonetic and typographical errors. These areas are purely typographical due to imperfections of the software programs, and do not reflect any compromise in the patient's medical care. Plan discussed with: Patient, Other (RN) My Orders Orders - MOSES FOOTE NP Procedure Category Date Status Time Midodrine Tablet PHA 08/16/24 In Process (Proamatine Tablet) 12:00 Lactulose Oral PHA 08/17/24 In Process 10:00 Methylprednisolone PHA 08/17/24 In Process Sod Succ (Solu Medrol 10:00 Furosemide Injection PHA 08/17/24 In Process (Lasix Injection) 10:00 Initiate Vte SANDRA 08/16/24 In Process Prophylaxis 15:41 Azithromycin 500mg/ PHA 08/17/24 Verified 250ml (Zithromax 50 10:30 Potassium Er Tablet PHA 08/17/24 Verified (Klor-Con Tablet) 10:30 Basic Metabolic Panel LAB 08/18/24 Verified 04:00 Complete Blood Count LAB 08/18/24 Verified 04:00 Date of Service: Aug 17, 2024 Billing Provider: MOSES FOOTE NP Common Visit Codes: [id number] CARE 30-74 MIN MOSES FOOTE NP Aug 17, 2024 10:34
[2024-08-17] MEDS: FUROSEMIDE 20 MG/2 ML VIAL IV SCH (11:03)
[2024-08-17] MEDS: methylPREDNISolone SOD SUCC 40 MG/ML VL IV SCH (11:03)
[2024-08-17] MEDS: POTASSIUM CHL 10 Meq TABLET PO ONE (11:04)
[2024-08-17] MEDS: NOREPINEPHRINE 8 MG/250ML KIT 250 ML IV SCH (12:00)
[2024-08-17] MEDS: ONDANSETRON HCL 4 MG/2 ML VIAL IV PRN (12:06)
[2024-08-17 13:07] LABS: Albumin, Body Fluid <0.2 g/dL (Not Estab.); Protein, Body Fluid 0.6 g/dL (.)
--- NOTE | 2024-08-17 15:56 | DVHPN2 ---
Progress Note - Dictate Date Seen: Aug 17, 2024 Medical Necessity Reason Pt with a Central, PICC or Fol: No Subjective Patient seen at bedside in ER bed 5 She is sleeping comfortably There was no active GI bleeding reported Her liver enzymes are elevated but stable Patient is still on low-dose Levophed vital signs Vital Sign Date Time Temp Pulse Resp B/P (MAP) Pulse Ox O2 Delivery O2 Flow Rate FiO2 08/17/24 14:41 110/50 08/17/24 12:00 61 08/17/24 12:00 20 98 Room Air* 0 21 08/17/24 05:15 98.2 98.2 Total Intake and Output 08/16/24 08/16/24 08/17/24 15:00 23:00 07:00 Intake Total 770.02 ml 818.60 ml 167.5 ml Balance 770.02 ml 818.60 ml 167.5 ml medications Current Medications Medications Dose Ordered Sig/Chang Route Start Time Stop Time Status Last Admin Dose Admin Ondansetron HCl 4 mg Q4HP PRN IV 08/14/24 11:30 08/17/24 12:06 4 MG Acetaminophen 650 mg Q6HP PRN PO 08/14/24 11:30 Rifaximin 550 mg BID PO 08/14/24 22:00 08/17/24 12:05 550 MG Sucralfate 0.5 gm QID PO 08/14/24 12:00 08/17/24 12:05 0.5 GM Hydroxyzine Pamoate 25 mg BID PRN PO 08/14/24 13:00 Patient Own Medication 1 tab TID PO 08/14/24 14:00 Piperacillin Sod/ Tazobactam Sod 100 ml @ 25 mls/hr Q8HR IV 08/14/24 14:00 08/17/24 14:50 25 MLS/HR Spironolactone 25 mg DAILY PO 08/15/24 10:00 08/17/24 11:03 25 MG Pantoprazole Sodium 40 mg DAILY@0600 PO 08/15/24 06:00 08/17/24 05:25 40 MG Midodrine 10 mg TID@0600,1200,1800 PO 08/16/24 12:00 08/17/24 12:05 10 MG Lactulose 30 ml DAILY PO 08/17/24 10:00 08/17/24 10:48 30 ML Methylprednisolone Sodium Succinate 40 mg DAILY IV 08/17/24 10:00 08/17/24 11:03 40 MG Furosemide 20 mg DAILY IV 08/17/24 10:00 08/17/24 11:03 20 MG Nicardipine HCl 250 ml @ 50 mls/hr Q5H IV 08/17/24 03:45 Cancel Azithromycin 250 ml @ 125 mls/hr DAILY IV 08/17/24 10:30 08/17/24 10:30 125 MLS/HR Norepinephrine Bitartrate 250 ml @ 0.938 mls/ hr Q24H IV 08/17/24 12:00 08/17/24 12:00 7.5 MLS/HR objective Patient seen at bedside, awake and arousable but lethargic Mild scleral icterus improved from before Respiratory: Normal air movement Cardiovascular: Normal S1, Normal S2, No murmurs Abdomen is soft slightly distended but there was no significant ascites or tenderness at this time Skin: No significant lesion Neuro: Sensation intact laboratory and microbiology Laboratory Tests 08/17/24 04:52 Test 08/17/24 04:52 Range/Units Serum Glucose 103 74-106 mg/dL Problems(with codes): (1) Autoimmune hepatitis (2) Ascites (3) SATINDER (acute kidney injury) (4) Transaminitis (5) Hypotension (6) Abdominal pain (7) Cirrhosis of liver (8) Lactic acidosis (9) Jaundice (10) Scleroderma Prognosis Plan Continue supportive care Ursodiol 300 mg p.o. twice a day Prednisone 20 mg p.o. twice a day Correct coagulopathy Lactulose 30 mL p.o. daily Patient feels nauseous was lactulose Patient will be given Zofran prior to her dose of lactulose once a day I will arrange outpatient elective abdominal paracentesis so we can prevent recurrent admissions In the meantime the patient's daughter is willing to continue to take care of her at home Dietary Evaluation Review Comments: Encourage high fiber foods, consider Renal diet with 60g protein restriction is kidney function worsens. Expected Outcomes/Goals: regluar BMs Plan discussed with: Patient, Daughter (ER Nurse), Other RICKY AREVALO MD Aug 17, 2024 15:56
[2024-08-18] VITALS (91 sets, daily range): BP systolic 92–132; BP diastolic 29–66; PULSE 49–74; RESP 13–25; TEMP 97–98.5; O2SAT 14–99
[2024-08-18 05:50] LABS: Chloride 100 mmol/L (98-107); Sodium 136 mmol/L (136-145)
[2024-08-18 05:51] LABS: Anion Gap 10 (5-15); Calcium 9.6 mg/dL (8.7-10.4); Carbon Dioxide 26 mmol/L (20-31); Potassium 3.2 mmol/L (3.5-5.1)
[2024-08-18 05:55] LABS: Basophils # (auto) 0 10 ^3/uL (0-0.2); Eosinophils # (auto) 0 10 ^3/uL (0-0.8); Lymphocytes # (auto) 0.3 10 ^3/uL (0.4-5.4); Monocytes # (auto) 0.2 10 ^3/uL (0-1.3); Monocytes % (auto) 3.2 % (0.0-12.0); Nucleated Red Blood Cells % 0.1 %
[2024-08-18 05:56] LABS: BUN/Creatinine Ratio 15.6 (10.0-20.0)
[2024-08-18 05:57] LABS: Basophils % (auto) 0.4 % (0.0-2.0); Hematocrit 34.1 % (36.0-46.0); Lymphocytes % (auto) 5.4 % (10.0-50.0); Mean Corpuscular Hemoglobin 28.5 pg (28.0-32.0); Mean Corpuscular Hgb Conc. 32.4 g/dL (32.0-36.0); Mean Corpuscular Volume 88.1 fL (80.0-100.0); Neutrophils # (auto) 4.8 10 ^3/uL (1.6-8.6); Red Blood Cells 3.87 10^6/uL (4.0-5.20); White Blood Cell 5.3 10^3/uL (4.4-10.8)
[2024-08-18 06:00] LABS: Blood Urea Nitrogen 24 mg/dL (9-23); Glucose 135 mg/dL (74-106)
[2024-08-18 06:06] LABS: Red Cell Distribution Width 20.8 % (11.8-14.3)
[2024-08-18 06:46] LABS: Platelet Count (auto) 81 10^3/uL (140-450); Platelet Estimate Decreased
--- NOTE | 2024-08-18 08:03 | DVH ---
ULTRASOUND ABDOMEN limited, 4 QUADRANTS INDICATION: FLUID CHECK FOR POSSIBLE PARACENTESIS Evaluate for ascites. TECHNIQUE: The four quadrants of the abdomen were scanned in small-scale to assess for the presence of ascites. N o solid organ assessment was performed. FINDINGS/IMPRESSIONS: Small volume ascites.
--- NOTE | 2024-08-18 09:00 | DVH ---
US PARACENTESIS, HISTORY: ASCITES PROCEDURE: Informed consent was obtained. The patient was placed in supine position. A limited locali zation ultrasound of the abdomen was obtained, and the skin site over the largest pocket of fluid was marked and entry site was prepped with chlorhexidine which was allowed to dry and draped in the usua l sterile fashion. Time out was performed. Following administration of 1% lidocaine local anesthetic, a 5 Citizen Of [place] centesis needle catheter was percutaneously inserted into the peritoneal collection until fluid was aspirated. The catheter was advanced into the fluid collection and the needle removed. Abo ut 2500 cc of fluid was aspirated and specimen sent for appropriate cultures/cytology/cultures and cy tology. The catheter was then removed and a sterile dressing applied. No immediate complication was identified. FINDINGS: Limited ultrasound imaging demonstrates mild ascites. Aspirated fluid was clear and serous. IMPRESSION: US-guided paracentesis with 2.5L removed.
--- NOTE | 2024-08-18 09:17 | DVHPN2 ---
Subjective Patient denies any symptoms. Reports that her abdominal pain has improved Reviewed: H&P Changes from previous H/P or p: No Changes General: Per HPI Respiratory: Shortness of breath Gastrointestinal: Abdominal Pain, Diarrhea Objective Vitals Vital Signs Date Time Temp Pulse Resp B/P (MAP) Pulse Ox O2 Delivery O2 Flow Rate FiO2 08/18/24 08:45 62 16 122/61 (81) 95 08/18/24 08:00 Nasal Cannula* 1 24 08/18/24 08:00 98.5 98.5 Intake/Output Intake and Output 08/18/24 07:00 Intake Total 1184.377 ml Output Total 900 ml Balance 284.377 ml Intake Oral 600 ml IV Total 584.377 ml Output Urine Total 900 ml # Bowel Movements 3 General Appearance: Alert, Oriented X3, Cooperative HEENT: Atraumatic, PERRLA Lungs: Clear to auscultation, Normal air movement Cardiovascular: Normal S1, Normal S2 Abdomen: Normal bowel sounds, Soft, No hepatospenomegaly, Other (Tenderness noted to left lower:) Musculoskeletal: Normal sensory function, Normal motor function Skin: Dry, Intact Psych/Mental Status: Mental status NL, Mood NL Medications Current Medications Medications Dose Ordered Sig/Chang Route Start Time Stop Time Status Last Admin Dose Admin Ondansetron HCl 4 mg Q4HP PRN IV 08/14/24 11:30 08/17/24 12:06 4 MG Acetaminophen 650 mg Q6HP PRN PO 08/14/24 11:30 Rifaximin 550 mg BID PO 08/14/24 22:00 08/17/24 21:29 550 MG Sucralfate 0.5 gm QID PO 08/14/24 12:00 08/18/24 07:33 0.5 GM Hydroxyzine Pamoate 25 mg BID PRN PO 08/14/24 13:00 Patient Own Medication 1 tab TID PO 08/14/24 14:00 Piperacillin Sod/ Tazobactam Sod 100 ml @ 25 mls/hr Q8HR IV 08/14/24 14:00 08/18/24 07:34 25 MLS/HR Spironolactone 25 mg DAILY PO 08/15/24 10:00 08/17/24 11:03 25 MG Pantoprazole Sodium 40 mg DAILY@0600 PO 08/15/24 06:00 08/18/24 07:33 40 MG Midodrine 10 mg TID@0600,1200,1800 PO 08/16/24 12:00 08/18/24 07:33 10 MG Lactulose 30 ml DAILY PO 08/17/24 10:00 08/17/24 10:48 30 ML Methylprednisolone Sodium Succinate 40 mg DAILY IV 08/17/24 10:00 08/17/24 11:03 40 MG Furosemide 20 mg DAILY IV 08/17/24 10:00 08/17/24 11:03 20 MG Nicardipine HCl 250 ml @ 50 mls/hr Q5H IV 08/17/24 03:45 Cancel Azithromycin 250 ml @ 125 mls/hr DAILY IV 08/17/24 10:30 08/17/24 10:30 125 MLS/HR Norepinephrine Bitartrate 250 ml @ 0.938 mls/ hr Q24H IV 08/17/24 12:00 08/17/24 12:00 7.5 MLS/HR Laboratory Results Laboratory Tests 08/18/24 05:00 Chemistry Test 08/18/24 05:00 Calcium Level 9.6 mg/dL (8.7-10.4) Microbiology Microbiology Date/Time Source Procedure Growth Status 08/15/24 18:27 Peritoneal Fluid Gram Stain - Final Resulted 08/15/24 18:27 Peritoneal Fluid Body Fluid Culture - Preliminary Resulted 08/14/24 15:50 Voided Urine Urine Culture - Final Complete 08/14/24 11:33 Blood Blood Culture - Preliminary NO GROWTH AFTER 72 HOURS OF INCUBATION. Resulted Labs and/or images reviewed: Labs reviewed by me, Image(s) reviewed by me Assessment/Plan Assessment/Plan Impression: -septic shock -community-acquired pneumonia, probable Gram-positive/Gram-negative etiology. -cirrhosis of the liver with portal hypertension -abdominal pain -obesity -thrombocytopenia -leukocytosis -rule out gastritis Plan: Events: Norepinephrine drip at 1 microgram/minute. Patient did have paracentesis with 2.5 L removed. Patient clinically states she feels better. -DVT prophylaxis -continue midodrine -CVP reading -continue antibiotic therapy with Zosyn , add azithromycin -hold anticoagulation given thrombocytopenia -trial of albumin -continue diuresis with Lasix, spironolactone -PPI, Carafate -repeat labs in a.m. -potassium replacement -physical therapy evaluate Critical care time spent with patient discussing and formulating plan of care: 40 minutes. This does not include time spent performing procedures. This medical document was created using an electronic medical record system with [employer] dictation system. Although this document has been carefully reviewed, there may still be some phonetic and typographical errors. These areas are purely typographical due to imperfections of the software programs, and do not reflect any compromise in the patient's medical care. Plan discussed with: Patient, Other (RN) My Orders Orders - MOSES FOOTE NP Procedure Category Date Status Time Azithromycin 500mg/ PHA 08/17/24 In Process 250ml (Zithromax 50 10:30 * Wound Consult CONS 08/17/24 Transmitted Norepinephrine 8 PHA 08/17/24 In Process Mg/250ml Kit 12:00 Urine Bacterial LETICIA 08/17/24 Uncollected Culture 15:39 Paracentesis US 08/18/24 Resulted 07:55 Pt Request For Service PT 08/18/24 Verified 09:12 Date of Service: Aug 18, 2024 Billing Provider: MOSES FOOTE NP Common Visit Codes: [id number] CARE 30-74 MIN MOSES FOOTE NP Aug 18, 2024 09:17
[2024-08-18] MEDS: POTASSIUM EFFERVESENT TAB 25 MEQ PO ONE (09:33)
[2024-08-18 11:57] LABS: Body Fluid Polymorphonuclear 16 % (0-25); Body Fluid Red Blood Cells 10 CUMM (0-2000); Body Fluid White Blood Cells 310 CUMM (0-200)
--- NOTE | 2024-08-18 20:56 | DVHPN2 ---
Progress Note - Dictate Date Seen: Aug 18, 2024 Medical Necessity Reason Pt with a Central, PICC or Fol: No Subjective Patient underwent paracentesis at bedside 2.5 L of fluid was removed Patient is still on low-dose Levophed vital signs Vital Sign Date Time Temp Pulse Resp B/P (MAP) Pulse Ox O2 Delivery O2 Flow Rate FiO2 08/18/24 18:15 59 16 119/53 (75) 94 08/18/24 18:00 Nasal Cannula* 1 24 08/18/24 16:00 98.0 98.0 Total Intake and Output 08/17/24 08/17/24 08/18/24 15:00 23:00 07:00 Intake Total 491.876 ml 575.626 ml 116.875 ml Output Total 500 ml 400 ml Balance 491.876 ml 75.626 ml -283.125 ml medications Current Medications Medications Dose Ordered Sig/Hcang Route Start Time Stop Time Status Last Admin Dose Admin Ondansetron HCl 4 mg Q4HP PRN IV 08/14/24 11:30 08/17/24 12:06 4 MG Acetaminophen 650 mg Q6HP PRN PO 08/14/24 11:30 Rifaximin 550 mg BID PO 08/14/24 22:00 08/18/24 09:35 550 MG Sucralfate 0.5 gm QID PO 08/14/24 12:00 08/18/24 17:30 0.5 GM Hydroxyzine Pamoate 25 mg BID PRN PO 08/14/24 13:00 Patient Own Medication 1 tab TID PO 08/14/24 14:00 Piperacillin Sod/ Tazobactam Sod 100 ml @ 25 mls/hr Q8HR IV 08/14/24 14:00 08/18/24 14:09 25 MLS/HR Spironolactone 25 mg DAILY PO 08/15/24 10:00 08/18/24 09:35 25 MG Pantoprazole Sodium 40 mg DAILY@0600 PO 08/15/24 06:00 08/18/24 07:33 40 MG Midodrine 10 mg TID@0600,1200,1800 PO 08/16/24 12:00 08/18/24 17:30 10 MG Lactulose 30 ml DAILY PO 08/17/24 10:00 08/17/24 10:48 30 ML Methylprednisolone Sodium Succinate 40 mg DAILY IV 08/17/24 10:00 08/18/24 09:33 40 MG Furosemide 20 mg DAILY IV 08/17/24 10:00 08/18/24 09:34 20 MG Nicardipine HCl 250 ml @ 50 mls/hr Q5H IV 08/17/24 03:45 Cancel Azithromycin 250 ml @ 125 mls/hr DAILY IV 08/17/24 10:30 08/18/24 09:32 125 MLS/HR Norepinephrine Bitartrate 250 ml @ 0.938 mls/ hr Q24H IV 08/17/24 12:00 08/17/24 12:00 7.5 MLS/HR Potassium Chloride 10 meq DAILY PO 08/19/24 10:00 objective Patient seen at bedside, awake and arousable but lethargic Mild scleral icterus improved from before Respiratory: Normal air movement Cardiovascular: Normal S1, Normal S2, No murmurs Abdomen is soft slightly distended but there was no significant ascites or tenderness at this time Skin: No significant lesion Neuro: Sensation intact laboratory and microbiology Laboratory Tests 08/18/24 05:00 Test 08/18/24 05:00 Range/Units Serum Glucose 135 H 74-106 mg/dL Problems(with codes): (1) Jaundice (2) Scleroderma (3) Autoimmune hepatitis (4) Ascites (5) SATINDER (acute kidney injury) (6) Transaminitis (7) Hypotension (8) Abdominal pain (9) Cirrhosis of liver Prognosis Plan Continue to monitor liver enzymes Taper down steroids once liver enzymes improve Patient is undergoing wound care This patient prognosis is guarded and she is progressively debilitated Discuss with family about long-term goals I will try to arrange outpatient elective paracentesis on a weekly basis so she does not have to be hospitalized Dietary Evaluation Review Comments: Encourage high fiber foods, consider Renal diet with 60g protein restriction is kidney function worsens. Expected Outcomes/Goals: regluar BMs Plan discussed with: Patient, Daughter RICKY AREVALO MD Aug 18, 2024 20:56
[2024-08-19] VITALS (94 sets, daily range): BP systolic 89–134; BP diastolic 36–75; PULSE 45–64; RESP 12–25; TEMP 97.4–99.4; O2SAT 92–99
[2024-08-19 00:48] LABS: Urine Bacteria FEW /hpf (None Seen); Urine Blood Negative /uL (Negative); Urine Clarity Clear (Clear); Urine Color Light-Yellow (Yellow); Urine Mucus FEW (None Seen); Urine Protein, UAD Negative (Negative); Urine Specific Gravity 1.013 (1.001-1.035); Urine Squamous Epithelial Cell FEW /hpf (<5); Urine Urobilinogen Normal (Negative)
[2024-08-19 06:52] LABS: Basophils # (auto) 0 10 ^3/uL (0-0.2); Basophils % (auto) 0.1 % (0.0-2.0); Eosinophils # (auto) 0 10 ^3/uL (0-0.8); Hematocrit 34.4 % (36.0-46.0); Hemoglobin 11.4 g/dL (12.2-16.2); Lymphocytes # (auto) 0.4 10 ^3/uL (0.4-5.4); Lymphocytes % (auto) 5.5 % (10.0-50.0); Mean Corpuscular Hemoglobin 29.9 pg (28.0-32.0); Mean Corpuscular Hgb Conc. 33.3 g/dL (32.0-36.0); Mean Corpuscular Volume 89.9 fL (80.0-100.0); Monocytes # (auto) 0.3 10 ^3/uL (0-1.3); Monocytes % (auto) 3.7 % (0.0-12.0); Neutrophils # (auto) 6.7 10 ^3/uL (1.6-8.6); Neutrophils % (auto) 90.7 % (37.0-80.0); Platelet Count (auto) 75 10^3/uL (140-450); Red Blood Cells 3.83 10^6/uL (4.0-5.20); Red Cell Distribution Width 20.8 % (11.8-14.3); White Blood Cell 7.4 10^3/uL (4.4-10.8)
[2024-08-19 07:00] LABS: Albumin 3.4 g/dL (3.2-4.8); Anion Gap 13 (5-15); BUN/Creatinine Ratio 17.5 (10.0-20.0); Carbon Dioxide 24 mmol/L (20-31)
[2024-08-19 07:02] LABS: Alanine Aminotransferase 45 U/L (7-40); Alkaline Phosphatase 222 U/L (46-116); Aspartate Aminotransferase 53 U/L (13-40); Bilirubin, Total 2.3 mg/dL (0.2-1.0); Blood Urea Nitrogen 30 mg/dL (9-23); Chloride 98 mmol/L (98-107); Glucose 121 mg/dL (74-106); Sodium 135 mmol/L (136-145); Total Protein 5.6 g/dL (5.7-8.2)
[2024-08-19] MEDS: POTASSIUM CHL 10 Meq TABLET PO SCH (09:21)
--- NOTE | 2024-08-19 10:11 | DVHPN2 ---
Subjective Patient denies any symptoms. Reports that her abdominal pain has improved Reviewed: H&P Changes from previous H/P or p: No Changes General: Per HPI Respiratory: Shortness of breath Gastrointestinal: Abdominal Pain, Diarrhea Objective Vitals Vital Signs Date Time Temp Pulse Resp B/P (MAP) Pulse Ox O2 Delivery O2 Flow Rate FiO2 08/19/24 08:00 130/70 08/19/24 08:00 99.4 47 17 98 99.4 08/19/24 06:00 Nasal Cannula* 1 24 Intake/Output Intake and Output 08/19/24 07:00 Intake Total 2325.003 ml Output Total 925 ml Balance 1400.003 ml Intake Oral 1720 ml IV Total 605.003 ml Output Urine Total 925 ml # Bowel Movements 1 General Appearance: Alert, Oriented X3, Cooperative HEENT: Atraumatic, PERRLA Lungs: Clear to auscultation, Normal air movement Cardiovascular: Normal S1, Normal S2 Abdomen: Normal bowel sounds, Soft, No hepatospenomegaly, Other (Tenderness noted to left lower:) Musculoskeletal: Normal sensory function, Normal motor function Skin: Dry, Intact Psych/Mental Status: Mental status NL, Mood NL Medications Current Medications Medications Dose Ordered Sig/Chang Route Start Time Stop Time Status Last Admin Dose Admin Ondansetron HCl 4 mg Q4HP PRN IV 08/14/24 11:30 08/17/24 12:06 4 MG Acetaminophen 650 mg Q6HP PRN PO 08/14/24 11:30 Rifaximin 550 mg BID PO 08/14/24 22:00 08/19/24 09:22 550 MG Sucralfate 0.5 gm QID PO 08/14/24 12:00 08/19/24 06:20 0.5 GM Hydroxyzine Pamoate 25 mg BID PRN PO 08/14/24 13:00 Patient Own Medication 1 tab TID PO 08/14/24 14:00 Piperacillin Sod/ Tazobactam Sod 100 ml @ 25 mls/hr Q8HR IV 08/14/24 14:00 08/19/24 06:20 25 MLS/HR Spironolactone 25 mg DAILY PO 08/15/24 10:00 08/19/24 09:22 25 MG Pantoprazole Sodium 40 mg DAILY@0600 PO 08/15/24 06:00 08/19/24 06:20 40 MG Midodrine 10 mg TID@0600,1200,1800 PO 08/16/24 12:00 08/19/24 06:20 10 MG Lactulose 30 ml DAILY PO 08/17/24 10:00 08/17/24 10:48 30 ML Methylprednisolone Sodium Succinate 40 mg DAILY IV 08/17/24 10:00 08/19/24 09:23 40 MG Furosemide 20 mg DAILY IV 08/17/24 10:00 08/18/24 09:34 20 MG Nicardipine HCl 250 ml @ 50 mls/hr Q5H IV 08/17/24 03:45 Cancel Azithromycin 250 ml @ 125 mls/hr DAILY IV 08/17/24 10:30 08/18/24 09:32 125 MLS/HR Norepinephrine Bitartrate 250 ml @ 0.938 mls/ hr Q24H IV 08/17/24 12:00 08/17/24 12:00 7.5 MLS/HR Potassium Chloride 10 meq DAILY PO 08/19/24 10:00 08/19/24 09:21 10 MEQ Laboratory Results Laboratory Tests 08/19/24 04:57 Chemistry Test 08/19/24 04:57 Albumin 3.4 g/dL (3.2-4.8) Calcium Level 10.0 mg/dL (8.7-10.4) Total Protein 5.6 g/dL (5.7-8.2) L LFT Test 08/19/24 04:57 Alanine Aminotransferase (ALT) 45 U/L (7-40) H Alkaline Phosphatase 222 U/L (46-116) H Aspartate Amino Transferase (AST) 53 U/L (13-40) H Total Bilirubin 2.3 mg/dL (0.2-1.0) H Urinalysis Test 08/18/24 22:15 Urine Color Light-yellow (Yellow) Urine Clarity Clear (Clear) Urine pH 5.0 (5.0-9.0) Urine Specific [place] 1.013 (1.001-1.035) Urine Protein Negative (Negative) Urine Ketones Trace (Negative) Urine Blood Negative /uL (Negative) Urine Nitrite Negative (Negative) Urine Bilirubin Negative (Negative) Urine Urobilinogen Normal mg/dL (Negative) Urine Leukocyte Esterase Negative /uL (Negative) Urine RBC None seen /hpf (0 - 4) Urine Microscopic WBC /HPF (0-5) Urine Squamous Epithelial Cells Few /hpf (<5) Urine Bacteria Few /hpf (None Seen) H Urine Mucus Few (None Seen) Urine Glucose Normal mg/dL (Normal) Microbiology Microbiology Date/Time Source Procedure Growth Status 08/18/24 06:55 Nose MRSA Screen - Final Complete 08/15/24 18:27 Peritoneal Fluid Gram Stain - Final Resulted 08/15/24 18:27 Peritoneal Fluid Body Fluid Culture - Preliminary Resulted 08/14/24 15:50 Voided Urine Urine Culture - Final Complete 08/14/24 11:33 Blood Blood Culture - Preliminary NO GROWTH AFTER 72 HOURS OF INCUBATION. Resulted Labs and/or images reviewed: Labs reviewed by me, Image(s) reviewed by me Assessment/Plan Assessment/Plan Impression: -septic shock -community-acquired pneumonia, probable Gram-positive/Gram-negative etiology. -cirrhosis of the liver with portal hypertension -abdominal pain -obesity -thrombocytopenia -leukocytosis -rule out gastritis Plan: Events: Epinephrine at 0.5 mcg per minute. -DVT prophylaxis -continue midodrine -CVP reading -continue antibiotic therapy with Zosyn , add azithromycin -hold anticoagulation given thrombocytopenia -continue diuresis with Lasix, spironolactone -PPI, Carafate -repeat labs in a.m. -potassium replacement -physical therapy evaluation Critical care time spent with patient discussing and formulating plan of care: 40 minutes. This does not include time spent performing procedures. This medical document was created using an electronic medical record system with [employer] dictation system. Although this document has been carefully reviewed, there may still be some phonetic and typographical errors. These areas are purely typographical due to imperfections of the software programs, and do not reflect any compromise in the patient's medical care. Plan discussed with: Patient, Other (RN) My Orders Orders - MOSES FOOTE NP Procedure Category Date Status Time Urine Bacterial LETICIA 08/17/24 In Process Culture 15:39 Cleanse Wound With SANDRA 08/18/24 In Process Mild Soap A 15:04 Date of Service: Aug 19, 2024 Billing Provider: MOSES FOOTE NP Common Visit Codes: [id number] CARE 30-74 MIN MOSES FOOTE NP Aug 19, 2024 10:11
[2024-08-19 12:06] LABS: Protein, Body Fluid 0.5 g/dL (.)
[2024-08-19] MEDS: POTASSIUM CHL 20MEQ/100ML 100 ML IV SCH (15:42)
--- NOTE | 2024-08-19 16:37 | DVHINCON2 ---
Date Seen: Aug 19, 2024 Referring Physician CRISTA Patel Reason for Consultation Bradycardia History of Present Illness This is a 69-year-old female patient who presents to the emergency room with chief complaint of abdominal pain, diarrhea, and generalized weakness. The patient reports that she was recently seen and discharged from [facility]. Her daughter who was at bedside confirms that the patient has had multiple admissions to this facility as well as other facilities in the area. Cardiology is now being consulted for bradycardia. A twelve lead electrocardiogram was done today by bedside RN and reveals sinus bradycardia nonspecific ST segment depression to anterolateral leads. The patient denies any cardiac symptoms such as chest pain or shortness of breath. Significant past medical history includes nonalcoholic liver cirrhosis, chronic anemia, scleroderma, and chronic kidney disease. Past Medical History Past medical history reviewed. No other significant than mentioned above. Past Surgical History Esophageal varices with banding Family History: FH: breast cancer G8 MOTHER Scleroderma G8 FATHER, Family History Family history reviewed. Social History Denies the use of tobacco, alcohol or illicit drugs. Allergies: Coded Allergies: NO KNOWN ALLERGIES (Unverified , 01/23/21) Home Meds Active Scripts Prednisone (Prednisone) 20 Mg Tab, 20 MG PO DAILY for 30 Days, #30 MG Prov:GABINO COBURN RESIDENT 06/11/24 Midodrine HCl (Midodrine Hydrochloride) 10 Mg Tab, 10 MG PO TID for 30 Days, #90 TAB 3 Refills Prov:GABINO COBURN RESIDENT 06/11/24 Pantoprazole Sodium Sesquihydr (Protonix) 40 Mg Tab, 40 MG PO DAILY for 30 Days, #30 TAB Prov:GABINO COBURN RESIDENT 06/11/24 Reported Medications Furosemide (Furosemide) 20 Mg Tab, 1 TAB PO TID for 30 Days, #90 07/06/24 Sucralfate (CARAFATE SUSP) 1 Gm/10 Ml Ss, 5 ML PO QID 07/04/24 Hydroxyzine Hcl (Hydroxyzine Hcl) 25 Mg Tab, 2 TAB PO BID PRN for FOR ITCHING 07/04/24 Propranolol HCl (Propranolol Hydrochloride) 10 Mg Tab, 1 TAB PO TID 07/04/24 Rifaximin (Xifaxan) 550 Mg Tab, 1 TAB PO BID 07/04/24 Spironolactone (Spironolactone) 25 Mg Tab, 2 TAB PO BID 07/04/24 Ursodiol (Ursodiol) 500 Mg Tab, 1 TAB PO TID 07/04/24 Home Meds Home medications reviewed. Current Medications Current Medications Medications (Trade) Dose Ordered Sig/Chang Route PRN Reason Start Time Stop Time Status Last Admin Potassium Chloride (Klor-Con Tablet) 10 meq DAILY PO 08/19/24 10:00 08/19/24 09:21 Potassium Chloride 100 ml @ 50 mls/hr Q2H IV 08/19/24 10:15 08/19/24 14:14 DC 08/19/24 15:42 Ceftriaxone Sodium 50 ml @ 100 mls/hr DAILY@09 IV 08/20/24 09:00 Review of Systems Constitutional: No symptom reported Ears, Nose, & Throat: No symptom reported Eyes: No symptom reported Neurological: No symptoms reported Pulmonary/Respiratory: No symptoms reported Cardiovascular: No symptom reported Gastrointestinal: Abdominal pain and distention Genitourinary: No symptom reported Musculoskeletal: No symptom reported Skin: No symptom reported Psychiatric: No symptom reported Endocrine: No symptom reported Hematologic/Lymphatic: No symptom reported Vital Signs Vital Signs Date Time Temp Pulse Resp B/P (MAP) Pulse Ox O2 Delivery O2 Flow Rate FiO2 08/19/24 16:15 49 24 114/52 (72) 97 08/19/24 16:00 97.8 97.8 08/19/24 14:00 Nasal Cannula* 1 24 Physical Exam General Appearance: Cooperative. Well-developed. Well-nourished. No acute distress. Pulmonary/Respiratory: Diminished bilateral lower lobes Cardiovascular/Chest: Regular rate and rhythm. Peripheral Pulses: 2+ Radial (R). 2+ Radial (L). 2+ Pedal (R). 2+ Pedal (L) Abdominal Exam: Normal bowel sounds. Ankle Exam: Negative ankle edema Lower extremities: Negative lower extremity edema Neuro/Mental Status: A/OX4, coherent. Thoughts/Psych: Normal thought pattern. Appropriate mood and affect. Good judgment and insight. Appearance: No acute distress. Skin Exam: Normal inspection. Normal color. Warm and dry. Labs/Diagnostic Data Labs Test 08/19/24 04:57 08/18/24 22:15 08/18/24 09:45 08/18/24 05:00 Range/Units White Blood Count 7.4 # 4.4-10.8 10^3/uL Red Blood Count 3.83 L 4.0-5.20 10^6/uL Hemoglobin 11.4 L 12.2-16.2 g/dL Hematocrit 34.4 L 36.0-46.0 % Mean Corpuscular Volume 89.9 80.0-100.0 fL Mean Corpuscular Hemoglobin 29.9 28.0-32.0 pg Mean Corpuscular Hemoglobin Concent 33.3 32.0-36.0 g/dL Red Cell Distribution Width 20.8 H 11.8-14.3 % Platelet Count 75 L 140-450 10^3/uL Mean Platelet Volume 8.1 6.9-10.8 fL Neutrophils (%) (Auto) 90.7 H 37.0-80.0 % Lymphocytes (%) (Auto) 5.5 L 10.0-50.0 % Monocytes (%) (Auto) 3.7 0.0-12.0 % Eosinophils (%) (Auto) 0.0 0.0-7.0 % Basophils (%) (Auto) 0.1 0.0-2.0 % Neutrophils # (Auto) 6.7 1.6-8.6 10 ^3/uL Lymphocytes # (Auto) 0.4 0.4-5.4 10 ^3/uL Monocytes # (Auto) 0.3 0-1.3 10 ^3/uL Eosinophils # (Auto) 0 0-0.8 10 ^3/uL Basophils # (Auto) 0 0-0.2 10 ^3/uL Nucleated Red Blood Cells 0.0 % Sodium Level 135 L 136-145 mmol/L Potassium Level 3.0 L 3.5-5.1 mmol/L Chloride Level 98 98-107 mmol/L Carbon Dioxide Level 24 20-31 mmol/L Anion Gap 13 5-15 Blood Urea Nitrogen 30 H 9-23 mg/dL Creatinine 1.71 H 0.550-1.02 mg/dL Glomerular Filtration Rate Calc 32 >90 mL/min BUN/Creatinine Ratio 17.5 10.0-20.0 Serum Glucose 121 H 74-106 mg/dL Calcium Level 10.0 8.7-10.4 mg/dL Magnesium Level 2.0 1.6-2.6 mg/dL Total Bilirubin 2.3 H 0.2-1.0 mg/dL Aspartate Amino Transferase (AST) 53 H 13-40 U/L Alanine Aminotransferase (ALT) 45 H 7-40 U/L Alkaline Phosphatase 222 H 46-116 U/L Total Protein 5.6 L 5.7-8.2 g/dL Albumin 3.4 3.2-4.8 g/dL Thyroid Stimulating Hormone (TSH) 0.26 L 0.55-4.78 uIU/mL Urine Color Light-yellow Yellow Urine Clarity Clear Clear Urine pH 5.0 5.0-9.0 Urine Specific [place] 1.013 1.001-1.035 Urine Protein Negative Negative Urine Ketones Trace Negative Urine Blood Negative Negative /uL Urine Nitrite Negative Negative Urine Bilirubin Negative Negative Urine Urobilinogen Normal Negative mg/dL Urine Leukocyte Esterase Negative Negative /uL Urine RBC None seen 0 - 4 /hpf Urine Microscopic WBC 0-5 /HPF Urine Squamous Epithelial Cells Few <5 /hpf Urine Bacteria Few H None Seen /hpf Urine Mucus Few None Seen Urine Glucose Normal Normal mg/dL Body Fluid Source Ascities fluid Body Fluid pH 8.0 Body Fluid WBC (Manual) 310 H 0-200 CUMM Body Fluid RBC (Manual) 10 0-2000 CUMM Body Fluid Mononuclear Cells 84 % Body Fluid Polymorphonuclear Cells 16 0-25 % Body Fluid Glucose 157 . mg/dL Body Fluid Total Protein 0.5 . g/dL Body Fluid Lactate Dehydrogenase 50 . IU/L Platelet Estimate Decreased Test 08/15/24 18:27 08/15/24 07:53 08/14/24 12:05 08/14/24 11:33 Range/Units Body Fluid Albumin <0.2 Not Estab. g/dL POC Glucose 100 70-106 mg/dl Lactic Acid Level 2.1 *H 0.4-2.0 mmol/L Ammonia < 10 L 11-32 umol/L Prothrombin Time 11.9 H 9.3-11.8 sec Prothrombin Time INR 1.14 0.9-1.15 Activated Partial Thromboplast Time 26.2 24.5-34.5 SEC Amylase Level 97 30-118 U/L Lipase 58 H 12-53 U/L Microbiology Date/Time Source Procedure Growth Status 08/18/24 09:45 Ascities Fluid Gram Stain - Final Resulted 08/18/24 09:45 Ascities Fluid Body Fluid Culture - Preliminary Resulted 08/18/24 06:55 Nose MRSA Screen - Final Complete 08/17/24 21:41 Urine - Catheterized Urine Culture - Preliminary Resulted 08/14/24 11:33 Blood Blood Culture - Final NO GROWTH AFTER 5 DAYS OF INCUBATION. Complete Assessment Sinus bradycardia Liver cirrhosis Hypokalemia Thrombocytopenia Transaminitis Acute kidney injury vs CKD Pneumonia Scleroderma Plan/Recommendation We will continue with following plan/recommendations (Dr. Khanna): Patient seen and examined at bedside with . Transthoracic echocardiogram from 07/18/2024 reveals EF 65-70%. The patient now presents with intermittent sinus bradycardia. No pauses or high-degree blocks noted after reviewing clinical staff rn. At this time, we will recommend to avoid all AV kip blocking agents. It was worth noting that the patient takes midodrine on schedule at [facility] and has been restarted on this medication here. Side effects of midodrine include bradycardia. We would recommend to discontinue midodrine if patient is able to tolerate. Continue vasopressor therapy in the meantime. The patient is not a candidate for any temporary or permanent pacemaker insertion at this time. Continue with close cardiac surveillance. Monitor ECG and notify cardiology team immediately for any pauses or AV blocks. Thank you for allowing us to care for this patient. Please call with any questions or concerns. Critical care time spent: 42 minutes This medical document was created using an electronic medical record system with voice recognition software and computerized dictation system. Although this document has been carefully reviewed, there might still be some phonetic and typographical errors. Occasional wrong-word or ``sound-alike substitutions may have occurred due to the inherent limitations of voice recognition software. These areas are purely typographical due to imperfections of the software programs and do not reflect any compromise in the patient's medical care. Please read the chart carefully and recognize, using context, where these substitutions have occurred. Plan discussed with: Patient NYHA Physical activity limitations: NA Date of Service: Aug 19, 2024 Billing Provider: THAD COOK Cardiology Common Codes: [id number] INP/OBS CARE (High) Cardiology Consultation Codes: [id number] CONSULT <45MIN THAD COOK Aug 19, 2024 16:37
[2024-08-19 16:54] LABS: Free T3 1.29 pg/mL (2.3-4.2)
[2024-08-19 16:55] LABS: Free T4 (Free Thyroxine) 0.92 ng/dL (0.89-1.76)
[2024-08-20] VITALS (81 sets, daily range): BP systolic 82–144; BP diastolic 39–62; PULSE 46–77; RESP 12–26; TEMP 97.6–98.2; O2SAT 91–98
[2024-08-20 05:28] LABS: Basophils # (auto) 0 10 ^3/uL (0-0.2); Basophils % (auto) 0.4 % (0.0-2.0); Eosinophils # (auto) 0 10 ^3/uL (0-0.8); Hematocrit 35.1 % (36.0-46.0); Hemoglobin 11.7 g/dL (12.2-16.2); Lymphocytes # (auto) 0.4 10 ^3/uL (0.4-5.4); Lymphocytes % (auto) 7.3 % (10.0-50.0); Mean Corpuscular Hemoglobin 29.9 pg (28.0-32.0); Mean Corpuscular Hgb Conc. 33.4 g/dL (32.0-36.0); Mean Corpuscular Volume 89.4 fL (80.0-100.0); Monocytes # (auto) 0.2 10 ^3/uL (0-1.3); Neutrophils # (auto) 4.9 10 ^3/uL (1.6-8.6); Neutrophils % (auto) 88.3 % (37.0-80.0); Nucleated Red Blood Cells % 0.2 %; Platelet Count (auto) 69 10^3/uL (140-450); Red Blood Cells 3.92 10^6/uL (4.0-5.20); White Blood Cell 5.6 10^3/uL (4.4-10.8)
[2024-08-20 05:52] LABS: Albumin 3.3 g/dL (3.2-4.8); Anion Gap 9 (5-15); BUN/Creatinine Ratio 18.2 (10.0-20.0); Calcium 9.9 mg/dL (8.7-10.4); Carbon Dioxide 26 mmol/L (20-31); Chloride 101 mmol/L (98-107)
[2024-08-20 06:03] LABS: Alanine Aminotransferase 61 U/L (7-40); Alkaline Phosphatase 254 U/L (46-116); Aspartate Aminotransferase 80 U/L (13-40); Bilirubin, Total 2.2 mg/dL (0.2-1.0); Blood Urea Nitrogen 35 mg/dL (9-23); Glucose 114 mg/dL (74-106); Sodium 136 mmol/L (136-145); Total Protein 5.5 g/dL (5.7-8.2)
--- NOTE | 2024-08-20 09:20 | ECG ---
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
--- NOTE | 2024-08-20 09:20 | DVHPN2 ---
Subjective Patient denies any symptoms. Reports that her abdominal pain has improved Reviewed: H&P Changes from previous H/P or p: No Changes General: Per HPI Respiratory: Shortness of breath Gastrointestinal: Abdominal Pain, Diarrhea Objective Vitals Vital Signs Date Time Temp Pulse Resp B/P (MAP) Pulse Ox O2 Delivery O2 Flow Rate FiO2 08/20/24 06:30 54 15 100/49 (66) 96 08/20/24 06:00 Nasal Cannula* 1 24 08/20/24 04:00 97.6 97.6 Intake/Output Intake and Output 08/20/24 07:00 Intake Total 1037.194 ml Output Total 1000 ml Balance 37.194 ml Intake Oral 450 ml IV Total 587.194 ml Output Urine Total 1000 ml General Appearance: Alert, Oriented X3, Cooperative HEENT: Atraumatic, PERRLA Lungs: Clear to auscultation, Normal air movement Cardiovascular: Normal S1, Normal S2 Abdomen: Normal bowel sounds, Soft, No hepatospenomegaly, Other (Tenderness noted to left lower:) Musculoskeletal: Normal sensory function, Normal motor function Neuro: Cranial nerves 3-12 NL Skin: Dry, Intact Psych/Mental Status: Mental status NL, Mood NL Medications Current Medications Medications Dose Ordered Sig/Chang Route Start Time Stop Time Status Last Admin Dose Admin Ondansetron HCl 4 mg Q4HP PRN IV 08/14/24 11:30 08/17/24 12:06 4 MG Acetaminophen 650 mg Q6HP PRN PO 08/14/24 11:30 Rifaximin 550 mg BID PO 08/14/24 22:00 08/19/24 22:02 550 MG Sucralfate 0.5 gm QID PO 08/14/24 12:00 08/20/24 06:30 0.5 GM Hydroxyzine Pamoate 25 mg BID PRN PO 08/14/24 13:00 Patient Own Medication 1 tab TID PO 08/14/24 14:00 Spironolactone 25 mg DAILY PO 08/15/24 10:00 08/19/24 09:22 25 MG Pantoprazole Sodium 40 mg DAILY@0600 PO 08/15/24 06:00 08/20/24 06:30 40 MG Midodrine 10 mg TID@0600,1200,1800 PO 08/16/24 12:00 08/20/24 06:30 10 MG Lactulose 30 ml DAILY PO 08/17/24 10:00 08/17/24 10:48 30 ML Methylprednisolone Sodium Succinate 40 mg DAILY IV 08/17/24 10:00 08/19/24 09:23 40 MG Furosemide 20 mg DAILY IV 08/17/24 10:00 08/19/24 11:15 20 MG Nicardipine HCl 250 ml @ 50 mls/hr Q5H IV 08/17/24 03:45 Cancel Azithromycin 250 ml @ 125 mls/hr DAILY IV 08/17/24 10:30 08/19/24 12:59 125 MLS/HR Norepinephrine Bitartrate 250 ml @ 0.938 mls/ hr Q24H IV 08/17/24 12:00 08/19/24 13:09 0.938 MLS/HR Potassium Chloride 10 meq DAILY PO 08/19/24 10:00 08/19/24 09:21 10 MEQ Ceftriaxone Sodium 50 ml @ 100 mls/hr DAILY@09 IV 08/20/24 09:00 Laboratory Results Laboratory Tests 08/20/24 04:45 Chemistry Test 08/20/24 04:45 Albumin 3.3 g/dL (3.2-4.8) Calcium Level 9.9 mg/dL (8.7-10.4) Total Protein 5.5 g/dL (5.7-8.2) L LFT Test 08/20/24 04:45 Alanine Aminotransferase (ALT) 61 U/L (7-40) H Alkaline Phosphatase 254 U/L (46-116) H Aspartate Amino Transferase (AST) 80 U/L (13-40) H Total Bilirubin 2.2 mg/dL (0.2-1.0) H Urinalysis Test 08/18/24 22:15 Urine Color Light-yellow (Yellow) Urine Clarity Clear (Clear) Urine pH 5.0 (5.0-9.0) Urine Specific [place] 1.013 (1.001-1.035) Urine Protein Negative (Negative) Urine Ketones Trace (Negative) Urine Blood Negative /uL (Negative) Urine Nitrite Negative (Negative) Urine Bilirubin Negative (Negative) Urine Urobilinogen Normal mg/dL (Negative) Urine Leukocyte Esterase Negative /uL (Negative) Urine RBC None seen /hpf (0 - 4) Urine Microscopic WBC /HPF (0-5) Urine Squamous Epithelial Cells Few /hpf (<5) Urine Bacteria Few /hpf (None Seen) H Urine Mucus Few (None Seen) Urine Glucose Normal mg/dL (Normal) Microbiology Microbiology Date/Time Source Procedure Growth Status 08/18/24 09:45 Ascities Fluid Gram Stain - Final Resulted 08/18/24 09:45 Ascities Fluid Body Fluid Culture - Preliminary Resulted 08/18/24 06:55 Nose MRSA Screen - Final Complete 08/17/24 21:41 Urine - Catheterized Urine Culture - Preliminary Resulted 08/14/24 11:33 Blood Blood Culture - Final NO GROWTH AFTER 5 DAYS OF INCUBATION. Complete Labs and/or images reviewed: Labs reviewed by me, Image(s) reviewed by me Assessment/Plan Assessment/Plan Impression: -septic shock -community-acquired pneumonia, probable Gram-positive/Gram-negative etiology. -cirrhosis of the liver with portal hypertension -abdominal pain -obesity -thrombocytopenia -leukocytosis -rule out gastritis Plan: Events: Patient now off norepinephrine. Blood pressure acceptable. Cardiology consultation obtained with recommendations reviewed. -DVT prophylaxis -continue midodrine -continue antibiotic therapy with Zosyn , add azithromycin -hold anticoagulation given thrombocytopenia -continue diuresis with spironolactone -PPI, Carafate -repeat labs in a.m. -potassium replacement -physical therapy evaluation -transferred to telemetry unit Critical care time spent with patient discussing and formulating plan of care: 40 minutes. This does not include time spent performing procedures. This medical document was created using an electronic medical record system with sifonr dictation system. Although this document has been carefully reviewed, there may still be some phonetic and typographical errors. These areas are purely typographical due to imperfections of the software programs, and do not reflect any compromise in the patient's medical care. Plan discussed with: Patient, Other (RN) My Orders Orders - MOSES FOOTE NP Procedure Category Date Status Time Ceftriaxone 1gm/50ml PHA 08/20/24 In Process D5w (Rocephin) 09:00 * Cardiology Consult CONS 08/19/24 Transmitted 11:03 Electrocardigram EKG 08/19/24 Logged 12:20 Date of Service: Aug 20, 2024 Billing Provider: MOSES FOOTE NP Common Visit Codes: [id number] INP/OBS CARE(HIGH) MOSES FOOTE NP Aug 20, 2024 09:20
[2024-08-20] MEDS: cefTRIAXone 1GM/50ML D5W 50 ML IV SCH (10:08)
--- NOTE | 2024-08-20 17:41 | ECG ---
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
[2024-08-21] VITALS (9 sets, daily range): BP systolic 97–121; BP diastolic 49–66; PULSE 53–82; RESP 15–20; TEMP 97.4–98; O2SAT 94–97
[2024-08-21 06:52] LABS: Basophils # (auto) 0 10 ^3/uL (0-0.2); Basophils % (auto) 0.6 % (0.0-2.0); Eosinophils # (auto) 0 10 ^3/uL (0-0.8); Hematocrit 38.7 % (36.0-46.0); Hemoglobin 12.9 g/dL (12.2-16.2); Lymphocytes # (auto) 0.4 10 ^3/uL (0.4-5.4); Lymphocytes % (auto) 6.3 % (10.0-50.0); Mean Corpuscular Hemoglobin 30.2 pg (28.0-32.0); Mean Corpuscular Hgb Conc. 33.4 g/dL (32.0-36.0); Mean Corpuscular Volume 90.5 fL (80.0-100.0); Monocytes # (auto) 0.3 10 ^3/uL (0-1.3); Monocytes % (auto) 4.1 % (0.0-12.0); Neutrophils # (auto) 6.3 10 ^3/uL (1.6-8.6); Nucleated Red Blood Cells % 0.2 %; Platelet Count (auto) 75 10^3/uL (140-450); Red Blood Cells 4.28 10^6/uL (4.0-5.20); Red Cell Distribution Width 21.7 % (11.8-14.3)
[2024-08-21 06:58] LABS: Chloride 101 mmol/L (98-107)
[2024-08-21 06:59] LABS: Anion Gap 9 (5-15); Carbon Dioxide 20 mmol/L (20-31)
[2024-08-21 07:00] LABS: Calcium 9.8 mg/dL (8.7-10.4)
[2024-08-21 07:07] LABS: Glucose 121 mg/dL (74-106); Sodium 130 mmol/L (136-145)
[2024-08-21 07:15] LABS: BUN/Creatinine Ratio 16.2 (10.0-20.0)
[2024-08-21 07:32] LABS: Blood Urea Nitrogen 32 mg/dL (9-23); Potassium 4.4 mmol/L (3.5-5.1)
--- NOTE | 2024-08-21 11:37 | ECG ---
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
--- NOTE | 2024-08-21 13:11 | DVHPN2 ---
Reviewed: Care Plan, H&P Changes from previous H/P or p: No Changes General: Per HPI Respiratory: Shortness of breath Gastrointestinal: Abdominal Pain, Diarrhea Objective Vitals Vital Signs Date Time Temp Pulse Resp B/P (MAP) Pulse Ox O2 Delivery O2 Flow Rate FiO2 08/21/24 09:09 113/57 08/21/24 09:00 97.6 67 15 95 97.6 08/21/24 08:00 Room Air* 0 21 Intake/Output Intake and Output 08/21/24 07:00 Intake Total 1300 ml Output Total 650 ml Balance 650 ml Intake Oral 1000 ml IV Total 300 ml Output Urine Total 650 ml # Bowel Movements 1 General Appearance: Alert, Oriented X3, Cooperative HEENT: Atraumatic, PERRLA Lungs: Clear to auscultation, Normal air movement Cardiovascular: Normal S1, Normal S2 Abdomen: Normal bowel sounds, Soft, No hepatospenomegaly, Other (Tenderness noted to left lower:) Musculoskeletal: Normal sensory function, Normal motor function Neuro: Cranial nerves 3-12 NL Skin: Dry, Intact Psych/Mental Status: Mental status NL, Mood NL Medications Current Medications Medications Dose Ordered Sig/Chang Route Start Time Stop Time Status Last Admin Dose Admin Ondansetron HCl 4 mg Q4HP PRN IV 08/14/24 11:30 08/17/24 12:06 4 MG Acetaminophen 650 mg Q6HP PRN PO 08/14/24 11:30 Rifaximin 550 mg BID PO 08/14/24 22:00 08/21/24 09:03 550 MG Sucralfate 0.5 gm QID PO 08/14/24 12:00 08/21/24 05:07 0.5 GM Patient Own Medication 1 tab TID PO 08/14/24 14:00 Spironolactone 25 mg DAILY PO 08/15/24 10:00 08/21/24 09:03 25 MG Pantoprazole Sodium 40 mg DAILY@0600 PO 08/15/24 06:00 08/21/24 05:07 40 MG Midodrine 10 mg TID@0600,1200,1800 PO 08/16/24 12:00 08/21/24 05:07 10 MG Lactulose 30 ml DAILY PO 08/17/24 10:00 08/21/24 09:03 30 ML Methylprednisolone Sodium Succinate 40 mg DAILY IV 08/17/24 10:00 08/21/24 09:03 40 MG Furosemide 20 mg DAILY IV 08/17/24 10:00 08/21/24 09:09 20 MG Nicardipine HCl 250 ml @ 50 mls/hr Q5H IV 08/17/24 03:45 Cancel Azithromycin 250 ml @ 125 mls/hr DAILY IV 08/17/24 10:30 08/20/24 10:09 125 MLS/HR Potassium Chloride 10 meq DAILY PO 08/19/24 10:00 08/21/24 09:02 10 MEQ Ceftriaxone Sodium 50 ml @ 100 mls/hr DAILY@09 IV 08/20/24 09:00 08/21/24 09:04 100 MLS/HR Laboratory Results Laboratory Tests 08/21/24 05:58 Chemistry Test 08/21/24 05:58 Calcium Level 9.8 mg/dL (8.7-10.4) Urinalysis Test 08/18/24 22:15 Urine Color Light-yellow (Yellow) Urine Clarity Clear (Clear) Urine pH 5.0 (5.0-9.0) Urine Specific [place] 1.013 (1.001-1.035) Urine Protein Negative (Negative) Urine Ketones Trace (Negative) Urine Blood Negative /uL (Negative) Urine Nitrite Negative (Negative) Urine Bilirubin Negative (Negative) Urine Urobilinogen Normal mg/dL (Negative) Urine Leukocyte Esterase Negative /uL (Negative) Urine RBC None seen /hpf (0 - 4) Urine Microscopic WBC /HPF (0-5) Urine Squamous Epithelial Cells Few /hpf (<5) Urine Bacteria Few /hpf (None Seen) H Urine Mucus Few (None Seen) Urine Glucose Normal mg/dL (Normal) Microbiology Microbiology Date/Time Source Procedure Growth Status 08/18/24 09:45 Ascities Fluid Gram Stain - Final Resulted 08/18/24 09:45 Ascities Fluid Body Fluid Culture - Preliminary Resulted 08/18/24 06:55 Nose MRSA Screen - Final Complete 08/17/24 21:41 Urine - Catheterized Urine Culture - Final Complete 08/14/24 11:33 Blood Blood Culture - Final NO GROWTH AFTER 5 DAYS OF INCUBATION. Complete Labs and/or images reviewed: Labs reviewed by me, Image(s) reviewed by me Assessment/Plan Assessment/Plan Covering for CRISTA Patel -septic shock -community-acquired pneumonia, probable Gram-positive/Gram-negative etiology. :: Continue antibiotics Zosyn azithromycin -cirrhosis of the liver with portal hypertension -abdominal pain -obesity -thrombocytopenia -leukocytosis -rule out gastritis Hypotension: Midodrine Time spent 55 minutes Plan discussed with: Patient Date of Service: Aug 21, 2024 Billing Provider: BETTY GOLDMAN MD Common Visit Codes: [id number] INP/OBS CARE(HIGH) BETTY GOLDMAN MD Aug 21, 2024 13:11
--- NOTE | 2024-08-21 14:54 | DVHPN2 ---
Progress Note - Dictate Date Seen: Aug 21, 2024 Medical Necessity Reason Pt with a Central, PICC or Fol: No Subjective Patient is stable awake and arousable ; one bowel movement recorded Patient tends to run low blood pressures but currently off pressors Patient is getting a low-dose Lasix 20 mg IV daily and also spironolactone 50 mg p.o. q.h.s. Patient is on IV antibiotics Steroids, ursodiol and Protonix on board CBC is stable H&H stable and liver enzymes generally are trending downwards with a bilirubin down to 2.2 vital signs Vital Sign Date Time Temp Pulse Resp B/P (MAP) Pulse Ox O2 Delivery O2 Flow Rate FiO2 08/21/24 13:00 97.4 62 16 107/65 (79) 96 97.4 08/21/24 08:00 Room Air* 0 21 Total Intake and Output 08/20/24 08/20/24 08/21/24 15:00 23:00 07:00 Intake Total 300 ml 1000 ml 0 ml Output Total 450 ml 200 ml Balance 300 ml 550 ml -200 ml medications Current Medications Medications Dose Ordered Sig/Chang Route Start Time Stop Time Status Last Admin Dose Admin Ondansetron HCl 4 mg Q4HP PRN IV 08/14/24 11:30 08/17/24 12:06 4 MG Acetaminophen 650 mg Q6HP PRN PO 08/14/24 11:30 Rifaximin 550 mg BID PO 08/14/24 22:00 08/21/24 09:03 550 MG Sucralfate 0.5 gm QID PO 08/14/24 12:00 08/21/24 13:29 0.5 GM Patient Own Medication 1 tab TID PO 08/14/24 14:00 Spironolactone 25 mg DAILY PO 08/15/24 10:00 08/21/24 09:03 25 MG Pantoprazole Sodium 40 mg DAILY@0600 PO 08/15/24 06:00 08/21/24 05:07 40 MG Midodrine 10 mg TID@0600,1200,1800 PO 08/16/24 12:00 08/21/24 13:29 10 MG Lactulose 30 ml DAILY PO 08/17/24 10:00 08/21/24 09:03 30 ML Methylprednisolone Sodium Succinate 40 mg DAILY IV 08/17/24 10:00 08/21/24 09:03 40 MG Furosemide 20 mg DAILY IV 08/17/24 10:00 08/21/24 09:09 20 MG Nicardipine HCl 250 ml @ 50 mls/hr Q5H IV 08/17/24 03:45 Cancel Azithromycin 250 ml @ 125 mls/hr DAILY IV 08/17/24 10:30 08/21/24 11:00 125 MLS/HR Potassium Chloride 10 meq DAILY PO 08/19/24 10:00 08/21/24 09:02 10 MEQ Ceftriaxone Sodium 50 ml @ 100 mls/hr DAILY@09 IV 08/20/24 09:00 08/21/24 09:04 100 MLS/HR objective Patient seen at bedside, awake and arousable but lethargic Mild scleral icterus improved from before Respiratory: Normal air movement Cardiovascular: Normal S1, Normal S2, No murmurs Abdomen is soft slightly distended but there was no significant ascites or tenderness at this time Skin: No significant lesion Neuro: Sensation intact laboratory and microbiology Laboratory Tests 08/21/24 05:58 Test 08/21/24 05:58 Range/Units Serum Glucose 121 H 74-106 mg/dL Problems(with codes): (1) Jaundice (2) Autoimmune hepatitis (3) Ascites (4) SATINDER (acute kidney injury) (5) Hypotension (6) Transaminitis (7) Abdominal pain (8) Cirrhosis of liver Prognosis Plan Decrease methylprednisolone to 20 mg IV daily Then we can change her over to oral prednisone Continue ursodiol 300 mg p.o. twice a day Continue 2 g sodium diet Overall prognosis remains guarded and continue supportive care I will arrange regular outpatient paracentesis for her at Radiology through my clinic and hopefully prevent readmissions for the same Dietary Evaluation Review Comments: Encourage high fiber foods, consider Renal diet with 60g protein restriction is kidney function worsens. Expected Outcomes/Goals: regluar BMs Plan discussed with: Other RICKY AREVALO MD Aug 21, 2024 14:54
[2024-08-22] VITALS (8 sets, daily range): BP systolic 100–113; BP diastolic 49–63; PULSE 57–72; RESP 16–19; TEMP 97.4–98.7; O2SAT 94–97
[2024-08-22] MEDS: methylPREDNISolone SOD SUCC 40 MG/ML VL IV SCH (09:28)
--- NOTE | 2024-08-22 09:33 | DVHPN2 ---
Reviewed: Care Plan, H&P Changes from previous H/P or p: No Changes General: Per HPI Respiratory: Shortness of breath Gastrointestinal: Abdominal Pain, Diarrhea Objective Vitals Vital Signs Date Time Temp Pulse Resp B/P (MAP) Pulse Ox O2 Delivery O2 Flow Rate FiO2 08/22/24 08:48 98.7 59 16 113/55 (74) 95 98.7 08/21/24 20:00 Room Air* 0 21 Intake/Output Intake and Output 08/22/24 07:00 Intake Total 1380 ml Output Total 975 ml Balance 405 ml Intake Oral 1080 ml IV Total 300 ml Output Urine Total 975 ml General Appearance: Alert, Oriented X3, Cooperative HEENT: Atraumatic, PERRLA Lungs: Clear to auscultation, Normal air movement Cardiovascular: Normal S1, Normal S2 Abdomen: Normal bowel sounds, Soft, No hepatospenomegaly, Other (Tenderness noted to left lower:) Musculoskeletal: Normal sensory function, Normal motor function Neuro: Cranial nerves 3-12 NL Skin: Dry, Intact Psych/Mental Status: Mental status NL, Mood NL Medications Current Medications Medications Dose Ordered Sig/Chang Route Start Time Stop Time Status Last Admin Dose Admin Ondansetron HCl 4 mg Q4HP PRN IV 08/14/24 11:30 08/17/24 12:06 4 MG Acetaminophen 650 mg Q6HP PRN PO 08/14/24 11:30 Rifaximin 550 mg BID PO 08/14/24 22:00 08/21/24 21:36 550 MG Sucralfate 0.5 gm QID PO 08/14/24 12:00 08/22/24 05:36 0.5 GM Patient Own Medication 1 tab TID PO 08/14/24 14:00 Spironolactone 25 mg DAILY PO 08/15/24 10:00 08/21/24 09:03 25 MG Pantoprazole Sodium 40 mg DAILY@0600 PO 08/15/24 06:00 08/22/24 05:34 40 MG Midodrine 10 mg TID@0600,1200,1800 PO 08/16/24 12:00 08/22/24 05:34 10 MG Lactulose 30 ml DAILY PO 08/17/24 10:00 08/21/24 09:03 30 ML Furosemide 20 mg DAILY IV 08/17/24 10:00 08/21/24 09:09 20 MG Nicardipine HCl 250 ml @ 50 mls/hr Q5H IV 08/17/24 03:45 Cancel Azithromycin 250 ml @ 125 mls/hr DAILY IV 08/17/24 10:30 08/21/24 11:00 125 MLS/HR Potassium Chloride 10 meq DAILY PO 08/19/24 10:00 08/21/24 09:02 10 MEQ Ceftriaxone Sodium 50 ml @ 100 mls/hr DAILY@09 IV 08/20/24 09:00 08/22/24 08:24 100 MLS/HR Methylprednisolone Sodium Succinate 20 mg DAILY IV 08/22/24 10:00 Laboratory Results Laboratory Tests 08/21/24 05:58 Urinalysis Test 08/18/24 22:15 Urine Color Light-yellow (Yellow) Urine Clarity Clear (Clear) Urine pH 5.0 (5.0-9.0) Urine Specific [place] 1.013 (1.001-1.035) Urine Protein Negative (Negative) Urine Ketones Trace (Negative) Urine Blood Negative /uL (Negative) Urine Nitrite Negative (Negative) Urine Bilirubin Negative (Negative) Urine Urobilinogen Normal mg/dL (Negative) Urine Leukocyte Esterase Negative /uL (Negative) Urine RBC None seen /hpf (0 - 4) Urine Microscopic WBC /HPF (0-5) Urine Squamous Epithelial Cells Few /hpf (<5) Urine Bacteria Few /hpf (None Seen) H Urine Mucus Few (None Seen) Urine Glucose Normal mg/dL (Normal) Microbiology Microbiology Date/Time Source Procedure Growth Status 08/18/24 09:45 Ascities Fluid Gram Stain - Final Resulted 08/18/24 09:45 Ascities Fluid Body Fluid Culture - Preliminary Resulted 08/18/24 06:55 Nose MRSA Screen - Final Complete 08/17/24 21:41 Urine - Catheterized Urine Culture - Final Complete 08/14/24 11:33 Blood Blood Culture - Final NO GROWTH AFTER 5 DAYS OF INCUBATION. Complete Labs and/or images reviewed: Labs reviewed by me, Image(s) reviewed by me Assessment/Plan Assessment/Plan Covering for CRISTA Patel -septic shock -community-acquired pneumonia, probable Gram-positive/Gram-negative etiology. :: Continue antibiotics Zosyn azithromycin -cirrhosis of the liver with portal hypertension -abdominal pain -obesity -thrombocytopenia -leukocytosis -rule out gastritis Hypotension: Midodrine Continue current management Time spent 55 minutes Plan discussed with: Patient Date of Service: Aug 22, 2024 Billing Provider: BETTY GOLDMAN MD Common Visit Codes: [id number] INP/OBS CARE(HIGH) BETTY GOLDMAN MD Aug 22, 2024 09:33
[2024-08-22 13:55] LABS: Total Protein 5.9 g/dL (5.7-8.2)
[2024-08-22 13:56] LABS: Albumin 3.5 g/dL (3.2-4.8)
[2024-08-22 13:57] LABS: Bilirubin, Direct 1.5 mg/dL (<0.3); Bilirubin, Total 2.2 mg/dL (0.2-1.0)
--- NOTE | 2024-08-22 21:47 | DVHPN2 ---
Progress Note - Dictate Date Seen: Aug 22, 2024 Medical Necessity Reason Pt with a Central, PICC or Fol: No Subjective Patient is clinically much improved, there is less scleral icterus. Patient is awake alert Patient is off pressors Patient is getting a low-dose Lasix 20 mg IV daily and also spironolactone 50 mg p.o. q.h.s. Patient is on IV antibiotics Steroids, ursodiol and Protonix on board CBC is stable H&H stable Liver enzyme for persistently elevated with increasing transaminases and with a bilirubin down to 2.2 vital signs Vital Sign Date Time Temp Pulse Resp B/P (MAP) Pulse Ox O2 Delivery O2 Flow Rate FiO2 08/22/24 21:00 97.7 57 18 105/49 (67) 97 97.7 08/22/24 08:00 Nasal Cannula* 2 28 Total Intake and Output 08/21/24 08/21/24 08/22/24 15:00 23:00 07:00 Intake Total 300 ml 480 ml 600 ml Output Total 575 ml 400 ml Balance 300 ml -95 ml 200 ml medications Current Medications Medications Dose Ordered Sig/Chang Route Start Time Stop Time Status Last Admin Dose Admin Ondansetron HCl 4 mg Q4HP PRN IV 08/14/24 11:30 08/17/24 12:06 4 MG Acetaminophen 650 mg Q6HP PRN PO 08/14/24 11:30 Rifaximin 550 mg BID PO 08/14/24 22:00 08/22/24 09:29 550 MG Sucralfate 0.5 gm QID PO 08/14/24 12:00 08/22/24 17:42 0.5 GM Patient Own Medication 1 tab TID PO 08/14/24 14:00 Spironolactone 25 mg DAILY PO 08/15/24 10:00 08/21/24 09:03 25 MG Pantoprazole Sodium 40 mg DAILY@0600 PO 08/15/24 06:00 08/22/24 05:34 40 MG Midodrine 10 mg TID@0600,1200,1800 PO 08/16/24 12:00 08/22/24 17:42 10 MG Lactulose 30 ml DAILY PO 08/17/24 10:00 08/21/24 09:03 30 ML Furosemide 20 mg DAILY IV 08/17/24 10:00 08/21/24 09:09 20 MG Nicardipine HCl 250 ml @ 50 mls/hr Q5H IV 08/17/24 03:45 Cancel Azithromycin 250 ml @ 125 mls/hr DAILY IV 08/17/24 10:30 08/22/24 09:29 125 MLS/HR Potassium Chloride 10 meq DAILY PO 08/19/24 10:00 08/22/24 09:29 10 MEQ Ceftriaxone Sodium 50 ml @ 100 mls/hr DAILY@09 IV 08/20/24 09:00 08/22/24 08:24 100 MLS/HR Methylprednisolone Sodium Succinate 20 mg DAILY IV 08/22/24 10:00 08/22/24 09:28 20 MG objective Patient seen at bedside, awake and arousable but lethargic Mild scleral icterus improved from before Respiratory: Normal air movement Cardiovascular: Normal S1, Normal S2, No murmurs Abdomen is soft slightly distended;mild ascites, no tenderness at this time Skin: No significant lesion Neuro: Sensation intact laboratory and microbiology Laboratory Tests 08/21/24 05:58 Test 08/21/24 05:58 Range/Units Serum Glucose 121 H 74-106 mg/dL Problems(with codes): (1) Jaundice (2) Scleroderma (3) Autoimmune hepatitis (4) Ascites (5) SATINDER (acute kidney injury) (6) Transaminitis (7) Hypotension (8) Abdominal pain (9) Cirrhosis of liver (10) Lactic acidosis Prognosis Plan Discharge planning as per hospitalist Patient will need to be maintained on prednisone, ursodiol We could check a TPMT phenotype and if possible give her a trial of Imuran 50 mg p.o. daily Patient can follow up in my office as an outpatient and I will arrange outpatient paracentesis on a weekly basis Overall prognosis remains guarded, patient appears to have a good support system Dietary Evaluation Review Comments: Encourage high fiber foods, consider Renal diet with 60g protein restriction is kidney function worsens. Expected Outcomes/Goals: regluar BMs Plan discussed with: Patient, Daughter RICKY AREVALO MD Aug 22, 2024 21:47
[2024-08-23] VITALS (9 sets, daily range): BP systolic 90–120; BP diastolic 34–57; PULSE 57–81; RESP 16–22; TEMP 97.3–97.9; O2SAT 94–97
--- NOTE | 2024-08-23 10:31 | DVHPN2 ---
Subjective Patient denies any symptoms. Reports that her abdominal pain has improved Reviewed: Care Plan, H&P Changes from previous H/P or p: No Changes General: Per HPI Respiratory: Shortness of breath Gastrointestinal: Abdominal Pain, Diarrhea Objective Vitals Vital Signs Date Time Temp Pulse Resp B/P (MAP) Pulse Ox O2 Delivery O2 Flow Rate FiO2 08/23/24 08:59 95/34 08/23/24 08:44 97.9 57 16 97 97.9 08/23/24 07:30 Nasal Cannula* 2 28 Intake/Output Intake and Output 08/23/24 07:00 Intake Total 1300 ml Output Total 500 ml Balance 800 ml Intake Oral 1000 ml IV Total 300 ml Output Urine Total 500 ml General Appearance: Alert, Oriented X3, Cooperative HEENT: Atraumatic, PERRLA Lungs: Clear to auscultation, Normal air movement Cardiovascular: Normal S1, Normal S2 Abdomen: Normal bowel sounds, Soft, No hepatospenomegaly, Other (Tenderness noted to left lower:) Musculoskeletal: Normal sensory function, Normal motor function Neuro: Cranial nerves 3-12 NL Skin: Dry, Intact Psych/Mental Status: Mental status NL, Mood NL Medications Current Medications Medications Dose Ordered Sig/Chang Route Start Time Stop Time Status Last Admin Dose Admin Ondansetron HCl 4 mg Q4HP PRN IV 08/14/24 11:30 08/17/24 12:06 4 MG Acetaminophen 650 mg Q6HP PRN PO 08/14/24 11:30 Rifaximin 550 mg BID PO 08/14/24 22:00 08/23/24 08:58 550 MG Sucralfate 0.5 gm QID PO 08/14/24 12:00 08/23/24 06:17 0.5 GM Patient Own Medication 1 tab TID PO 08/14/24 14:00 08/23/24 06:18 1 TAB Spironolactone 25 mg DAILY PO 08/15/24 10:00 08/23/24 08:58 25 MG Pantoprazole Sodium 40 mg DAILY@0600 PO 08/15/24 06:00 08/23/24 06:17 40 MG Midodrine 10 mg TID@0600,1200,1800 PO 08/16/24 12:00 08/23/24 05:07 10 MG Lactulose 30 ml DAILY PO 08/17/24 10:00 08/23/24 08:59 30 ML Furosemide 20 mg DAILY IV 08/17/24 10:00 08/23/24 08:59 20 MG Nicardipine HCl 250 ml @ 50 mls/hr Q5H IV 08/17/24 03:45 Cancel Azithromycin 250 ml @ 125 mls/hr DAILY IV 08/17/24 10:30 08/23/24 09:59 125 MLS/HR Potassium Chloride 10 meq DAILY PO 08/19/24 10:00 08/23/24 08:58 10 MEQ Ceftriaxone Sodium 50 ml @ 100 mls/hr DAILY@09 IV 08/20/24 09:00 08/23/24 08:59 100 MLS/HR Methylprednisolone Sodium Succinate 20 mg DAILY IV 08/22/24 10:00 08/23/24 08:59 20 MG Laboratory Results Laboratory Tests 08/21/24 05:58 Chemistry Test 08/22/24 13:02 Albumin 3.5 g/dL (3.2-4.8) Total Protein 5.9 g/dL (5.7-8.2) LFT Test 08/22/24 13:02 Alanine Aminotransferase (ALT) 222 U/L (7-40) H Alkaline Phosphatase 453 U/L (46-116) H Aspartate Amino Transferase (AST) 267 U/L (13-40) H Direct Bilirubin 1.5 mg/dL (<0.3) H Total Bilirubin 2.2 mg/dL (0.2-1.0) H Urinalysis Test 08/18/24 22:15 Urine Color Light-yellow (Yellow) Urine Clarity Clear (Clear) Urine pH 5.0 (5.0-9.0) Urine Specific [place] 1.013 (1.001-1.035) Urine Protein Negative (Negative) Urine Ketones Trace (Negative) Urine Blood Negative /uL (Negative) Urine Nitrite Negative (Negative) Urine Bilirubin Negative (Negative) Urine Urobilinogen Normal mg/dL (Negative) Urine Leukocyte Esterase Negative /uL (Negative) Urine RBC None seen /hpf (0 - 4) Urine Microscopic WBC /HPF (0-5) Urine Squamous Epithelial Cells Few /hpf (<5) Urine Bacteria Few /hpf (None Seen) H Urine Mucus Few (None Seen) Urine Glucose Normal mg/dL (Normal) Microbiology Microbiology Date/Time Source Procedure Growth Status 08/18/24 09:45 Ascities Fluid Gram Stain - Final Complete 08/18/24 09:45 Ascities Fluid Body Fluid Culture - Final Complete 08/18/24 06:55 Nose MRSA Screen - Final Complete 08/17/24 21:41 Urine - Catheterized Urine Culture - Final Complete 08/14/24 11:33 Blood Blood Culture - Final NO GROWTH AFTER 5 DAYS OF INCUBATION. Complete Labs and/or images reviewed: Labs reviewed by me, Image(s) reviewed by me Assessment/Plan Assessment/Plan Impression: -septic shock -community-acquired pneumonia, probable Gram-positive/Gram-negative etiology. -cirrhosis of the liver with portal hypertension -abdominal pain -obesity -thrombocytopenia -leukocytosis -rule out gastritis Plan: Events: Patient tolerating oral intake. Off norepinephrine. Ambulating with physical therapy. Continues to require O2 supplementation. -repeat chest x-ray -repeat abdominal ultrasound for assessment of ascites -DVT prophylaxis -continue midodrine -continue antibiotic therapy with Zosyn , add azithromycin -hold anticoagulation given thrombocytopenia -continue diuresis with spironolactone, Lasix -PPI -repeat labs in a.m. -discussed plan of care with patient and daughter who was bedside. At this time they wished for the patient to be discharged back home with home health services. Total time spent with patient and family regarding advance care plannin minutes. Total time spent with patient discussing and formulating plan of care: 35 minutes. This medical document was created using an electronic medical record system with [employer] dictation system. Although this document has been carefully reviewed, there may still be some phonetic and typographical errors. These areas are purely typographical due to imperfections of the software programs, and do not reflect any compromise in the patient's medical care. Plan discussed with: Patient, Daughter, Other (RN) My Orders Orders - MOSES FOOTE NP Procedure Category Date Status Time Chest Xray 1 View XY 08/23/24 Taken 09:45 Date of Service: Aug 23, 2024 Billing Provider: MOSES FOOTE NP Common Visit Codes: [id number] INP/OBS CARE(HIGH) Secondary Visit Codes: [id number] CARE PLAN 30 MINUTES MOSES FOOTE NP Aug 23, 2024 10:31
--- NOTE | 2024-08-23 11:52 | DVH ---
EXAM: XY CHEST XRAY 1 VIEW Indication: CHF Technique: Single frontal view of the chest was obtained Comparison: XY CHEST XRAY 1 VIEW on DOS: 08/15/24, XY CHEST XRAY 1 VIEW on DOS: 07/20/24, XY CHEST PORTAB LE on DOS: 07/18/24, XY CHEST PORTABLE on DOS: 07/17/24, XY CHEST PORTABLE on DOS: 07/04/24 FINDINGS: Lines and Tubes: Left internal jugular central venous catheter tip projects over the superior vena ca va. Lungs: Bibasilar opacities. Pleura: Small bilateral pleural effusions. No pneumothorax. Cardiomediastinal contours: Unremarkable Bones: No acute osseous abnormality. IMPRESSION: Small bilateral pleural effusions and bibasilar opacities.
--- NOTE | 2024-08-23 11:58 | DVH ---
ULTRASOUND ABDOMEN limited, 4 QUADRANTS INDICATION: Assess ascites Evaluate for ascites. TECHNIQUE: The four quadrants of the abdomen were scanned in small-scale to assess for the presence of ascites. N o solid organ assessment was performed. FINDINGS/IMPRESSIONS: Small volume ascites.
--- NOTE | 2024-08-23 12:57 | DVHPN2 ---
Progress Note Date Seen: Aug 23, 2024 Resident Creating Document: GABINO COBURN RESIDENT Medical Necessity Reason Pt with a Central, PICC or Fol: No Subjective Review of Systems Patient is clinically much improved, there is less scleral icterus. Patient is awake alert Patient is off pressors Patient is getting a low-dose Lasix 20 mg IV daily and also spironolactone 25 mg p.o. q.h.s. Steroids, ursodiol and Protonix on board Total bilirubin stable at 2.2, however, rise in AST 2-67 ALT 222 and ALP 453. Objective vital signs Vital Sign Date Time Temp Pulse Resp B/P (MAP) Pulse Ox O2 Delivery O2 Flow Rate FiO2 08/23/24 08:59 95/34 08/23/24 08:44 97.9 57 16 97 97.9 08/23/24 07:30 Nasal Cannula* 2 28 Total Intake and Output 08/22/24 08/22/24 08/23/24 15:00 23:00 07:00 Intake Total 300 ml 600 ml 400 ml Output Total 200 ml 300 ml Balance 300 ml 400 ml 100 ml medications Current Medications Medications Dose Ordered Sig/Chang Route Start Time Stop Time Status Last Admin Dose Admin Ondansetron HCl 4 mg Q4HP PRN IV 08/14/24 11:30 08/17/24 12:06 4 MG Acetaminophen 650 mg Q6HP PRN PO 08/14/24 11:30 Rifaximin 550 mg BID PO 08/14/24 22:00 08/23/24 08:58 550 MG Sucralfate 0.5 gm QID PO 08/14/24 12:00 08/23/24 12:10 0.5 GM Patient Own Medication 1 tab TID PO 08/14/24 14:00 08/23/24 06:18 1 TAB Spironolactone 25 mg DAILY PO 08/15/24 10:00 08/23/24 08:58 25 MG Pantoprazole Sodium 40 mg DAILY@0600 PO 08/15/24 06:00 08/23/24 06:17 40 MG Midodrine 10 mg TID@0600,1200,1800 PO 08/16/24 12:00 08/23/24 12:10 10 MG Lactulose 30 ml DAILY PO 08/17/24 10:00 08/23/24 08:59 30 ML Furosemide 20 mg DAILY IV 08/17/24 10:00 08/23/24 08:59 20 MG Nicardipine HCl 250 ml @ 50 mls/hr Q5H IV 08/17/24 03:45 Cancel Azithromycin 250 ml @ 125 mls/hr DAILY IV 08/17/24 10:30 08/23/24 09:59 125 MLS/HR Potassium Chloride 10 meq DAILY PO 08/19/24 10:00 08/23/24 08:58 10 MEQ Ceftriaxone Sodium 50 ml @ 100 mls/hr DAILY@09 IV 08/20/24 09:00 08/23/24 08:59 100 MLS/HR Methylprednisolone Sodium Succinate 20 mg DAILY IV 08/22/24 10:00 08/23/24 08:59 20 MG Examination General Appearance: Cooperative. Well developed. Well nourished. NAD Head Exam: Normal inspection. Mild scleral icterus noted Neck Exam: Normal inspection. Non-tender. Normal alignment Pulmonary/Respiratory: Chest non-tender. Clear bilateral breath sounds, no crackles, no wheezing. Cardiovascular/Chest: Regular rate and rhythm. No murmurs. No JVD. Abdominal Exam: Normal bowel sounds. Soft. normal abdomen, trace dullness to percussion. no visible veins, Nontender. No hepatospenomegaly. No masses Lower extremities: Negative lower extremity edema Thoughts/Psych: Normal thought pattern. Appropriate mood and affect. Good judgement and insight Skin Exam: Normal inspection. Normal color. Warm. Dry laboratory and microbiology Laboratory Tests 08/21/24 05:58 Test 08/21/24 05:58 Range/Units Serum Glucose 121 H 74-106 mg/dL Microbiology Date/Time Source Procedure Growth Status 08/18/24 09:45 Ascities Fluid Gram Stain - Final Complete 08/18/24 09:45 Ascities Fluid Body Fluid Culture - Final Complete 08/18/24 06:55 Nose MRSA Screen - Final Complete 08/17/24 21:41 Urine - Catheterized Urine Culture - Final Complete 08/14/24 11:33 Blood Blood Culture - Final NO GROWTH AFTER 5 DAYS OF INCUBATION. Complete Problem List/Assessment/Plan Problem List/Assessment/Plan Jaundice Autoimmune hepatitis Ascites Scleroderma SATINDER Transaminitis Hypertension Liver cirrhosis Lactic acidosis Plan: Increased IV methylprednisolone to 40 mg as patient LFTs trending upwards after bringing methylprednisolone down to 20 mg. Continue spironolactone 25 mg p.o. daily, continue rifaximin Discharge planning as per hospitalist Patient will need to be maintained on prednisone, ursodiol We could check a TPMT phenotype and if possible give her a trial of Imuran 50 mg p.o. daily Patient can follow up with GI in the outpatient clinic for regular paracentesis, appointment scheduled for 08/31/2024. We will try to arrange a sooner appointment. Overall prognosis remains guarded, patient appears to have a good support system Plan discussed with patient and daughter at bedside Plan discussed with Dr. Lucio Plan discussed with: Patient, Daughter, Other (RN) My Orders My Orders Orders - GABINO COBURN RESIDENT Procedure Category Date Status Time Methylprednisolone PHA 08/24/24 Transmitted Sod Succ (Solu Medrol 10:00 Dietary Evaluation Review Comments: Encourage high fiber foods, consider Renal diet with 60g protein restriction is kidney function worsens. Expected Outcomes/Goals: GABINO Mendoza RESIDENT Aug 23, 2024 12:57
[2024-08-23 15:08] LABS: Hemoglobin 13.4 g/dL (12.2-16.2)
[2024-08-24] VITALS (7 sets, daily range): BP systolic 85–111; BP diastolic 38–57; PULSE 53–72; RESP 18–24; TEMP 97.4–98.4; O2SAT 93–98
[2024-08-24] MEDS: methylPREDNISolone SOD SUCC 40 MG/ML VL IV SCH (09:33)
--- NOTE | 2024-08-24 11:28 | DVHPN2 ---
Progress Note Date Seen: Aug 24, 2024 Resident Creating Document: GABINO COBURN RESIDENT Medical Necessity Reason Pt with a Central, PICC or Fol: No Subjective Review of Systems Patient is clinically much improved, there is less scleral icterus. Patient is awake alert last BM this AM, soft reports good appetite Patient is progressing with PT, notes some dizziness, stable H&H Patient is off pressors Patient is getting a low-dose Lasix 20 mg IV daily and also spironolactone 25 mg p.o. q.h.s. Steroids, ursodiol and Protonix on board Total bilirubin stable at 2.2, however, rise in AST 2-67 ALT 222 and ALP 453. Objective vital signs Vital Sign Date Time Temp Pulse Resp B/P (MAP) Pulse Ox O2 Delivery O2 Flow Rate FiO2 08/24/24 09:34 101/53 08/24/24 09:00 97.6 53 20 93 97.6 08/23/24 20:00 Nasal Cannula* 1 24 Total Intake and Output 08/23/24 08/23/24 08/24/24 15:00 23:00 07:00 Intake Total 300 ml 700 ml 650 ml Output Total 650 ml 900 ml Balance 300 ml 50 ml -250 ml medications Current Medications Medications Dose Ordered Sig/Chang Route Start Time Stop Time Status Last Admin Dose Admin Ondansetron HCl 4 mg Q4HP PRN IV 08/14/24 11:30 08/17/24 12:06 4 MG Acetaminophen 650 mg Q6HP PRN PO 08/14/24 11:30 Rifaximin 550 mg BID PO 08/14/24 22:00 08/24/24 09:32 550 MG Sucralfate 0.5 gm QID PO 08/14/24 12:00 08/24/24 05:18 0.5 GM Patient Own Medication 1 tab TID PO 08/14/24 14:00 08/24/24 05:18 1 TAB Spironolactone 25 mg DAILY PO 08/15/24 10:00 08/24/24 09:32 25 MG Pantoprazole Sodium 40 mg DAILY@0600 PO 08/15/24 06:00 08/24/24 05:18 40 MG Midodrine 10 mg TID@0600,1200,1800 PO 08/16/24 12:00 08/24/24 05:18 10 MG Lactulose 30 ml DAILY PO 08/17/24 10:00 08/24/24 09:34 30 ML Furosemide 20 mg DAILY IV 08/17/24 10:00 08/24/24 09:34 20 MG Nicardipine HCl 250 ml @ 50 mls/hr Q5H IV 08/17/24 03:45 Cancel Azithromycin 250 ml @ 125 mls/hr DAILY IV 08/17/24 10:30 08/24/24 10:20 125 MLS/HR Potassium Chloride 10 meq DAILY PO 08/19/24 10:00 08/24/24 09:33 10 MEQ Ceftriaxone Sodium 50 ml @ 100 mls/hr DAILY@09 IV 08/20/24 09:00 08/24/24 09:34 100 MLS/HR Methylprednisolone Sodium Succinate 40 mg DAILY IV 08/24/24 10:00 08/24/24 09:33 40 MG Examination General Appearance: Cooperative. Well developed. Well nourished. NAD Head Exam: Normal inspection. Mild scleral icterus noted Neck Exam: Normal inspection. Non-tender. Normal alignment Pulmonary/Respiratory: Chest non-tender. Clear bilateral breath sounds, no crackles, no wheezing. Cardiovascular/Chest: Regular rate and rhythm. No murmurs. No JVD. Abdominal Exam: Normal bowel sounds. Soft. normal abdomen, trace dullness to percussion. no visible veins, Nontender. No hepatospenomegaly. No masses Lower extremities: Negative lower extremity edema Thoughts/Psych: Normal thought pattern. Appropriate mood and affect. Good judgement and insight Skin Exam: Normal inspection. Normal color. Warm. Dry laboratory and microbiology Laboratory Tests 08/23/24 14:42 08/21/24 05:58 Test 08/21/24 05:58 Range/Units Serum Glucose 121 H 74-106 mg/dL Microbiology Date/Time Source Procedure Growth Status 08/18/24 09:45 Ascities Fluid Gram Stain - Final Complete 08/18/24 09:45 Ascities Fluid Body Fluid Culture - Final Complete 08/18/24 06:55 Nose MRSA Screen - Final Complete 08/17/24 21:41 Urine - Catheterized Urine Culture - Final Complete 08/14/24 11:33 Blood Blood Culture - Final NO GROWTH AFTER 5 DAYS OF INCUBATION. Complete Problem List/Assessment/Plan Problem List/Assessment/Plan Jaundice Autoimmune hepatitis Ascites Scleroderma SATINDER Transaminitis Hypertension Liver cirrhosis Lactic acidosis Plan: Increased IV methylprednisolone to 40 mg as patient LFTs trending upwards after bringing methylprednisolone down to 20 mg. Continue steroids 40 mg until appointment with GI Continue spironolactone 25 mg p.o. daily, continue rifaximin Discharge planning as per hospitalist Patient will need to be maintained on prednisone, ursodiol We could check a TPMT phenotype and if possible give her a trial of Imuran 50 mg p.o. daily Patient can follow up with GI in the outpatient clinic for regular paracentesis, appointment scheduled for 08/31/2024. We will try to arrange a sooner appointment. Overall prognosis remains guarded, patient appears to have a good support system Plan discussed with patient and daughter at bedside Plan discussed with Dr. Lucio Plan discussed with: Patient, Daughter, Other (RN) My Orders My Orders Orders - GABINO COBURN Procedure Category Date Status Time Methylprednisolone PHA 08/24/24 In Process Sod Succ (Solu Medrol 10:00 Hepatic Panel LAB 08/24/24 Verified 11:28 Dietary Evaluation Review Comments: Encourage high fiber foods, consider Renal diet with 60g protein restriction is kidney function worsens. Expected Outcomes/Goals: GABINO Mendoza RESIDENT Aug 24, 2024 11:28
--- NOTE | 2024-08-24 11:28 | DVHPN2 ---
Subjective Patient denies any symptoms. Reports that her abdominal pain has improved Reviewed: Care Plan, H&P Changes from previous H/P or p: No Changes General: Per HPI Respiratory: Shortness of breath Gastrointestinal: Abdominal Pain, Diarrhea Objective Vitals Vital Signs Date Time Temp Pulse Resp B/P (MAP) Pulse Ox O2 Delivery O2 Flow Rate FiO2 08/24/24 09:34 101/53 08/24/24 09:00 97.6 53 20 93 97.6 08/23/24 20:00 Nasal Cannula* 1 24 Intake/Output Intake and Output 08/24/24 07:00 Intake Total 1650 ml Output Total 1550 ml Balance 100 ml Intake Oral 1350 ml IV Total 300 ml Output Urine Total 1550 ml # Bowel Movements 1 General Appearance: Alert, Oriented X3, Cooperative HEENT: Atraumatic, PERRLA Lungs: Clear to auscultation, Normal air movement Cardiovascular: Normal S1, Normal S2 Abdomen: Normal bowel sounds, Soft, No hepatospenomegaly, Other (Tenderness noted to left lower:) Musculoskeletal: Normal sensory function, Normal motor function Neuro: Cranial nerves 3-12 NL Skin: Dry, Intact Psych/Mental Status: Mental status NL, Mood NL Medications Current Medications Medications Dose Ordered Sig/Chang Route Start Time Stop Time Status Last Admin Dose Admin Ondansetron HCl 4 mg Q4HP PRN IV 08/14/24 11:30 08/17/24 12:06 4 MG Acetaminophen 650 mg Q6HP PRN PO 08/14/24 11:30 Rifaximin 550 mg BID PO 08/14/24 22:00 08/24/24 09:32 550 MG Sucralfate 0.5 gm QID PO 08/14/24 12:00 08/24/24 05:18 0.5 GM Patient Own Medication 1 tab TID PO 08/14/24 14:00 08/24/24 05:18 1 TAB Spironolactone 25 mg DAILY PO 08/15/24 10:00 08/24/24 09:32 25 MG Pantoprazole Sodium 40 mg DAILY@0600 PO 08/15/24 06:00 08/24/24 05:18 40 MG Midodrine 10 mg TID@0600,1200,1800 PO 08/16/24 12:00 08/24/24 05:18 10 MG Lactulose 30 ml DAILY PO 08/17/24 10:00 08/24/24 09:34 30 ML Furosemide 20 mg DAILY IV 08/17/24 10:00 08/24/24 09:34 20 MG Nicardipine HCl 250 ml @ 50 mls/hr Q5H IV 08/17/24 03:45 Cancel Azithromycin 250 ml @ 125 mls/hr DAILY IV 08/17/24 10:30 08/24/24 10:20 125 MLS/HR Potassium Chloride 10 meq DAILY PO 08/19/24 10:00 08/24/24 09:33 10 MEQ Ceftriaxone Sodium 50 ml @ 100 mls/hr DAILY@09 IV 08/20/24 09:00 08/24/24 09:34 100 MLS/HR Methylprednisolone Sodium Succinate 40 mg DAILY IV 08/24/24 10:00 08/24/24 09:33 40 MG Laboratory Results Laboratory Tests 08/21/24 05:58 08/23/24 14:42 Urinalysis Test 08/18/24 22:15 Urine Color Light-yellow (Yellow) Urine Clarity Clear (Clear) Urine pH 5.0 (5.0-9.0) Urine Specific [place] 1.013 (1.001-1.035) Urine Protein Negative (Negative) Urine Ketones Trace (Negative) Urine Blood Negative /uL (Negative) Urine Nitrite Negative (Negative) Urine Bilirubin Negative (Negative) Urine Urobilinogen Normal mg/dL (Negative) Urine Leukocyte Esterase Negative /uL (Negative) Urine RBC None seen /hpf (0 - 4) Urine Microscopic WBC /HPF (0-5) Urine Squamous Epithelial Cells Few /hpf (<5) Urine Bacteria Few /hpf (None Seen) H Urine Mucus Few (None Seen) Urine Glucose Normal mg/dL (Normal) Microbiology Microbiology Date/Time Source Procedure Growth Status 08/18/24 09:45 Ascities Fluid Gram Stain - Final Complete 08/18/24 09:45 Ascities Fluid Body Fluid Culture - Final Complete 08/18/24 06:55 Nose MRSA Screen - Final Complete 08/17/24 21:41 Urine - Catheterized Urine Culture - Final Complete 08/14/24 11:33 Blood Blood Culture - Final NO GROWTH AFTER 5 DAYS OF INCUBATION. Complete Labs and/or images reviewed: Labs reviewed by me, Image(s) reviewed by me Assessment/Plan Assessment/Plan Impression: -septic shock -community-acquired pneumonia, probable Gram-positive/Gram-negative etiology. -cirrhosis of the liver with portal hypertension -abdominal pain -obesity -thrombocytopenia -leukocytosis -rule out gastritis Plan: Events: Abdominal ultrasound with minimal ascites. Repeat chest x-ray with small bilateral pleural effusions. Now on nasal cannula at 1 liter/minute. Ambulating approximately 20 ft. Discussed plan of care with patient and daughter was bedside. All questions answered -DVT prophylaxis -continue midodrine -continue antibiotic therapy with Zosyn , add azithromycin -hold anticoagulation given thrombocytopenia -continue diuresis with spironolactone, Lasix -PPI -repeat labs in a.m. Total time spent with patient discussing and formulating plan of care: 35 minutes. This medical document was created using an electronic medical record system with [employer] dictation system. Although this document has been carefully reviewed, there may still be some phonetic and typographical errors. These areas are purely typographical due to imperfections of the software programs, and do not reflect any compromise in the patient's medical care. Plan discussed with: Patient, Other (RN) My Orders Orders - MOSES FOOTE NP Procedure Category Date Status Time Comprehensive LAB 08/25/24 Verified Metabolic Panel 04:00 Date of Service: Aug 24, 2024 Billing Provider: MOSES FOOTE NP Common Visit Codes: [id number] INP/OBS CARE(HIGH) MOSES FOOTE NP Aug 24, 2024 11:28
[2024-08-24 13:56] LABS: Albumin 3.5 g/dL (3.2-4.8); Total Protein 5.8 g/dL (5.7-8.2)
[2024-08-24 13:57] LABS: Bilirubin, Total 2.4 mg/dL (0.2-1.0)
[2024-08-24 14:13] LABS: Bilirubin, Direct 1.7 mg/dL (<0.3)
[2024-08-25] VITALS (7 sets, daily range): BP systolic 87–111; BP diastolic 48–81; PULSE 59–76; RESP 16–24; TEMP 97.6–98.5; O2SAT 90–97
[2024-08-25 05:45] LABS: Albumin 3.3 g/dL (3.2-4.8); Anion Gap 11 (5-15); BUN/Creatinine Ratio 22.3 (10.0-20.0); Carbon Dioxide 23 mmol/L (20-31); Potassium 3.7 mmol/L (3.5-5.1)
[2024-08-25 06:05] LABS: Alanine Aminotransferase 169 U/L (7-40); Alkaline Phosphatase 387 U/L (46-116); Aspartate Aminotransferase 122 U/L (13-40); Bilirubin, Total 2.5 mg/dL (0.2-1.0); Blood Urea Nitrogen 41 mg/dL (9-23); Calcium 10.7 mg/dL (8.7-10.4); Chloride 97 mmol/L (98-107); Glucose 144 mg/dL (74-106); Sodium 131 mmol/L (136-145); Total Protein 5.6 g/dL (5.7-8.2)
--- NOTE | 2024-08-25 11:34 | DVHPN2 ---
Subjective Patient denies any symptoms Reviewed: Care Plan, H&P Changes from previous H/P or p: No Changes General: Per HPI Respiratory: Shortness of breath Gastrointestinal: Abdominal Pain, Diarrhea Objective Vitals Vital Signs Date Time Temp Pulse Resp B/P (MAP) Pulse Ox O2 Delivery O2 Flow Rate FiO2 08/25/24 09:54 97/51 08/25/24 09:09 98.5 65 16 94 98.5 08/24/24 20:00 Nasal Cannula* 1 24 Intake/Output Intake and Output 08/25/24 07:00 Intake Total 1400 ml Output Total 1150 ml Balance 250 ml Intake Oral 1100 ml IV Total 300 ml Output Urine Total 1150 ml # Bowel Movements 1 General Appearance: Alert, Oriented X3, Cooperative HEENT: Atraumatic, PERRLA Lungs: Clear to auscultation, Normal air movement Cardiovascular: Normal S1, Normal S2 Abdomen: Normal bowel sounds, Soft, No hepatospenomegaly, Other (Tenderness noted to left lower:) Musculoskeletal: Normal sensory function, Normal motor function Neuro: Cranial nerves 3-12 NL Skin: Dry, Intact Psych/Mental Status: Mental status NL, Mood NL Medications Current Medications Medications Dose Ordered Sig/Chang Route Start Time Stop Time Status Last Admin Dose Admin Ondansetron HCl 4 mg Q4HP PRN IV 08/14/24 11:30 08/17/24 12:06 4 MG Acetaminophen 650 mg Q6HP PRN PO 08/14/24 11:30 Rifaximin 550 mg BID PO 08/14/24 22:00 08/25/24 09:54 550 MG Sucralfate 0.5 gm QID PO 08/14/24 12:00 08/25/24 05:34 0.5 GM Patient Own Medication 1 tab TID PO 08/14/24 14:00 08/25/24 05:35 1 TAB Spironolactone 25 mg DAILY PO 08/15/24 10:00 08/25/24 09:55 25 MG Pantoprazole Sodium 40 mg DAILY@0600 PO 08/15/24 06:00 08/25/24 05:34 40 MG Midodrine 10 mg TID@0600,1200,1800 PO 08/16/24 12:00 08/25/24 05:34 10 MG Lactulose 30 ml DAILY PO 08/17/24 10:00 08/25/24 09:54 30 ML Furosemide 20 mg DAILY IV 08/17/24 10:00 08/25/24 09:54 20 MG Nicardipine HCl 250 ml @ 50 mls/hr Q5H IV 08/17/24 03:45 Cancel Azithromycin 250 ml @ 125 mls/hr DAILY IV 08/17/24 10:30 08/24/24 10:20 125 MLS/HR Potassium Chloride 10 meq DAILY PO 08/19/24 10:00 08/25/24 09:55 10 MEQ Ceftriaxone Sodium 50 ml @ 100 mls/hr DAILY@09 IV 08/20/24 09:00 08/25/24 09:44 100 MLS/HR Methylprednisolone Sodium Succinate 40 mg DAILY IV 08/24/24 10:00 08/25/24 09:54 40 MG Laboratory Results Laboratory Tests 08/21/24 05:58 08/23/24 14:42 08/25/24 04:48 Chemistry Test 08/24/24 13:19 08/25/24 04:48 Albumin 3.5 g/dL (3.2-4.8) 3.3 g/dL (3.2-4.8) Total Protein 5.8 g/dL (5.7-8.2) 5.6 g/dL (5.7-8.2) L Calcium Level 10.7 mg/dL (8.7-10.4) H LFT Test 08/24/24 13:19 08/25/24 04:48 Alanine Aminotransferase (ALT) 182 U/L (7-40) H 169 U/L (7-40) H Alkaline Phosphatase 383 U/L (46-116) H 387 U/L (46-116) H Aspartate Amino Transferase (AST) 136 U/L (13-40) H 122 U/L (13-40) H Direct Bilirubin 1.7 mg/dL (<0.3) H Total Bilirubin 2.4 mg/dL (0.2-1.0) H 2.5 mg/dL (0.2-1.0) H Urinalysis Test 08/18/24 22:15 Urine Color Light-yellow (Yellow) Urine Clarity Clear (Clear) Urine pH 5.0 (5.0-9.0) Urine Specific [place] 1.013 (1.001-1.035) Urine Protein Negative (Negative) Urine Ketones Trace (Negative) Urine Blood Negative /uL (Negative) Urine Nitrite Negative (Negative) Urine Bilirubin Negative (Negative) Urine Urobilinogen Normal mg/dL (Negative) Urine Leukocyte Esterase Negative /uL (Negative) Urine RBC None seen /hpf (0 - 4) Urine Microscopic WBC /HPF (0-5) Urine Squamous Epithelial Cells Few /hpf (<5) Urine Bacteria Few /hpf (None Seen) H Urine Mucus Few (None Seen) Urine Glucose Normal mg/dL (Normal) Microbiology Microbiology Date/Time Source Procedure Growth Status 08/18/24 09:45 Ascities Fluid Gram Stain - Final Complete 08/18/24 09:45 Ascities Fluid Body Fluid Culture - Final Complete 08/18/24 06:55 Nose MRSA Screen - Final Complete 08/17/24 21:41 Urine - Catheterized Urine Culture - Final Complete 08/14/24 11:33 Blood Blood Culture - Final NO GROWTH AFTER 5 DAYS OF INCUBATION. Complete Labs and/or images reviewed: Labs reviewed by me, Image(s) reviewed by me Assessment/Plan Assessment/Plan Impression: -septic shock -community-acquired pneumonia, probable Gram-positive/Gram-negative etiology. -cirrhosis of the liver with portal hypertension -abdominal pain -obesity -thrombocytopenia -leukocytosis -rule out gastritis Plan: Events: Blood pressure has been stabilized. Patient was assessed sitting on chair. Apparently, patient was daughter was able to transition her to chair. Physical therapy reports ambulation only to 30 ft. DME: identified needs include shower chair and walker. -DVT prophylaxis -continue midodrine -stop IV antibiotics, switched to oral -hold anticoagulation given thrombocytopenia -continue diuresis with spironolactone, Lasix -PPI -social service consultation for discharge planning including home PT and DME as previously mentioned. Total time spent with patient discussing and formulating plan of care: 35 minutes. This medical document was created using an electronic medical record system with [employer] dictation system. Although this document has been carefully reviewed, there may still be some phonetic and typographical errors. These areas are purely typographical due to imperfections of the software programs, and do not reflect any compromise in the patient's medical care. Plan discussed with: Patient, Other (RN) My Orders Orders - MOSES FOOTE NP Procedure Category Date Status Time Transfer Orders XFER 08/24/24 Transmitted 11:53 Dme: Walker DME 08/25/24 Transmitted 11:28 * Wildlife [employer] Game Protector CONS 08/25/24 Transmitted Consult Date of Service: Aug 25, 2024 Billing Provider: MOSES FOOTE NP Common Visit Codes: [id number] INP/OBS CARE(HIGH) MOSES FOOTE NP Aug 25, 2024 11:34
--- NOTE | 2024-08-25 12:46 | DVHPN2 ---
Progress Note Date Seen: Aug 25, 2024 Resident Creating Document: GABINO COBURN RESIDENT Medical Necessity Reason Pt with a Central, PICC or Fol: No Subjective Review of Systems Patient is clinically much improved, there is less scleral icterus. Patient is awake alert last BM this AM, soft reports good appetite Patient is progressing with PT, notes some dizziness, stable H&H Patient is off pressors Patient is getting a low-dose Lasix 20 mg IV daily and also spironolactone 25 mg p.o. q.h.s. Steroids, ursodiol and Protonix on board Objective vital signs Vital Sign Date Time Temp Pulse Resp B/P (MAP) Pulse Ox O2 Delivery O2 Flow Rate FiO2 08/25/24 09:54 97/51 08/25/24 09:09 98.5 65 16 94 98.5 08/24/24 20:00 Nasal Cannula* 1 24 Total Intake and Output 08/24/24 08/24/24 08/25/24 15:00 23:00 07:00 Intake Total 300 ml 800 ml 300 ml Output Total 500 ml 650 ml Balance 300 ml 300 ml -350 ml medications Current Medications Medications Dose Ordered Sig/Chang Route Start Time Stop Time Status Last Admin Dose Admin Ondansetron HCl 4 mg Q4HP PRN IV 08/14/24 11:30 08/17/24 12:06 4 MG Acetaminophen 650 mg Q6HP PRN PO 08/14/24 11:30 Rifaximin 550 mg BID PO 08/14/24 22:00 08/25/24 09:54 550 MG Sucralfate 0.5 gm QID PO 08/14/24 12:00 08/25/24 05:34 0.5 GM Patient Own Medication 1 tab TID PO 08/14/24 14:00 08/25/24 05:35 1 TAB Spironolactone 25 mg DAILY PO 08/15/24 10:00 08/25/24 09:55 25 MG Pantoprazole Sodium 40 mg DAILY@0600 PO 08/15/24 06:00 08/25/24 05:34 40 MG Midodrine 10 mg TID@0600,1200,1800 PO 08/16/24 12:00 08/25/24 05:34 10 MG Lactulose 30 ml DAILY PO 08/17/24 10:00 08/25/24 09:54 30 ML Furosemide 20 mg DAILY IV 08/17/24 10:00 08/25/24 09:54 20 MG Nicardipine HCl 250 ml @ 50 mls/hr Q5H IV 08/17/24 03:45 Cancel Potassium Chloride 10 meq DAILY PO 08/19/24 10:00 08/25/24 09:55 10 MEQ Methylprednisolone Sodium Succinate 40 mg DAILY IV 08/24/24 10:00 08/25/24 09:54 40 MG Amoxicillin 500 mg Q8HR PO 08/25/24 14:00 Examination General Appearance: Cooperative. Well developed. Well nourished. NAD Head Exam: Normal inspection. Mild scleral icterus noted Neck Exam: Normal inspection. Non-tender. Normal alignment Pulmonary/Respiratory: Chest non-tender. Clear bilateral breath sounds, no crackles, no wheezing. Cardiovascular/Chest: Regular rate and rhythm. No murmurs. No JVD. Abdominal Exam: Normal bowel sounds. Soft. normal abdomen, trace dullness to percussion. no visible veins, Nontender. No hepatospenomegaly. No masses Lower extremities: Negative lower extremity edema Thoughts/Psych: Normal thought pattern. Appropriate mood and affect. Good judgement and insight Skin Exam: Normal inspection. Normal color. Warm. Dry laboratory and microbiology Laboratory Tests 08/25/24 04:48 08/23/24 14:42 08/21/24 05:58 Test 08/25/24 04:48 Range/Units Serum Glucose 144 H 74-106 mg/dL Microbiology Date/Time Source Procedure Growth Status 08/18/24 09:45 Ascities Fluid Gram Stain - Final Complete 08/18/24 09:45 Ascities Fluid Body Fluid Culture - Final Complete 08/18/24 06:55 Nose MRSA Screen - Final Complete 08/17/24 21:41 Urine - Catheterized Urine Culture - Final Complete 08/14/24 11:33 Blood Blood Culture - Final NO GROWTH AFTER 5 DAYS OF INCUBATION. Complete Labs and/or images reviewed: Labs reviewed by me, Image(s) reviewed by me Problem List/Assessment/Plan Problem List/Assessment/Plan Jaundice Autoimmune hepatitis Ascites Scleroderma SATINDER Transaminitis Hypertension Liver cirrhosis Lactic acidosis Plan: Increased IV methylprednisolone to 40 mg as patient LFTs trending upwards after bringing methylprednisolone down to 20 mg. Continue steroids 40 mg until appointment with GI Continue spironolactone 25 mg p.o. daily, continue rifaximin Discharge planning as per hospitalist Patient will need to be maintained on prednisone, ursodiol We could check a TPMT phenotype and if possible give her a trial of Imuran 50 mg p.o. daily Patient can follow up with GI in the outpatient clinic for regular paracentesis, appointment scheduled for 08/31/2024. We will try to arrange a sooner appointment. Overall prognosis remains guarded, patient appears to have a good support system Plan discussed with patient and daughter at bedside Plan discussed with Dr. Lucio Plan discussed with: Patient, Other (RN) My Orders My Orders Orders - GABINO COBURN Procedure Category Date Status Time Complete Blood Count LAB 08/26/24 Verified 04:00 Dietary Evaluation Review Comments: Encourage high fiber foods, consider Renal diet with 60g protein restriction is kidney function worsens. Expected Outcomes/Goals: GABINO Mendoza RESIDENT Aug 25, 2024 12:46
[2024-08-25] MEDS: AMOXICILLIN TRIHYDRATE 250 MG CAP PO SCH (13:47)
[2024-08-26] VITALS (16 sets, daily range): BP systolic 80–110; BP diastolic 34–68; PULSE 64–89; RESP 14–18; TEMP 97.3–98.2; O2SAT 91–100
[2024-08-26 06:07] LABS: Hematocrit 40.5 % (36.0-46.0); Hemoglobin 13.2 g/dL (12.2-16.2); Mean Corpuscular Hemoglobin 29.2 pg (28.0-32.0); Mean Corpuscular Hgb Conc. 32.7 g/dL (32.0-36.0); Mean Corpuscular Volume 89.2 fL (80.0-100.0); Platelet Count (auto) 67 10^3/uL (140-450); Red Blood Cells 4.54 10^6/uL (4.0-5.20); White Blood Cell 7.6 10^3/uL (4.4-10.8)
[2024-08-26 06:12] LABS: Red Cell Distribution Width 21.3 % (11.8-14.3)
[2024-08-26 06:13] LABS: Band Neutrophils % (manual) 0; Basophils % (manual) 0 (0.0-2.0); Blast Cells 0; Eosinophils % (manual) 0 (0-7); Metamyelocytes % 0; Myelocytes % 0; Promyelocytes % 0; Reactive Lymphocytes 0
[2024-08-26 06:52] LABS: Lymphocytes % (manual) 6 (10.0-50.0); Monocytes % (manual) 9 (0-12); Platelet Estimate Decreased
[2024-08-26 10:22] LABS: Albumin 3.3 g/dL (3.2-4.8)
[2024-08-26 10:42] LABS: Bilirubin, Total 2.7 mg/dL (0.2-1.0); Total Protein 5.6 g/dL (5.7-8.2)
--- NOTE | 2024-08-26 10:45 | DVHPN2 ---
Subjective Patient denies any symptoms Reviewed: Care Plan, H&P Changes from previous H/P or p: No Changes General: Per HPI Respiratory: Shortness of breath Gastrointestinal: Abdominal Pain, Diarrhea Objective Vitals Vital Signs Date Time Temp Pulse Resp B/P (MAP) Pulse Ox O2 Delivery O2 Flow Rate FiO2 08/26/24 10:28 110/68 08/26/24 08:42 98.2 71 16 91 98.2 08/25/24 20:00 Nasal Cannula* 1 24 Intake/Output Intake and Output 08/26/24 07:00 Intake Total 1000 ml Output Total 700 ml Balance 300 ml Intake Oral 1000 ml Output Urine Total 700 ml # Bowel Movements 1 General Appearance: Alert, Oriented X3, Cooperative HEENT: Atraumatic, PERRLA Lungs: Clear to auscultation, Normal air movement Cardiovascular: Normal S1, Normal S2 Abdomen: Normal bowel sounds, Soft, No hepatospenomegaly, Other (Tenderness noted to left lower:) Musculoskeletal: Normal sensory function, Normal motor function Neuro: Cranial nerves 3-12 NL Skin: Dry, Intact Psych/Mental Status: Mental status NL, Mood NL Medications Current Medications Medications Dose Ordered Sig/Chang Route Start Time Stop Time Status Last Admin Dose Admin Ondansetron HCl 4 mg Q4HP PRN IV 08/14/24 11:30 08/17/24 12:06 4 MG Acetaminophen 650 mg Q6HP PRN PO 08/14/24 11:30 Rifaximin 550 mg BID PO 08/14/24 22:00 08/26/24 10:29 550 MG Sucralfate 0.5 gm QID PO 08/14/24 12:00 08/26/24 05:26 0.5 GM Patient Own Medication 1 tab TID PO 08/14/24 14:00 08/26/24 05:25 1 TAB Spironolactone 25 mg DAILY PO 08/15/24 10:00 08/26/24 10:29 25 MG Pantoprazole Sodium 40 mg DAILY@0600 PO 08/15/24 06:00 08/26/24 05:26 40 MG Midodrine 10 mg TID@0600,1200,1800 PO 08/16/24 12:00 08/26/24 05:26 10 MG Lactulose 30 ml DAILY PO 08/17/24 10:00 08/25/24 09:54 30 ML Furosemide 20 mg DAILY IV 08/17/24 10:00 08/26/24 10:28 20 MG Nicardipine HCl 250 ml @ 50 mls/hr Q5H IV 08/17/24 03:45 Cancel Potassium Chloride 10 meq DAILY PO 08/19/24 10:00 08/26/24 10:29 10 MEQ Methylprednisolone Sodium Succinate 40 mg DAILY IV 08/24/24 10:00 08/26/24 10:28 40 MG Amoxicillin 500 mg Q8HR PO 08/25/24 14:00 08/26/24 05:26 500 MG Laboratory Results Laboratory Tests 08/25/24 04:48 08/26/24 04:49 Chemistry Test 08/26/24 04:49 Albumin Pending Total Protein Pending LFT Test 08/26/24 04:49 Alanine Aminotransferase (ALT) Pending Alkaline Phosphatase Pending Aspartate Amino Transferase (AST) Pending Direct Bilirubin Pending Total Bilirubin Pending Urinalysis Test 08/18/24 22:15 Urine Color Light-yellow (Yellow) Urine Clarity Clear (Clear) Urine pH 5.0 (5.0-9.0) Urine Specific [place] 1.013 (1.001-1.035) Urine Protein Negative (Negative) Urine Ketones Trace (Negative) Urine Blood Negative /uL (Negative) Urine Nitrite Negative (Negative) Urine Bilirubin Negative (Negative) Urine Urobilinogen Normal mg/dL (Negative) Urine Leukocyte Esterase Negative /uL (Negative) Urine RBC None seen /hpf (0 - 4) Urine Microscopic WBC /HPF (0-5) Urine Squamous Epithelial Cells Few /hpf (<5) Urine Bacteria Few /hpf (None Seen) H Urine Mucus Few (None Seen) Urine Glucose Normal mg/dL (Normal) Microbiology Microbiology Date/Time Source Procedure Growth Status 08/18/24 09:45 Ascities Fluid Gram Stain - Final Complete 08/18/24 09:45 Ascities Fluid Body Fluid Culture - Final Complete 08/18/24 06:55 Nose MRSA Screen - Final Complete 08/17/24 21:41 Urine - Catheterized Urine Culture - Final Complete 08/14/24 11:33 Blood Blood Culture - Final NO GROWTH AFTER 5 DAYS OF INCUBATION. Complete Labs and/or images reviewed: Labs reviewed by me, Image(s) reviewed by me Assessment/Plan Assessment/Plan Impression: -septic shock -community-acquired pneumonia, probable Gram-positive/Gram-negative etiology. -cirrhosis of the liver with portal hypertension -abdominal pain -obesity -thrombocytopenia -leukocytosis -rule out gastritis Plan: Events: Right lower lung atelectasis noted. Bilateral pleural effusions noted. Patient has marginal ambulation. Discussed findings with patient and daughter. -start bronchodilators with Mucomyst in addition to EzPAP. -DVT prophylaxis -continue midodrine -stop IV antibiotics, switched to oral -hold anticoagulation given thrombocytopenia -continue diuresis with spironolactone, Lasix -PPI -social service consultation for discharge planning including home PT and DME as previously mentioned. Total time spent with patient discussing and formulating plan of care: 35 minutes. This medical document was created using an electronic medical record system with [employer] dictation system. Although this document has been carefully reviewed, there may still be some phonetic and typographical errors. These areas are purely typographical due to imperfections of the software programs, and do not reflect any compromise in the patient's medical care. Plan discussed with: Patient, Daughter, Other (RN) My Orders Orders - MOSES FOOTE NP Procedure Category Date Status Time Dme: Walker DME 08/25/24 Transmitted 11:28 * [place] Mixer Operator CONS 08/25/24 Transmitted Consult Amoxicillin Capsule PHA 08/25/24 In Process 14:00 * [place] Mixer Operator CONS 08/26/24 Transmitted Consult Chest Xray 1 View XY 08/26/24 Taken 09:35 Chest Ultrasound US 08/26/24 Taken 09:53 Albuterol Medneb PHA 08/26/24 Transmitted (Ventolin Medneb) 12:00 Ipratropium Medneb PHA 08/26/24 Transmitted (Atrovent Medneb) 12:00 Ez-Pap RT 08/26/24 Transmitted 10:39 Chest Portable XY 08/27/24 Transmitted 04:00 Acetylcysteine PHA 08/26/24 Transmitted Inhalation 10% 12:00 Date of Service: Aug 26, 2024 Billing Provider: MOSES FOOTE NP Common Visit Codes: [id number] INP/OBS CARE(HIGH) MOSES FOOTE NP Aug 26, 2024 10:45
--- NOTE | 2024-08-26 10:55 | DVHPNRES ---
Progress Note Date Seen: Aug 26, 2024 Resident Creating Document: GABINO COBURN RESIDENT Medical Necessity Reason Pt with a Central, PICC or Fol: No Subjective Review of Systems Patient was seen and examined at bedside Denies any active ongoing pain or discomfort reports good appetite Patient is progressing with PT, stable H&H Patient is off pressors Patient is getting a low-dose Lasix 20 mg IV daily and also spironolactone 25 mg p.o. q.h.s. Steroids, ursodiol and Protonix on board Objective vital signs Vital Sign Date Time Temp Pulse Resp B/P (MAP) Pulse Ox O2 Delivery O2 Flow Rate FiO2 08/26/24 10:28 110/68 08/26/24 08:42 98.2 71 16 91 98.2 08/25/24 20:00 Nasal Cannula* 1 24 Total Intake and Output 08/25/24 08/25/24 08/26/24 15:00 23:00 07:00 Intake Total 600 ml 400 ml Output Total 350 ml 350 ml Balance 250 ml 50 ml medications Current Medications Medications Dose Ordered Sig/Chang Route Start Time Stop Time Status Last Admin Dose Admin Ondansetron HCl 4 mg Q4HP PRN IV 08/14/24 11:30 08/17/24 12:06 4 MG Acetaminophen 650 mg Q6HP PRN PO 08/14/24 11:30 Rifaximin 550 mg BID PO 08/14/24 22:00 08/26/24 10:29 550 MG Sucralfate 0.5 gm QID PO 08/14/24 12:00 08/26/24 05:26 0.5 GM Patient Own Medication 1 tab TID PO 08/14/24 14:00 08/26/24 05:25 1 TAB Spironolactone 25 mg DAILY PO 08/15/24 10:00 08/26/24 10:29 25 MG Pantoprazole Sodium 40 mg DAILY@0600 PO 08/15/24 06:00 08/26/24 05:26 40 MG Midodrine 10 mg TID@0600,1200,1800 PO 08/16/24 12:00 08/26/24 05:26 10 MG Lactulose 30 ml DAILY PO 08/17/24 10:00 08/25/24 09:54 30 ML Furosemide 20 mg DAILY IV 08/17/24 10:00 08/26/24 10:28 20 MG Nicardipine HCl 250 ml @ 50 mls/hr Q5H IV 08/17/24 03:45 Cancel Potassium Chloride 10 meq DAILY PO 08/19/24 10:00 08/26/24 10:29 10 MEQ Methylprednisolone Sodium Succinate 40 mg DAILY IV 08/24/24 10:00 08/26/24 10:28 40 MG Amoxicillin 500 mg Q8HR PO 08/25/24 14:00 08/26/24 05:26 500 MG Albuterol 2.5 mg Q6HWA NEB 08/26/24 12:00 UNV Ipratropium [place] 0.5 mg Q6HWA NEB 08/26/24 12:00 UNV Acetylcysteine 100 mg Q6HR NEB 08/26/24 12:00 08/27/24 06:01 UNV Examination General Appearance: Cooperative. Well developed. Well nourished. NAD Head Exam: Normal inspection. Mild scleral icterus noted Neck Exam: Normal inspection. Non-tender. Normal alignment Pulmonary/Respiratory: Chest non-tender. Clear bilateral breath sounds, no crackles, no wheezing. Cardiovascular/Chest: Regular rate and rhythm. No murmurs. No JVD. Abdominal Exam: Normal bowel sounds. Soft. normal abdomen, trace dullness to percussion. no visible veins, Nontender. No hepatospenomegaly. No masses Lower extremities: Negative lower extremity edema Thoughts/Psych: Normal thought pattern. Appropriate mood and affect. Good judgement and insight Skin Exam: Normal inspection. Normal color. Warm. Dry laboratory and microbiology Laboratory Tests 08/26/24 04:49 08/25/24 04:48 Test 08/25/24 04:48 Range/Units Serum Glucose 144 H 74-106 mg/dL Microbiology Date/Time Source Procedure Growth Status 08/18/24 09:45 Ascities Fluid Gram Stain - Final Complete 08/18/24 09:45 Ascities Fluid Body Fluid Culture - Final Complete 08/18/24 06:55 Nose MRSA Screen - Final Complete 08/17/24 21:41 Urine - Catheterized Urine Culture - Final Complete 08/14/24 11:33 Blood Blood Culture - Final NO GROWTH AFTER 5 DAYS OF INCUBATION. Complete Labs and/or images reviewed: Labs reviewed by me, Image(s) reviewed by me Problem List/Assessment/Plan Problem List/Assessment/Plan Jaundice Autoimmune hepatitis Ascites Scleroderma SATINDER Transaminitis Hypertension Liver cirrhosis Lactic acidosis Plan: Increased IV methylprednisolone to 40 mg as patient LFTs trending upwards after bringing methylprednisolone down to 20 mg. Continue steroids 40 mg until appointment with GI Continue spironolactone 25 mg p.o. daily, continue rifaximin Discharge planning as per hospitalist Patient will need to be maintained on prednisone, ursodiol We could check a TPMT phenotype and if possible give her a trial of Imuran 50 mg p.o. daily Patient can follow up with GI in the outpatient clinic for regular paracentesis, appointment scheduled for 08/31/2024. Overall prognosis remains guarded, patient appears to have a good support system Plan discussed with patient and daughter at bedside Plan discussed with Dr. Lucio Plan discussed with: Patient, Daughter, Other (RN) Dietary Evaluation Review Comments: Encourage high fiber foods, consider Renal diet with 60g protein restriction is kidney function worsens. Expected Outcomes/Goals: GABINO Mendoza RESIDENT Aug 26, 2024 10:55
--- NOTE | 2024-08-26 10:56 | DVH ---
EXAM: XY CHEST XRAY 1 VIEW Indication: pna Technique: Single frontal view of the chest was obtained Comparison: XY CHEST XRAY 1 VIEW on DOS: 08/23/24, XY CHEST XRAY 1 VIEW on DOS: 08/15/24, XY CHEST XRAY 1 VIEW on DOS: 07/20/24, XY CHEST PORTABLE on DOS: 07/18/24, XY CHEST PORTABLE on DOS: 07/17/24 FINDINGS: Lines and Tubes: Left central venous catheter tip projects over the superior vena cava. Lungs: Right pleural effusion. Small right basilar opacity. No pneumothorax. Cardiomediastinal contours: Unremarkable Bones: No acute osseous abnormality. IMPRESSION: Small right pleural effusion and right basilar opacity. Low lung volumes.
--- NOTE | 2024-08-26 11:04 | DVH ---
Bilateral Chest Sonogram Date: 08/26/2024 09:58 AM Clinical history: RLL effusion Technique: Limited sonographic evaluation of the bilateral chest was performed to evaluate for pleur al effusion. Finding/Impression: Small right pleural effusion. Trace left pleural effusion. Incidentally seen small to moderate volu me ascites.
[2024-08-26] MEDS: ALBUTEROL SULF 2.5 MG/0.5ML(0.5%) NEB SOLN ONE (12:00)
[2024-08-26] MEDS: IPRATROPIUM BROM 0.5 MG/2.5ML INH SOL ONE (12:00)
[2024-08-26] MEDS: ACETYLCYSTEINE 10 %(100MG/ML) SOL 4ML ONE (12:01)
[2024-08-26] MEDS: IPRATROPIUM BROM 0.5 MG/2.5ML INH SOL NEB SCH (18:05)
[2024-08-26] MEDS: ACETYLCYSTEINE 10 %(100MG/ML) SOL 4ML NEB SCH (18:05)
[2024-08-26] MEDS: ALBUTEROL SULF 2.5 MG/0.5ML(0.5%) NEB SOLN NEB SCH (18:05)
[2024-08-27] VITALS (15 sets, daily range): BP systolic 94–118; BP diastolic 51–58; PULSE 68–111; RESP 14–20; TEMP 97.5–97.9; O2SAT 87–99
--- NOTE | 2024-08-27 08:36 | DVHPN2 ---
Subjective Patient denies any symptoms Reviewed: Care Plan, H&P Changes from previous H/P or p: No Changes General: Per HPI Respiratory: Shortness of breath Gastrointestinal: Abdominal Pain, Diarrhea Objective Vitals Vital Signs Date Time Temp Pulse Resp B/P (MAP) Pulse Ox O2 Delivery O2 Flow Rate FiO2 08/27/24 06:01 68 18 99 08/27/24 05:50 Room Air* 0 21 08/27/24 05:00 97.7 107/56 (73) 97.7 Intake/Output Intake and Output 08/27/24 07:00 Intake Total 700 ml Output Total 650 ml Balance 50 ml Intake Oral 700 ml Output Urine Total 650 ml # Bowel Movements 2 General Appearance: Alert, Oriented X3, Cooperative HEENT: Atraumatic, PERRLA Lungs: Clear to auscultation, Normal air movement Cardiovascular: Normal S1, Normal S2 Abdomen: Normal bowel sounds, Soft, No hepatospenomegaly, Other (Tenderness noted to left lower:) Musculoskeletal: Normal sensory function, Normal motor function Extremities: Normal pulses, No tenderness/swelling Neuro: Cranial nerves 3-12 NL Skin: Dry, Intact Psych/Mental Status: Mental status NL, Mood NL Medications Current Medications Medications Dose Ordered Sig/Chang Route Start Time Stop Time Status Last Admin Dose Admin Ondansetron HCl 4 mg Q4HP PRN IV 08/14/24 11:30 08/17/24 12:06 4 MG Acetaminophen 650 mg Q6HP PRN PO 08/14/24 11:30 Rifaximin 550 mg BID PO 08/14/24 22:00 08/26/24 21:57 550 MG Sucralfate 0.5 gm QID PO 08/14/24 12:00 08/27/24 06:29 0.5 GM Patient Own Medication 1 tab TID PO 08/14/24 14:00 08/27/24 06:30 1 TAB Spironolactone 25 mg DAILY PO 08/15/24 10:00 08/26/24 10:29 25 MG Pantoprazole Sodium 40 mg DAILY@0600 PO 08/15/24 06:00 08/27/24 06:29 40 MG Midodrine 10 mg TID@0600,1200,1800 PO 08/16/24 12:00 08/27/24 06:29 10 MG Lactulose 30 ml DAILY PO 08/17/24 10:00 08/25/24 09:54 30 ML Furosemide 20 mg DAILY IV 08/17/24 10:00 08/26/24 10:28 20 MG Nicardipine HCl 250 ml @ 50 mls/hr Q5H IV 08/17/24 03:45 Cancel Potassium Chloride 10 meq DAILY PO 08/19/24 10:00 08/26/24 10:29 10 MEQ Methylprednisolone Sodium Succinate 40 mg DAILY IV 08/24/24 10:00 08/26/24 10:28 40 MG Amoxicillin 500 mg Q8HR PO 08/25/24 14:00 08/27/24 06:29 500 MG Albuterol 2.5 mg Q6HWA [facility] 08/26/24 12:00 08/27/24 05:48 2.5 MG Ipratropium [place] 0.5 mg Q6HWA [facility] 08/26/24 12:00 08/27/24 05:49 0.5 MG Laboratory Results Laboratory Tests 08/25/24 04:48 08/26/24 04:49 Urinalysis Test 08/18/24 22:15 Urine Color Light-yellow (Yellow) Urine Clarity Clear (Clear) Urine pH 5.0 (5.0-9.0) Urine Specific [place] 1.013 (1.001-1.035) Urine Protein Negative (Negative) Urine Ketones Trace (Negative) Urine Blood Negative /uL (Negative) Urine Nitrite Negative (Negative) Urine Bilirubin Negative (Negative) Urine Urobilinogen Normal mg/dL (Negative) Urine Leukocyte Esterase Negative /uL (Negative) Urine RBC None seen /hpf (0 - 4) Urine Microscopic WBC /HPF (0-5) Urine Squamous Epithelial Cells Few /hpf (<5) Urine Bacteria Few /hpf (None Seen) H Urine Mucus Few (None Seen) Urine Glucose Normal mg/dL (Normal) Microbiology Microbiology Date/Time Source Procedure Growth Status 08/18/24 09:45 Ascities Fluid Gram Stain - Final Complete 08/18/24 09:45 Ascities Fluid Body Fluid Culture - Final Complete 08/18/24 06:55 Nose MRSA Screen - Final Complete 08/17/24 21:41 Urine - Catheterized Urine Culture - Final Complete 08/14/24 11:33 Blood Blood Culture - Final NO GROWTH AFTER 5 DAYS OF INCUBATION. Complete Labs and/or images reviewed: Labs reviewed by me, Image(s) reviewed by me Assessment/Plan Assessment/Plan Impression: -septic shock -community-acquired pneumonia, probable Gram-positive/Gram-negative etiology. -cirrhosis of the liver with portal hypertension -abdominal pain -obesity -thrombocytopenia -leukocytosis -rule out gastritis Plan: Events: No events overnight. Repeat chest x-ray this a.m. reveals no improvement with right lower lung. CT scan to be performed. Discussed with primary nurse. -bronchodilators, Mucomyst with EzPAP. Add chest percussion and drainage -DVT prophylaxis -continue midodrine -stop IV antibiotics, switched to oral -hold anticoagulation given thrombocytopenia -continue diuresis with spironolactone, Lasix -PPI -social service consultation for discharge planning including home PT and DME as previously mentioned. Total time spent with patient discussing and formulating plan of care: 35 minutes. This medical document was created using an electronic medical record system with [employer] dictation system. Although this document has been carefully reviewed, there may still be some phonetic and typographical errors. These areas are purely typographical due to imperfections of the software programs, and do not reflect any compromise in the patient's medical care. Plan discussed with: Patient, Daughter, Other (RN) My Orders Orders - MOSES FOOTE NP Procedure Category Date Status Time * Serging Machine Operator CONS 08/26/24 Transmitted Consult Chest Xray 1 View XY 08/26/24 Resulted 09:35 Chest Ultrasound US 08/26/24 Resulted 09:53 Albuterol Medneb PHA 08/26/24 In Process (Ventolin Medneb) 12:00 Ipratropium Medneb PHA 08/26/24 In Process (Atrovent Medneb) 12:00 Ez-Pap RT 08/26/24 Transmitted 10:39 Chest Portable XY 08/27/24 Taken 04:00 Ipratropium Medneb PHA 08/26/24 In Process (Atrovent Medneb) 09:[address] 08/27/24 Logged 08:30 Chest Percussion Tx RT 08/27/24 Logged Initi 08:30 Date of Service: Aug 27, 2024 Billing Provider: MOSES FOOTE NP Common Visit Codes: [id number] INP/OBS CARE(HIGH) MOSES FOOTE NP Aug 27, 2024 08:36
--- NOTE | 2024-08-27 09:22 | DVH ---
CHEST RADIOGRAPH Indication: atelectasis Technique: Single frontal view of the chest was obtained COMPARISON: XY CHEST XRAY 1 VIEW on DOS: 08/26/24, XY CHEST XRAY 1 VIEW on DOS: 08/23/24, XY CHEST XRAY 1 VIEW on DOS: 08/15/24, XY CHEST XRAY 1 VIEW on DOS: 07/20/24, XY CHEST PORTABLE on DOS: 07/18/24 FINDINGS: Lines and Tubes: Left central venous catheter in satisfactory position. Lungs: Congestion Pleura: Small right pleural effusion. No pneumothorax. Cardiomediastinal contours: Unremarkable Bones: Unremarkable IMPRESSION: Pulmonary vascular congestion, slightly increased.
--- NOTE | 2024-08-27 10:20 | DVH ---
Procedure: CT CHEST WITHOUT CONTRAST Reason for study/Clinical History: mucous plugging, RLL atelectasis Comparison Study: Chest radiograph dated 08/27/2024 TECHNIQUE: Multidetector CT of the chest was performed from the lung apices to the upper abdomen with out the use of intravenous contract. Axial, coronal and sagittal multiplanar reformats were performed . Radiation Dose Information: CT Dose: CTDI volume is 10.29 mGy. Dose-length product is 333.81 mGy*cm The dose indicators for CT are the volume Computed Tomography (CT) Dose Index (CTDIvol) and the Dose Length Product (DLP), and are measured in units of mGy and mGy-cm, respectively. These indicators are not patient dose, but values generated from the CT scanner acquisition factors. The report includes radiation exposure data for exposures received during this examination. FINDINGS: Lower neck: Unremarkable. Lungs: Right lower lobe airspace disease. Heart/Vascular Structures: Cardiomegaly. Lymph Nodes: No adenopathy Pleura: Small bilateral pleural effusions, [id number]-left. Musculoskeletal: No acute osseous abnormality. Soft tissues: Normal. Upper abdomen: Moderate ascites, partially imaged. Hepatic cirrhosis. Post cholecystectomy. IMPRESSION: Right lower lobe atelectasis and/or airspace disease. Small bilateral pleural effusions, [id number]-left. Moderate volume abdominal ascites, partially imaged and Hepatic cirrhosis. Radiation optimization: All CT scans at this facility use at least one of these dose optimization charity hniques: automated exposure control mA and/or kV adjustment per patient size (includes targeted exam s where dose is matched to clinical indication) or iterative reconstruction.
[2024-08-27 10:49] LABS: Hematocrit 41.6 % (36.0-46.0); Hemoglobin 13.7 g/dL (12.2-16.2)
--- NOTE | 2024-08-27 11:06 | DVHPN2 ---
Progress Note Date Seen: Aug 27, 2024 Resident Creating Document: GABINO COBURN RESIDENT Medical Necessity Reason Pt with a Central, PICC or Fol: No Subjective Review of Systems Patient was seen and examined at bedside Notes increasing cough that started yesterday, chest x-ray showed slightly increased pulmonary vascular congestion Denies any active ongoing pain or discomfort reports good appetite Passed bowel movement this a.m., denies any nausea vomiting Patient is progressing with PT, stable H&H Patient is off pressors Patient is getting a low-dose Lasix 20 mg IV daily and also spironolactone 25 mg p.o. q.h.s. Steroids, ursodiol and Protonix on board Objective vital signs Vital Sign Date Time Temp Pulse Resp B/P (MAP) Pulse Ox O2 Delivery O2 Flow Rate FiO2 08/27/24 09:00 97.6 104 20 98/51 (67) 87 97.6 08/27/24 05:50 Room Air* 0 21 Total Intake and Output 08/26/24 08/26/24 08/27/24 15:00 23:00 07:00 Intake Total 400 ml 300 ml Output Total 400 ml 250 ml Balance 0 ml 50 ml medications Current Medications Medications Dose Ordered Sig/Chang Route Start Time Stop Time Status Last Admin Dose Admin Ondansetron HCl 4 mg Q4HP PRN IV 08/14/24 11:30 08/17/24 12:06 4 MG Acetaminophen 650 mg Q6HP PRN PO 08/14/24 11:30 Rifaximin 550 mg BID PO 08/14/24 22:00 08/27/24 10:54 550 MG Sucralfate 0.5 gm QID PO 08/14/24 12:00 08/27/24 06:29 0.5 GM Patient Own Medication 1 tab TID PO 08/14/24 14:00 08/27/24 06:30 1 TAB Spironolactone 25 mg DAILY PO 08/15/24 10:00 08/26/24 10:29 25 MG Pantoprazole Sodium 40 mg DAILY@0600 PO 08/15/24 06:00 08/27/24 06:29 40 MG Midodrine 10 mg TID@0600,1200,1800 PO 08/16/24 12:00 08/27/24 06:29 10 MG Lactulose 30 ml DAILY PO 08/17/24 10:00 08/27/24 10:54 30 ML Furosemide 20 mg DAILY IV 08/17/24 10:00 08/26/24 10:28 20 MG Nicardipine HCl 250 ml @ 50 mls/hr Q5H IV 08/17/24 03:45 Cancel Potassium Chloride 10 meq DAILY PO 08/19/24 10:00 08/27/24 10:54 10 MEQ Amoxicillin 500 mg Q8HR PO 08/25/24 14:00 08/27/24 06:29 500 MG Albuterol 2.5 mg Q6HWA [facility] 08/26/24 12:00 08/27/24 05:48 2.5 MG Ipratropium [place] 0.5 mg Q6HWA [facility] 08/26/24 12:00 08/27/24 05:49 0.5 MG Methylprednisolone Sodium Succinate 40 mg DAILY IV 08/28/24 10:40 Examination General Appearance: Cooperative. Well developed. Well nourished. NAD Head Exam: Normal inspection. Mild scleral icterus noted Neck Exam: Normal inspection. Non-tender. Normal alignment Pulmonary/Respiratory: Chest non-tender. Clear bilateral breath sounds, no crackles, no wheezing. Cardiovascular/Chest: Regular rate and rhythm. No murmurs. No JVD. Abdominal Exam: Normal bowel sounds. Soft but distended. normal abdomen, dullness to percussion. no visible veins, Nontender. No hepatospenomegaly. No masses Lower extremities: Negative lower extremity edema Thoughts/Psych: Normal thought pattern. Appropriate mood and affect. Skin Exam: Normal inspection. Normal color. Warm. Dry laboratory and microbiology Laboratory Tests 08/27/24 10:30 08/26/24 04:49 08/25/24 04:48 Test 08/25/24 04:48 Range/Units Serum Glucose 144 H 74-106 mg/dL Microbiology Date/Time Source Procedure Growth Status 08/18/24 09:45 Ascities Fluid Gram Stain - Final Complete 08/18/24 09:45 Ascities Fluid Body Fluid Culture - Final Complete 08/18/24 06:55 Nose MRSA Screen - Final Complete 08/17/24 21:41 Urine - Catheterized Urine Culture - Final Complete 08/14/24 11:33 Blood Blood Culture - Final NO GROWTH AFTER 5 DAYS OF INCUBATION. Complete Problem List/Assessment/Plan Problem List/Assessment/Plan Jaundice Autoimmune hepatitis Ascites Scleroderma SATINDER Transaminitis Hypertension Liver cirrhosis Lactic acidosis Plan: CT chest showed right lower lobe atelectasis and/or airspace disease. Small bilateral pleural effusions. Moderate volume abdominal ascites and hepatic cirrhosis Ordered abdominal ultrasound to evaluate for ascites Radiology consulted for possible paracentesis before discharge Increased IV methylprednisolone to 40 mg as patient LFTs trending upwards after bringing methylprednisolone down to 20 mg. Continue steroids 40 mg until appointment with GI Continue spironolactone 25 mg p.o. daily, continue rifaximin Discharge planning as per hospitalist Patient will need to be maintained on prednisone, ursodiol We could check a TPMT phenotype and if possible give her a trial of Imuran 50 mg p.o. daily Patient can follow up with GI in the outpatient clinic for regular paracentesis, appointment scheduled for 08/31/2024. Overall prognosis remains guarded, patient appears to have a good support system Plan discussed with patient and daughter at bedside Plan discussed with Dr. Lucio Plan discussed with: Patient, Daughter, Other (RN) My Orders My Orders Orders - GABINO COBURN RESIDENT Procedure Category Date Status Time Methylprednisolone PHA 08/28/24 In Process Sod Succ (Solu Medrol 10:40 Dietary Evaluation Review Comments: Encourage high fiber foods, consider Renal diet with 60g protein restriction is kidney function worsens. Expected Outcomes/Goals: GABINO Mendoza RESIDENT Aug 27, 2024 11:06
--- NOTE | 2024-08-27 11:44 | DVH ---
ULTRASOUND ABDOMEN limited, 4 QUADRANTS INDICATION: evaluate ascites Evaluate for ascites. TECHNIQUE: The four quadrants of the abdomen were scanned in small-scale to assess for the presence of ascites. N o solid organ assessment was performed. FINDINGS/IMPRESSIONS: Moderate volume ascites.
--- NOTE | 2024-08-27 13:21 | DVH ---
US PARACENTESIS, HISTORY: ASCITES PROCEDURE: Informed consent was obtained. The patient was placed in supine position. A limited locali zation ultrasound of the abdomen was obtained, and the skin site over the largest pocket of fluid was marked and entry site was prepped with chlorhexidine which was allowed to dry and draped in the usua l sterile fashion. Time out was performed. Following administration of 1% lidocaine local anesthetic, a 5 [place] centesis needle catheter was percutaneously inserted into the peritoneal collection until fluid was aspirated. The catheter was advanced into the fluid collection and the needle removed. Abo ut 3000 cc of fluid was aspirated . The catheter was then removed and a sterile dressing applied. No immediate complication was identified. FINDINGS: Limited ultrasound imaging demonstrates mild ascites. Aspirated fluid was clear and serous. IMPRESSION: US-guided paracentesis with 3L removed.
[2024-08-28] VITALS (12 sets, daily range): BP systolic 90–98; BP diastolic 47–69; PULSE 77–101; RESP 12–18; TEMP 97.5–98.5; O2SAT 87–100
[2024-08-28] MEDS: methylPREDNISolone SOD SUCC 125 MG/2 ML VL IV SCH (09:23)
--- NOTE | 2024-08-28 16:44 | DVHPN2 ---
Subjective Patient denies any symptoms Reviewed: Care Plan, H&P Changes from previous H/P or p: No Changes General: Per HPI Respiratory: Shortness of breath Gastrointestinal: Abdominal Pain, Diarrhea Objective Vitals Vital Signs Date Time Temp Pulse Resp B/P (MAP) Pulse Ox O2 Delivery O2 Flow Rate FiO2 08/28/24 16:40 97.5 101 17 98/69 (79) 90 97.5 08/28/24 12:40 Room Air 0.0 08/28/24 12:40 21 Intake/Output Intake and Output 08/28/24 07:00 Intake Total 400 ml Output Total 550 ml Balance -150 ml Intake Oral 400 ml Output Urine Total 550 ml General Appearance: Alert, Oriented X3, Cooperative HEENT: Atraumatic, PERRLA Lungs: Clear to auscultation, Normal air movement Cardiovascular: Normal S1, Normal S2 Abdomen: Normal bowel sounds, Soft, No hepatospenomegaly, Other (Tenderness noted to left lower:) Musculoskeletal: Normal sensory function, Normal motor function Extremities: Normal pulses, No tenderness/swelling Neuro: Cranial nerves 3-12 NL Skin: Dry, Intact Psych/Mental Status: Mental status NL, Mood NL Medications Current Medications Medications Dose Ordered Sig/Chang Route Start Time Stop Time Status Last Admin Dose Admin Ondansetron HCl 4 mg Q4HP PRN IV 08/14/24 11:30 08/17/24 12:06 4 MG Acetaminophen 650 mg Q6HP PRN PO 08/14/24 11:30 Rifaximin 550 mg BID PO 08/14/24 22:00 08/28/24 09:23 550 MG Sucralfate 0.5 gm QID PO 08/14/24 12:00 08/28/24 13:09 0.5 GM Patient Own Medication 1 tab TID PO 08/14/24 14:00 08/28/24 13:19 1 TAB Spironolactone 25 mg DAILY PO 08/15/24 10:00 08/28/24 09:23 25 MG Pantoprazole Sodium 40 mg DAILY@0600 PO 08/15/24 06:00 08/28/24 06:21 40 MG Midodrine 10 mg TID@0600,1200,1800 PO 08/16/24 12:00 08/28/24 13:09 10 MG Lactulose 30 ml DAILY PO 08/17/24 10:00 08/27/24 10:54 30 ML Furosemide 20 mg DAILY IV 08/17/24 10:00 08/28/24 09:25 20 MG Nicardipine HCl 250 ml @ 50 mls/hr Q5H IV 08/17/24 03:45 Cancel Potassium Chloride 10 meq DAILY PO 08/19/24 10:00 08/28/24 09:23 10 MEQ Amoxicillin 500 mg Q8HR PO 08/25/24 14:00 08/28/24 13:19 500 MG Albuterol 2.5 mg Q6HWA [facility] 08/26/24 12:00 08/28/24 12:40 2.5 MG Ipratropium [place] 0.5 mg Q6HWA [facility] 08/26/24 12:00 08/28/24 12:40 0.5 MG Methylprednisolone Sodium Succinate 40 mg DAILY IV 08/28/24 10:40 08/28/24 09:23 40 MG Laboratory Results Laboratory Tests 08/25/24 04:48 08/26/24 04:49 08/27/24 10:30 Urinalysis Test 08/18/24 22:15 Urine Color Light-yellow (Yellow) Urine Clarity Clear (Clear) Urine pH 5.0 (5.0-9.0) Urine Specific [place] 1.013 (1.001-1.035) Urine Protein Negative (Negative) Urine Ketones Trace (Negative) Urine Blood Negative /uL (Negative) Urine Nitrite Negative (Negative) Urine Bilirubin Negative (Negative) Urine Urobilinogen Normal mg/dL (Negative) Urine Leukocyte Esterase Negative /uL (Negative) Urine RBC None seen /hpf (0 - 4) Urine Microscopic WBC /HPF (0-5) Urine Squamous Epithelial Cells Few /hpf (<5) Urine Bacteria Few /hpf (None Seen) H Urine Mucus Few (None Seen) Urine Glucose Normal mg/dL (Normal) Microbiology Microbiology Date/Time Source Procedure Growth Status 08/18/24 09:45 Ascities Fluid Gram Stain - Final Complete 08/18/24 09:45 Ascities Fluid Body Fluid Culture - Final Complete 08/18/24 06:55 Nose MRSA Screen - Final Complete 08/17/24 21:41 Urine - Catheterized Urine Culture - Final Complete 08/14/24 11:33 Blood Blood Culture - Final NO GROWTH AFTER 5 DAYS OF INCUBATION. Complete Labs and/or images reviewed: Labs reviewed by me, Image(s) reviewed by me Assessment/Plan Assessment/Plan Impression: -septic shock -community-acquired pneumonia, probable Gram-positive/Gram-negative etiology. -cirrhosis of the liver with portal hypertension -abdominal pain -obesity -thrombocytopenia -leukocytosis -rule out gastritis Plan: Events: No events overnight. DC central line, DC Gay. Continue oral antibiotics. Discharge once patient was ambulating. Paracentesis with 3 L removed yesterday. -bronchodilators, Mucomyst with EzPAP. Add chest percussion and drainage -DVT prophylaxis -continue midodrine -stop IV antibiotics, switched to oral -hold anticoagulation given thrombocytopenia -continue diuresis with spironolactone, Lasix -PPI -social service consultation for discharge planning including home PT and DME as previously mentioned. Total time spent with patient discussing and formulating plan of care: 35 minutes. This medical document was created using an electronic medical record system with [employer] dictation system. Although this document has been carefully reviewed, there may still be some phonetic and typographical errors. These areas are purely typographical due to imperfections of the software programs, and do not reflect any compromise in the patient's medical care. Plan discussed with: Patient, Other (RN) Date of Service: Aug 28, 2024 Billing Provider: MOSES FOOTE NP Common Visit Codes: [id number] INP/OBS CARE(HIGH) Procedure Codes: [id number] SEDATION INITIAL 15 MOSES FOOTE NP Aug 28, 2024 16:44
[2024-08-28] MEDS ORDERED: AUG875T PO (17:21)
[2024-08-28] MEDS ORDERED: PRED20TA2 PO (17:25)
--- NOTE | 2024-09-01 17:20 | DVHDS2 ---
Discharge Summary Date of Admission Aug 14, 2024 at 11:28 Date of Discharge: Aug 28, 2024 Admitting Diagnosis Acute hypoxic respiratory failure Labs/Diagnostic Data: Laboratory Results Test 08/27/24 10:30 08/26/24 04:49 08/25/24 04:48 08/21/24 05:58 Hemoglobin 13.7 g/dL (12.2-16.2) Hematocrit 41.6 % (36.0-46.0) White Blood Count 7.6 10^3/uL (4.4-10.8) Red Blood Count 4.54 10^6/uL (4.0-5.20) Mean Corpuscular Volume 89.2 fL (80.0-100.0) Mean Corpuscular Hemoglobin 29.2 pg (28.0-32.0) Mean Corpuscular Hemoglobin Concent 32.7 g/dL (32.0-36.0) Red Cell Distribution Width 21.3 % (11.8-14.3) Platelet Count 67 10^3/uL (140-450) Mean Platelet Volume 8.1 fL (6.9-10.8) Neutrophils (%) (Auto) % (37.0-80.0) Lymphocytes (%) (Auto) % (10.0-50.0) Monocytes (%) (Auto) % (0.0-12.0) Basophils (%) (Auto) % (0.0-2.0) Neutrophils # (Auto) 10 ^3/uL (1.6-8.6) Lymphocytes # (Auto) 10 ^3/uL (0.4-5.4) Monocytes # (Auto) 10 ^3/uL (0-1.3) Differential Total Cells Counted 100.0 (100) Neutrophils % (Manual) 85 (37.0-80.0) Band Neutrophils % (Manual) 0 Lymphocytes % (Manual) 6 (10.0-50.0) Monocytes % (Manual) 9 (0-12) Eosinophils % (Manual) 0 (0-7) Basophils % (Manual) 0 (0.0-2.0) Metamyelocytes % (manual) 0 Myelocytes % (Manual) 0 Promyelocytes % (Manual) 0 Blast Cells % (Manual) 0 Reactive Lymphocytes 0 Platelet Estimate Decreased Total Bilirubin 2.7 mg/dL (0.2-1.0) Direct Bilirubin 2.0 mg/dL (<0.3) Aspartate Amino Transferase (AST) 105 U/L (13-40) Alanine Aminotransferase (ALT) 153 U/L (7-40) Alkaline Phosphatase 376 U/L (46-116) Total Protein 5.6 g/dL (5.7-8.2) Albumin 3.3 g/dL (3.2-4.8) Sodium Level 131 mmol/L (136-145) Potassium Level 3.7 mmol/L (3.5-5.1) Chloride Level 97 mmol/L (98-107) Carbon Dioxide Level 23 mmol/L (20-31) Anion Gap 11 (5-15) Blood Urea Nitrogen 41 mg/dL (9-23) Creatinine 1.84 mg/dL (0.550-1.02) Glomerular Filtration Rate Calc 30 mL/min (>90) BUN/Creatinine Ratio 22.3 (10.0-20.0) Serum Glucose 144 mg/dL (74-106) Calcium Level 10.7 mg/dL (8.7-10.4) Eosinophils (%) (Auto) 0.0 % (0.0-7.0) Eosinophils # (Auto) 0 10 ^3/uL (0-0.8) Basophils # (Auto) 0 10 ^3/uL (0-0.2) Nucleated Red Blood Cells 0.2 % Test 08/19/24 04:57 08/18/24 22:15 08/18/24 09:45 08/15/24 18:27 Magnesium Level 2.0 mg/dL (1.6-2.6) Thyroid Stimulating Hormone (TSH) 0.26 uIU/mL (0.55-4.78) Free Thyroxine (T4) Calculated 0.92 ng/dL (0.89-1.76) Free Triiodothyronine (T3) pg/mL 1.29 pg/mL (2.3-4.2) Urine Color Light-yellow (Yellow) Urine Clarity Clear (Clear) Urine pH 5.0 (5.0-9.0) Urine Specific [place] 1.013 (1.001-1.035) Urine Protein Negative (Negative) Urine Ketones Trace (Negative) Urine Blood Negative /uL (Negative) Urine Nitrite Negative (Negative) Urine Bilirubin Negative (Negative) Urine Urobilinogen Normal mg/dL (Negative) Urine Leukocyte Esterase Negative /uL (Negative) Urine RBC None seen /hpf (0 - 4) Urine Microscopic WBC /HPF (0-5) Urine Squamous Epithelial Cells Few /hpf (<5) Urine Bacteria Few /hpf (None Seen) Urine Mucus Few (None Seen) Urine Glucose Normal mg/dL (Normal) Body Fluid Source Ascities fluid Body Fluid pH 8.0 Body Fluid WBC (Manual) 310 CUMM (0-200) Body Fluid RBC (Manual) 10 CUMM (0-2000) Body Fluid Mononuclear Cells 84 % Body Fluid Polymorphonuclear Cells 16 % (0-25) Body Fluid Glucose 157 mg/dL (.) Body Fluid Total Protein 0.5 g/dL (.) Body Fluid Lactate Dehydrogenase 50 IU/L (.) Body Fluid Albumin <0.2 g/dL (Not Estab.) Test 08/15/24 07:53 08/14/24 12:05 08/14/24 11:33 POC Glucose 100 mg/dl (70-106) Lactic Acid Level 2.1 mmol/L (0.4-2.0) Ammonia < 10 umol/L (11-32) Prothrombin Time 11.9 sec (9.3-11.8) Prothrombin Time INR 1.14 (0.9-1.15) Activated Partial Thromboplast Time 26.2 SEC (24.5-34.5) Amylase Level 97 U/L (30-118) Lipase 58 U/L (12-53) Other Laboratory Tests 08/27/24 10:30 08/26/24 04:49 08/25/24 04:48 Brief Hx & Hospital Course: History of Present Illness Aurora Friedman is a 69-year-old female with past medical history of liver cirrhosis autoimmune, kidney failure, and bilateral DVTs with IVC filter placed who presents to the ED with abdominal pain, distention, diarrhea, and shortness of breath. Daughter at bedside Angie states that she was at [facility] for 5 days and had a paracentesis with 4 L out. Prior to that she was here at [facility] for 2 weeks and had 2 paracentesis with 4 L out each time with a total of 8 L out. Patient's daughter Angie states that she has a total of 3 paracentesis with the 1st being at [facility]. Patient's daughter also reports that she does not use home oxygen but upon examination patient is on oxygen. Patient's daughter also reports that her blood pressure has been very low and she has been giving her midodrine with no change. Patient's daughter also reports that the patient has been lethargic and has lost her appetite the last day. Patient is not currently complaining of chest pain, shortness of breath, fever, chills, nausea, and vomiting. Course of hospitalization: Patient was treated with empiric IV antibiotic therapy. She had multiple paracentesis while in the hospital. Patient was started on midodrine for blood pressure support. Patient has been ambulating, tolerating oral diuretics. Patient had medication reconciliation performed, with continuation of all home medications, with the addition of prednisone 40 mg p.o. daily x2 weeks as well as Augmentin 875 mg for five days. Patient has had appropriate oral intake. Long discussion was made with the daughter regarding discharge planning. Patient will be discharged home with physical therapy, as well as follow up with the discharge Clinic in one week. All parties are agreeable with discharge plan. Physical exam General: Alert and Oriented x3. No acute distress. Well-nourished. Eyes: EOMI. Anicteric. HENT: Moist mucous membranes. Lungs: Clear to auscultation bilaterally. No accessory muscle use. Cardiovascular: Regular rate and rhythm. No murmur. No JVD. Abdomen: Soft, non-tender and non-distended. No palpable masses. Extremities: No edema. Non-tender. Skin: No rashes or lesions. Warm. Neurologic: No focal neurological deficits. CN II-XII grossly intact, but not individually tested. Psychiatric: Cooperative. Appropriate mood and affect. Total time spent with patient discussing and formulating plan of care: 35 minutes. This medical document was created using an electronic medical record system with [employer] ([employer]) dictation system. Although this document has been carefully reviewed, there may still be some phonetic and typographical errors. These areas are purely typographical due to imperfections of the software programs, and do not reflect any compromise in the patient's medical care. Consults/Reason for consult Gastroenterology: Cirrhosis Condition at Discharge: Guarded Final Diagnosis/Problems List Acute hypoxic respiratory failure Secondary diagnosis: -septic shock -community-acquired pneumonia, probable Gram-positive/Gram-negative etiology. -cirrhosis of the liver with portal hypertension -abdominal pain -obesity -thrombocytopenia -leukocytosis -ruled out gastritis -acute kidney injury -ascites Discharge Disposition: Home with Health Services Discharge Instruct/Medications Diet: Cardiac 2g Na,low cholest Activity: No Restrictions, As Tolerated Follow Up/Referral: PCP in 1-2 weeks Medications: Continue all home medications 875 mg p.o. b.i.d. x4 days 36 Discharge Statement: "Patient was advised to return to the ER or call 911 if any headaches, dizziness, shortness of breath, chest pain, abdominal pain, bleeding, fevers, or worsening of medical condition. Patient was counseled about treatment plan, medications, possible side effects, patientverbalized understanding. All questions were answered to the best of my ability. This discharge took greater then 30 minutes in planning, reviewing documentation, counseling the patient, and discussing with other team members." DME: Diagnosis: pneumonia, cirrhosis ASSESSMENT ASSESSMENT Assessment Acute hypoxic respiratory failure Date of Service: Sep 01, 2024 Billing Provider: MOSES FOOTE NP Common Visit Codes: 02663-OTT/OBS DISCH DAY >30min MOSES FOOTE NP Sep 01, 2024 17:20
== END 2024-08-28 18:35 | disposition home health service (06) | DRG 720 ==
LOC: EDBD 10:08 → ER 10:08 → OVERFLOW 11:28 → ICU CENTRL 08-18 05:57 → TELE-CENTR 08-21 00:20 → CENTRAL 08-24 14:17
PROVIDERS: ADMIT Nurse Practitioner Acute Care; ATTEND Nurse Practitioner Acute Care
PROC: 02HV33Z Insertion of Infusion Device into Superior Vena Cava, Percutaneous Approach (ICD-10-PCS; principal; 2024-08-15)
PROC: B548ZZA Ultrasonography of Superior Vena Cava, Guidance (ICD-10-PCS; 2024-08-15)
PROC: 0W9G3ZX Drainage of Peritoneal Cavity, Percutaneous Approach, Diagnostic (ICD-10-PCS; 2024-08-18)
PROC: 0W9G3ZZ Drainage of Peritoneal Cavity, Percutaneous Approach (ICD-10-PCS; 2024-08-27)
DX: A41.9 Sepsis, unspecified organism (principal); J96.01 Acute respiratory failure with hypoxia; R65.21 Severe sepsis with septic shock; J15.69 Pneumonia due to other Gram-negative bacteria; E87.20 Acidosis, unspecified; D69.6 Thrombocytopenia, unspecified; J15.9 Unspecified bacterial pneumonia; E87.1 Hypo-osmolality and hyponatremia; N17.9 Acute kidney failure, unspecified; J90 Pleural effusion, not elsewhere classified; K76.6 Portal hypertension; R18.8 Other ascites; M34.9 Systemic sclerosis, unspecified; K59.00 Constipation, unspecified; K75.4 Autoimmune hepatitis; I12.9 Hypertensive chronic kidney disease with stage 1 through stage 4 chronic kidney disease, or unspecified chronic kidney disease; E87.6 Hypokalemia; K29.70 Gastritis, unspecified, without bleeding; K44.9 Diaphragmatic hernia without obstruction or gangrene; K74.60 Unspecified cirrhosis of liver; N18.9 Chronic kidney disease, unspecified; E66.9 Obesity, unspecified; E87.70 Fluid overload, unspecified; Z79.2 Long term (current) use of antibiotics; Z79.899 Other long term (current) drug therapy; Z83.3 Family history of diabetes mellitus; Z80.3 Family history of malignant neoplasm of breast; Z86.718 Personal history of other venous thrombosis and embolism; Z79.1 Long term (current) use of non-steroidal anti-inflammatories (NSAID)
CPT/HCPCS: 36415; 36556; 49083; 71045; 71250; 74176; 76604; 76705; 76942; 80048; 80053; 80076; 81001; 82140; 82150; 82247; 82962; 83605; 83690; 83735; 83986; 84439; 84443; 84481; 85007; 85014; 85018; 85025; 85027; 85610; 85730; 87040; 87081; 87086; 87205; 89051; 93005; 94640; 94667; 94668; 96365; 96375; 97110; 97116; 97163; 97530; 99291; G0378; J2405; J2543; J3480